=== PATIENT | male | born 1945 | race Caucasian/White ===

== ENCOUNTER → 2018-03-13 11:16 | Outpatient (CLI) | payer OTHER, SELFPAY ==
[2018-03-13 11:24] LABS: Bacteria Urine None Seen
[2018-03-13 12:10] LABS: Add Manual Diff / Slide Review NO; Basophils Percent Auto 0.4 % (0-2); Eosinophils Percent Auto 3.2 % (2-4); Hematocrit 55.2 % (41-53); Hemoglobin 18.6 g/dL (13.5-17.5); Lymphocytes Percent Auto 11.7 % (25-40); Mean Corpuscular HGB Conc 33.6 % (30-36); Mean Corpuscular Hemoglobin 31.1 PG (26-34); Mean Corpuscular Volume 92.5 fL (80-100); Neutrophils Absolute Auto 9600 /uL (3000-5900); Neutrophils Percent Auto 78.7 % (50-75); Platelet Count 156 X10^3/uL (150-400); Red Blood Cell Count 5.97 X10^6/uL (4.5-5.9); Red Cell Distribution Width 14.2 % (11.6-14.8); White Blood Cell Count 12.3 X10^3/uL (4.5-11.0)
[2018-03-13 12:33] LABS: Alanine Aminotransferase 45 IU/L (21-72); Albumin 4.5 g/dL (3.5-5.0); Albumin Globulin Ratio 1.6 (1.0-2.8); Alkaline Phosphatase 105 U/L (38-126); Aspartate Aminotransferase 35 IU/L (17-59); Bilirubin Total 0.5 mg/dL (0.2-1.3); Blood Urea Nitrogen 25 mg/dL (9-20); Calcium 9.6 mg/dL (8.4-10.2); Carbon Dioxide 26 mmol/L (22-32); Chloride 104 mmol/L (98-107); Cholesterol 140 mg/dL (140-199); Estimated Glomerular Filt Rate > 60.0 mL/min (>60); Globulin 2.8 g/dL (1.7-4.1); Glucose 115 mg/dL (80-110); HDL Cholesterol 51 mg/dL (40-60); HEMOLYSIS < 15 (0-50); LDL Cholesterol Calculated 65 mg/dL (<100); Potassium 4.9 mmol/L (3.4-5.1); Sodium 143 mmol/L (137-145); Total Protein 7.3 g/dL (6.3-8.2); Triglycerides 122 mg/dL (35-150)
[2018-03-13 12:37] LABS: Appearance Urine UA CLEAR; Bilirubin Urine UA NEGATIVE (NEGATIVE); Color Urine UA YELLOW; Glucose Urine UA NEGATIVE (Normal); Ketones Urine UA NEGATIVE (NEGATIVE); Leukocyte Esterase Urine UA NEGATIVE (NEGATIVE); Nitrite Urine UA NEGATIVE (Negative); Occult Blood Urine UA 1+ (Negative); Protein Urine UA 1+ (Negative); Urobilinogen Urine UA 0.2 E.U./dL (0.2)
[2018-03-13 12:49] LABS: Culture Indicated Urine Cult Not Indicated; RBC Urine 0-1/HPF (0-5/HPF); Squamous Epithelial Cell Urine 0-1 /HPF; WBC Urine 0-1/HPF (0-5/HPF)
[2018-03-13 13:01] LABS: Prostate Specific Antigen Scrn 3.79 ng/mL (0.1-4.0)
[2018-03-13 16:03] LABS: Hemoglobin A1C% w Est Avg Glu 6.2 % (4.0-6.0)
== END ==
PROVIDERS: PCP Family Medicine; Visit Provider Family Medicine
DX: I10 Essential (primary) hypertension (principal); R35.1 Nocturia; D75.1 Secondary polycythemia; E78.2 Mixed hyperlipidemia; R73.9 Hyperglycemia, unspecified; Z12.5 Encounter for screening for malignant neoplasm of prostate
CPT/HCPCS: 36415; 80053; 80061; 81001; 83036; 85025; G0103

== ENCOUNTER → 2018-08-19 11:39 | Outpatient (CLI) | payer OTHER, SELFPAY ==
[2018-08-19 12:23] LABS: Add Manual Diff / Slide Review NO; Basophils Absolute Auto 0 /uL (0-100); Basophils Percent Auto 0.3 % (0-2); Eosinophils Absolute Auto 200 /uL (0-450); Eosinophils Percent Auto 1.4 % (2-4); Hematocrit 54.7 % (41-53); Hemoglobin 18.5 g/dL (13.5-17.5); Hemoglobin A1C% w Est Avg Glu 6.3 % (4.0-6.0); Lymphocytes Absolute Auto 1400 /uL (1100-4500); Lymphocytes Percent Auto 11.1 % (25-40); Mean Corpuscular HGB Conc 33.8 % (30-36); Mean Corpuscular Hemoglobin 31.1 PG (26-34); Mean Corpuscular Volume 92.2 fL (80-100); Monocytes Absolute Auto 700 /uL (0-900); Monocytes Percent Auto 5.4 % (3-14); Neutrophils Absolute Auto 10400 /uL (1500-7000); Neutrophils Percent Auto 81.8 % (50-75); Platelet Count 133 X10^3/uL (150-400); Red Blood Cell Count 5.93 X10^6/uL (4.5-5.9); Red Cell Distribution Width 14.7 % (11.6-14.8); White Blood Cell Count 12.7 X10^3/uL (4.5-11.0)
[2018-08-19 12:24] LABS: BUN Creatinine Ratio 22.5 (6-22); Blood Urea Nitrogen 18 mg/dL (9-20); Calcium 9.4 mg/dL (8.4-10.2); Carbon Dioxide 27 mmol/L (22-32); Chloride 104 mmol/L (98-107); Estimated Glomerular Filt Rate > 60.0 mL/min (>60); Glucose 122 mg/dL (80-110); HEMOLYSIS 16 (0-50); Potassium 4.6 mmol/L (3.4-5.1); Sodium 138 mmol/L (137-145)
[2018-08-20 17:03] LABS: Hep C Virus Ab w/Reflex Quant NEGATIVE s/c (NEGATIVE)
== END ==
PROVIDERS: PCP Family Medicine; Visit Provider Family Medicine
DX: I10 Essential (primary) hypertension (principal); R73.03 Prediabetes; D75.1 Secondary polycythemia; Z11.59 Encounter for screening for other viral diseases
CPT/HCPCS: 36415; 80048; 83036; 85025; 86803

== ENCOUNTER → 2019-02-24 11:47 | Outpatient (CLI) | payer OTHER, SELFPAY ==
[2019-02-24 12:35] LABS: Add Manual Diff / Slide Review NO; Basophils Absolute Auto 100 /uL (0-100); Basophils Percent Auto 0.5 % (0-2); Eosinophils Absolute Auto 100 /uL (0-450); Eosinophils Percent Auto 0.9 % (2-4); Hematocrit 51.7 % (41-53); Hemoglobin 17.7 g/dL (13.5-17.5); Lymphocytes Absolute Auto 1600 /uL (1100-4500); Lymphocytes Percent Auto 11.8 % (25-40); Mean Corpuscular HGB Conc 34.3 % (30-36); Mean Corpuscular Hemoglobin 31.5 PG (26-34); Monocytes Absolute Auto 800 /uL (0-900); Monocytes Percent Auto 5.9 % (3-14); Neutrophils Absolute Auto 10800 /uL (1500-7000); Neutrophils Percent Auto 80.9 % (50-75); Platelet Count 149 X10^3/uL (150-400); Red Blood Cell Count 5.62 X10^6/uL (4.5-5.9); Red Cell Distribution Width 14.4 % (11.6-14.8); White Blood Cell Count 13.4 X10^3/uL (4.5-11.0)
[2019-02-24 14:08] LABS: Alanine Aminotransferase 37 IU/L (21-72); Albumin 4.5 g/dL (3.5-5.0); Albumin Globulin Ratio 1.5 (1.0-2.8); Alkaline Phosphatase 124 U/L (38-126); Aspartate Aminotransferase 29 IU/L (17-59); Bilirubin Total 0.5 mg/dL (0.2-1.3); Blood Urea Nitrogen 20 mg/dL (9-20); Calcium 9.8 mg/dL (8.4-10.2); Carbon Dioxide 24 mmol/L (22-32); Chloride 105 mmol/L (98-107); Estimated Glomerular Filt Rate > 60.0 mL/min (>60); Globulin 3.1 g/dL (1.7-4.1); Glucose 124 mg/dL (80-110); HEMOLYSIS 17 (0-50); Potassium 4.8 mmol/L (3.4-5.1); Sodium 138 mmol/L (137-145); Total Protein 7.6 g/dL (6.3-8.2)
[2019-02-24 14:15] LABS: Hemoglobin A1C% w Est Avg Glu 6.3 % (4.0-6.0)
== END ==
PROVIDERS: PCP Family Medicine; Visit Provider Family Medicine
DX: R73.03 Prediabetes (principal); D75.1 Secondary polycythemia
CPT/HCPCS: 36415; 80053; 83036; 85025

== ENCOUNTER → 2019-10-01 12:18 | Outpatient (CLI) | payer OTHER, SELFPAY ==
[2019-10-01 13:28] LABS: BUN Creatinine Ratio 18.6 (6-22); Blood Urea Nitrogen 16 mg/dL (9-20); Calcium 9.8 mg/dL (8.4-10.2); Carbon Dioxide 26 mmol/L (22-32); Chloride 102 mmol/L (98-107); Estimated Glomerular Filt Rate > 60.0 mL/min (>60); Glucose 136 mg/dL (80-110); HEMOLYSIS < 15 (0-50); Potassium 4.3 mmol/L (3.4-5.1); Sodium 137 mmol/L (137-145)
[2019-10-01 13:34] LABS: Hematocrit 55.8 % (41-53); Hemoglobin 19.2 g/dL (13.5-17.5); Mean Corpuscular HGB Conc 34.3 % (30-36); Mean Corpuscular Hemoglobin 31.4 PG (26-34); Mean Corpuscular Volume 91.5 fL (80-100); Platelet Count 131 X10^3/uL (150-400); Red Cell Distribution Width 14.3 % (11.6-14.8); White Blood Cell Count 11.4 X10^3/uL (4.5-11.0)
[2019-10-01 13:37] LABS: Hemoglobin A1C% w Est Avg Glu 7.1 % (4.0-6.0)
[2019-10-01 13:53] LABS: Neutrophils Absolute Manual 8778 /uL (3000-5900); Total Cells Counted 100
[2019-10-01 13:54] LABS: RBC Morphology Normal Morphology
== END ==
PROVIDERS: PCP Family Medicine; Referring Provider Family Medicine; Visit Provider Family Medicine
DX: I10 Essential (primary) hypertension (principal); R73.03 Prediabetes; D72.829 Elevated white blood cell count, unspecified
CPT/HCPCS: 36415; 80048; 83036; 85025

== ENCOUNTER → 2019-10-21 11:32 | Outpatient (CLI) | payer OTHER, SELFPAY ==
[2019-10-21 12:41] LABS: Hematocrit 53.5 % (41-53); Hemoglobin 18.4 g/dL (13.5-17.5); Mean Corpuscular HGB Conc 34.4 % (30-36); Mean Corpuscular Hemoglobin 31.6 PG (26-34); Mean Corpuscular Volume 91.9 fL (80-100); Platelet Count 127 X10^3/uL (150-400); Red Blood Cell Count 5.82 X10^6/uL (4.5-5.9); Red Cell Distribution Width 14.4 % (11.6-14.8); White Blood Cell Count 12.4 X10^3/uL (4.5-11.0)
[2019-10-21 12:58] LABS: Neutrophils Absolute Manual 10044 /uL (3000-5900); Total Cells Counted 100
[2019-10-21 13:00] LABS: RBC Morphology Normal Morphology
== END ==
PROVIDERS: PCP Family Medicine; Referring Provider Family Medicine; Visit Provider Family Medicine
DX: D75.1 Secondary polycythemia (principal)
CPT/HCPCS: 36415; 85025

== ENCOUNTER → 2019-11-20 13:16 | Outpatient (CLI) | payer OTHER, SELFPAY ==
[2019-11-20 15:58] LABS: Creatinine Urine Random 123.2 mg/dL
[2019-11-20 16:43] LABS: Microalbumi Creatinin Ratio Ur 542.2 ug/mg CR (<30); Microalbumin Urine Random 66.8 mg/dL (0-1.6)
--- NOTE | 2019-11-24 13:03 | ONC.MSW ---
Description: New Referral Navigation Referral Reason: Polycythemia Activity: Reviewed referral for acuity, medical status, and immediate needs. Forwarded to scheduling for next available initial consult time.
== END ==
PROVIDERS: PCP Family Medicine; Visit Provider Family Medicine
DX: E11.9 Type 2 diabetes mellitus without complications (principal)
CPT/HCPCS: 82043; 82570

== ENCOUNTER → 2019-12-25 11:17 | Outpatient (CLI) | payer OTHER, SELFPAY ==
--- NOTE | 2019-12-25 12:55 | DIET.PN ---
Diabetes Intake: Initial Assessment Assess: Mr. Sherman is a 74 YOM referred for type 2 diabetes. He is newly diagnosed, but does not believe this report is accurate. He states he does not eat sweets or pre-packaged foods. He does not drink alcohol or any sugar sweetened beverages aside from milk. Since diagnosis he has been working to lose weight by limiting intake to 1 meal per day. He is unable to exercise due to severe sciatic pain. He does not have a glucometer and is not interested in glucose monitoring. He does not endorse any side effects associated with diabetes. Labs: Per pt report: A1c: 7.1 Microalb/cr: 542.2 Meds: metformin 500mg qd Diet: per 24 hr recall: B: none L: sandwich D: fired chicken; pizza; spaghetti; pasta salad; veggies S: Nauruan muffin w/ pb and jam Wt: 231.5 lb Ht: 70 in BMI: 33.3 DX: Altered nutrition related laboratory values related to impaired glucose metabolism, lack of previous exposure to nutrition information as evidenced by pt report, diagnosis of diabetes, previous diet high in refined carbohydrates. Intervention: 1. Completed intake assessment. Discussed barriers to care. 2. Discussed pathophysiology of diabetes. Reviewed A1c and its correlation to blood glucose numbers. Discussed recommended BG ranges. 3. Discussed importance of self-monitoring, how often, and when to check. Provided demonstration on use of glucometer. 4. Reviewed hyper/hypoglycemia and treatment. 5. Reviewed safe disposal of equipment (strip/lancets/insulin needles). 6. Created SMART goals for pt self-care and success. 7. Discussed program curriculum outline and class needs based on individual goals. SMART Goals: 1. Pt would like to lose 50 lbs (goal weight 180) in the next year through better dietary habits and trying to exercise. Monitor/Evaluate: Patient has requested to postpone the start of the program until he meets with his provider to discuss new labs in
== END ==
PROVIDERS: PCP Family Medicine; Referring Provider Family Medicine; Visit Provider Family Medicine
DX: E11.9 Type 2 diabetes mellitus without complications (principal)
CPT/HCPCS: G0108

== ENCOUNTER → 2020-08-03 11:59 | Outpatient (CLI) | payer OTHER, SELFPAY ==
[2020-08-03 14:39] LABS: Alanine Aminotransferase 42 IU/L (<50); Albumin 4.3 g/dL (3.5-5.0); Albumin Globulin Ratio 1.3 (1.0-2.8); Alkaline Phosphatase 123 U/L (38-126); Aspartate Aminotransferase 36 IU/L (17-59); BUN Creatinine Ratio 22.9 (6-22); Bilirubin Total 0.4 mg/dL (0.2-1.3); Blood Urea Nitrogen 22 mg/dL (9-20); Calcium 9.9 mg/dL (8.4-10.2); Carbon Dioxide 22 mmol/L (22-32); Chloride 102 mmol/L (98-107); Estimated Glomerular Filt Rate > 60.0 mL/min (>60); Globulin 3.4 g/dL (1.7-4.1); Glucose 240 mg/dL (80-110); HEMOLYSIS 20 (0-50); Potassium 4.6 mmol/L (3.4-5.1); Sodium 135 mmol/L (137-145); Total Protein 7.7 g/dL (6.3-8.2); Uric Acid 6.1 mg/dL (3.5-8.5)
== END ==
PROVIDERS: PCP Family Medicine; Referring Provider Family Medicine; Visit Provider Family Medicine
DX: E11.9 Type 2 diabetes mellitus without complications (principal); M10.9 Gout, unspecified
CPT/HCPCS: 36415; 80053; 84550

== ENCOUNTER 2020-09-20 14:19 | Inpatient (IN) | payer OTHER, SELFPAY ==
[2020-09-20] VITALS (24 sets, daily range): BP systolic 102–157; BP diastolic 52–83; PULSE 71–103; RESP 12–33; TEMP 36.6–38.2; O2SAT 86–100; BMI 31.6
--- NOTE | 2020-09-20 14:49 | DI.RAD.S_ITS ---
PROCEDURE: XR ACUTE ABDOMEN SERIES INDICATIONS: distension TECHNIQUE: One view chest and two views of the abdomen were acquired. COMPARISON: [facility], CT, CT ABD RENAL PROTOCOL, 01/17/2017, 11:36. [facility], CR, CHEST 2 VIEW, 10/12/2016, 9:47. FINDINGS: Surgical changes and devices: None. Chest: No pleural effusion or pneumothorax. Patchy consolidation involving the right upper lobe. There is also left lower lobe and left mid lung patchy consolidative opacity as well as ground-glass opacities. Abdomen: No definite transition point is seen. There is mild stool. Scattered air-fluid levels are present. Rim calcified left renal cyst incidentally noted as seen on the comparison CT. Bones: No suspicious bony lesions. IMPRESSION: Scattered air-fluid levels. No specific evidence of bowel obstruction seen at this time although if the patient's symptoms do not improve, continued surveillance with abdominal series radiographs could be performed. Bilateral patchy consolidative and ground-glass opacities suggestive of multifocal pneumonia and/or aspiration. If there is persistent clinical diagnostic uncertainty, continued surveillance with short interval radiographic followup after treatment is recommended. Recommend follow-up to document resolution and exclude underlying pulmonary nodule. Dictated by: Ray Dodd M.D. on 09/20/2020 at 15:05 Approved by: Ray Dodd M.D. on 09/20/2020 at 15:10
--- NOTE | 2020-09-20 15:04 | ED_ITS ---
HPI - Abdominal Pain General Chief Complaint: Abdominal Pain Stated Complaint: Swollen Belly, SOB, Hard As A Basketball Time Seen by Provider: 09/20/20 14:35 Source: patient and family Mode of arrival: Wheelchair Limitations: no limitations History of Present Illness HPI narrative: 75-year-old male former smoker with history of polycythemia vera, type 2 diabetes, history of diverticulitis with perforation, hypertension, hyperlipidemia presents with his in the chief complaint of gradually worsening abdominal pain distension nausea and vomiting with decreased bowel movements over the past 5 days. He states the symptoms are starting to remind him of his prior perforation. He denies any chest pain but states he is developing increasing shortness of breath, presumably due to his swelling belly. He is still passing gas without trouble. His last solids were many days ago any had some clear liquids earlier this afternoon. He has had no fever or chills. He really does not complain of significant pain in his abdomen just pressure and fullness. He denies any liver history. He denies any obvious pro vocation, palliation or radiation of his symptoms MD complaint: abdominal pain Onset (ago): day(s) Pain Consistency: constant Location: diffuse Severity: mild Quality: cramping and aching Migration to: no migration Relieving factors: nothing Exacerbating factors: nothing Associated symptoms: nausea and vomiting Related Data Home Medications Medication Instructions Recorded Confirmed vitamin B complex [B 1 tab PO QDAY #0 12/12/16 09/20/20 Complex-Vitamin B12] multivitamin 1 tab PO DAILY 02/18/20 09/20/20 metformin 1,000 mg PO BID 09/20/20 09/20/20 Previous Rx's Medication Instructions Recorded atorvastatin 20 mg tablet 20 mg PO HS #90 tab 09/18/19 metoprolol succinate 25 mg 50 mg PO DAILY #180 tab 02/05/20 tablet,extended release 24 hr losartan 100 mg tablet 100 mg PO DAILY #90 tab 02/16/20 Allergies Allergy/AdvReac Type Severity Reaction Status Date / Time No Known Drug Allergies Allergy Verified 09/20/20 14:58 Review of Systems Constitutional Constitutional: Denies chills, Denies fatigue, Denies fever(s), Denies frequent falls, Denies lethargy and Denies weakness Eyes Eyes: Denies change in vision, Denies eye discharge, Denies irritation and Denies loss of vision ENT Ears, Nose, Mouth, and Throat: Denies change in voice, Denies dizziness, Denies neck pain, Denies sore throat and Denies throat swelling Cardiovascular Cardiovascular: Denies chest pain, Denies irregular heart rhythm, Denies lightheadedness, Denies palpitations, Denies dyspnea, Denies dyspnea on exertion and Denies orthopnea Respiratory Respiratory: Denies cough, Denies dyspnea, Denies dyspnea on exertion and Denies wheezing Gastrointestinal Gastrointestinal: Reports abdominal pain, Denies change in bowel habits, Denies diarrhea, Reports nausea and Reports vomiting Musculoskeletal Musculoskeletal: Denies neck pain and Denies numbness Integumentary/Breasts Skin/Breast: Denies pruritus, Denies erythema, Denies rash and Denies wounds Neurologic Neurologic: Denies behavioral changes, Denies confusion, Denies dizziness, Denies frequent falls, Denies loss of vision, Denies numbness and Denies weakness Psychiatric Psychiatric: Denies anxiety, Denies behavioral changes, Denies confusion, Denies depression, Denies homicidal ideation and Denies suicidal ideation Endocrine Endocrine: Denies fatigue, Denies flushing and Denies palpitations Hematologic/Lymphatic Hematologic/Lymphatic: Denies easy bruising Allergic/Immunologic Allergic/Immunologic: Denies urticaria, Denies throat swelling and Denies wheezing Patient History Medical History (Updated 09/20/20 @ 17:44 by Eduardo Mcguire DO) Back problem Chicken pox Chronic back pain Diverticular disease (~1996) Hearing deficit Measles Mumps Plantar warts Sciatic nerve pain Tinnitus Type 2 diabetes mellitus Vision disorder Surgical History Anesthesia Fractures (~08/1962) History of colon surgery (~03/1997) History of tonsillectomy (~1947) Status post hernia repair (~2002) Family History Brother Cancer Grandmother Heart disease Mother Stroke Loud snoring Hypertension Brother No problems noted. Son No problems noted. Grandfather Loud snoring Sister No problems noted. Father Loud snoring Family/Other Hypertension Heart disease Alcohol abuse Substance abuse Social History Smoking Status: Former smoker alcohol intake: current (Once every 6 months) substance use type: does not use eating out: 1-3 times/week Type(s) of exercise: none Smoking Status: Former smoker tobacco type: cigarettes Substance Use Type: does not use Exam Narrative Exam Narrative: GENERAL: [75] year old patient appears stated age. Well- nourished, well-developed patient, in obvious distress, ill-appearing. Initial pulse ox in the low 80s with rapid shallow breathing HEAD: Atraumatic. Normocephalic. EYES: Pupils equal round and reactive. Extraocular motions intact. No scleral icterus. No injection or drainage. ENT: Nose without bleeding, purulent drainage. Throat without erythema, tonsillar hypertrophy or exudate. Airway patent. NECK: Trachea midline. Non tender CARDIOVASCULAR: Tachycardic rhythm without murmurs, gallops, or rubs. RESPIRATORY: Rapid shallow breathing, faint crackles in bilateral bases, perhaps left greater than right. GASTROINTESTINAL: Firm distended, decreased bowel sounds throughout. EXTREMITIES: No edema or joint tenderness. BACK: Nontender without deformity or crepitance. No flank tenderness. NEURO: AOx3. SKIN: No rash or erythema of visible areas Initial Vital Signs Initial Vital Signs: Vital Signs Temperature 99.8 F H 09/20/20 14:24 Pulse Rate 103 H 09/20/20 14:24 Respiratory Rate 12 09/20/20 14:24 Blood Pressure 139/71 09/20/20 14:24 Pulse Oximetry 86 L 09/20/20 14:24 Course Orders Ordered: ED Orders 09/20/20 14:34 EKG-12 Lead Stat 09/20/20 14:49 XR acute abdomen series Stat 09/20/20 14:50 Complete Blood Count AUTO DIFF Stat Comprehensive Metabolic Panel Stat Lactate (Lactic Acid) Stat Lipase Stat NT-proBNP (BNP-Adult 18+) Stat Partial Thromboplastin Time Stat Prothrombin Time INR Stat Troponin & CK Cardiac Panel Stat 09/20/20 14:52 COVID19 -Nasal swab/Pre-Proc Stat 09/20/20 14:56 COVID19 - ADMIT ([employer] swab/PCR) Stat 09/20/20 14:58 ABG [Arterial Blood Gas] Stat 09/20/20 15:11 Arterial Blood Gas Routine 09/20/20 15:15 CT chest abd pel w con Stat Lactated Ringer's (Lactated Ringers) 2,259 mls @ 753 mls/hr 30 ml/kg infuse over 3 hr (2259 ml) IV NOW ONE Stop: 09/20/20 18:06 Last Admin: 09/20/20 15:25 Dose: 753 mls/hr Documented by: YOBANI Discontinued Medications Acetaminophen (Acetaminophen 325 Mg Tablet) 650 mg PO NOW ONE Stop: 09/20/20 16:47 Last Admin: 09/20/20 16:50 Dose: 650 mg Documented by: YOBANI Levofloxacin (Levaquin) 750 mg in 150 mls @ 100 mls/hr IV NOW ONE Stop: 09/20/20 16:36 Last Infusion: 09/20/20 17:12 Dose: 0 mls/hr Documented by: Admin: 09/20/20 15:24 Dose: 100 mls/hr Documented by: YOBANI Vital Signs Vital signs: Vital Signs - 8 hr 09/20/20 14:24 09/20/20 15:17 09/20/20 15:30 Temperature 99.8 F H Pulse Rate 103 H 98 H 94 H Respiratory Rate 12 21 29 H Blood Pressure 139/71 139/79 Pulse Oximetry 86 L 94 94 09/20/20 15:45 09/20/20 16:00 09/20/20 16:01 Temperature Pulse Rate 94 H 92 H 92 H Respiratory Rate 27 H 23 26 H Blood Pressure 157/68 H 138/63 Pulse Oximetry 91 93 93 09/20/20 16:15 09/20/20 16:30 09/20/20 16:44 Temperature 100.8 F H Pulse Rate 93 H 93 H Respiratory Rate 24 29 H Blood Pressure 128/55 L Pulse Oximetry 93 93 09/20/20 16:45 09/20/20 16:50 Temperature 100.8 F H Pulse Rate 97 H Respiratory Rate 29 H Blood Pressure Pulse Oximetry 94 MDM - Abdominal Pain Lab Data Result diagrams: 09/20/20 14:50 09/20/20 14:50 Labs: Lab Results 09/20/20 09/20/20 09/20/20 Range/Units 14:50 14:50 14:50 WBC 15.5 H (4.5-11.0) X10^3/uL RBC 5.47 (4.5-5.9) X10^6/uL Hgb 16.4 (13.5-17.5) g/dL Hct 48.1 (41-53) % MCV 88.0 (80-100) fL MCH 30.0 (26-34) PG MCHC 34.1 (30-36) % RDW 14.7 (11.6-14.8) % Plt Count 73 L (150-400) X10^3/uL Neut % (Auto) Not Reportable Lymph % (Auto) Not Reportable [place] % (Auto) Not Reportable Eos % (Auto) Not Reportable Baso % (Auto) Not Reportable Lymph # (Auto) Not Reportable [place] # (Auto) Not Reportable Baso # (Auto) Not Reportable Total Counted 100 Seg Neutrophils % 42.0 (38-70) % Band Neutrophils % 52.0 H (3-7) % Lymphocytes % (Manual) 3.0 L (25-45) % Monocytes % (Manual) 3.0 (2-11) % Eosinophils % (Manual) 0.0 L (2-4) % Basophils % (Manual) 0.0 (0-1) % Neutrophils # (Manual) 34960 H (0225-4922) /uL Toxic Vacuolation 2 RBC Morphology Not Reportable Anisocytosis 1+ H PT 13.5 H (10.1-12.7) SECONDS INR 1.2 (0.9-1.3) APTT 35 (26.4-36.2) SECONDS ABG pH (7.35-7.45) ABG pCO2 (35-45) mmHg ABG pO2 (80-100) mmHg ABG HCO3 (22-26) mmol/L ABG Total CO2 (21-31) mmol/L ABG O2 Saturation (95-100) % ABG Base Excess (-2-2) mmol/L FiO2 Sodium 128 L (137-145) mmol/L Potassium 4.1 (3.4-5.1) mmol/L Chloride 92 L (98-107) mmol/L Carbon Dioxide 24 (22-32) mmol/L BUN 30 H (9-20) mg/dL Creatinine 1.18 (0.66-1.25) mg/dL Estimated GFR > 60.0 (>60) mL/min BUN/Creatinine Ratio 25.4 H (6-22) Glucose 232 H (80-110) mg/dL Lactate (0.7-2.1) mmol/L Calcium 9.0 (8.4-10.2) mg/dL Total Bilirubin 1.0 (0.2-1.3) mg/dL AST 65 H (17-59) IU/L ALT 61 H (<50) IU/L Alkaline Phosphatase 128 H (38-126) U/L Total Creatine Kinase (55-170) U/L CK-MB (CK-2) (<2.37) ng/mL CK-MB (CK-2) Rel Index (1.5-5.0) % Troponin I (0.01-0.034) ng/mL NT-Pro-B Natriuret Pep (<450) pg/mL Total Protein 7.3 (6.3-8.2) g/dL Albumin 3.5 (3.5-5.0) g/dL Globulin 3.8 (1.7-4.1) g/dL Albumin/Globulin Ratio 0.9 L (1.0-2.8) Lipase 36 (23-300) U/L SARS-CoV-2 (PCR) (Negative) 09/20/20 09/20/20 09/20/20 Range/Units 14:50 14:50 14:52 WBC (4.5-11.0) X10^3/uL RBC (4.5-5.9) X10^6/uL Hgb (13.5-17.5) g/dL Hct (41-53) % MCV (80-100) fL MCH (26-34) PG MCHC (30-36) % RDW (11.6-14.8) % Plt Count (150-400) X10^3/uL Neut % (Auto) Lymph % (Auto) [place] % (Auto) Eos % (Auto) Baso % (Auto) Lymph # (Auto) [place] # (Auto) Baso # (Auto) Total Counted Seg Neutrophils % (38-70) % Band Neutrophils % (3-7) % Lymphocytes % (Manual) (25-45) % Monocytes % (Manual) (2-11) % Eosinophils % (Manual) (2-4) % Basophils % (Manual) (0-1) % Neutrophils # (Manual) (3489-3103) /uL Toxic Vacuolation RBC Morphology Anisocytosis PT (10.1-12.7) SECONDS INR (0.9-1.3) APTT (26.4-36.2) SECONDS ABG pH (7.35-7.45) ABG pCO2 (35-45) mmHg ABG pO2 (80-100) mmHg ABG HCO3 (22-26) mmol/L ABG Total CO2 (21-31) mmol/L ABG O2 Saturation (95-100) % ABG Base Excess (-2-2) mmol/L FiO2 Sodium (137-145) mmol/L Potassium (3.4-5.1) mmol/L Chloride (98-107) mmol/L Carbon Dioxide (22-32) mmol/L BUN (9-20) mg/dL Creatinine (0.66-1.25) mg/dL Estimated GFR (>60) mL/min BUN/Creatinine Ratio (6-22) Glucose (80-110) mg/dL Lactate 2.3 H (0.7-2.1) mmol/L Calcium (8.4-10.2) mg/dL Total Bilirubin (0.2-1.3) mg/dL AST (17-59) IU/L ALT (<50) IU/L Alkaline Phosphatase (38-126) U/L Total Creatine Kinase 101 (55-170) U/L CK-MB (CK-2) 2.97 H (<2.37) ng/mL CK-MB (CK-2) Rel Index 2.9 (1.5-5.0) % Troponin I 0.012 (0.01-0.034) ng/mL NT-Pro-B Natriuret Pep 427 (<450) pg/mL Total Protein (6.3-8.2) g/dL Albumin (3.5-5.0) g/dL Globulin (1.7-4.1) g/dL Albumin/Globulin Ratio (1.0-2.8) Lipase (23-300) U/L SARS-CoV-2 (PCR) Negative (Negative) 09/20/20 09/20/20 Range/Units 14:56 15:11 WBC (4.5-11.0) X10^3/uL RBC (4.5-5.9) X10^6/uL Hgb (13.5-17.5) g/dL Hct (41-53) % MCV (80-100) fL MCH (26-34) PG MCHC (30-36) % RDW (11.6-14.8) % Plt Count (150-400) X10^3/uL Neut % (Auto) Lymph % (Auto) [place] % (Auto) Eos % (Auto) Baso % (Auto) Lymph # (Auto) [place] # (Auto) Baso # (Auto) Total Counted Seg Neutrophils % (38-70) % Band Neutrophils % (3-7) % Lymphocytes % (Manual) (25-45) % Monocytes % (Manual) (2-11) % Eosinophils % (Manual) (2-4) % Basophils % (Manual) (0-1) % Neutrophils # (Manual) (6254-6555) /uL Toxic Vacuolation RBC Morphology Anisocytosis PT (10.1-12.7) SECONDS INR (0.9-1.3) APTT (26.4-36.2) SECONDS ABG pH 7.51 H (7.35-7.45) ABG pCO2 28.0 L (35-45) mmHg ABG pO2 66 L (80-100) mmHg ABG HCO3 22 (22-26) mmol/L ABG Total CO2 23 (21-31) mmol/L ABG O2 Saturation 95 (95-100) % ABG Base Excess -1.0 (-2-2) mmol/L FiO2 44 Sodium (137-145) mmol/L Potassium (3.4-5.1) mmol/L Chloride (98-107) mmol/L Carbon Dioxide (22-32) mmol/L BUN (9-20) mg/dL Creatinine (0.66-1.25) mg/dL Estimated GFR (>60) mL/min BUN/Creatinine Ratio (6-22) Glucose (80-110) mg/dL Lactate (0.7-2.1) mmol/L Calcium (8.4-10.2) mg/dL Total Bilirubin (0.2-1.3) mg/dL AST (17-59) IU/L ALT (<50) IU/L Alkaline Phosphatase (38-126) U/L Total Creatine Kinase (55-170) U/L CK-MB (CK-2) (<2.37) ng/mL CK-MB (CK-2) Rel Index (1.5-5.0) % Troponin I (0.01-0.034) ng/mL NT-Pro-B Natriuret Pep (<450) pg/mL Total Protein (6.3-8.2) g/dL Albumin (3.5-5.0) g/dL Globulin (1.7-4.1) g/dL Albumin/Globulin Ratio (1.0-2.8) Lipase (23-300) U/L SARS-CoV-2 (PCR) Negative (Negative) Imaging Data Chest x-ray: Radiologist's Impression: [address] [id number] ReportSigned Patient: Anjel Sherman JMR#: [id number]: 5Acct:[id number]/Sex: 75 / MDate of Service: 09/20/20Loc: EDAccession Number: [id number] Procedure: XR acute abdomen series Ordering Provider: Eduardo Mcguire D.O. PROCEDURE: XR ACUTE ABDOMEN SERIES INDICATIONS: distension TECHNIQUE: One view chest and two views of the abdomen were acquired. COMPARISON: [facility], CT, CT ABD RENAL PROTOCOL, 01/17/2017, 11:36. [facility], CR, CHEST 2 VIEW, 10/12/2016, 9:47. FINDINGS: Surgical changes and devices: None. Chest: No pleural effusion or pneumothorax. Patchy consolidation involving the right upper lobe. There is also left lower lobe and left mid lung patchy consolidative opacity as well as ground-glass opacities. Abdomen: No definite transition point is seen. There is mild stool. Scattered air-fluid levels are present. Rim calcified left renal cyst incidentally noted as seen on the comparison CT. Bones: No suspicious bony lesions. IMPRESSION: Scattered air-fluid levels. No specific evidence of bowel obstruction seen at this time although if the patient's symptoms do not improve, continued surveillance with abdominal series radiographs could be performed. Bilateral patchy consolidative and ground-glass opacities suggestive of multifocal pneumonia and/or aspiration. If there is persistent clinical diagnostic uncertainty, continued surveillance with short interval radiographic followup after treatment is recommended. Recommend follow-up to document resolution and exclude underlying pulmonary nodule. Dictated by: Ray Dodd M.D. on 09/20/2020 at 15:05 Approved by: Ray Dodd M.D. on 09/20/2020 at 15:10 CT scan - chest: Radiologist's Impression: [address] [id number] Scan ReportSigned Patient: Anjel Sherman JMR#: [id number]: 5Acct:[id number]/Sex: 75 / MDate of Service: 09/20/20Loc: EDAccession Number: [id number] Procedure: CT chest abd pel w con Ordering Provider: Eduardo Mcguire D.O. PROCEDURE: CT CHEST ABD PEL W CON INDICATIONS: severe hypoxemia, short of breath, severe abdominal pain TECHNIQUE: After the administration of intravenous contrast, 5 mm thick sections acquired from the lung apices to the symphysis. 5 mm coronal and sagittal reformats were performed, with additional 7 mm MIP reformats through the lungs. For radiation dose reduction, the following was used: automated exposure control, adjustment of mA and/or kV according to patient size. COMPARISON: None. FINDINGS: Image quality: Excellent. CHEST: Lungs and pleura: Multifocal pulmonary infiltrates noted throughout both lungs particularly in the right upper lobe, left lower lobe, and apical segment of the left upper lobe. There is underlying emphysematous changes noted both lungs particularly in the upper lungs. Small left pleural effusion noted. Mediastinum: Heart size is normal. There is dense coronary artery and aortic vascular calcification noted without aneurysm. Reactive appearing mediastinal lymph nodes measure up to 1 cm in short axis. Chest wall: No axillary or supraclavicular adenopathy by size criteria. Thy roid gland unremarkable . ABDOMEN: Solid organs: Liver is diffusely decreased in attenuation without focal mass lesion. Liver is also enlarged measuring 27 cm. There is a left renal cortical cyst measuring 2.6 cm shows mural calcification. No hydronephrosis. Small 2 mm right renal calculus present. 3.5 by 1.5 cm low-density left adrenal nodule incidentally noted. Right renal gland unremarkable. Gallbladder unremarkable . Biliary system is non dilated. Pancreas enhances normally. Spleen is normal in size and enhancement. Kidneys demonstrate normal size and enhancement, without hydronephrosis. Peritoneum and bowel: Bowel loops demonstrate normal wall thickness and calibe r. No free fluid or air. Nodes and vessels: No retroperitoneal or mesenteric adenopathy by size criteria. A dense calcified and non calcified aortic atherosclerotic plaque results in 50% stenosis in the distal aorta. No aneurysm or dissection present. Miscellaneous: No ventral hernias. PELVIS: Genitourinary: Bladder wall thickness is normal. Miscellaneous: No inguinal hernias or adenopathy. Bones: There are small hypoplastic T12 ribs and partial sacralization of the L5 vertebral body. 50% wedge-shaped compression fracture of L1 without retropulsed fracture fragment. A grade 2 anterior subluxation of L4 over L5 results from bilateral L4 pars defects. My bilateral inguinal hernias contain fat without bowel involvement. IMPRESSION: 1. Dense bilateral multifocal infiltrates consistent with pneumonia. Underlying pulmonary emphysematous changes noted. Small left pleural effusion and reactive appearing mediastinal adenopathy. 2. Hepatomegaly and hepatic fatty infiltration without focal mass lesion. 3. Incidental low-density homogeneous 3.5 cm left adrenal nodule . Consider nonemergent adrenal washout CT evaluation. 4. 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 Aortic atherosclerotic vascular calcification results in approximately 50% distal stenosis without aneurysm. Dictated by: Pio Martinez M.D. on 09/20/2020 at 16:02 Approved by: Pio Martinez M.D. on 09/20/2020 at 16:23 Discharge Plan Departure Patient Disposition: Admitted As Inpatient Clinical Impression: Sepsis, Bilateral pneumonia, Acute respiratory failure with hypoxemia Admit Date/Time: 09/20/20 17:37 Admit Provider: Kash Jason
[2020-09-20 15:12] LABS: Hematocrit 48.1 % (41-53); Hemoglobin 16.4 g/dL (13.5-17.5); Mean Corpuscular HGB Conc 34.1 % (30-36); Platelet Count 73 X10^3/uL (150-400); Red Blood Cell Count 5.47 X10^6/uL (4.5-5.9); Red Cell Distribution Width 14.7 % (11.6-14.8); White Blood Cell Count 15.5 X10^3/uL (4.5-11.0)
[2020-09-20 15:15] LABS: INR 1.2 (0.9-1.3); Prothrombin Time 13.5 SECONDS (10.1-12.7)
--- NOTE | 2020-09-20 15:15 | DI.CT.S_ITS ---
PROCEDURE: CT CHEST ABD PEL W CON INDICATIONS: severe hypoxemia, short of breath, severe abdominal pain TECHNIQUE: After the administration of intravenous contrast, 5 mm thick sections acquired from the lung apices to the symphysis. 5 mm coronal and sagittal reformats were performed, with additional 7 mm MIP reformats through the lungs. For radiation dose reduction, the following was used: automated exposure control, adjustment of mA and/or kV according to patient size. COMPARISON: None. FINDINGS: Image quality: Excellent. CHEST: Lungs and pleura: Multifocal pulmonary infiltrates noted throughout both lungs particularly in the right upper lobe, left lower lobe, and apical segment of the left upper lobe. There is underlying emphysematous changes noted both lungs particularly in the upper lungs. Small left pleural effusion noted. Mediastinum: Heart size is normal. There is dense coronary artery and aortic vascular calcification noted without aneurysm. Reactive appearing mediastinal lymph nodes measure up to 1 cm in short axis. Chest wall: No axillary or supraclavicular adenopathy by size criteria. Thyroid gland unremarkable . ABDOMEN: Solid organs: Liver is diffusely decreased in attenuation without focal mass lesion. Liver is also enlarged measuring 27 cm. There is a left renal cortical cyst measuring 2.6 cm shows mural calcification. No hydronephrosis. Small 2 mm right renal calculus present. 3.5 by 1.5 cm low-density left adrenal nodule incidentally noted. Right renal gland unremarkable. Gallbladder unremarkable . Biliary system is non dilated. Pancreas enhances normally. Spleen is normal in size and enhancement. Kidneys demonstrate normal size and enhancement, without hydronephrosis. Peritoneum and bowel: Bowel loops demonstrate normal wall thickness and caliber. No free fluid or air. Nodes and vessels: No retroperitoneal or mesenteric adenopathy by size criteria. A dense calcified and non calcified aortic atherosclerotic plaque results in 50% stenosis in the distal aorta. No aneurysm or dissection present. Miscellaneous: No ventral hernias. PELVIS: Genitourinary: Bladder wall thickness is normal. Miscellaneous: No inguinal hernias or adenopathy. Bones: There are small hypoplastic T12 ribs and partial sacralization of the L5 vertebral body. 50% wedge-shaped compression fracture of L1 without retropulsed fracture fragment. A grade 2 anterior subluxation of L4 over L5 results from bilateral L4 pars defects. My bilateral inguinal hernias contain fat without bowel involvement. IMPRESSION: 1. Dense bilateral multifocal infiltrates consistent with pneumonia. Underlying pulmonary emphysematous changes noted. Small left pleural effusion and reactive appearing mediastinal adenopathy. 2. Hepatomegaly and hepatic fatty infiltration without focal mass lesion. 3. Incidental low-density homogeneous 3.5 cm left adrenal nodule . Consider nonemergent adrenal washout CT evaluation. 4. 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 Aortic atherosclerotic vascular calcification results in approximately 50% distal stenosis without aneurysm. Dictated by: Pio Martinez M.D. on 09/20/2020 at 16:02 Approved by: Pio Martinez M.D. on 09/20/2020 at 16:23
[2020-09-20 15:18] LABS: PTT Partial Thromboplastin Tim 35 SECONDS (26.4-36.2)
[2020-09-20] MEDS: levoFLOXacin 750 MG/150 ML PIGGYBACK 100 MG IV (15:24)
[2020-09-20] MEDS: LACTATED RINGERS 2,259 ML 753 ML IV (15:25)
[2020-09-20 15:34] LABS: HCO3 ABG 22 mmol/L (22-26); Oxygen Saturation ABG 95 % (95-100); PO2 ABG 66 mmHg (80-100); TCO2 ABG 23 mmol/L (21-31); pH ABG 7.51 (7.35-7.45)
[2020-09-20 15:34] LABS: COVID19 -Nasal RAPID Negative (Negative)
[2020-09-20 15:49] LABS: Creatine Kinase 101 U/L (55-170); Lactate (Lactic Acid) 2.3 mmol/L (0.7-2.1)
[2020-09-20 15:54] LABS: Add Manual Diff / Slide Review YES; Total Cells Counted 100
[2020-09-20 15:55] LABS: Anisocytosis 1+; Neutrophils Absolute Manual 14570 /uL (3000-5900); Toxic Vacuolation 2
[2020-09-20 16:00] LABS: Fractionated Inspired Oxygen 44
[2020-09-20 16:02] LABS: NT-proBNP (BNP-Adult 18+) 427 pg/mL (<450); Troponin I 0.012 ng/mL (0.01-0.034)
[2020-09-20 16:04] LABS: CKMB % Relative Index 2.9 % (1.5-5.0); Creatine Kinase MB 2.97 ng/mL (<2.37)
[2020-09-20 16:26] LABS: Alanine Aminotransferase 61 IU/L (<50); Albumin 3.5 g/dL (3.5-5.0); Albumin Globulin Ratio 0.9 (1.0-2.8); Alkaline Phosphatase 128 U/L (38-126); Aspartate Aminotransferase 65 IU/L (17-59); BUN Creatinine Ratio 25.4 (6-22); Blood Urea Nitrogen 30 mg/dL (9-20); Carbon Dioxide 24 mmol/L (22-32); Chloride 92 mmol/L (98-107); Estimated Glomerular Filt Rate > 60.0 mL/min (>60); Globulin 3.8 g/dL (1.7-4.1); Glucose 232 mg/dL (80-110); HEMOLYSIS < 15 (0-50); Lipase 36 U/L (23-300); Potassium 4.1 mmol/L (3.4-5.1); Sodium 128 mmol/L (137-145); Total Protein 7.3 g/dL (6.3-8.2)
[2020-09-20] MEDS: ACETAMINOPHEN 325 MG TABLET 650 MG PO (16:50)
[2020-09-20 16:59] LABS: Reflexed Lactate in 2 Hours Y
[2020-09-20 17:00] LABS: COVID19 - ADMIT (NP swab/PCR) Negative (Negative)
[2020-09-20 17:47] LABS: Lactate 2HR (Lactic Acid Rflx) 1.6 mmol/L (0.7-2.1)
[2020-09-20] MEDS: AZITHROMYCIN 500 MG in DEXTROSE 5% IN WATER 250 ML IV (19:52)
[2020-09-20] MEDS: PIPERACILLIN-TAZO 4.5 GM/100 ML FROZ.PIGGY IV (19:54)
[2020-09-20] MEDS: methylPREDNISolone 125 MG/2 ML VIAL 60 MG IV (19:55)
--- NOTE | 2020-09-20 20:43 | PM.HP.1 ---
History of Present Illness History of Present Illness Date Patient Seen: 09/20/20 Time Patient Seen: 16:43 Chief complaint: Swollen Belly, SOB, Hard As A Basketball Narrative: Mr. Sherman is a 75M with PMH of diabetes, obesity, actively smoking, polycythemia vera thought secondary to possible DIVINA, previous diverticulitis with perforation, HTN, HL who comes in with 5 days of worsening shortness of breath, cough, fevers, and chills. He notes that he has also been unable to eat very well, he has a distended abdomen with nausea and vomiting. He has had a COVID vaccination. Because of the worsening shortness of breath he presented to the ER. In the ER he was noted to be febrile, tachycardic, tachypneic, and hypoxemic in the 80s on room air. Labs were notable for WBC of 15.5 with 52% bands, platelets of 73. ABD with pH of 7.51 with pco2 of 28. Sodium 128, BUN 30, creatinine 1.18. AST/ALT 65/61 with alk phos 128. Troponin negative. BNP 427. COVID negative. Chest xray showed bilateral patchy and ground glass opacities. CT showed multifocal pulmonary infiltrates. Emphysematous changes. Also noted hepatomegaly and hepatic infiltration. Incidental adrenal nodule noted. He was diagnosed with sepsis in the ER and started on IV antibiotics and IV fluids 30 cc/kg. He was admitted for further treatment. Patient History Medical History Back problem Chicken pox Chronic back pain Diverticular disease (~1996) Hearing deficit Measles Mumps Plantar warts Sciatic nerve pain Tinnitus Type 2 diabetes mellitus Vision disorder Surgical History Anesthesia Fractures (~08/1962) History of colon surgery (~03/1997) History of tonsillectomy (~1947) Status post hernia repair (~2002) Family & Social History Family History Brother Cancer Grandmother Heart disease Mother Stroke Loud snoring Hypertension Brother No problems noted. Son No problems noted. Grandfather Loud snoring Sister No problems noted. Father Loud snoring Family/Other Hypertension Heart disease Alcohol abuse Substance abuse Social History: household members spouse Prior Living Arrangements House Safety & Behavioral: Feels Safe in Current Yes Environment Been Physically Hurt or No Threatened By a Person Suicidal Ideation Description None Suicide Plan Description No Plan Tobacco & Substance use: Smoking Status Former smoker alcohol intake former Substance Use Type does not use Meds Home Medications and Allergies Home Medications Medication Instructions Recorded Confirmed Type vitamin B complex [B 1 tab PO QDAY #0 12/12/16 09/20/20 History Complex-Vitamin B12] atorvastatin 20 mg tablet 20 mg PO HS #90 tab 09/18/19 09/20/20 Rx metoprolol succinate 25 mg 50 mg PO DAILY #180 tab 02/05/20 09/20/20 Rx tablet,extended release 24 hr losartan 100 mg tablet 100 mg PO DAILY #90 tab 02/16/20 09/20/20 Rx multivitamin 1 tab PO DAILY 02/18/20 09/20/20 History metformin 1,000 mg PO BID 09/20/20 09/20/20 History Allergies Allergy/AdvReac Type Severity Reaction Status Date / Time No Known Drug Allergies Allergy Verified 09/20/20 14:58 Review of Systems Review of Systems Narrative: 14 systems reviewed and negative aside from HPI Exam Vital Signs (past 8 hours): - 09/20/20 14:24 09/20/20 15:17 09/20/20 15:30 Temperature 99.8 F H Pulse Rate 103 H 98 H 94 H Respiratory Rate 12 21 29 H Blood Pressure 139/71 139/79 Pulse Oximetry 86 L 94 94 09/20/20 15:45 09/20/20 16:00 09/20/20 16:01 Temperature Pulse Rate 94 H 92 H 92 H Respiratory Rate 27 H 23 26 H Blood Pressure 157/68 H 138/63 Pulse Oximetry 91 93 93 09/20/20 16:15 09/20/20 16:30 09/20/20 16:44 Temperature 100.8 F H Pulse Rate 93 H 93 H Respiratory Rate 24 29 H Blood Pressure 128/55 L Pulse Oximetry 93 93 09/20/20 16:45 09/20/20 16:50 09/20/20 17:00 Temperature 100.8 F H Pulse Rate 97 H 93 H Respiratory Rate 29 H 27 H Blood Pressure Pulse Oximetry 94 94 09/20/20 17:15 09/20/20 17:30 09/20/20 17:45 Temperature Pulse Rate 97 H 93 H 90 Respiratory Rate 29 H 33 H Blood Pressure 105/56 L Pulse Oximetry 92 93 94 09/20/20 17:56 09/20/20 18:00 09/20/20 18:15 Temperature Pulse Rate 90 86 81 Respiratory Rate 15 Blood Pressure 102/56 L 102/52 L Pulse Oximetry 97 98 98 09/20/20 18:16 09/20/20 18:30 09/20/20 18:45 Temperature Pulse Rate 81 76 75 Respiratory Rate 20 20 21 Blood Pressure 104/83 105/56 L Pulse Oximetry 99 99 100 09/20/20 18:47 09/20/20 19:20 Temperature 98 F Pulse Rate 74 80 Respiratory Rate 24 21 Blood Pressure 108/52 L 134/72 Pulse Oximetry 100 94 Oxygen Delivery Method Nasal Cannula Oxygen Flow Rate 6 Narrative Exam Narrative: GEN: obese man in moderate respiratory distress, diaphoretic HEENT: PERRL, dry mucous membranes NECK: trachea midline, no JVD CV: tachycardic, no murmurs PULM: wheezes and rhonchi bilaterally, decreased breath sounds at bases ABD: distended, +hepatomegaly, soft, nontender, normal bowel sounds EXT: warm and well perfused with no edema NEURO: AAOx3, moving all extremities SKIN: no rashes PSYCH: pleasant Objective Labs Result Diagrams: 09/20/20 14:50 09/20/20 14:50 Labs: Laboratory Results - last 24 hr 09/20/20 09/20/20 09/20/20 14:50 14:50 14:50 WBC 15.5 H RBC 5.47 Hgb 16.4 Hct 48.1 MCV 88.0 MCH 30.0 MCHC 34.1 RDW 14.7 Plt Count 73 L Neut % (Auto) Not Reportable Lymph % (Auto) Not Reportable Evangeline % (Auto) Not Reportable Eos % (Auto) Not Reportable Baso % (Auto) Not Reportable Lymph # (Auto) Not Reportable Evangeline # (Auto) Not Reportable Baso # (Auto) Not Reportable Total Counted 100 Seg Neutrophils % 42.0 Band Neutrophils % 52.0 H Lymphocytes % (Manual) 3.0 L Monocytes % (Manual) 3.0 Eosinophils % (Manual) 0.0 L Basophils % (Manual) 0.0 Neutrophils # (Manual) 26015 H Toxic Vacuolation 2 RBC Morphology Not Reportable Anisocytosis 1+ H PT 13.5 H INR 1.2 APTT 35 ABG pH ABG pCO2 ABG pO2 ABG HCO3 ABG Total CO2 ABG O2 Saturation ABG Base Excess FiO2 Sodium 128 L Potassium 4.1 Chloride 92 L Carbon Dioxide 24 BUN 30 H Creatinine 1.18 Estimated GFR > 60.0 BUN/Creatinine Ratio 25.4 H Glucose 232 H Lactate Calcium 9.0 Total Bilirubin 1.0 AST 65 H ALT 61 H Alkaline Phosphatase 128 H Total Creatine Kinase CK-MB (CK-2) CK-MB (CK-2) Rel Index Troponin I NT-Pro-B Natriuret Pep Total Protein 7.3 Albumin 3.5 Globulin 3.8 Albumin/Globulin Ratio 0.9 L Lipase 36 SARS-CoV-2 (PCR) 09/20/20 09/20/20 09/20/20 14:50 14:50 14:52 WBC RBC Hgb Hct MCV MCH MCHC RDW Plt Count Neut % (Auto) Lymph % (Auto) Evangeline % (Auto) Eos % (Auto) Baso % (Auto) Lymph # (Auto) Evangeline # (Auto) Baso # (Auto) Total Counted Seg Neutrophils % Band Neutrophils % Lymphocytes % (Manual) Monocytes % (Manual) Eosinophils % (Manual) Basophils % (Manual) Neutrophils # (Manual) Toxic Vacuolation RBC Morphology Anisocytosis PT INR APTT ABG pH ABG pCO2 ABG pO2 ABG HCO3 ABG Total CO2 ABG O2 Saturation ABG Base Excess FiO2 Sodium Potassium Chloride Carbon Dioxide BUN Creatinine Estimated GFR BUN/Creatinine Ratio Glucose Lactate 2.3 H Calcium Total Bilirubin AST ALT Alkaline Phosphatase Total Creatine Kinase 101 CK-MB (CK-2) 2.97 H CK-MB (CK-2) Rel Index 2.9 Troponin I 0.012 NT-Pro-B Natriuret Pep 427 Total Protein Albumin Globulin Albumin/Globulin Ratio Lipase SARS-CoV-2 (PCR) Negative 09/20/20 09/20/20 09/20/20 14:56 15:11 17:24 WBC RBC Hgb Hct MCV MCH MCHC RDW Plt Count Neut % (Auto) Lymph % (Auto) Evangeline % (Auto) Eos % (Auto) Baso % (Auto) Lymph # (Auto) Evangeline # (Auto) Baso # (Auto) Total Counted Seg Neutrophils % Band Neutrophils % Lymphocytes % (Manual) Monocytes % (Manual) Eosinophils % (Manual) Basophils % (Manual) Neutrophils # (Manual) Toxic Vacuolation RBC Morphology Anisocytosis PT INR APTT ABG pH 7.51 H ABG pCO2 28.0 L ABG pO2 66 L ABG HCO3 22 ABG Total CO2 23 ABG O2 Saturation 95 ABG Base Excess -1.0 FiO2 44 Sodium Potassium Chloride Carbon Dioxide BUN Creatinine Estimated GFR BUN/Creatinine Ratio Glucose Lactate 1.6 Calcium Total Bilirubin AST ALT Alkaline Phosphatase Total Creatine Kinase CK-MB (CK-2) CK-MB (CK-2) Rel Index Troponin I NT-Pro-B Natriuret Pep Total Protein Albumin Globulin Albumin/Globulin Ratio Lipase SARS-CoV-2 (PCR) Negative Assessment & Plan Assessment & Plan narrative: Mr. Sherman 75M PMH of active smoker, obesity, DM, probable DIVINA who comes in with cough, fevers, found to have pneumonia with acute respiratory failure and sepsis. 1. Acute bacterial pneumonia with sepsis and acute hypoxemic respiratory failure -has sepsis as evidenced by acute respiratory failure in setting with fever, tachycardia, elevated white count -sputum and blood cultures ordered -ordered for vancomycin, zosyn, azithro -ordered for 30cc/kg bolus of IVF in ED 2. Acute respiratory failure secondary to pneumonia and acute COPD exacerbation -patient has wheezing on exam and evidence on imaging of emphesematous changes -consistent with copd exacerbation -ordered for steroids, azithromycin, and duonebs -counselled to quit smoking as he is active smoker 3. Probable DIVINA -has been noted on previous outpatient notes -not using bipap -will order for overnight bipap 4. Acute thrombocytopenia -platelets of 72 -baseline unknown -possibly due to sepsis or liver disease -trend daily, no need for transfusion currently 5. Type 2 diabetes, with hyperglycemia -hold home dose of metformin -for now will be on sliding scale insulin -a1c 8.4 in may 6. HTN -hold anti-hypertensives given patient has sepsis 7. HL -hold statin with transaminitis 8. Transaminitis -mild with lfts in 60s -patient with significant hepatomegaly -hepatomegaly with hepatic fatty infiltration likely secondary to poorly controlled diabetes -trend lfts daily DIET: clears DVT ppx: lovenox sc IVF: none Code: full, proxy is paramjit Mccain MIPS - Admit I confirm the patient?s Advance Care Plan is present, Code status is documented, Surrogate decision maker is in patient?s record [If Yes, STOP here]: Yes
[2020-09-20] MEDS: ALBUTEROL/IPRATROPIUM 3 ML AMPUL INH (21:13)
[2020-09-20 21:35] LABS: Appearance Urine UA CLEAR; Bilirubin Urine UA NEGATIVE (NEGATIVE); Color Urine UA YELLOW; Glucose Urine UA TRACE g/dL (Negative); Ketones Urine UA NEGATIVE (NEGATIVE); Leukocyte Esterase Urine UA NEGATIVE (NEGATIVE); Nitrite Urine UA NEGATIVE (Negative); Occult Blood Urine UA 3+ (Negative); Protein Urine UA 2+ (Negative)
[2020-09-20] MEDS: INSULIN LISPRO 100 UNIT/ML 3ML VIAL SUBCUT (21:59)
[2020-09-20] MEDS: VANCOMYCIN 1,000 MG/200 ML PIGGYBACK 200 MG IV (22:00)
[2020-09-20 22:05] LABS: Bacteria Urine Occasional (0-1); Culture Indicated Urine Cult Not Indicated; Granular Casts Urine 1-5/LPF; Hyaline Casts Urine 1-5/LPF; RBC Urine 10-30/HPF (0-5/HPF); WBC Urine 1-5/HPF (0-5/HPF)
--- NOTE | 2020-09-20 22:38 | PC.ADMIT ---
[email or web address] Admission Note: The patient,Anjel Sherman,75 y/o, was given written information regarding hospital policies, unit procedures and contact persons. Patient's smoking status: Former smoker. Vital Signs - 8 hr 09/20/20 15:17 09/20/20 15:30 09/20/20 15:45 Temperature Pulse Rate 98 H 94 H 94 H Respiratory Rate 21 29 H 27 H Blood Pressure 139/79 157/68 H Pulse Oximetry 94 94 91 09/20/20 16:00 09/20/20 16:01 09/20/20 16:15 Temperature Pulse Rate 92 H 92 H 93 H Respiratory Rate 23 26 H 24 Blood Pressure 138/63 128/55 L Pulse Oximetry 93 93 93 09/20/20 16:30 09/20/20 16:44 09/20/20 16:45 Temperature 100.8 F H Pulse Rate 93 H 97 H Respiratory Rate 29 H 29 H Blood Pressure Pulse Oximetry 93 94 09/20/20 16:50 09/20/20 17:00 09/20/20 17:15 Temperature 100.8 F H Pulse Rate 93 H 97 H Respiratory Rate 27 H 29 H Blood Pressure Pulse Oximetry 94 92 09/20/20 17:30 09/20/20 17:45 09/20/20 17:56 Temperature Pulse Rate 93 H 90 90 Respiratory Rate 33 H Blood Pressure 105/56 L 102/56 L Pulse Oximetry 93 94 97 09/20/20 18:00 09/20/20 18:15 09/20/20 18:16 Temperature Pulse Rate 86 81 81 Respiratory Rate 15 20 Blood Pressure 102/52 L 104/83 Pulse Oximetry 98 98 99 09/20/20 18:30 09/20/20 18:45 09/20/20 18:47 Temperature Pulse Rate 76 75 74 Respiratory Rate 20 21 24 Blood Pressure 105/56 L 108/52 L Pulse Oximetry 99 100 100 09/20/20 19:20 09/20/20 21:13 Temperature 98 F Pulse Rate 80 82 Respiratory Rate 21 22 Blood Pressure 134/72 Pulse Oximetry 94 94 Patient admitted to ICU from ED at 1919 under care of hospitalists. Patient came to ER with complaints of SOB and bloating. Patient is on 6L O2 satting in the low 90s%. Vitals otherwise WNL. Two peripheral IVs, remainder of LR bolus from ED running. IV abx ordered. Patient's belongings at bedside, oriented to call light, able to make needs known.
[2020-09-21] VITALS (69 sets, daily range): BP systolic 83–171; BP diastolic 50–84; PULSE 58–98; RESP 8–35; TEMP 32–38.4; O2SAT 87–98
[2020-09-21] MEDS: ALBUTEROL/IPRATROPIUM 3 ML AMPUL INH ×6 (00:20→22:16)
[2020-09-21] MEDS: methylPREDNISolone 125 MG/2 ML VIAL 60 MG IV ×4 (01:00→20:18)
--- NOTE | 2020-09-21 04:11 | PC.NURSE ---
Addendum entered by Kristin Sotelo R.N. 09/21/20 07:20: Pt diaphoretic and bed bath given with fresh linens and gown. Fever subsided. Addendum entered by Kristin Sotelo R.N. 09/21/20 04:46: Elevated Temp, APAP given. C/o inability to sleep, likely r/t steroids, I am just wired reassured of side effect and will discuss options with provider for better sleep. Original Note: NOC shift Pt is A/o x4, cooperative. Currently 6L O2 via NC, discussion of CPAP use, Pt declines at present, not currently using at home, Although I should be, I know Reports ABD distention making deep breathing difficult, working on positioning to assist in better breathing, IS given by RT. IV HL, between ABX. Afebrile this shift, HR variable. ST 1st degree with activity. Denies pain. Lungs are coarse with exp exertional wheeze. Improved @ Duonebs. Rec. steroids IV. Tolerating ok, education provided about effects on CBG. Continue to hold home metformin and cover with SS.
[2020-09-21] MEDS: PIPERACILLIN-TAZO 4.5 GM/100 ML FROZ.PIGGY IV ×2 (04:23→11:57)
[2020-09-21] MEDS: ACETAMINOPHEN 325 MG TABLET 650 MG PO ×2 (04:36→16:19)
[2020-09-21 07:04] LABS: Add Manual Diff / Slide Review NO; Basophils Absolute Auto 0 /uL (0-100); Basophils Percent Auto 0.1 % (0-2); Eosinophils Absolute Auto 0 /uL (0-450); Hematocrit 42.2 % (41-53); Hemoglobin 14.1 g/dL (13.5-17.5); Lymphocytes Absolute Auto 100 /uL (1100-4500); Mean Corpuscular HGB Conc 33.4 % (30-36); Mean Corpuscular Hemoglobin 29.8 PG (26-34); Mean Corpuscular Volume 89.3 fL (80-100); Monocytes Absolute Auto 200 /uL (0-900); Monocytes Percent Auto 1.2 % (3-14); Neutrophils Absolute Auto 13700 /uL (1500-7000); Neutrophils Percent Auto 97.7 % (50-75); Platelet Count 66 X10^3/uL (150-400); Red Blood Cell Count 4.73 X10^6/uL (4.5-5.9); Red Cell Distribution Width 14.9 % (11.6-14.8)
[2020-09-21 07:20] LABS: Alanine Aminotransferase 49 IU/L (<50); Albumin 2.8 g/dL (3.5-5.0); Albumin Globulin Ratio 0.9 (1.0-2.8); Alkaline Phosphatase 98 U/L (38-126); Aspartate Aminotransferase 54 IU/L (17-59); Bilirubin Total 0.8 mg/dL (0.2-1.3); Bilirubin Unconjugated 0.3 mg/dL (0.0-1.1); HEMOLYSIS < 15 (0-50); Total Protein 5.8 g/dL (6.3-8.2)
[2020-09-21 07:22] LABS: BUN Creatinine Ratio 23.7 (6-22); Blood Urea Nitrogen 27 mg/dL (9-20); Calcium 7.9 mg/dL (8.4-10.2); Carbon Dioxide 25 mmol/L (22-32); Chloride 93 mmol/L (98-107); Estimated Glomerular Filt Rate > 60.0 mL/min (>60); Glucose 252 mg/dL (80-110); HEMOLYSIS < 15 (0-50); Potassium 3.5 mmol/L (3.4-5.1); Sodium 126 mmol/L (137-145)
[2020-09-21] MEDS: VANCOMYCIN 1,000 MG/200 ML PIGGYBACK 200 MG IV ×2 (09:20→23:51)
[2020-09-21] MEDS: INSULIN LISPRO 100 UNIT/ML 3ML VIAL SUBCUT ×4 (09:39→21:58)
--- NOTE | 2020-09-21 11:34 | DI.RAD.S_ITS ---
PROCEDURE: XR CHEST 1V INDICATIONS: SOB TECHNIQUE: One view of the chest was acquired. COMPARISON: [facility], , CHEST 2 VIEW, 10/12/2016, 9:47. FINDINGS: Surgical changes and devices: None. Lungs and pleura: Lungs are abnormal, with a bilateral pneumonia pattern that is greater on the left than the right and involves predominantly only the upper lobe on the right but within the upper, mid and lower thirds of the left lung.. No pleural effusions or pneumothorax. Mediastinum: Mediastinal contours appear normal. Heart size is normal. Bones and chest wall: No suspicious bony lesions. Overlying soft tissues appear unremarkable. IMPRESSION: Left greater than right dense pneumonia, no pleural effusion seen. Dictated by: Tolu Lei M.D. on 09/21/2020 at 11:51 Approved by: Tolu Lei M.D. on 09/21/2020 at 11:52
[2020-09-21 12:23] LABS: HCO3 ABG 23 mmol/L (22-26); Oxygen Saturation ABG 89 % (95-100); PCO2 ABG 31.1 mmHg (35-45); PO2 ABG 52 mmHg (80-100); TCO2 ABG 23 mmol/L (21-31); pH ABG 7.47 (7.35-7.45)
[2020-09-21 12:25] LABS: Fractionated Inspired Oxygen 90
[2020-09-21] MEDS: FUROSEMIDE 40 MG/4 ML VIAL IV (12:44)
[2020-09-21 14:13] LABS: Lactate (Lactic Acid) 2.7 mmol/L (0.7-2.1)
--- NOTE | 2020-09-21 14:22 | PC.NURSE ---
Pt has required increasing amounts of O2 over the course of the day. At start of shift, pt on 6L NC and was then transitioned to high flow nasal cannula up to 15L. Hospitalist and RT notified. Orders received for ABG and CXR. Based on results, orders received for IV lasix x1. Post lasix administration, pt voided 950 but sats remained low 85-88% on 15L NC. RR 20s-30s. RT notfied and Hospitalist notified. Reported pts I/O, O2 needs, CBGs, clarified diet order, clarified admission order, clarified if pt needs blood cx done, reported lactate result.
[2020-09-21 15:48] LABS: HCO3 ABG 25 mmol/L (22-26); PCO2 ABG 32.3 mmHg (35-45); PO2 ABG 72 mmHg (80-100)
[2020-09-21 15:49] LABS: Fractionated Inspired Oxygen 50; Oxygen Saturation ABG 96 % (95-100); TCO2 ABG 26 mmol/L (21-31)
[2020-09-21 16:03] LABS: Reflexed Lactate in 2 Hours Y
--- NOTE | 2020-09-21 16:42 | CM.DANOTE ---
Discharge Planning/Care Management DCP: assessment: case received, EMR reiviewed. Discussed in Team Rounds with Dr. Jason. Pt is expected to be here for several more days and the physician notes that he is quite ill. Payer: [place] [facility]. Pt lives with his in [place]. PCP: Himanshu Mckeon. DCP team will follow as POC unfolds to assist with d/c issues and options. CM Discharge Assessment Start: 09/21/20 16:41 Freq: Status: Active Protocol: Document 09/21/20 16:41 ITV (Rec: 09/21/20 16:42 ITV [id number]) Discharge Planning Assessment Advance Directives? No History Provided By Patient,Medical Record Prior Living Arrangements House Household Members spouse Document 09/21/20 16:42 ITV (Rec: 09/21/20 16:42 ITV [id number]) Discharge Planning Assessment Advance Directives? No History Provided By Patient,Medical Record Prior Living Arrangements House Household Members spouse
[2020-09-21 17:16] LABS: Lactate 2HR (Lactic Acid Rflx) 2.3 mmol/L (0.7-2.1)
[2020-09-21] MEDS: propofoL 1,000 MG/100 ML VIAL 3.09 MG IV (18:25)
--- NOTE | 2020-09-21 18:44 | RT ---
ASSISTED ANESTHESIOLOGIST WITH INUBATION BY PREPPING ETT AND VENT. PT SUCCESSFULLY INTUBATED W/ FIRST ATTEMPT. ETT PLACEMENT CONFIRMED VIA ETCO2 DETECTOR (POSITIVE COLOR CHANGE), AND AUSCULTATION. ANESTHESIOLOGIST AND DR. Wilson UPDATED W/ VENT SETTINGS. PT VENTED AT 6CC/KG, PT IS ON ARDS NET PROTOCOL. PLATEAU PRESSURES NOTED AT 18 CMH2O. RN ALSO UPDATED.
[2020-09-21 18:47] LABS: Appearance Urine UA CLEAR; Bilirubin Urine UA NEGATIVE (NEGATIVE); Color Urine UA YELLOW; Glucose Urine UA 1+ g/dL (Negative); Ketones Urine UA NEGATIVE (NEGATIVE); Leukocyte Esterase Urine UA NEGATIVE (NEGATIVE); Nitrite Urine UA NEGATIVE (Negative); Occult Blood Urine UA 3+ (Negative); Protein Urine UA 2+ (Negative); Urobilinogen Urine UA 0.2 E.U./dL (0.2); pH Urine UA 5.5 (4.5-8.0)
[2020-09-21 18:58] LABS: RBC Urine 5-10/HPF (0-5/HPF); Squamous Epithelial Cell Urine 0-1 /HPF (0-5/HPF); WBC Urine 1-5/HPF (0-5/HPF)
--- NOTE | 2020-09-21 18:58 | DI.RAD.S_ITS ---
PROCEDURE: XR CHEST 1V INDICATIONS: intubation, check tube and cvl placement TECHNIQUE: One view of the chest was acquired. COMPARISON: [facility], CT, CT CHEST ABD PEL W CON, 09/20/2020, 16:36. [facility], CR, XR CHEST 1V, 09/21/2020, 11:39. FINDINGS: Surgical changes and devices: There is an endotracheal tube with the tip approximately 7 cm from the real. A nasogastric tube is present extending into the stomach with the tip not included on the current study. A right internal jugular catheter is present with the tip projecting over the superior vena cava. Lungs and pleura: No definite pneumothorax. The right lateral costophrenic angle is not included on the current study. There is a probable small left pleural effusion. There are confluent airspace opacities throughout the left lung which appear increased from the prior study as well as persistent confluent passages in the right upper lung zone. Mediastinum: Mediastinal contours appear unchanged. Heart size is normal. Bones and chest wall: No suspicious bony lesions. Overlying soft tissues appear unremarkable. IMPRESSION: 1. No definite pneumothorax. 2. Endotracheal tube tip approximately 7 cm from the real. Consider further advancement by 2-3 cm. 3. Increased bilateral confluent airspace opacities consistent with consolidation as seen on the recent CT. 4. Small left pleural effusion. Dictated by: Jesus Lin M.D. on 09/21/2020 at 21:42 Approved by: Jesus Lin M.D. on 09/21/2020 at 21:45
[2020-09-21 18:59] LABS: Bacteria Urine Occasional (0-1); Culture Indicated Urine Cult Not Indicated; Other Crystals Urine 1+ Amorphous
[2020-09-21] MEDS: PIPERACILLIN-TAZO 3.375 GM/50 ML FROZ.PIGGY IV (19:05)
--- NOTE | 2020-09-21 19:35 | P.PCN_ITS ---
Procedures Date/Time Date of procedure: 09/21/20 Time of procedure: 18:25 Intubation Time out performed: Yes Sedative: other (propofol 120) Paralytic: succinylcholine Mg given: 80 Laryngoscope: other (optical stylet) ET tube size: 8 ET tube uncuffed: No Tube secured depth (cm): 24 Tube secured location: lips Tube placement confirmation: visualized tube passing through cords, equal breath sounds bilaterally, no breath sounds over epigastrium and confirmation by capnometry Patient tolerated procedure: well Intubation complications: none Additional comments: Procedural consent was obtained verbally due to urgency of situation and patient's respiratory distress status. After time out and pre- oxygenation, patient anesthesia was induced with rapid sequence propofol 120mg , 10mcg fentanyl and 80mg sux. 8.0 ETT was placed with optical stylet. tube secured by RT, 24cm at lips. Bilat. breathsounds, pos. capno, chest Xray ordered. Additional 50mg rocuronium bolus and propofol gtt started for sedation. Patient hemodynamics and oxygenation maintains at normal levels throughout procedure. NG tube was placed in left nare, confirmed with suction return of stomach contents and xray.
--- NOTE | 2020-09-21 19:42 | PM.PROC.1 ---
Procedures Date/Time Date of procedure: 09/21/20 Time of procedure: 18:45 Central Line Placement Time out performed: Yes Patient placed on monitor/pulse ox: Yes (patient was sedated and intubated) MD prep: mask, gown and gloves Central line prep: Chlorhexidine scrub and sterile drapes applied Ultrasound used for placement: Yes Central line lumen inserted: triple Post procedure: sutured in place, good blood return, all ports aspirated, flushed, capped and sterile dressing applied Post procedure x-ray: tip of catheter in good position and no pneumothorax seen Patient tolerated procedure: well Complications: none Additional comments: catheter 17cm at skin
[2020-09-21] MEDS: LORazepam 2 MG/ML INJ IV (19:51)
[2020-09-21] MEDS: fentaNYL 1,000 MCG in DEXTROSE 5% IN WATER 230 ML 25 ML IV (19:59)
[2020-09-21] MEDS: PANTOPRAZOLE 80 MG in SODIUM CHLORIDE 0.9% 100 ML 10 ML IV (20:08)
[2020-09-21 20:12] LABS: Add Manual Diff / Slide Review NO; Basophils Absolute Auto 0 /uL (0-100); Basophils Percent Auto 0.3 % (0-2); Eosinophils Absolute Auto 0 /uL (0-450); Lymphocytes Absolute Auto 100 /uL (1100-4500); Lymphocytes Percent Auto 0.8 % (25-40); Mean Corpuscular HGB Conc 34.2 % (30-36); Mean Corpuscular Hemoglobin 30.4 PG (26-34); Monocytes Absolute Auto 300 /uL (0-900); Monocytes Percent Auto 1.9 % (3-14); Neutrophils Absolute Auto 15600 /uL (1500-7000); Platelet Count 91 X10^3/uL (150-400); Red Blood Cell Count 4.61 X10^6/uL (4.5-5.9); Red Cell Distribution Width 14.8 % (11.6-14.8)
[2020-09-21 20:13] LABS: INR 1.3 (0.9-1.3); Prothrombin Time 14.7 SECONDS (10.1-12.7)
[2020-09-21 20:18] LABS: BUN Creatinine Ratio 25.2 (6-22); Blood Urea Nitrogen 31 mg/dL (9-20); Carbon Dioxide 27 mmol/L (22-32); Chloride 91 mmol/L (98-107); Estimated Glomerular Filt Rate 57.4 mL/min (>60); Glucose 330 mg/dL (80-110); HEMOLYSIS < 15 (0-50); Potassium 3.3 mmol/L (3.4-5.1); Sodium 126 mmol/L (137-145)
--- NOTE | 2020-09-21 20:39 | P.PN_ITS ---
Subjective Subjective Date Patient Seen: 09/21/20 Time Patient Seen: 08:39 Interval history: This morning patient had been stable on 6L of oxygen. He however began requiring higher oxygen requirements. He did get lasix to attempt to approve respiratory status. He continued to worsen and was placed on high flow oxygen, subsequently placed BIPAP. He was watched on bipap but did not improved in his symptoms. He was still tachypneic in the 30s, and he was breathing large tidal volumes. Because of this, discussion was had with patient and about recommendation for intubation as he was not improving on BIPAP. This was done by Dr. De La Torre, please see note for full details. After intubation he was placed on propofol and fentanyl for sedation. He was noted to have some dark coffee ground material suctioned from abdomen. Exam Vital Signs (past 8 hours): - 09/21/20 13:00 09/21/20 14:20 09/21/20 15:19 Temperature Pulse Rate Respiratory Rate Blood Pressure 161/71 H 161/71 H Pulse Oximetry 92 09/21/20 16:00 09/21/20 16:14 09/21/20 16:15 Temperature 101.2 F H Pulse Rate 96 H 97 H 96 H Respiratory Rate 33 H 31 H 25 H Blood Pressure 167/76 H 167/76 H Pulse Oximetry 93 92 92 09/21/20 16:30 09/21/20 16:45 09/21/20 17:00 Temperature Pulse Rate 97 H 97 H 93 H Respiratory Rate 28 H 34 H 27 H Blood Pressure Pulse Oximetry 93 87 L 98 09/21/20 17:15 09/21/20 17:30 09/21/20 17:45 Temperature Pulse Rate 92 H 86 84 Respiratory Rate 30 H 26 H 32 H Blood Pressure Pulse Oximetry 94 94 95 09/21/20 18:00 09/21/20 18:15 09/21/20 18:21 Temperature Pulse Rate 80 80 80 Respiratory Rate 33 H 35 H 34 H Blood Pressure 129/68 Pulse Oximetry 94 94 97 09/21/20 18:25 09/21/20 18:27 09/21/20 18:30 Temperature Pulse Rate 78 87 82 Respiratory Rate 17 19 22 Blood Pressure 124/59 L 119/57 L 93/55 L Pulse Oximetry 98 97 92 09/21/20 18:35 09/21/20 18:40 09/21/20 18:45 Temperature Pulse Rate 80 81 79 Respiratory Rate 22 21 22 Blood Pressure 92/55 L 92/53 L 96/53 L Pulse Oximetry 92 95 92 09/21/20 18:50 09/21/20 18:55 09/21/20 19:00 Temperature Pulse Rate 78 82 84 Respiratory Rate 22 22 22 Blood Pressure 102/54 L 117/57 L 138/65 Pulse Oximetry 93 94 93 09/21/20 19:05 09/21/20 19:10 09/21/20 19:15 Temperature Pulse Rate 82 84 83 Respiratory Rate 22 22 28 H Blood Pressure 144/67 H 170/79 H 157/74 H Pulse Oximetry 93 93 91 09/21/20 19:20 09/21/20 19:25 09/21/20 19:30 Temperature Pulse Rate 83 82 86 Respiratory Rate 28 H 29 H 26 H Blood Pressure 166/79 H 169/80 H 171/84 H Pulse Oximetry 91 91 92 09/21/20 19:45 09/21/20 20:00 09/21/20 20:01 Temperature Pulse Rate 79 77 81 Respiratory Rate 22 22 22 Blood Pressure 103/50 L Pulse Oximetry 89 L 89 L 89 L 09/21/20 20:15 09/21/20 20:30 Temperature Pulse Rate 77 73 Respiratory Rate 23 24 Blood Pressure 94/55 L Pulse Oximetry 91 89 L Fraction of Inspired Oxygen 50 Oxygen Delivery Method BiPAP Oxygen Flow Rate 15 Narrative Exam Narrative: GEN: obese ma, intubated, sedated HEENT: PERRL, wet mucous membranes NECK: trachea midline, no JVD, CVL in place clean dry and intact CV: tachycardic, no murmurs PULM: wheezes and rhonchi bilaterally, decreased breath sounds at bases ABD: distended, +hepatomegaly, soft, nontender, normal bowel sounds EXT: warm and well perfused with no edema NEURO: intubated and sedated SKIN: no rashes PSYCH: unable for now due to intubation Objective Labs Result Diagrams: 09/21/20 19:58 09/21/20 19:58 Labs: Laboratory Results - last 24 hr 09/20/20 09/21/20 09/21/20 21:00 06:51 06:51 WBC 14.0 H RBC 4.73 Hgb 14.1 Hct 42.2 MCV 89.3 MCH 29.8 MCHC 33.4 RDW 14.9 H Plt Count 66 L Neut % (Auto) 97.7 H Lymph % (Auto) 1.0 L [place] % (Auto) 1.2 L Eos % (Auto) 0.0 L Baso % (Auto) 0.1 Neut # (Auto) 02646 H Lymph # (Auto) 100 L [place] # (Auto) 200 Eos # (Auto) 0 Baso # (Auto) 0 PT INR ABG pH ABG pCO2 ABG pO2 ABG HCO3 ABG Total CO2 ABG O2 Saturation ABG Base Excess FiO2 Sodium Potassium Chloride Carbon Dioxide BUN Creatinine Estimated GFR BUN/Creatinine Ratio Glucose Lactate Calcium Magnesium Total Bilirubin 0.8 Conjugated Bilirubin 0.0 Unconjugated Bilirubin 0.3 AST 54 ALT 49 Alkaline Phosphatase 98 Total Protein 5.8 L Albumin 2.8 L Globulin 3.0 Albumin/Globulin Ratio 0.9 L Urine Color Yellow Urine Appearance Clear Urine pH 6.0 Ur Specific [place] 1.020 Urine Protein 2+ H Urine Glucose (UA) Trace H Urine Ketones Negative Urine Occult Blood 3+ H Urine Nitrate Negative Urine Bilirubin Negative Urine Urobilinogen 4.0 H Ur Leukocyte Esterase Negative Urine RBC 10-30/hpf H Urine WBC 1-5/hpf Ur Squamous Epith Cells Other Crystals Urine Bacteria Occasional (0-1) Hyaline Casts 1-5/lpf Granular Casts 1-5/lpf Ur Culture Indicated? Cult not indicated 09/21/20 09/21/20 09/21/20 06:51 11:53 12:15 WBC RBC Hgb Hct MCV MCH MCHC RDW Plt Count Neut % (Auto) Lymph % (Auto) [place] % (Auto) Eos % (Auto) Baso % (Auto) Neut # (Auto) Lymph # (Auto) [place] # (Auto) Eos # (Auto) Baso # (Auto) PT INR ABG pH 7.47 H ABG pCO2 31.1 L ABG pO2 52 L ABG HCO3 23 ABG Total CO2 23 ABG O2 Saturation 89 L ABG Base Excess -1.0 FiO2 90 Sodium 126 L Potassium 3.5 Chloride 93 L Carbon Dioxide 25 BUN 27 H Creatinine 1.14 Estimated GFR > 60.0 BUN/Creatinine Ratio 23.7 H Glucose 252 H Lactate 2.7 H Calcium 7.9 L Magnesium Total Bilirubin Conjugated Bilirubin Unconjugated Bilirubin AST ALT Alkaline Phosphatase Total Protein Albumin Globulin Albumin/Globulin Ratio Urine Color Urine Appearance Urine pH Ur Specific [place] Urine Protein Urine Glucose (UA) Urine Ketones Urine Occult Blood Urine Nitrate Urine Bilirubin Urine Urobilinogen Ur Leukocyte Esterase Urine RBC Urine WBC Ur Squamous Epith Cells Other Crystals Urine Bacteria Hyaline Casts Granular Casts Ur Culture Indicated? 09/21/20 09/21/20 09/21/20 15:27 16:30 18:13 WBC RBC Hgb Hct MCV MCH MCHC RDW Plt Count Neut % (Auto) Lymph % (Auto) [place] % (Auto) Eos % (Auto) Baso % (Auto) Neut # (Auto) Lymph # (Auto) [place] # (Auto) Eos # (Auto) Baso # (Auto) PT INR ABG pH 7.50 H ABG pCO2 32.3 L ABG pO2 72 L ABG HCO3 25 ABG Total CO2 26 ABG O2 Saturation 96 ABG Base Excess 2.0 FiO2 50 Sodium Potassium Chloride Carbon Dioxide BUN Creatinine Estimated GFR BUN/Creatinine Ratio Glucose Lactate 2.3 H Calcium Magnesium Total Bilirubin Conjugated Bilirubin Unconjugated Bilirubin AST ALT Alkaline Phosphatase Total Protein Albumin Globulin Albumin/Globulin Ratio Urine Color Yellow Urine Appearance Clear Urine pH 5.5 Ur Specific [place] 1.020 Urine Protein 2+ H Urine Glucose (UA) 1+ H Urine Ketones Negative Urine Occult Blood 3+ H Urine Nitrate Negative Urine Bilirubin Negative Urine Urobilinogen 0.2 Ur Leukocyte Esterase Negative Urine RBC 5-10/hpf H Urine WBC 1-5/hpf Ur Squamous Epith Cells 0-1 /hpf Other Crystals 1+ amorphous Urine Bacteria Occasional (0-1) Hyaline Casts Granular Casts Ur Culture Indicated? Cult not indicated 09/21/20 09/21/20 09/21/20 19:58 19:58 19:58 WBC 16.0 H RBC 4.61 Hgb 14.0 Hct 41.0 MCV 89.0 MCH 30.4 MCHC 34.2 RDW 14.8 Plt Count 91 L Neut % (Auto) 97.0 H Lymph % (Auto) 0.8 L [place] % (Auto) 1.9 L Eos % (Auto) 0.0 L Baso % (Auto) 0.3 Neut # (Auto) 65012 H Lymph # (Auto) 100 L [place] # (Auto) 300 Eos # (Auto) 0 Baso # (Auto) 0 PT 14.7 H INR 1.3 ABG pH ABG pCO2 ABG pO2 ABG HCO3 ABG Total CO2 ABG O2 Saturation ABG Base Excess FiO2 Sodium 126 L Potassium 3.3 L Chloride 91 L Carbon Dioxide 27 BUN 31 H Creatinine 1.23 Estimated GFR 57.4 L BUN/Creatinine Ratio 25.2 H Glucose 330 H Lactate Calcium 8.0 L Magnesium 2.0 Total Bilirubin Conjugated Bilirubin Unconjugated Bilirubin AST ALT Alkaline Phosphatase Total Protein Albumin Globulin Albumin/Globulin Ratio Urine Color Urine Appearance Urine pH Ur Specific [place] Urine Protein Urine Glucose (UA) Urine Ketones Urine Occult Blood Urine Nitrate Urine Bilirubin Urine Urobilinogen Ur Leukocyte Esterase Urine RBC Urine WBC Ur Squamous Epith Cells Other Crystals Urine Bacteria Hyaline Casts Granular Casts Ur Culture Indicated? [facility] Medical History Back problem Chicken pox Chronic back pain Diverticular disease (~1996) Hearing deficit Measles Mumps Plantar warts Sciatic nerve pain Tinnitus Type 2 diabetes mellitus Vision disorder Surgical History Anesthesia Fractures (~08/1962) History of colon surgery (~03/1997) History of tonsillectomy (~1947) Status post hernia repair (~2002) Family History Brother Cancer Grandmother Heart disease Mother Stroke Loud snoring Hypertension Brother No problems noted. Son No problems noted. Grandfather Loud snoring Sister No problems noted. Father Loud snoring Family/Other Hypertension Heart disease Alcohol abuse Substance abuse Social History household members: spouse Smoking Status: Former smoker alcohol intake: former substance use type: does not use eating out: 1-3 times/week Type(s) of exercise: none Assessment & Plan Assessment & Plan narrative: Mr. Sherman 75M PMH of active smoker, obesity, DM, probable DIVINA who comes in with cough, fevers, found to have pneumonia with acute respiratory failure and sepsis. 1. Acute bacterial pneumonia with sepsis and acute hypoxemic respiratory failure -blood cultures not ordered initially by ED, ordered on floor, follow up cultures -sputum culture ordered -has sepsis as evidenced by acute respiratory failure in setting with fever, tachycardia, elevated white count -ordered for vancomycin, zosyn, azithro for broad coverage and will continue for now -ordered for 30cc/kg bolus of IVF in ED -lactate rising today to 2.7, now improved to 2.3 and will continue to trend -pending stat labs may need additional IV fluids -blood pressure stable, no need for pressors currently 2. Acute respiratory failure secondary to pneumonia and acute COPD exacerbation, now intubated -patient has wheezing on exam and evidence on imaging of emphesematous changes -consistent with possible copd exacerbation -ordered for steroids, azithromycin, and duonebs -counselled to quit smoking as he is active smoker -p/f ratio initially 140, indicating moderate ards -ordered for low tidal volume -repeat am chest xray -plan for sedation holiday and AM -evaluate daily for ability to wean 3. GI bleeding -has noted small amount coffee ground emesis from NG tube -previously no bleeding, and hemoglobin had been 14 today -ordered for PPI drip -type and screen 4. Acute thrombocytopenia -platelets of 72 initially, dropped to 60s -baseline unknown -possibly due to sepsis or liver disease -trend daily -with bleeding concern for possible DIC -may need platelet transfusion, will order for transfusion if platelets less than 50 -with concern for possible DIC will order D-dimer, fibrinogen, pt/ptt/inr, and stat repeat platelets -depending on results may need cryoprecipitate or fibrinogen 5. Hyponatremia -in setting of sepsis -volume status difficult, but appears euvolemic -in setting of pneumonia, may have component of SIADH -however in setting of sepsis, will possibly need additonal IV fluids 6. Probable DIVINA -has been noted on previous outpatient notes -not using bipap -may need as outpatient 7. Type 2 diabetes, with hyperglycemia -hold home dose of metformin -for now will be on sliding scale insulin -a1c 8.4 in may -added lantus for continued elevated blood sugars 8. HTN -hold anti-hypertensives given patient has sepsis 9. HL -hold statin with transaminitis 10. Transaminitis -mild with lfts in 60s -patient with significant hepatomegaly -hepatomegaly with hepatic fatty infiltration likely secondary to poorly controlled diabetes -trend lfts daily 11. Abdominal distention -CT scan shows no acute process, does have hepatomegaly -patient abdomen variable in size throughout the day, believe has a component of swallowing air due to high oxygen levels -continue to monitor DIET: likely begin nutrition in AM with tube feeds GI ppx: PPI gtt as above DVT ppx: SCDs, due to bleed IVF: none Code: full, proxy is paramjit dunn
[2020-09-21 20:41] LABS: D Dimer 1045 ng/mL (<230)
[2020-09-21 20:52] LABS: Fibrinogen 703 mg/dL (211-428)
[2020-09-21 21:18] LABS: Fractionated Inspired Oxygen 70; HCO3 ABG 26 mmol/L (22-26); Oxygen Saturation ABG 92 % (95-100); PCO2 ABG 43.6 mmHg (35-45); PO2 ABG 66 mmHg (80-100); TCO2 ABG 27 mmol/L (21-31); pH ABG 7.38 (7.35-7.45)
[2020-09-21] MEDS: SODIUM CHLORIDE 0.9% 1,000 ML 1000 ML IV ×2 (21:48→23:53)
[2020-09-21] MEDS: POTASSIUM CHLORIDE 40 MEQ in SODIUM CHLORIDE 0.9% 500 ML 130 ML IV (21:57)
[2020-09-21] MEDS: INSULIN GLARGINE 100 UNIT/ML 3ML PEN 10 UNIT SUBCUT (22:05)
[2020-09-21 22:25] LABS: Lactate (Lactic Acid) 1.3 mmol/L (0.7-2.1)
[2020-09-21] MEDS: AZITHROMYCIN 500 MG in DEXTROSE 5% IN WATER 250 ML IV (22:48)
--- NOTE | 2020-09-21 23:25 | RT ---
Still pending vent order from . AIDEN mora.
--- NOTE | 2020-09-21 23:26 | PC.NURSE ---
Intubation note: 1819 Dr De La Torre, Dr. Jason, this nurse and RT Edwardo at bedside 1824 Intubation started, meds administered 10mg Fentynal, 140mg Propofal, 80mg Sux administered, intubation completed, pt tolerated well, 24@Lips 1830 NG tube placed, connected to LIS, coffee ground emesis in container, provider notified 1842 Dr De La Torre administered 50mg of Rocc prior to central line placement 1844 Dr De La Torre, assisted by this nurse placed central line, 17cm as noted by Dr De La Torre, stat CXR ordered to confirm placement of vent tube, NG and central line, Dr. Jason confirmed placements, central line ok'd for use. Vieyra catheter placed, wrist restraints placed, bed low and locked, will continue to assist in the monitoring of patient.
--- NOTE | 2020-09-21 23:40 | PC.NURSE ---
Addendum entered by Suzy Acuna R.N. 09/22/20 05:58: 0100 - After fluid bolus, BPs still low, hospitalist aware and ordered norepinephrine gtt. Attempted to reposition patient and patient began coughing and bulge was noted on abdomen, looked like a possible hernia, hospitalist also noted that patients abdomen was distended and ordered a CT angio abdomen, respiratory was notified as well as [facility] shift lead and patient was brought to CT. Original Note: 2330 - At start of shift patient intubated and sedated on propofol gtt and fentanyl gtt, patient has soft wrist restraints, removed and checked for circulation, patient has mendez in place draining staci urine, ET tube at 24 to the lip, NG tube to low intermittent suction draining thin blood tinged fluid, patients BP trending down, hospitalist made aware, new orders placed. Hospitalist also made aware of patients increased size of abdominal area.
[2020-09-22] VITALS (50 sets, daily range): BP systolic 82–191; BP diastolic 47–87; PULSE 54–94; RESP 10–28; TEMP 36.3–36.9; O2SAT 91–98
[2020-09-22] MEDS: methylPREDNISolone 125 MG/2 ML VIAL 60 MG IV ×3 (00:10→08:17)
[2020-09-22 00:36] LABS: Lactate (Lactic Acid) 1.5 mmol/L (0.7-2.1)
[2020-09-22 00:38] LABS: Alanine Aminotransferase 55 IU/L (<50); Albumin 2.5 g/dL (3.5-5.0); Albumin Globulin Ratio 0.9 (1.0-2.8); Alkaline Phosphatase 84 U/L (38-126); Aspartate Aminotransferase 68 IU/L (17-59); BUN Creatinine Ratio 22.2 (6-22); Bilirubin Total 0.6 mg/dL (0.2-1.3); Blood Urea Nitrogen 34 mg/dL (9-20); Calcium 7.2 mg/dL (8.4-10.2); Carbon Dioxide 25 mmol/L (22-32); Chloride 96 mmol/L (98-107); Estimated Glomerular Filt Rate 44.6 mL/min (>60); Globulin 2.8 g/dL (1.7-4.1); Glucose 314 mg/dL (80-110); HEMOLYSIS < 15 (0-50); Magnesium 2.2 mg/dL (1.6-2.3); Potassium 3.8 mmol/L (3.4-5.1); Sodium 127 mmol/L (137-145); Total Protein 5.3 g/dL (6.3-8.2)
[2020-09-22 00:43] LABS: Add Manual Diff / Slide Review NO; Basophils Absolute Auto 100 /uL (0-100); Basophils Percent Auto 0.4 % (0-2); Eosinophils Absolute Auto 0 /uL (0-450); Hematocrit 38.4 % (41-53); Hemoglobin 12.5 g/dL (13.5-17.5); Lymphocytes Absolute Auto 200 /uL (1100-4500); Lymphocytes Percent Auto 1.6 % (25-40); Mean Corpuscular HGB Conc 32.6 % (30-36); Mean Corpuscular Hemoglobin 29.4 PG (26-34); Mean Corpuscular Volume 90.3 fL (80-100); Monocytes Absolute Auto 300 /uL (0-900); Monocytes Percent Auto 2.3 % (3-14); Neutrophils Absolute Auto 13700 /uL (1500-7000); Neutrophils Percent Auto 95.7 % (50-75); Platelet Count 87 X10^3/uL (150-400); Red Blood Cell Count 4.25 X10^6/uL (4.5-5.9); Red Cell Distribution Width 15.2 % (11.6-14.8); White Blood Cell Count 14.3 X10^3/uL (4.5-11.0)
[2020-09-22] MEDS: NOREPINEPHRINE 4 MG in DEXTROSE 5% IN WATER 250 ML 30.48 ML IV (01:22)
--- NOTE | 2020-09-22 01:49 | DI.CT.S_ITS ---
PROCEDURE: CT ANGIO ABDOMEN PELVIS INDICATIONS: Worsening ARDS and abdominal distension TECHNIQUE: After the administration of intravenous contrast, 2.5 mm thick sections acquired from the diaphragm to the symphysis. 10 mm maximum-intensity projection (MIP) reformats were then acquired. For radiation dose reduction, the following was used: automated exposure control. COMPARISON: [facility], CT, CT ABD RENAL PROTOCOL, 01/17/2017, 11:36. FINDINGS: Image quality: Excellent. Note is made of asymmetric alveolar consolidation at the lung bases, minimal on the right but dense at the small portion of the left lung base included on this examination. Aorta: The descending thoracic aorta is only slightly included on the examination but is normal in caliber and free of dissection. More inferiorly the retrocrural aorta is normal in caliber. There is atherosclerotic irregularity by both calcific and soft plaque at the origin of each renal artery, and also at the origin of the celiac access and the superior mesenteric artery. Eccentric calcific and soft plaque is present within the upper and middle 3rd abdominal aorta but no aneurysm or dissection in this area is found. There is patency of the aorta to the aortic bifurcation. The inferior mesenteric artery also is patent. Mesenteric arteries: Celiac trunk, superior and inferior mesenteric arteries appear patent. 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 Reperfusion of flow into the distal aspect of the right external iliac artery can be seen on series 5, image 127. The external iliac artery then extends into the common femoral artery as a patent vessel, but slightly smaller in size than on the left. This vessel extends into the femoral bifurcation, with patent flow extending into the profundus femora cyst and proximal superficial femoral artery. Left pelvic arteries: The left common iliac arteries patent but demonstrates approximately 50% stenosis by atherosclerotic calcific plaquing and the vessel extends inferiorly with patent external and internal iliac artery flow. The external iliac artery on the left proceeds to the femoral bifurcation with patent flow into the profundus femoral and proximal superficial femoral artery. Extravascular soft tissues: Lung bases are clear. Heart size is normal. Liver is normal in size and enhancement. Gallbladder appears normal . Biliary system is non dilated. Pancreas enhances normally. Spleen is normal in size and enhancement. No adrenal nodules. Kidneys are normal in size and enhancement, without hydronephrosis. A chronic peripherally calcified cyst is seen again at the upper posterior left renal cortex. This was also well visualized in 2017. Non opacified bowel loops are normal in wall thickness and caliber. No free fluid or air. No retroperitoneal or mesenteric adenopathy. No ventral hernias. No suspicious bony lesions. No vertebral body compression fractures. IMPRESSION: No aortic aneurysm or dissection is found. As discussed above there is relatively prominent calcific and soft plaque at the origin of the aortic branches at the celiac artery, superior mesenteric artery, and the renal arteries. Patent flow through the inferior mesenteric arteries present. 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 There is patent flow through the left common iliac artery extending to the femoral bifurcation, but at least 50% stenosis is identified within the left common iliac artery and extending into the external iliac artery on the left. Note is made of asymmetric pneumonia with dense opacification involving much of the left lower lobe that was included in this study, and only a small portion of the right lower lobe. Bilateral pneumonia appears present. Dictated by: Tolu Lei M.D. on 09/22/2020 at 10:29 Approved by: Tolu Lei M.D. on 09/22/2020 at 10:56
[2020-09-22] MEDS: PIPERACILLIN-TAZO 3.375 GM/50 ML FROZ.PIGGY IV ×2 (04:04→11:02)
[2020-09-22 04:19] LABS: Add Manual Diff / Slide Review NO; Basophils Absolute Auto 0 /uL (0-100); Basophils Percent Auto 0.2 % (0-2); Eosinophils Absolute Auto 0 /uL (0-450); Hematocrit 40.9 % (41-53); Hemoglobin 13.5 g/dL (13.5-17.5); Lymphocytes Absolute Auto 200 /uL (1100-4500); Mean Corpuscular Hemoglobin 29.5 PG (26-34); Mean Corpuscular Volume 89.4 fL (80-100); Monocytes Absolute Auto 300 /uL (0-900); Monocytes Percent Auto 1.4 % (3-14); Neutrophils Absolute Auto 20200 /uL (1500-7000); Neutrophils Percent Auto 97.4 % (50-75); Platelet Count 115 X10^3/uL (150-400); Red Blood Cell Count 4.57 X10^6/uL (4.5-5.9); Red Cell Distribution Width 15.1 % (11.6-14.8); White Blood Cell Count 20.8 X10^3/uL (4.5-11.0)
[2020-09-22 04:22] LABS: Alanine Aminotransferase 64 IU/L (<50); Albumin 2.6 g/dL (3.5-5.0); Albumin Globulin Ratio 0.9 (1.0-2.8); Alkaline Phosphatase 95 U/L (38-126); Aspartate Aminotransferase 75 IU/L (17-59); BUN Creatinine Ratio 25.9 (6-22); Bilirubin Total 0.6 mg/dL (0.2-1.3); Blood Urea Nitrogen 35 mg/dL (9-20); Calcium 7.4 mg/dL (8.4-10.2); Carbon Dioxide 22 mmol/L (22-32); Chloride 98 mmol/L (98-107); Estimated Glomerular Filt Rate 51.5 mL/min (>60); Glucose 290 mg/dL (80-110); HEMOLYSIS 19 (0-50); Potassium 3.9 mmol/L (3.4-5.1); Sodium 127 mmol/L (137-145); Total Protein 5.6 g/dL (6.3-8.2)
[2020-09-22] MEDS: ALBUTEROL/IPRATROPIUM 3 ML AMPUL INH ×2 (05:48→10:49)
[2020-09-22 05:55] LABS: Hematocrit 41.7 % (41-53); Hemoglobin 13.7 g/dL (13.5-17.5); Mean Corpuscular HGB Conc 32.8 % (30-36); Mean Corpuscular Hemoglobin 29.4 PG (26-34); Mean Corpuscular Volume 89.7 fL (80-100); Platelet Count 121 X10^3/uL (150-400); Red Blood Cell Count 4.65 X10^6/uL (4.5-5.9); Red Cell Distribution Width 15.1 % (11.6-14.8); White Blood Cell Count 21.3 X10^3/uL (4.5-11.0)
[2020-09-22 06:00] LABS: BUN Creatinine Ratio 26.9 (6-22); Blood Urea Nitrogen 36 mg/dL (9-20); Calcium 7.6 mg/dL (8.4-10.2); Carbon Dioxide 22 mmol/L (22-32); Chloride 98 mmol/L (98-107); Glucose 294 mg/dL (80-110); HEMOLYSIS < 15 (0-50); Magnesium 2.3 mg/dL (1.6-2.3); Phosphorous 4.2 mg/dL (2.3-3.7); Potassium 3.9 mmol/L (3.4-5.1); Sodium 129 mmol/L (137-145)
[2020-09-22] MEDS: propofoL 1,000 MG/100 ML VIAL 4.326 MG IV (06:15)
[2020-09-22 06:55] LABS: INR 1.1 (0.9-1.3); Prothrombin Time 12.3 SECONDS (10.1-12.7)
[2020-09-22 06:57] LABS: Fibrinogen 674 mg/dL (211-428)
[2020-09-22 06:58] LABS: D Dimer 1029 ng/mL (<230); PTT Partial Thromboplastin Tim 29 SECONDS (26.4-36.2)
--- NOTE | 2020-09-22 07:14 | DI.ECHO.S_ITS ---
[place] [facility]---------[facility] +---------+ : : [address] : : : : [id number] : : : : Phone: [phone] Echocardiogram Report + + :Name: INÉS KEMP Study Date: 09/22/2020 Height: 71 in : :[facility] ReadingLocation: Weight: 227 lb : : Gender: Male BSA: 2.2 m2 : :: 1945 Age: 75 yrs BP: 109/57 mmHg: :Reason For Study: Congestive Heart Failure : :Ordering Physician: : :AMRIT GARCÍA Performed By: Beau Barrow : :Referring: AMRIT GARCÍA : + + Interpretation Summary This is a technically difficult study complicated by off-axis images. Definity echocontrast was used to enhance image quality. Normal sinus rhythm. Normal LV size and wall thickness. Low normal EF estimated at 50-55%. Mildly dilated RV with moderately reduced RV function. Mildly dilated RA. No significant valvular abnormalities. Estimated PA systolic pressure is 44 mm Hg assuming RA pressure of 15 mm Hg. Procedure: A two-dimensional transthoracic echocardiogram with color flow and Doppler was performed. The study quality was technically difficult. There is no prior echocardiogram noted for this patient. The patient was in sinus rhythm with heart rates between 57-63 bpm during the exam. Left Ventricle: The left ventricle is normal in size and wall thickness. Left ventricular systolic function is normal. The ejection fraction is estimated to be 55-60%. There are no obvious focal wall motion abnormalities noted but poor endocardial definition reduces the sensitivity for the detection of such. Diastolic function could not be accurately assessed due to unobtainable data. Right Ventricle: The right ventricle is dilated. Right ventricular systolic function is mildly reduced. Atria: The left atrium grossly appears normal in size. The right atrium is dilated. There is no Doppler evidence for an interatrial shunt. Mitral Valve: The mitral valve is normal in structure and function. There is no mitral regurgitation noted. Aortic Valve: The aortic valve is trileaflet. The aortic valve opens well. No aortic regurgitation is present. Tricuspid Valve: The tricuspid valve is normal in structure and function. There is a trace or physiologic amount of tricuspid regurgitation. Pulmonary artery pressures cannot be estimated because of the lack of a measurable TR jet velocity. Pulmonic Valve: The pulmonic valve is not well visualized. There is no pulmonic valvular regurgitation. Great Vessels: The aortic root is not well visualized. The ascending aorta could not be visualized. The IVC is dilated (diameter is greater than 2.1 cm) and it collapses less than 50% with a sniff. This suggests a high right atrial pressure of 15 mm Hg. Pericardium/ Pleura There is no pericardial effusion. There is no pleural effusion. MMode/2D Measurements & Calculations LVIDd: 4.9 cm LA A4 area: 15.1 cm2 LVIDs: 3.3 cm LA length (vol): 5.3 cm FS: 32.3 % IVSd: 0.92 cm LVPWd: 1.0 cm LV [place]. diameter/BSA (cm/m^2): 2.2 LV sys. diameter/BSA (cm/m^2): 1.5 RA long axis: 5.5 cm TAPSE: 1.5 cm RA area: 22.9 cm2 RA vol: 81.6 ml RA : 36.7 ml/m2 Doppler Measurements & Calculations Ao V2 max: 155.3 cm/sec LVOT Max Hari: 103.3 cm/sec Ao V2 mean: 108.8 cm/sec LV V1 max P.3 mmHg Ao max P.6 mmHg LV V1 VTI: 18.8 cm Ao mean P.2 mmHg sev ratio: 0.71 Ao V2 VTI: 26.3 cm MV E max hari: 56.5 cm/sec TR max hari: 263.2 cm/sec MV A max hari: 64.7 cm/sec TR max P.7 mmHg MV E/A: 0.87 PA pr(Accel): 45.6 mmHg Med Peak E' Hari: 7.3 cm/sec E/E' med: 7.8 Lat Peak E' Hari: 6.2 cm/sec E/E' lat: 9.1 E/e' average: 8.4 MV dec time: 0.27 sec Electronically signed by: Madeleine Bahena M.D. on Reading Physician:09/22/2020 04:59 PM
[2020-09-22] MEDS: fentaNYL 1,000 MCG in DEXTROSE 5% IN WATER 230 ML 25.75 ML IV (07:41)
[2020-09-22] MEDS: PANTOPRAZOLE 80 MG in SODIUM CHLORIDE 0.9% 100 ML 10 ML IV (07:41)
--- NOTE | 2020-09-22 07:46 | P.PN_ITS ---
Subjective Subjective Date Patient Seen: 09/22/20 Time Patient Seen: 07:29 Interval history: Overnight patient dropped his blood pressures with a MAP in high 50s to low 60s. He did received 2L IVF bolus. Still low MAP. He was then started at norepi gtt, this morning has been decreased down to 3u. MAP currently in the 70s. Additionally had episode of hypoxemia, his PEEP has been increased to 10, FiO2 of 80%, Sat 97% currently. He continued to have dark coffee ground appearing liquid from his NG tube, 25cc overnight, 200cc total since NG tube first placed. He is currently sedated on propofol and fentanyl, squeeze hand in response. 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 Exam Vital Signs (past 8 hours): - 09/22/20 00:00 09/22/20 00:15 09/22/20 00:30 Temperature Pulse Rate 60 58 L 57 L Respiratory Rate 22 22 22 Blood Pressure 82/51 L 84/52 L Pulse Oximetry 95 96 95 09/22/20 00:45 09/22/20 01:00 09/22/20 01:15 Temperature Pulse Rate 54 L 56 L 55 L Respiratory Rate 22 22 22 Blood Pressure 88/55 L 128/49 L Pulse Oximetry 97 95 94 09/22/20 01:30 09/22/20 01:36 09/22/20 01:45 Temperature Pulse Rate 57 L 61 75 Respiratory Rate 22 22 23 Blood Pressure 85/53 L 191/87 H Pulse Oximetry 94 98 96 09/22/20 01:50 09/22/20 01:58 09/22/20 02:00 Temperature 97.3 F L Pulse Rate 94 H 74 74 Respiratory Rate 25 H 28 H 25 H Blood Pressure 176/75 H 131/47 L 122/58 L Pulse Oximetry 92 91 91 09/22/20 02:10 09/22/20 02:15 09/22/20 03:15 Temperature Pulse Rate 68 66 69 Respiratory Rate 25 H 23 25 H Blood Pressure 121/56 L 140/64 Pulse Oximetry 91 92 94 09/22/20 03:52 09/22/20 04:00 09/22/20 04:15 Temperature Pulse Rate 64 61 61 Respiratory Rate 22 23 24 Blood Pressure 128/61 129/64 135/70 Pulse Oximetry 93 93 95 09/22/20 04:30 09/22/20 04:45 09/22/20 05:00 Temperature Pulse Rate 61 61 60 Respiratory Rate 22 22 22 Blood Pressure 134/71 134/72 137/69 Pulse Oximetry 93 93 94 09/22/20 05:15 09/22/20 05:30 09/22/20 05:45 Temperature Pulse Rate 59 L 60 58 L Respiratory Rate 22 22 22 Blood Pressure 138/72 136/70 114/57 L Pulse Oximetry 94 94 93 09/22/20 06:00 09/22/20 06:15 09/22/20 06:30 Temperature Pulse Rate 63 58 L 59 L Respiratory Rate 24 22 22 Blood Pressure 114/57 L 108/56 L 99/56 L Pulse Oximetry 92 93 93 09/22/20 06:45 09/22/20 06:55 09/22/20 07:00 Temperature Pulse Rate 56 L 56 L 55 L Respiratory Rate 22 22 22 Blood Pressure 127/60 124/59 L Pulse Oximetry 96 95 95 09/22/20 07:15 Temperature Pulse Rate 57 L Respiratory Rate 22 Blood Pressure 124/61 Pulse Oximetry 98 Fraction of Inspired Oxygen 80 Oxygen Delivery Method Mechanical Ventilation Oxygen Flow Rate 15 Narrative Exam Narrative: GEN: obese male, intubated, sedated, appears comfortable, squeeze hands on request HEENT: PERRL, wet mucous membranes NECK: trachea midline, no JVD, CVL in place clean dry and intact, CV: bradycardic, no murmurs PULM: wheezes and rhonchi bilaterally, decreased breath sounds at bases, tube at 24cm ABD: distended, +hepatomegaly, soft, nontender, normal bowel sounds EXT: warm and well perfused with no edema NEURO: intubated and sedated, squeezes hand in response SKIN: no rashes PSYCH: unable for now due to intubation Objective Labs Result Diagrams: 09/22/20 05:20 09/22/20 05:20 Labs: Laboratory Results - last 24 hr 09/21/20 09/21/20 09/21/20 11:53 12:15 15:27 WBC RBC Hgb Hct MCV MCH MCHC RDW Plt Count Neut % (Auto) Lymph % (Auto) Braxton % (Auto) Eos % (Auto) Baso % (Auto) Neut # (Auto) Lymph # (Auto) Braxton # (Auto) Eos # (Auto) Baso # (Auto) PT INR APTT Fibrinogen D-Dimer ABG pH 7.47 H 7.50 H ABG pCO2 31.1 L 32.3 L ABG pO2 52 L 72 L ABG HCO3 23 25 ABG Total CO2 23 26 ABG O2 Saturation 89 L 96 ABG Base Excess -1.0 2.0 FiO2 90 50 Sodium Potassium Chloride Carbon Dioxide BUN Creatinine Estimated GFR BUN/Creatinine Ratio Glucose Lactate 2.7 H Calcium Phosphorus Magnesium Total Bilirubin AST ALT Alkaline Phosphatase Total Protein Albumin Globulin Albumin/Globulin Ratio Urine Color Urine Appearance Urine pH Ur Specific [place] Urine Protein Urine Glucose (UA) Urine Ketones Urine Occult Blood Urine Nitrate Urine Bilirubin Urine Urobilinogen Ur Leukocyte Esterase Urine RBC Urine WBC Ur Squamous Epith Cells Other Crystals Urine Bacteria Ur Culture Indicated? Blood Type Antibody Screen 09/21/20 09/21/20 09/21/20 16:30 18:13 19:58 WBC 16.0 H RBC 4.61 Hgb 14.0 Hct 41.0 MCV 89.0 MCH 30.4 MCHC 34.2 RDW 14.8 Plt Count 91 L Neut % (Auto) 97.0 H Lymph % (Auto) 0.8 L Braxton % (Auto) 1.9 L Eos % (Auto) 0.0 L Baso % (Auto) 0.3 Neut # (Auto) 49046 H Lymph # (Auto) 100 L Braxton # (Auto) 300 Eos # (Auto) 0 Baso # (Auto) 0 PT INR APTT Fibrinogen D-Dimer ABG pH ABG pCO2 ABG pO2 ABG HCO3 ABG Total CO2 ABG O2 Saturation ABG Base Excess FiO2 Sodium Potassium Chloride Carbon Dioxide BUN Creatinine Estimated GFR BUN/Creatinine Ratio Glucose Lactate 2.3 H Calcium Phosphorus Magnesium Total Bilirubin AST ALT Alkaline Phosphatase Total Protein Albumin Globulin Albumin/Globulin Ratio Urine Color Yellow Urine Appearance Clear Urine pH 5.5 Ur Specific [place] 1.020 Urine Protein 2+ H Urine Glucose (UA) 1+ H Urine Ketones Negative Urine Occult Blood 3+ H Urine Nitrate Negative Urine Bilirubin Negative Urine Urobilinogen 0.2 Ur Leukocyte Esterase Negative Urine RBC 5-10/hpf H Urine WBC 1-5/hpf Ur Squamous Epith Cells 0-1 /hpf Other Crystals 1+ amorphous Urine Bacteria Occasional (0-1) Ur Culture Indicated? Cult not indicated Blood Type Antibody Screen 09/21/20 09/21/20 09/21/20 19:58 19:58 19:58 WBC RBC Hgb Hct MCV MCH MCHC RDW Plt Count Neut % (Auto) Lymph % (Auto) Braxton % (Auto) Eos % (Auto) Baso % (Auto) Neut # (Auto) Lymph # (Auto) Braxton # (Auto) Eos # (Auto) Baso # (Auto) PT 14.7 H INR 1.3 APTT Fibrinogen D-Dimer ABG pH ABG pCO2 ABG pO2 ABG HCO3 ABG Total CO2 ABG O2 Saturation ABG Base Excess FiO2 Sodium 126 L Potassium 3.3 L Chloride 91 L Carbon Dioxide 27 BUN 31 H Creatinine 1.23 Estimated GFR 57.4 L BUN/Creatinine Ratio 25.2 H Glucose 330 H Lactate Calcium 8.0 L Phosphorus Magnesium 2.0 Total Bilirubin AST ALT Alkaline Phosphatase Total Protein Albumin Globulin Albumin/Globulin Ratio Urine Color Urine Appearance Urine pH Ur Specific [place] Urine Protein Urine Glucose (UA) Urine Ketones Urine Occult Blood Urine Nitrate Urine Bilirubin Urine Urobilinogen Ur Leukocyte Esterase Urine RBC Urine WBC Ur Squamous Epith Cells Other Crystals Urine Bacteria Ur Culture Indicated? Blood Type O Positive Antibody Screen Negative 09/21/20 09/21/20 09/21/20 19:58 19:58 20:04 WBC RBC Hgb Hct MCV MCH MCHC RDW Plt Count Neut % (Auto) Lymph % (Auto) Braxton % (Auto) Eos % (Auto) Baso % (Auto) Neut # (Auto) Lymph # (Auto) Braxton # (Auto) Eos # (Auto) Baso # (Auto) PT INR APTT Fibrinogen 703 H D-Dimer 1045 H ABG pH ABG pCO2 ABG pO2 ABG HCO3 ABG Total CO2 ABG O2 Saturation ABG Base Excess FiO2 Sodium Potassium Chloride Carbon Dioxide BUN Creatinine Estimated GFR BUN/Creatinine Ratio Glucose Lactate 1.3 Calcium Phosphorus Magnesium Total Bilirubin AST ALT Alkaline Phosphatase Total Protein Albumin Globulin Albumin/Globulin Ratio Urine Color Urine Appearance Urine pH Ur Specific [place] Urine Protein Urine Glucose (UA) Urine Ketones Urine Occult Blood Urine Nitrate Urine Bilirubin Urine Urobilinogen Ur Leukocyte Esterase Urine RBC Urine WBC Ur Squamous Epith Cells Other Crystals Urine Bacteria Ur Culture Indicated? Blood Type Antibody Screen 09/21/20 09/22/20 09/22/20 21:09 00:15 00:15 WBC 14.3 H RBC 4.25 L Hgb 12.5 L Hct 38.4 L MCV 90.3 MCH 29.4 MCHC 32.6 RDW 15.2 H Plt Count 87 L Neut % (Auto) 95.7 H Lymph % (Auto) 1.6 L Braxton % (Auto) 2.3 L Eos % (Auto) 0.0 L Baso % (Auto) 0.4 Neut # (Auto) 55683 H Lymph # (Auto) 200 L Braxton # (Auto) 300 Eos # (Auto) 0 Baso # (Auto) 100 PT INR APTT Fibrinogen D-Dimer ABG pH 7.38 ABG pCO2 43.6 ABG pO2 66 L ABG HCO3 26 ABG Total CO2 27 ABG O2 Saturation 92 L ABG Base Excess 1.0 FiO2 70 Sodium 127 L Potassium 3.8 Chloride 96 L Carbon Dioxide 25 BUN 34 H Creatinine 1.53 H Estimated GFR 44.6 L BUN/Creatinine Ratio 22.2 H Glucose 314 H Lactate Calcium 7.2 L Phosphorus Magnesium 2.2 Total Bilirubin 0.6 AST 68 H ALT 55 H Alkaline Phosphatase 84 Total Protein 5.3 L Albumin 2.5 L Globulin 2.8 Albumin/Globulin Ratio 0.9 L Urine Color Urine Appearance Urine pH Ur Specific [place] Urine Protein Urine Glucose (UA) Urine Ketones Urine Occult Blood Urine Nitrate Urine Bilirubin Urine Urobilinogen Ur Leukocyte Esterase Urine RBC Urine WBC Ur Squamous Epith Cells Other Crystals Urine Bacteria Ur Culture Indicated? Blood Type Antibody Screen 09/22/20 09/22/20 09/22/20 00:15 03:58 03:58 WBC 20.8 H RBC 4.57 Hgb 13.5 Hct 40.9 L MCV 89.4 MCH 29.5 MCHC 33.0 RDW 15.1 H Plt Count 115 L Neut % (Auto) 97.4 H Lymph % (Auto) 1.0 L Braxton % (Auto) 1.4 L Eos % (Auto) 0.0 L Baso % (Auto) 0.2 Neut # (Auto) 78010 H Lymph # (Auto) 200 L [place] # (Auto) 300 Eos # (Auto) 0 Baso # (Auto) 0 PT INR APTT Fibrinogen D-Dimer ABG pH ABG pCO2 ABG pO2 ABG HCO3 ABG Total CO2 ABG O2 Saturation ABG Base Excess FiO2 Sodium 127 L Potassium 3.9 Chloride 98 Carbon Dioxide 22 BUN 35 H Creatinine 1.35 H Estimated GFR 51.5 L BUN/Creatinine Ratio 25.9 H Glucose 290 H Lactate 1.5 Calcium 7.4 L Phosphorus Magnesium Total Bilirubin 0.6 AST 75 H ALT 64 H Alkaline Phosphatase 95 Total Protein 5.6 L Albumin 2.6 L Globulin 3.0 Albumin/Globulin Ratio 0.9 L Urine Color Urine Appearance Urine pH Ur Specific [place] Urine Protein Urine Glucose (UA) Urine Ketones Urine Occult Blood Urine Nitrate Urine Bilirubin Urine Urobilinogen Ur Leukocyte Esterase Urine RBC Urine WBC Ur Squamous Epith Cells Other Crystals Urine Bacteria Ur Culture Indicated? Blood Type Antibody Screen 09/22/20 09/22/20 09/22/20 05:20 05:20 05:20 WBC 21.3 H RBC 4.65 Hgb 13.7 Hct 41.7 MCV 89.7 MCH 29.4 MCHC 32.8 RDW 15.1 H Plt Count 121 L Neut % (Auto) Lymph % (Auto) Braxton % (Auto) Eos % (Auto) Baso % (Auto) Neut # (Auto) Lymph # (Auto) [place] # (Auto) Eos # (Auto) Baso # (Auto) PT 12.3 INR 1.1 APTT 29 D Fibrinogen 674 H D-Dimer 1029 H ABG pH ABG pCO2 ABG pO2 ABG HCO3 ABG Total CO2 ABG O2 Saturation ABG Base Excess FiO2 Sodium 129 L Potassium 3.9 Chloride 98 Carbon Dioxide 22 BUN 36 H Creatinine 1.34 H Estimated GFR 52.0 L BUN/Creatinine Ratio 26.9 H Glucose 294 H Lactate Calcium 7.6 L Phosphorus 4.2 H Magnesium 2.3 Total Bilirubin AST ALT Alkaline Phosphatase Total Protein Albumin Globulin Albumin/Globulin Ratio Urine Color Urine Appearance Urine pH Ur Specific [place] Urine Protein Urine Glucose (UA) Urine Ketones Urine Occult Blood Urine Nitrate Urine Bilirubin Urine Urobilinogen Ur Leukocyte Esterase Urine RBC Urine WBC Ur Squamous Epith Cells Other Crystals Urine Bacteria Ur Culture Indicated? Blood Type Antibody Screen [facility] Medical History Back problem Chicken pox Chronic back pain Diverticular disease (~1996) Hearing deficit Measles Mumps Plantar warts Sciatic nerve pain Tinnitus Type 2 diabetes mellitus Vision disorder Surgical History Anesthesia Fractures (~08/1962) History of colon surgery (~03/1997) History of tonsillectomy (~1948) Status post hernia repair (~2002) Family History Brother Cancer Grandmother Heart disease Mother Stroke Loud snoring Hypertension Brother No problems noted. Son No problems noted. Grandfather Loud snoring Sister No problems noted. Father Loud snoring Family/Other Hypertension Heart disease Alcohol abuse Substance abuse Social History household members: spouse Smoking Status: Former smoker alcohol intake: former substance use type: does not use eating out: 1-3 times/week Type(s) of exercise: none Assessment & Plan Assessment & Plan narrative: Mr. Sherman 75M PMH of active smoker, obesity, DM, probable DIVINA who comes in with cough, fevers, found to have pneumonia with acute respiratory failure and sepsis. 1. Acute bacterial pneumonia with septic shock and acute hypoxemic respiratory failure -blood cultures not ordered initially by ED, ordered on floor, follow up cultures -sputum culture ordered, initial was poor sample, not much sputum production in ET, will send repeat -has sepsis as evidenced by acute respiratory failure in setting with fever, tachycardia, elevated white count -ordered for vancomycin, zosyn, azithro for broad coverage and will continue for now, MRSA swab ordered -ordered for 30cc/kg bolus of IVF in ED -lactate rising on 09/22 to 2.7, with fluids and norepi resolved to 1.5 -norepi currently at 3, with MAP in 70s, will attempt to wean down with MAP goal >65 -will monitor patient closely for signs of ischemia given CTA, and attempt to limit norepi as able 2. Acute respiratory failure secondary to pneumonia and probable acute COPD exacerbation, with moderate ARDS, now intubated -patient has wheezing on exam and evidence on imaging of chronic emphesematous changes -evidence on imaging shows dense bilateral consolidation consistent with pneumonia -ordered for steroids, azithromycin, and duonebs and broad antibiotics with vanco/zosyn as above -p/f ratio initially 140, indicating moderate ards -follow cultures as above -counselled to quit smoking as he is active smoker -ordered for low tidal volume, per ARDS protocol, TV 420, peep 10 today, Fio2 80% -sats AM of 09/22 of 97%, will attempt to titrate down fio2 target of 93% sat -repeat am chest xray -plan for sedation holiday this AM -evaluate daily for ability to wean and possibly extubate, today with significant ards and worsening oxygen requirement will need to remain intubated -ordered for ECHO to eval for possible cardiac dysfunction 3. GI bleeding -has noted coffee ground emesis from NG tube, total of approximately 200cc since placement on NG tube, but only 25cc overnight shift -CTA was done overnight that showed celiac and mesenteric stenosis, but no acute process or thrombus visible -physical exam shows soft, but distended belly, and lactate was normal so bleeding less likely to be from ischemia -patient not anticoagulation candidate now for GI bleed even if has mesenteric ischemia -previously no bleeding, and hemoglobin has been 14 on admission, down only slightly to 13.7 -ordered for PPI drip -type and screen 4. CAREN -baseline creatinine appears to be 0.8-0.9 -creatinine 09/22 up to 1.34, slightly improved from 1.53 -still having good urine output, ~600-700cc overnight -etiology is likely from severe sepsis and septic shock -improved slightly today after fluid bolus, and higher MAP once norepi started -attempt to keep euvolemic, patient developing mild pleural effusions after fluid resuscitation -will consider low dose lasix -check urine lytes, urinalysis shows small RBC and no casts, with 2+ protein 5. Acute thrombocytopenia -platelets of 72 initially, dropped to 60s on 09/21, but up now to platelets of 121 -baseline unknown -possibly due to sepsis or undiagnosed liver disease as has evidence of hepatomegaly on imaging -trend daily -with bleeding there was concern for possible DIC -INR 1.1, PT/PTT normal, fibrinogen 674, ddimer 1029 not consistent with DIC -may need platelet transfusion, will order for transfusion if platelets less than 50 6. Hyponatremia -in setting of sepsis -volume status difficult, but appears euvolemic -in setting of pneumonia, may have component of SIADH -however in setting of sepsis, has needed additional fluids and had improvement of sodium from 126 to 129 7. Probable DIVINA -has been noted on previous outpatient notes -not using bipap as patient -may need as outpatient 8. Type 2 diabetes, with hyperglycemia -hold home dose of metformin -for now will be on sliding scale insulin high dose, added 10U lantus -a1c 8.4 in may -on steroids for respiratory failure, possible COPD, which is causing elevated blood sugars 9. HTN -hold anti-hypertensives given patient has sepsis 10. HL -hold statin with transaminitis 11. Transaminitis -mild with lfts in 60s-70s, bili and alk phos ok -likely secondary to acute sepsis -patient with significant hepatomegaly -hepatomegaly with hepatic fatty infiltration likely secondary to poorly controlled diabetes -trend lfts daily 12. Abdominal distention -CT scan shows no acute process, does have hepatomegaly -patient abdomen variable in size throughout the day, believe has a component of swallowing air due to high oxygen levels -continue to monitor DIET: hold off nutrition for now given resolving bleed, and abdominal distention GI ppx: PPI gtt as above DVT ppx: SCDs, due to bleed IVF: none Code: full, proxy is spouse mona
[2020-09-22] MEDS: VANCOMYCIN TROUGH 1 REQUEST MISC (09:16)
[2020-09-22 09:22] LABS: HCO3 ABG 25 mmol/L (22-26); PCO2 ABG 47.3 mmHg (35-45); PO2 ABG 68 mmHg (80-100); TCO2 ABG 26 mmol/L (21-31); pH ABG 7.32 (7.35-7.45)
[2020-09-22 09:23] LABS: Fractionated Inspired Oxygen 60; Oxygen Saturation ABG 91 % (95-100)
[2020-09-22 09:52] LABS: Vancomycin Peak 11.7 ug/mL (20-40)
[2020-09-22 09:53] LABS: Creatinine Urine Random 97.8 mg/dL; Sodium Urine Random < 5 mmol/L (30-90)
[2020-09-22] MEDS: VANCOMYCIN 1,000 MG/200 ML PIGGYBACK 200 MG IV (10:11)
--- NOTE | 2020-09-22 10:20 | DI.RAD.S_ITS ---
PROCEDURE: XR CHEST 1V INDICATIONS: ET tube adjustment TECHNIQUE: One view of the chest was acquired. COMPARISON: [facility], CT, CT CHEST ABD PEL W CON, 09/20/2020, 16:36. [facility], CT, CT ANGIO ABDOMEN PELVIS, 09/22/2020, 2:06. [facility], CR, CHEST 2 VIEW, 10/12/2016, 9:47. [facility], CR, XR CHEST 1V, 09/21/2020, 11:39. [facility], CR, XR CHEST 1V, 09/21/2020, 19:02. FINDINGS: Surgical changes and devices: An endotracheal tube is seen, with the tip approximately 5 cm above the real. A gastric tube is seen, with the tip not visible, yet traversing below the level of the diaphragm. Lungs and pleura: Patchy bilateral infiltrates are seen, left worse than right.. There is a small left-sided pleural effusion. No large pneumothorax can be seen on this semiupright study. No pleural effusions or pneumothorax. Mediastinum: Mediastinal contours appear normal. Heart size is normal. Atherosclerotic calcification of the aortic arch is noted. Bones and chest wall: No suspicious bony lesions. Age-appropriate bony degenerative changes are seen. Overlying soft tissues appear unremarkable. IMPRESSION: The tip of the endotracheal tube is now seen approximately 5 cm above the real. Patchy bilateral infiltrates are seen, which are better demonstrated by CT. Dictated by: Lele Finch M.D. on 09/22/2020 at 9:41 Approved by: Lele Finch M.D. on 09/22/2020 at 9:43
[2020-09-22] MEDS: INSULIN LISPRO 100 UNIT/ML 3ML VIAL SUBCUT (11:18)
--- NOTE | 2020-09-22 11:51 | PM.DS.1 ---
History of Present Illness History of Present Illness Chief complaint: Swollen Belly, SOB, Hard As A Basketball Narrative: Mr. Sherman is a 75M with PMH of diabetes, obesity, actively smoking, polycythemia vera thought secondary to possible DIVINA, previous diverticulitis with perforation, HTN, HL who comes in with 5 days of worsening shortness of breath, cough, fevers, and chills. He notes that he has also been unable to eat very well, he has a distended abdomen with nausea and vomiting. He has had a COVID vaccination. Because of the worsening shortness of breath he presented to the ER. In the ER he was noted to be febrile, tachycardic, tachypneic, and hypoxemic in the 80s on room air. Labs were notable for WBC of 15.5 with 52% bands, platelets of 73. ABD with pH of 7.51 with pco2 of 28. Sodium 128, BUN 30, creatinine 1.18. AST/ALT 65/61 with alk phos 128. Troponin negative. BNP 427. COVID negative. Chest xray showed bilateral patchy and ground glass opacities. CT showed multifocal pulmonary infiltrates. Emphysematous changes. Also noted hepatomegaly and hepatic infiltration. Incidental adrenal nodule noted. He was diagnosed with sepsis in the ER and started on IV antibiotics with vancomycin, zosyn, azithromycin and IV fluids 30 cc/kg. He was admitted for further treatment. Discharge Providers Provider Date of admission: 09/20/20 17:37 Discharge Date: 09/22/20 Primary care physician: Ivon Mckeon DO Consults: 09/20/20 17:59 Consult to Respiratory Therapy Evaluate & Treat Comment: Physician Instructions: Evaluate and treat 09/21/20 14:33 Consult After Hours PICC Line RN Stat Comment: 09/22/20 04:38 Consult to General Surgery Urgent Comment: Consulting Provider: Araceli Drake Reason for consultation: Upper Gi Bleed Has provider been notified: No Discharge provider: Kash Jason MD Summary Hospital Course Discharge Diagnosis: 1. Acute bacterial pneumonia 2. Septic shock 3. Acute respiratory failure, intubated, secondary pneumonia/ARDS 4. Possible COPD exacerbation 5. GI bleeding, coffee ground emesis 6. CAREN 7. Thrombocytopenia 8. Abdominal distention 8. Hyponatremia 9. Transaminitis 9. Probable DIVINA 10. Polycythemia, thought secondary possibly to DIVINA 11. Type 2 Diabetes 12. Hypertension 13. Hyperlipidemia 14. Incidental adrenal nodule noted on CT 15. Active smoker Hospital Course: Mr. Sherman 75M PMH of active smoker, obesity, DM, probable DIVINA who comes in with cough, fevers, found to have pneumonia with acute respiratory failure and sepsis. He initially came in with fevers, cough, shortness of breath. he was satting in the 80s. Placed on 6L oxyen. He was started on vancomycin, and zosyn. In addition he had emphesematous lungs on imaging and was started on azithromycin, steroids, and nebulizers. He was complaining of abdominal distention and CT scan showed no acute process but did show hepatomegaly. Initially lactate was elevated in the 2s. For the first night his respiratory status was stable, but then had increasing O2 demand being placed on high flow oxygen, then bipap for 3 hours. He did not tolerate this well, unable to come off bipap, anxious, worsening abdominal distention. He also was taking in high tidal volumes on bipap near 1000. His imaging had shown significant pneumonia, and given unlikeliness of improving he was intubated. Triple lumen central line was place. He had 2 peripheral IVs. He has been kept sedated on propofol and fentanyl with RASS -1 to 0. After intubation his MAPs dropped to the high 50s, he was given 2L IV bolus with transient minimal improvement. He was started on norepinephrine with improvement of his MAPs to the 70s. For his respiratory failure he had been kept on tidal volume of 420, peep of 10, FiO2 60% targetting O2 sats approximately 93%. He did have after NG tube placed a total of ~200cc of coffee ground emesis, he was started on protonix drip. His hemoglobin on discharge was 13.7. And his coffee ground emesis had slowed consideraly to 20cc over the previous shift. In addition he initially came in with low platelets in the 70s, unknown basline. This dropped to the 60s, but on discharge was 120. Initially there was some concern for DIC however INR, PT, PTT were normal. Fibrinogen was >600, ddimer 1045. 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 CT did note occlusion of right common iliac artery with reperfusion distally. He also had CAREN with discharge creatinine of 1.6, urine output ~100cc/hr. His blood sugars were elevated in the 200s and he was started on lantus and sliding scale insulin. COVID was negative. Flu negative. Notable labs on DC, WBC of 21.3, plaeteles 135, creatinine of 1.6 from baseline of 0.8-0.9. Lactate 1.5. Sodium 129. MRSA swab negative. Pending on discharge: -final echo results -blood cultures no growth to date DIET: hold off nutrition for now given resolving bleed, and abdominal distention GI ppx: PPI gtt as above DVT ppx: SCDs, due to bleed IVF: none Code: full, proxy is spouse mona Status at Discharge Cognitive/behavioral status at discharge: confused Functional status at discharge: bed bound Overall status at discharge: patient is not back to baseline Exam Vital Signs (past 8 hours): - 09/22/20 03:52 09/22/20 04:00 09/22/20 04:15 Temperature Pulse Rate 64 61 61 Respiratory Rate 22 23 24 Blood Pressure 128/61 129/64 135/70 Pulse Oximetry 93 93 95 09/22/20 04:30 09/22/20 04:45 09/22/20 05:00 Temperature Pulse Rate 61 61 60 Respiratory Rate 22 22 22 Blood Pressure 134/71 134/72 137/69 Pulse Oximetry 93 93 94 09/22/20 05:15 09/22/20 05:30 09/22/20 05:45 Temperature Pulse Rate 59 L 60 58 L Respiratory Rate 22 22 22 Blood Pressure 138/72 136/70 114/57 L Pulse Oximetry 94 94 93 09/22/20 06:00 09/22/20 06:15 09/22/20 06:30 Temperature Pulse Rate 63 58 L 59 L Respiratory Rate 24 22 22 Blood Pressure 114/57 L 108/56 L 99/56 L Pulse Oximetry 92 93 93 09/22/20 06:45 09/22/20 06:55 09/22/20 07:00 Temperature Pulse Rate 56 L 56 L 55 L Respiratory Rate 22 22 22 Blood Pressure 127/60 124/59 L Pulse Oximetry 96 95 95 09/22/20 07:15 09/22/20 07:55 09/22/20 08:00 Temperature 97.9 F Pulse Rate 57 L 57 L 57 L Respiratory Rate 22 22 22 Blood Pressure 124/61 116/57 L Pulse Oximetry 98 97 97 09/22/20 08:15 09/22/20 08:55 09/22/20 09:00 Temperature 98.4 F Pulse Rate 60 60 Respiratory Rate 22 10 L 19 Blood Pressure 121/61 Pulse Oximetry 94 93 94 09/22/20 09:50 09/22/20 10:00 09/22/20 10:49 Temperature 97.8 F Pulse Rate 60 59 L Respiratory Rate 17 24 Blood Pressure 103/56 L Pulse Oximetry 94 94 96 09/22/20 11:13 Temperature 97.3 F L Pulse Rate 61 Respiratory Rate 22 Blood Pressure 98/56 L Pulse Oximetry 98 Fraction of Inspired Oxygen 60 Oxygen Delivery Method Mechanical Ventilation Oxygen Flow Rate 15 Narrative Exam Narrative: GEN: obese male, intubated, sedated, appears comfortable, squeeze hands on request HEENT: PERRL, wet mucous membranes NECK: trachea midline, no JVD, CVL in place clean dry and intact on right neck CV: bradycardic, no murmurs PULM: wheezes and rhonchi bilaterally, decreased breath sounds at bases, tube at 26cm ABD: distended, +hepatomegaly, soft, nontender, normal bowel sounds EXT: warm and well perfused with no edema : mendez in place NEURO: intubated and sedated, squeezes hand in response SKIN: no rashes PSYCH: unable for now due to intubation Objective Labs Result Diagrams: 09/22/20 13:00 09/22/20 13:00 Labs: Laboratory Results - last 24 hr 09/21/20 09/21/20 09/21/20 11:53 12:15 15:27 WBC RBC Hgb Hct MCV MCH MCHC RDW Plt Count Neut % (Auto) Lymph % (Auto) [place] % (Auto) Eos % (Auto) Baso % (Auto) Neut # (Auto) Lymph # (Auto) [place] # (Auto) Eos # (Auto) Baso # (Auto) PT INR APTT Fibrinogen D-Dimer ABG pH 7.47 H 7.50 H ABG pCO2 31.1 L 32.3 L ABG pO2 52 L 72 L ABG HCO3 23 25 ABG Total CO2 23 26 ABG O2 Saturation 89 L 96 ABG Base Excess -1.0 2.0 FiO2 90 50 Sodium Potassium Chloride Carbon Dioxide BUN Creatinine Estimated GFR BUN/Creatinine Ratio Glucose Lactate 2.7 H Calcium Phosphorus Magnesium Total Bilirubin AST ALT Alkaline Phosphatase Total Protein Albumin Globulin Albumin/Globulin Ratio Urine Color Urine Appearance Urine pH Ur Specific Hawkins Urine Protein Urine Glucose (UA) Urine Ketones Urine Occult Blood Urine Nitrate Urine Bilirubin Urine Urobilinogen Ur Leukocyte Esterase Urine RBC Urine WBC Ur Squamous Epith Cells Other Crystals Urine Bacteria Ur Culture Indicated? Ur Random Sodium Urine Creatinine Vancomycin Peak Blood Type Antibody Screen 09/21/20 09/21/20 09/21/20 16:30 18:13 19:58 WBC 16.0 H RBC 4.61 Hgb 14.0 Hct 41.0 MCV 89.0 MCH 30.4 MCHC 34.2 RDW 14.8 Plt Count 91 L Neut % (Auto) 97.0 H Lymph % (Auto) 0.8 L [place] % (Auto) 1.9 L Eos % (Auto) 0.0 L Baso % (Auto) 0.3 Neut # (Auto) 73373 H Lymph # (Auto) 100 L [place] # (Auto) 300 Eos # (Auto) 0 Baso # (Auto) 0 PT INR APTT Fibrinogen D-Dimer ABG pH ABG pCO2 ABG pO2 ABG HCO3 ABG Total CO2 ABG O2 Saturation ABG Base Excess FiO2 Sodium Potassium Chloride Carbon Dioxide BUN Creatinine Estimated GFR BUN/Creatinine Ratio Glucose Lactate 2.3 H Calcium Phosphorus Magnesium Total Bilirubin AST ALT Alkaline Phosphatase Total Protein Albumin Globulin Albumin/Globulin Ratio Urine Color Yellow Urine Appearance Clear Urine pH 5.5 Ur Specific [place] 1.020 Urine Protein 2+ H Urine Glucose (UA) 1+ H Urine Ketones Negative Urine Occult Blood 3+ H Urine Nitrate Negative Urine Bilirubin Negative Urine Urobilinogen 0.2 Ur Leukocyte Esterase Negative Urine RBC 5-10/hpf H Urine WBC 1-5/hpf Ur Squamous Epith Cells 0-1 /hpf Other Crystals 1+ amorphous Urine Bacteria Occasional (0-1) Ur Culture Indicated? Cult not indicated Ur Random Sodium Urine Creatinine Vancomycin Peak Blood Type Antibody Screen 09/21/20 09/21/20 09/21/20 19:58 19:58 19:58 WBC RBC Hgb Hct MCV MCH MCHC RDW Plt Count Neut % (Auto) Lymph % (Auto) [place] % (Auto) Eos % (Auto) Baso % (Auto) Neut # (Auto) Lymph # (Auto) [place] # (Auto) Eos # (Auto) Baso # (Auto) PT 14.7 H INR 1.3 APTT Fibrinogen D-Dimer ABG pH ABG pCO2 ABG pO2 ABG HCO3 ABG Total CO2 ABG O2 Saturation ABG Base Excess FiO2 Sodium 126 L Potassium 3.3 L Chloride 91 L Carbon Dioxide 27 BUN 31 H Creatinine 1.23 Estimated GFR 57.4 L BUN/Creatinine Ratio 25.2 H Glucose 330 H Lactate Calcium 8.0 L Phosphorus Magnesium 2.0 Total Bilirubin AST ALT Alkaline Phosphatase Total Protein Albumin Globulin Albumin/Globulin Ratio Urine Color Urine Appearance Urine pH Ur Specific [place] Urine Protein Urine Glucose (UA) Urine Ketones Urine Occult Blood Urine Nitrate Urine Bilirubin Urine Urobilinogen Ur Leukocyte Esterase Urine RBC Urine WBC Ur Squamous Epith Cells Other Crystals Urine Bacteria Ur Culture Indicated? Ur Random Sodium Urine Creatinine Vancomycin Peak Blood Type O Positive Antibody Screen Negative 09/21/20 09/21/20 09/21/20 19:58 19:58 20:04 WBC RBC Hgb Hct MCV MCH MCHC RDW Plt Count Neut % (Auto) Lymph % (Auto) [place] % (Auto) Eos % (Auto) Baso % (Auto) Neut # (Auto) Lymph # (Auto) [place] # (Auto) Eos # (Auto) Baso # (Auto) PT INR APTT Fibrinogen 703 H D-Dimer 1045 H ABG pH ABG pCO2 ABG pO2 ABG HCO3 ABG Total CO2 ABG O2 Saturation ABG Base Excess FiO2 Sodium Potassium Chloride Carbon Dioxide BUN Creatinine Estimated GFR BUN/Creatinine Ratio Glucose Lactate 1.3 Calcium Phosphorus Magnesium Total Bilirubin AST ALT Alkaline Phosphatase Total Protein Albumin Globulin Albumin/Globulin Ratio Urine Color Urine Appearance Urine pH Ur Specific [place] Urine Protein Urine Glucose (UA) Urine Ketones Urine Occult Blood Urine Nitrate Urine Bilirubin Urine Urobilinogen Ur Leukocyte Esterase Urine RBC Urine WBC Ur Squamous Epith Cells Other Crystals Urine Bacteria Ur Culture Indicated? Ur Random Sodium Urine Creatinine Vancomycin Peak Blood Type Antibody Screen 09/21/20 09/22/20 09/22/20 21:09 00:15 00:15 WBC 14.3 H RBC 4.25 L Hgb 12.5 L Hct 38.4 L MCV 90.3 MCH 29.4 MCHC 32.6 RDW 15.2 H Plt Count 87 L Neut % (Auto) 95.7 H Lymph % (Auto) 1.6 L [place] % (Auto) 2.3 L Eos % (Auto) 0.0 L Baso % (Auto) 0.4 Neut # (Auto) 07296 H Lymph # (Auto) 200 L [place] # (Auto) 300 Eos # (Auto) 0 Baso # (Auto) 100 PT INR APTT Fibrinogen D-Dimer ABG pH 7.38 ABG pCO2 43.6 ABG pO2 66 L ABG HCO3 26 ABG Total CO2 27 ABG O2 Saturation 92 L ABG Base Excess 1.0 FiO2 70 Sodium 127 L Potassium 3.8 Chloride 96 L Carbon Dioxide 25 BUN 34 H Creatinine 1.53 H Estimated GFR 44.6 L BUN/Creatinine Ratio 22.2 H Glucose 314 H Lactate Calcium 7.2 L Phosphorus Magnesium 2.2 Total Bilirubin 0.6 AST 68 H ALT 55 H Alkaline Phosphatase 84 Total Protein 5.3 L Albumin 2.5 L Globulin 2.8 Albumin/Globulin Ratio 0.9 L Urine Color Urine Appearance Urine pH Ur Specific [place] Urine Protein Urine Glucose (UA) Urine Ketones Urine Occult Blood Urine Nitrate Urine Bilirubin Urine Urobilinogen Ur Leukocyte Esterase Urine RBC Urine WBC Ur Squamous Epith Cells Other Crystals Urine Bacteria Ur Culture Indicated? Ur Random Sodium Urine Creatinine Vancomycin Peak Blood Type Antibody Screen 09/22/20 09/22/20 09/22/20 00:15 03:58 03:58 WBC 20.8 H RBC 4.57 Hgb 13.5 Hct 40.9 L MCV 89.4 MCH 29.5 MCHC 33.0 RDW 15.1 H Plt Count 115 L Neut % (Auto) 97.4 H Lymph % (Auto) 1.0 L [place] % (Auto) 1.4 L Eos % (Auto) 0.0 L Baso % (Auto) 0.2 Neut # (Auto) 79227 H Lymph # (Auto) 200 L [place] # (Auto) 300 Eos # (Auto) 0 Baso # (Auto) 0 PT INR APTT Fibrinogen D-Dimer ABG pH ABG pCO2 ABG pO2 ABG HCO3 ABG Total CO2 ABG O2 Saturation ABG Base Excess FiO2 Sodium 127 L Potassium 3.9 Chloride 98 Carbon Dioxide 22 BUN 35 H Creatinine 1.35 H Estimated GFR 51.5 L BUN/Creatinine Ratio 25.9 H Glucose 290 H Lactate 1.5 Calcium 7.4 L Phosphorus Magnesium Total Bilirubin 0.6 AST 75 H ALT 64 H Alkaline Phosphatase 95 Total Protein 5.6 L Albumin 2.6 L Globulin 3.0 Albumin/Globulin Ratio 0.9 L Urine Color Urine Appearance Urine pH Ur Specific [place] Urine Protein Urine Glucose (UA) Urine Ketones Urine Occult Blood Urine Nitrate Urine Bilirubin Urine Urobilinogen Ur Leukocyte Esterase Urine RBC Urine WBC Ur Squamous Epith Cells Other Crystals Urine Bacteria Ur Culture Indicated? Ur Random Sodium Urine Creatinine Vancomycin Peak Blood Type Antibody Screen 09/22/20 09/22/20 09/22/20 05:20 05:20 05:20 WBC 21.3 H RBC 4.65 Hgb 13.7 Hct 41.7 MCV 89.7 MCH 29.4 MCHC 32.8 RDW 15.1 H Plt Count 121 L Neut % (Auto) Lymph % (Auto) [place] % (Auto) Eos % (Auto) Baso % (Auto) Neut # (Auto) Lymph # (Auto) [place] # (Auto) Eos # (Auto) Baso # (Auto) PT 12.3 INR 1.1 APTT 29 D Fibrinogen 674 H D-Dimer 1029 H ABG pH ABG pCO2 ABG pO2 ABG HCO3 ABG Total CO2 ABG O2 Saturation ABG Base Excess FiO2 Sodium 129 L Potassium 3.9 Chloride 98 Carbon Dioxide 22 BUN 36 H Creatinine 1.34 H Estimated GFR 52.0 L BUN/Creatinine Ratio 26.9 H Glucose 294 H Lactate Calcium 7.6 L Phosphorus 4.2 H Magnesium 2.3 Total Bilirubin AST ALT Alkaline Phosphatase Total Protein Albumin Globulin Albumin/Globulin Ratio Urine Color Urine Appearance Urine pH Ur Specific [place] Urine Protein Urine Glucose (UA) Urine Ketones Urine Occult Blood Urine Nitrate Urine Bilirubin Urine Urobilinogen Ur Leukocyte Esterase Urine RBC Urine WBC Ur Squamous Epith Cells Other Crystals Urine Bacteria Ur Culture Indicated? Ur Random Sodium Urine Creatinine Vancomycin Peak Blood Type Antibody Screen 09/22/20 09/22/20 09/22/20 08:57 09:05 09:05 WBC RBC Hgb Hct MCV MCH MCHC RDW Plt Count Neut % (Auto) Lymph % (Auto) [place] % (Auto) Eos % (Auto) Baso % (Auto) Neut # (Auto) Lymph # (Auto) [place] # (Auto) Eos # (Auto) Baso # (Auto) PT INR APTT Fibrinogen D-Dimer ABG pH 7.32 L ABG pCO2 47.3 H ABG pO2 68 L ABG HCO3 25 ABG Total CO2 26 ABG O2 Saturation 91 L ABG Base Excess -1.0 FiO2 60 Sodium Potassium Chloride Carbon Dioxide BUN Creatinine Estimated GFR BUN/Creatinine Ratio Glucose Lactate Calcium Phosphorus Magnesium Total Bilirubin AST ALT Alkaline Phosphatase Total Protein Albumin Globulin Albumin/Globulin Ratio Urine Color Urine Appearance Urine pH Ur Specific [place] Urine Protein Urine Glucose (UA) Urine Ketones Urine Occult Blood Urine Nitrate Urine Bilirubin Urine Urobilinogen Ur Leukocyte Esterase Urine RBC Urine WBC Ur Squamous Epith Cells Other Crystals Urine Bacteria Ur Culture Indicated? Ur Random Sodium < 5 L Urine Creatinine 97.8 Vancomycin Peak 11.7 L Blood Type Antibody Screen [facility] Medical History Back problem Chicken pox Chronic back pain Diverticular disease (~1996) Hearing deficit Measles Mumps Plantar warts Sciatic nerve pain Tinnitus Type 2 diabetes mellitus Vision disorder Surgical History Anesthesia Fractures (~08/1962) History of colon surgery (~03/1997) History of tonsillectomy (~1947) Status post hernia repair (~2002) Family History Brother Cancer Grandmother Heart disease Mother Stroke Loud snoring Hypertension Brother No problems noted. Son No problems noted. Grandfather Loud snoring Sister No problems noted. Father Loud snoring Family/Other Hypertension Heart disease Alcohol abuse Substance abuse Social History household members: spouse Smoking Status: Former smoker alcohol intake: former substance use type: does not use eating out: 1-3 times/week Type(s) of exercise: none Discharge Plan Discharge Plan Patient Disposition: [facility] Under care of provider: Dr. Saucedo Provider Discharge Comment: Transfer for acute respiratory failure, ARDS, pneumonia, septic shock, GI bleed Discharge Data Primary Care Provider: Ivon Mckeon [facility] - [place] The patient has current or prior documentation of left ventricular ejection fraction (LVEF) less than 40%, or moderate or severely depressed left ventricular systolic function.: No
[2020-09-22] MEDS: VANCOMYCIN PEAK 1 REQUEST MISC (12:50)
[2020-09-22 13:23] LABS: Hematocrit 41.3 % (41-53); Mean Corpuscular HGB Conc 33.9 % (30-36); Mean Corpuscular Hemoglobin 30.6 PG (26-34); Mean Corpuscular Volume 90.4 fL (80-100); Platelet Count 135 X10^3/uL (150-400); Red Blood Cell Count 4.57 X10^6/uL (4.5-5.9); White Blood Cell Count 21.3 X10^3/uL (4.5-11.0)
[2020-09-22 13:27] LABS: BUN Creatinine Ratio 27.5 (6-22); Blood Urea Nitrogen 44 mg/dL (9-20); Calcium 7.9 mg/dL (8.4-10.2); Carbon Dioxide 24 mmol/L (22-32); Chloride 96 mmol/L (98-107); Estimated Glomerular Filt Rate 42.3 mL/min (>60); Glucose 304 mg/dL (80-110); HEMOLYSIS < 15 (0-50); Potassium 4.2 mmol/L (3.4-5.1); Sodium 129 mmol/L (137-145)
[2020-09-22 14:00] LABS: Influenza A - CEPHEID Flu A NEGATIVE (NEGATIVE); Influenza B - CEPHEID Flu B NEGATIVE (NEGATIVE)
--- NOTE | 2020-09-22 14:06 | CM.DPC ---
DCP Cont: Patient is currently intubated. Discussed patient during team rounds, and he is to be transferred over to [facility] ([facility] in [place] due to needs of higher level of care. Bed was found, according to charge nurse. ALS team is here to transfer patient. Nurse, Lluvia, stated that is updated. P: Patient is discharging to [facility] via ALS. Copy of IMM placed in patient's blue folder. Miri Sheridan RN/Insulator Apprentice
--- NOTE | 2020-09-22 14:33 | PC.NURSE ---
Shift Summary Received report from BIA [place]. Upon change of shift, pt appears comfortable and adequately sedated. Propofol at 7mcg/kg/min, levo at 3mcg/min, fentanyl at 1mcg/kg/hr, and protonix at 8mls/hr running through TL IJ. Line patent, blood return noted on all three lumens. Pt lung sounds clear but diminished throughout. Vent settings: ET 8, 24 at the lip, 80% FiO2, RR 22, Vt 420, PEEP 10 with o2 sats in the high 90s. Sinus aleida in the 50s, MAP in the 70-80s. Patient not opening eyes but able to squeeze hands on command. NGT to the left nare had put out around 25mls of brown output for brick chimney supervisor on low-intermittent suction. Bilateral lower extremity SCDs in place, indwelling mendez catheter draining clear yellow urine. Dr. Jason at bedside at 0730, decreased prednisone and increased sliding scale insulin to severe coverage. Discussed possible changes in ventilator settings and drip rates. Respiratory therapy at bedside at 0800, no changes. RT at bedside again at 0840, FiO2 lowered to 60% and pt o2 sats maintained in the low to mid 90s. Per CXR recommendations, ET tube advanced to 26 at the lip. Repeat CXR taken at 1025 for placement verification. Echo at bedside at 1030. The only change to drip rates made during this shift were titrations made to levophed as seen on eMAR infusion sheet. Pt MAP maintained well in the 70s on 2mcg, went back and forth between 1.5mcg and 1mcg. Pt remained adequately sedated with a RASS of -2 to -3, able to squeeze hand on command but did not open eyes. SaO2 held in the mid to high 90s on 60% FiO2. Pt called and updated around 1000 and notified of plans to transfer pt to [facility] in [place] for further specialist workup. notified again at 1300 of pt ETA to [place]. Report called to nurse Hendrickson at [facility] for room 442 at 1321. RN notified of 's name and cell phone number. I asked RN if she could give a call when the pt arrives and gets settled in. called at 1447 to check in on patient transfer status, notified that pt left at 1420 and is en route to [place]. Pt put out 250mls of urine and 25mls of NGT output during my shift. PT departed via [facility] at 1420.
== END 2020-09-22 14:20 | disposition short-term general hospital (02) | DRG 871 ==
LOC: ED 15:33 → AC 17:44 → ICU 09-21 08:19 → AC 09-21 10:38 → ICU 09-21 10:38
PROVIDERS: Nurse Practitioner Family; Admitting Provider Internal Medicine; Emergency Provider Emergency Medicine; PCP Family Medicine; Referring Provider Emergency Medicine; Visit Provider Internal Medicine
DX: A41.9 Sepsis, unspecified organism (principal); J15.9 Unspecified bacterial pneumonia; R65.21 Severe sepsis with septic shock; J80 Acute respiratory distress syndrome; J44.1 Chronic obstructive pulmonary disease with (acute) exacerbation; E87.1 Hypo-osmolality and hyponatremia; K92.0 Hematemesis; N17.9 Acute kidney failure, unspecified; J44.0 Chronic obstructive pulmonary disease with (acute) lower respiratory infection; R65.20 Severe sepsis without septic shock; D69.6 Thrombocytopenia, unspecified; R74.01 Elevation of levels of liver transaminase levels; E11.65 Type 2 diabetes mellitus with hyperglycemia; F17.210 Nicotine dependence, cigarettes, uncomplicated; I10 Essential (primary) hypertension; D75.1 Secondary polycythemia; E78.5 Hyperlipidemia, unspecified; Z20.822 Contact with and (suspected) exposure to COVID-19; Z79.84 Long term (current) use of oral hypoglycemic drugs
CPT/HCPCS: 36415; 36592; 36600; 71045; 71260; 74022; 74174; 74177; 80048; 80053; 80076; 80202; 81001; 82550; 82553; 82570; 82805; 82962; 83605; 83690; 83735; 83880; 84100; 84300; 84484; 85007; 85025; 85027; 85379; 85384; 85610; 85730; 86850; 86900; 86901; 87040; 87070; 87205; 87502; 87635; 87797; 93005; 93010; 94002; 94003; 94640; 94660; 94762; 94799; 96361; 96365; 96366; 99285; C9803; C8929; C9113; J0330; J1815; J1940; J1956; J2060; J2543; J2704; J2930; J3010; J3480; Q9957; Q9967

== ENCOUNTER 2020-10-09 11:27 | Inpatient (IN) | payer OTHER, SELFPAY ==
[2020-09-20 20:06] VITALS: BMI 31.6
[2020-09-22 13:40] VITALS: PULSE 64; RESP 24; O2SAT 97
[2020-10-09] VITALS (27 sets, daily range): BP systolic 100–124; BP diastolic 40–58; PULSE 66–82; RESP 12–22; TEMP 36.6–37.3; O2SAT 90–98; BMI 30.2
[2020-10-09 11:49] LABS: Basophils Absolute Auto 0 /uL (0-100); Basophils Percent Auto 0.4 % (0-2); Eosinophils Absolute Auto 100 /uL (0-450); Eosinophils Percent Auto 0.6 % (2-4); Lymphocytes Absolute Auto 1100 /uL (1100-4500); Lymphocytes Percent Auto 9.4 % (25-40); Mean Corpuscular HGB Conc 32.9 % (30-36); Monocytes Absolute Auto 500 /uL (0-900); Neutrophils Absolute Auto 10200 /uL (1500-7000); Neutrophils Percent Auto 85.6 % (50-75); Platelet Count 137 X10^3/uL (150-400); Red Blood Cell Count 1.76 X10^6/uL (4.5-5.9); Red Cell Distribution Width 15.5 % (11.6-14.8); White Blood Cell Count 11.9 X10^3/uL (4.5-11.0)
[2020-10-09 11:50] LABS: Add Manual Diff / Slide Review SLIDE REVIEW
[2020-10-09 11:51] LABS: Hemoglobin 5.3 g/dL (13.5-17.5)
[2020-10-09 11:56] LABS: INR 1.2 (0.9-1.3)
[2020-10-09 11:58] LABS: PTT Partial Thromboplastin Tim 26 SECONDS (26.4-36.2)
[2020-10-09 12:00] LABS: Alanine Aminotransferase 34 IU/L (<50); Albumin 2.4 g/dL (3.5-5.0); Albumin Globulin Ratio 0.9 (1.0-2.8); Alkaline Phosphatase 70 U/L (38-126); Aspartate Aminotransferase 23 IU/L (17-59); BUN Creatinine Ratio 62.6 (6-22); Bilirubin Total 0.1 mg/dL (0.2-1.3); Blood Urea Nitrogen 67 mg/dL (9-20); Carbon Dioxide 17 mmol/L (22-32); Chloride 109 mmol/L (98-107); Estimated Glomerular Filt Rate > 60.0 mL/min (>60); Globulin 2.6 g/dL (1.7-4.1); Glucose 178 mg/dL (80-110); HEMOLYSIS < 15 (0-50); Potassium 4.8 mmol/L (3.4-5.1); Sodium 133 mmol/L (137-145)
--- NOTE | 2020-10-09 12:12 | DI.CT.S_ITS ---
PROCEDURE: CT ABDOMEN PELVIS WO CON INDICATIONS: Abdominal pain TECHNIQUE: Noncontrast 5 mm thick sections acquired from the diaphragms to the symphysis. 5 mm coronal and sagittal reformats were then performed. For radiation dose reduction, the following was used: automated exposure control, adjustment of mA and/or kV according to patient size. COMPARISON: [facility], CT, CT ABD RENAL PROTOCOL, 01/17/2017, 11:36. [facility], CT, CT ANGIO ABDOMEN PELVIS, 09/22/2020, 2:06. [facility], CT, CT CHEST ABD PEL W CON, 09/20/2020, 16:36. FINDINGS: Image quality: Excellent. ABDOMEN: Lung bases: Left upper lobe and left lower lobe infiltrates are partially seen. The heart size is normal. A small hiatal hernia is incidentally noted. Solid organs: Liver is normal in size. Gallbladder wall is not thickened. Pancreas is normal in contours. Spleen is normal in size. Incidental note is made of an accessory splenule along the inferior aspect of the primary spleen. There is a left adrenal nodule seen that measures approximately 3 cm and 17 Hounsfield units. No right adrenal nodules. Kidneys are normal in size, without hydronephrosis. There is a 1-2 mm stone seen within the left renal pelvis, as on series 2, image 41. Along the posterior superior aspect of the left kidney, there is a water density cyst that demonstrates relatively prominent wall calcification that measures up to 2.5 cm. Peritoneum and bowel: Unenhanced bowel loops demonstrate normal wall thickness and caliber. No pneumatosis is seen in this patient with prominent atherosclerotic disease. No free fluid or air. Nodes and vessels: No retroperitoneal or mesenteric adenopathy by size criteria. Aorta and inferior vena cava are normal in caliber. Dense atherosclerotic calcification is noted. Miscellaneous: No ventral hernias. Postoperative change of the anterior abdominal wall can be seen. PELVIS: Genitourinary: Bladder wall thickness is normal. Miscellaneous: No inguinal adenopathy. Bilateral fat containing inguinal hernias are again seen. Bones: No suspicious bony lesions. There is a remote L1 anterior wedge deformity, which is similar to 2017. No acute vertebral body compression fractures. Mild dextroconvex scoliotic curvature is seen. Degenerative changes are seen throughout, which are worst at the L4-L5 level. At this level, there is grade 1/2 anterolisthesis, with associated pars defects. IMPRESSION: No dilated loops of bowel are seen. No pneumatosis is seen. Left lower lung infiltrates. Nonobstructing 1-2 mm stone seen within the left renal pelvis. Left adrenal nodule again seen. On this noncontrast study, this cannot be defined as a benign, lipid rich adrenal adenoma. Incidental note is made of: Small hiatal hernia Accessory splenule Dense atherosclerotic calcification Postoperative change of the anterior abdominal wall Rim calcified left renal cyst Remote L1 anterior wedge deformity Focal L4-L5 degenerative change, with bilateral defects and anterolisthesis Bilateral fat containing inguinal hernias Dictated by: Lele Finch M.D. on 10/09/2020 at 11:44 Approved by: Lele Finch M.D. on 10/09/2020 at 11:52
--- NOTE | 2020-10-09 12:15 | ED_ITS ---
HPI - GI Bleed General Chief complaint: GI Bleed Stated complaint: Fall Time Seen by Provider: 10/09/20 11:33 Source: patient Mode of arrival: EMS Limitations: no limitations History of Present Illness HPI Narrative: Patient brought in from home. Complains of weakness. Fell yesterday at home walking to the bathroom. Denies any injuries. No syncope. Does feel very weak. Had couple episodes of dark emesis. Also dark black stools. Patient is on aspirin. Is also recently discharged from [facility] for pneumonia. Has been under lot of stress. History of colon resection due to complicated diverticulitis. No recent surgery. Last surgery 1996. Last colonoscopy 6 years ago. Was supposed to have 1 last year. No chest pain back pain. No abdominal pain. MD complaint: coffee ground emesis and melena Related Data Home Medications Medication Instructions Recorded Confirmed vitamin B complex [B 1 tab PO QDAY #0 12/12/16 10/09/20 Complex-Vitamin B12] multivitamin 1 tab PO DAILY 02/18/20 10/09/20 metformin 1,000 mg PO BID 09/20/20 10/09/20 acetaminophen 650 mg PO Q6H PRN 10/09/20 10/09/20 albuterol sulfate 2 puff INHALATION Q4-6H PRN 10/09/20 10/09/20 aspirin 81 mg PO DAILY 10/09/20 10/09/20 fluticasone propion-salmeterol 1 inh INHALATION Q12H 10/09/20 10/09/20 [AirDuo Digihaler] losartan 50 mg PO BID 10/09/20 10/09/20 metoprolol succinate 25 mg PO BID 10/09/20 10/09/20 nystatin 5 ml PO QID 10/09/20 10/09/20 tiotropium bromide [Spiriva with 1 cap INHALATION DAILY 10/09/20 10/09/20 HandiHaler] Previous Rx's Medication Instructions Recorded atorvastatin 20 mg tablet 20 mg PO HS #90 tab 09/18/19 Allergies Allergy/AdvReac Type Severity Reaction Status Date / Time No Known Drug Allergies Allergy Verified 10/09/20 11:36 Review of Systems Review of Systems Narrative: GENERAL: Denies chills, fatigue, malaise, fever, sweats. HEENT: Denies sinus pain, ear pain, sore throat RESPIRATORY: Denies dyspnea, cough CARDIOVASCULAR: Denies chest pain, palpitations GASTROINTESTINAL: Complains of melena and hematemesis nausea, vomiting, denies abdominal pain : Denies dysuria, frequency, hematuria MUSCULOSKELETAL: denies muscle or bony pain SKIN: Denies rash, skin lesions NEUROLOGIC: Denies weakness, numbness ROS Unobtainable: All systems reviewed & are unremarkable except as noted in HPI and below Patient History Medical History Back problem Chicken pox Chronic back pain Diverticular disease (~1996) Hearing deficit Measles Mumps Plantar warts Sciatic nerve pain Tinnitus Type 2 diabetes mellitus Vision disorder Surgical History Anesthesia Fractures (~08/1962) History of colon surgery (~03/1997) History of tonsillectomy (~1947) Status post hernia repair (~2002) Family History Brother Cancer Grandmother Heart disease Mother Stroke Loud snoring Hypertension Brother No problems noted. Son No problems noted. Grandfather Loud snoring Sister No problems noted. Father Loud snoring Family/Other Hypertension Heart disease Alcohol abuse Substance abuse Social History household members: spouse Smoking Status: Former smoker alcohol intake: former substance use type: does not use eating out: 1-3 times/week Type(s) of exercise: none Smoking Status: Former smoker tobacco type: cigarettes alcohol intake frequency: holidays/special occasions only Substance Use Type: does not use Exam Narrative Exam Narrative: GENERAL: in no distress, not toxic not dyspneic HEAD: Normocephalic. EYES: Pupils equal round No scleral icterus. No injection no discharge, there is pale conjunctiva ENT: Mucous membranes moist. NECK: Trachea midline. CARDIOVASCULAR: Regular rate and rhythm without murmurs RESPIRATORY: Clear to auscultation. Breath sounds equal bilaterally. No wheezes, rales, or rhonchi. GASTROINTESTINAL: Abdomen soft, non-tender, no peritoneal signs, bowel sounds present EXTREMITIES: No gross deformities. NEURO: AOx4. SKIN: Warm and dry PSYCH: Not anxious, is cooperative Initial Vital Signs Initial Vital Signs: Vital Signs Temperature 98.2 F 10/09/20 11:30 Pulse Rate 80 10/09/20 11:30 Respiratory Rate 12 10/09/20 11:30 Blood Pressure 124/56 L 10/09/20 11:30 Course Course Course Narrative: No new issues during course of stay Decision to Admit Date: 10/09/20 Decision to Admit time: 12:17 Orders Ordered: Albuterol (Albuterol 2.5 Mg/3 Ml Neb (Adult)) 2.5 mg INH [id number] PRN PRN Reason: Shortness Of Breath Albuterol/Ipratropium (Albuterol/Ipratropium 3 Ml Ampul) 3 ml INH [id number] [facility] Last Admin: 10/10/20 07:37 Dose: 3 ml Documented by: Admin: 10/09/20 22:05 Dose: 3 ml Documented by: Admin: 10/09/20 19:24 Dose: 3 ml Documented by: MICHELLE Budesonide (Budesonide 0.5 Mg/2 Ml Neb) 0.5 mg INH RTBID [facility] Last Admin: 10/10/20 07:46 Dose: 0.5 mg Documented by: Admin: 10/09/20 19:24 Dose: 0.5 mg Documented by: MICHELLE Dextrose (Dextrose 50 % In Water 25 Gm/50 Ml Syringe) 25 gm IV PRN PRN PRN Reason: Hypoglycemia Sodium Chloride (Normal Saline 0.9%) 1,000 mls @ 100 mls/hr IV CONT [facility] Last Admin: 10/10/20 00:18 Dose: 100 mls/hr Documented by: ATIF Insulin Human Lispro (Insulin Lispro 100 Unit/Ml 3ml Vial) 0 unit SUBCUT Q6HR [facility]; Protocol Morphine Sulfate (Morphine 2 Mg/Ml Inj) 2 mg IV Q4HR PRN PRN Reason: Pain, Moderate (4-6) Ondansetron HCl (Ondansetron 4 Mg/2 Ml Inj) 4 mg IV Q8HR PRN PRN Reason: Nausea And Vomiting Pantoprazole Sodium (Pantoprazole 40 Mg Vial) 40 mg IV BID [facility] Last Admin: 10/09/20 22:00 Dose: 40 mg Documented by: HERBIE Discontinued Medications Insulin Human Lispro (Insulin Lispro 100 Unit/Ml 3ml Vial) 0 unit SUBCUT Q6H [facility]; Protocol Last Admin: 10/10/20 05:16 Dose: Not Given Documented by: Admin: 10/09/20 22:00 Dose: Not Given Documented by: HEBRIE Insulin Human Lispro (Insulin Lispro 100 Unit/Ml 3ml Vial) 0 unit SUBCUT Q6H RADHA; Protocol Last Admin: 10/10/20 05:00 Dose: Not Given Documented by: ATIF Pantoprazole Sodium (Pantoprazole 40 Mg Vial) 40 mg IV NOW ONE Stop: 10/09/20 12:20 Last Admin: 10/09/20 12:40 Dose: 40 mg Documented by: ELISSA Reevaluation(s) Reevaluation #1: No new issues during course of stay. Patient stands to be admitted here. Time: 15:06 Consultations Consultation #1: Spoke with general surgery, Dr. Hackett. He will follow up. No endoscopy today. Needs transfusion 1st. Admit to hospitalist Time: 12:18 Consultation #2: Spoke with Dr. Bundy, hospitalist, will admit Time: 15:07 Vital Signs Vital signs: Vital Signs - 8 hr 10/09/20 11:30 10/09/20 11:34 10/09/20 11:55 Temperature 98.2 F Pulse Rate 80 80 Respiratory Rate 12 Blood Pressure 124/56 L Pulse Oximetry 90 L 10/09/20 12:00 10/09/20 12:01 10/09/20 12:30 Temperature Pulse Rate 70 73 73 Respiratory Rate 16 16 21 Blood Pressure 108/55 L Pulse Oximetry 95 96 97 10/09/20 12:43 10/09/20 13:00 10/09/20 13:07 Temperature 98.2 F Pulse Rate 76 76 75 Respiratory Rate 20 20 15 Blood Pressure 102/54 L 108/53 L 108/53 L Pulse Oximetry 92 97 10/09/20 13:30 10/09/20 13:32 10/09/20 14:00 Temperature 98.2 F Pulse Rate 74 75 72 Respiratory Rate 21 21 22 Blood Pressure 115/58 L 108/54 L 110/53 L Pulse Oximetry 96 97 96 10/09/20 14:30 Temperature Pulse Rate 80 Respiratory Rate 19 Blood Pressure 105/51 L Pulse Oximetry 98 MDM - GI Bleed Differential Diagnosis Differential diagnosis: Likely gastritis, Upper gastrointestinal hemorrhage and melena Medical Records Attestation: I reviewed the patient's medical records. Lab Data Attestation: I reviewed the patient's lab results. Result diagrams: 10/10/20 05:08 10/10/20 05:08 Labs: Lab Results 10/09/20 10/09/20 10/09/20 Range/Units 11:34 11:34 11:34 WBC 11.9 H (4.5-11.0) X10^3/uL RBC 1.76 L (4.5-5.9) X10^6/uL Hgb 5.3 L* (13.5-17.5) g/dL Hct 16.0 L* (41-53) % MCV 91.0 (80-100) fL MCH 30.0 (26-34) PG MCHC 32.9 (30-36) % RDW 15.5 H (11.6-14.8) % Plt Count 137 L (150-400) X10^3/uL Neut % (Auto) 85.6 H (50-75) % Lymph % (Auto) 9.4 L (25-40) % [place] % (Auto) 4.0 (3-14) % Eos % (Auto) 0.6 L (2-4) % Baso % (Auto) 0.4 (0-2) % Neut # (Auto) 09001 H (1809-4524) /uL Lymph # (Auto) 1100 (4359-5978) /uL [place] # (Auto) 500 (0-900) /uL Eos # (Auto) 100 (0-450) /uL Baso # (Auto) 0 (0-100) /uL RBC Morphology Not Reportable Anisocytosis 1+ H PT 13.0 H (10.1-12.7) SECONDS INR 1.2 (0.9-1.3) APTT 26 L (26.4-36.2) SECONDS Sodium 133 L (137-145) mmol/L Potassium 4.8 (3.4-5.1) mmol/L Chloride 109 H (98-107) mmol/L Carbon Dioxide 17 L (22-32) mmol/L BUN 67 H (9-20) mg/dL Creatinine 1.07 (0.66-1.25) mg/dL Estimated GFR > 60.0 (>60) mL/min BUN/Creatinine Ratio 62.6 H (6-22) Glucose 178 H (80-110) mg/dL Calcium 9.0 (8.4-10.2) mg/dL Total Bilirubin 0.1 L (0.2-1.3) mg/dL AST 23 (17-59) IU/L ALT 34 (<50) IU/L Alkaline Phosphatase 70 (38-126) U/L Total Protein 5.0 L (6.3-8.2) g/dL Albumin 2.4 L (3.5-5.0) g/dL Globulin 2.6 (1.7-4.1) g/dL Albumin/Globulin Ratio 0.9 L (1.0-2.8) SARS-CoV-2 (PCR) (Negative) Blood Type Antibody Screen Crossmatch 10/09/20 10/09/20 Range/Units 11:34 11:37 WBC (4.5-11.0) X10^3/uL RBC (4.5-5.9) X10^6/uL Hgb (13.5-17.5) g/dL Hct (41-53) % MCV (80-100) fL MCH (26-34) PG MCHC (30-36) % RDW (11.6-14.8) % Plt Count (150-400) X10^3/uL Neut % (Auto) (50-75) % Lymph % (Auto) (25-40) % [place] % (Auto) (3-14) % Eos % (Auto) (2-4) % Baso % (Auto) (0-2) % Neut # (Auto) (0631-6279) /uL Lymph # (Auto) (5167-0148) /uL [place] # (Auto) (0-900) /uL Eos # (Auto) (0-450) /uL Baso # (Auto) (0-100) /uL RBC Morphology Anisocytosis PT (10.1-12.7) SECONDS INR (0.9-1.3) APTT (26.4-36.2) SECONDS Sodium (137-145) mmol/L Potassium (3.4-5.1) mmol/L Chloride (98-107) mmol/L Carbon Dioxide (22-32) mmol/L BUN (9-20) mg/dL Creatinine (0.66-1.25) mg/dL Estimated GFR (>60) mL/min BUN/Creatinine Ratio (6-22) Glucose (80-110) mg/dL Calcium (8.4-10.2) mg/dL Total Bilirubin (0.2-1.3) mg/dL AST (17-59) IU/L ALT (<50) IU/L Alkaline Phosphatase (38-126) U/L Total Protein (6.3-8.2) g/dL Albumin (3.5-5.0) g/dL Globulin (1.7-4.1) g/dL Albumin/Globulin Ratio (1.0-2.8) SARS-CoV-2 (PCR) Negative (Negative) Blood Type O Positive Antibody Screen Negative Crossmatch See Detail ECG Data Attestation: I personally reviewed and interpreted this ECG as follows: Interpretation: Normal sinus rhythm rate [address] elevation or depression. MDM Narrative Medical decision making narrative: Appropriate for admission. Reviewed with general surgeon and he will be able to fall long. Discharge Plan Departure Patient Disposition: Admitted As Inpatient Clinical Impression: Acute GI bleeding Admit Date/Time: 10/09/20 15:10 Admit Provider: Moy Bundy
[2020-10-09 12:26] LABS: Anisocytosis 1+
[2020-10-09] MEDS: PANTOPRAZOLE 40 MG VIAL IV ×2 (12:40→22:00)
[2020-10-09 12:58] LABS: COVID19 - ADMIT (NP swab/PCR) Negative (Negative)
--- NOTE | 2020-10-09 17:23 | PM.DS.1 ---
History of Present Illness History of Present Illness Date Patient Seen: 10/09/20 Time Patient Seen: 17:24 Chief complaint: Fall Narrative: This is a 75-year-old male with past medical history of type 2 diabetes, DIVINA, prior smoker quit 4 months ago, prior diverticulitis many years ago with perforation, hypertension, hyperlipidemia, COPD who was recently admitted September 20 and transferred on September 22 for pneumonia with septic shock and ARDS requiring intubation and transfer for higher level care. During that admission it was noted that the patient had 200 cc of coffee-ground emesis but this diminished over the course of his initial stay. There is no mention of GI bleeding in the discharge summary from [facility] the patient was not discharged on omeprazole. He feels since his admission that he has continued to decline complaining of continued shortness of breath and dyspnea on exertion, he gets short of breath when walking 25 ft to the bathroom. He has also been becoming weak and more pale but cannot point the exact time that this occurred. Two days ago he had a black stool, and yesterday he noticed coffee-ground emesis with continued dark stools. This morning he collapsed to the floor, but did not hit his head and did not pass out but decided to come to the emergency room for further evaluation because he was so weak. In the emergency room, his blood pressures were low normal but the remainder of his vital signs were unremarkable. Initial laboratory evaluation revealed a mild leukocytosis with WBC of 11.9, a hemoglobin of 5.3, with hematocrit of 16%. Platelet count was 137 which was similar to his last lab before he was transferred on September 22. Coagulation studies were unremarkable. Chemistries revealed a mild hyponatremia with a sodium of 133, CO2 was mildly low at 17 with no anion gap, BUN was elevated at 67, creatinine was 1.07 down from his discharge lab values on September 22. Glucose was 178. COVID-19 testing was negative. Patient was ordered for 4 units of blood. Discharge Providers Provider Date of admission: 10/09/20 15:10 Primary care physician: Ivon Mckeon DO Consults: 10/09/20 16:54 Consult to General Surgery Routine Comment: Consulting Provider: Scott Hackett Reason for consultation: GI Bleeding Discharge provider: Moy Bundy DO Exam Vital Signs (past 8 hours): - 10/09/20 11:30 10/09/20 11:34 10/09/20 11:55 Temperature 98.2 F Pulse Rate 80 80 Respiratory Rate 12 Blood Pressure 124/56 L Pulse Oximetry 90 L 10/09/20 12:00 10/09/20 12:01 10/09/20 12:30 Temperature Pulse Rate 70 73 73 Respiratory Rate 16 16 21 Blood Pressure 108/55 L Pulse Oximetry 95 96 97 10/09/20 12:43 10/09/20 13:00 10/09/20 13:07 Temperature 98.2 F Pulse Rate 76 76 75 Respiratory Rate 20 20 15 Blood Pressure 102/54 L 108/53 L 108/53 L Pulse Oximetry 92 97 10/09/20 13:30 10/09/20 13:32 10/09/20 14:00 Temperature 98.2 F Pulse Rate 74 75 72 Respiratory Rate 21 21 22 Blood Pressure 115/58 L 108/54 L 110/53 L Pulse Oximetry 96 97 96 10/09/20 14:30 10/09/20 15:00 10/09/20 15:30 Temperature Pulse Rate 80 82 75 Respiratory Rate 19 22 20 Blood Pressure 105/51 L 105/54 L 111/55 L Pulse Oximetry 98 96 94 10/09/20 15:50 10/09/20 16:00 10/09/20 16:21 Temperature 98.6 F 98.6 F 99.2 F Pulse Rate 71 69 68 Respiratory Rate 18 20 20 Blood Pressure 111/55 L 104/54 L 105/54 L Pulse Oximetry 91 10/09/20 16:22 Temperature Pulse Rate 68 Respiratory Rate 19 Blood Pressure 105/54 L Pulse Oximetry 93 Oxygen Delivery Method Room Air Objective Labs Result Diagrams: 10/09/20 11:34 10/09/20 11:34 Labs: Laboratory Results - last 24 hr 10/09/20 10/09/20 10/09/20 11:34 11:34 11:34 WBC 11.9 H RBC 1.76 L Hgb 5.3 L* Hct 16.0 L* MCV 91.0 MCH 30.0 MCHC 32.9 RDW 15.5 H Plt Count 137 L Neut % (Auto) 85.6 H Lymph % (Auto) 9.4 L [place] % (Auto) 4.0 Eos % (Auto) 0.6 L Baso % (Auto) 0.4 Neut # (Auto) 94482 H Lymph # (Auto) 1100 [place] # (Auto) 500 Eos # (Auto) 100 Baso # (Auto) 0 RBC Morphology Not Reportable Anisocytosis 1+ H PT 13.0 H INR 1.2 APTT 26 L Sodium 133 L Potassium 4.8 Chloride 109 H Carbon Dioxide 17 L BUN 67 H Creatinine 1.07 Estimated GFR > 60.0 BUN/Creatinine Ratio 62.6 H Glucose 178 H Calcium 9.0 Total Bilirubin 0.1 L AST 23 ALT 34 Alkaline Phosphatase 70 Total Protein 5.0 L Albumin 2.4 L Globulin 2.6 Albumin/Globulin Ratio 0.9 L SARS-CoV-2 (PCR) Blood Type Antibody Screen Crossmatch 10/09/20 10/09/20 11:34 11:37 WBC RBC Hgb Hct MCV MCH MCHC RDW Plt Count Neut % (Auto) Lymph % (Auto) [place] % (Auto) Eos % (Auto) Baso % (Auto) Neut # (Auto) Lymph # (Auto) [place] # (Auto) Eos # (Auto) Baso # (Auto) RBC Morphology Anisocytosis PT INR APTT Sodium Potassium Chloride Carbon Dioxide BUN Creatinine Estimated GFR BUN/Creatinine Ratio Glucose Calcium Total Bilirubin AST ALT Alkaline Phosphatase Total Protein Albumin Globulin Albumin/Globulin Ratio SARS-CoV-2 (PCR) Negative Blood Type O Positive Antibody Screen Negative Crossmatch See Detail [facility] Medical History (Updated 10/09/20 @ 12:19 by Luciano Michael MD) Back problem Chicken pox Chronic back pain Diverticular disease (~1996) Hearing deficit Measles Mumps Plantar warts Sciatic nerve pain Tinnitus Type 2 diabetes mellitus Vision disorder Surgical History Anesthesia Fractures (~08/1962) History of colon surgery (~03/1997) History of tonsillectomy (~1947) Status post hernia repair (~2002) Family History Brother Cancer Grandmother Heart disease Mother Stroke Loud snoring Hypertension Brother No problems noted. Son No problems noted. Grandfather Loud snoring Sister No problems noted. Father Loud snoring Family/Other Hypertension Heart disease Alcohol abuse Substance abuse Social History household members: spouse Smoking Status: Former smoker alcohol intake: former substance use type: does not use eating out: 1-3 times/week Type(s) of exercise: none Discharge Plan Discharge orders & Medications Prescriptions: No Action vitamin B complex [B Complex-Vitamin B12] 1 EACH tablet 1 tab PO QDAY Qty: 0 RF: 0 atorvastatin [Lipitor] 20 mg tablet 20 mg PO HS Qty: 90 RF: 3 metformin 500 mg tablet 1,000 mg PO BID RF: 0 multivitamin Tablet 1 tab PO DAILY RF: 0 nystatin 100,000 unit/mL Suspension 5 ml PO QID RF: 0 acetaminophen 325 mg Tablet 650 mg PO Q6H PRN (Reason: Pain (Scale Score 1-3)) RF: 0 aspirin 81 mg Tablet,Delayed Release (Dr/Ec) 81 mg PO DAILY RF: 0 Spiriva with HandiHaler 18 mcg Capsule, W/Inhalation Device 1 cap INHALATION DAILY RF: 0 AirDuo Digihaler 232-14 mcg/actuation Aero Powdr Breath Act W/Sensor 1 inh INHALATION Q12H RF: 0 metoprolol succinate 25 mg tablet extended release 24 hr 25 mg PO BID RF: 0 losartan 100 mg tablet 50 mg PO BID RF: 0 albuterol sulfate 90 mcg/actuation Hfa Aerosol Inhaler 2 puff INHALATION Q4-6H PRN (Reason: Shortness Of Breath) RF: 0 Follow up/Referrals: Ivon Mckeon DO [Primary Care Provider] - Discharge Data Primary Care Provider: Ivon Mckeon Quality VTE Deep Vein Thrombosis/Pulmonary Embolism Present on Admission: No
--- NOTE | 2020-10-09 17:31 | PM.HP.1 ---
History of Present Illness History of Present Illness Date Patient Seen: 10/09/20 Time Patient Seen: 17:32 Chief complaint: Fall Narrative: This is a 75-year-old male with past medical history of type 2 diabetes, DIVINA, prior smoker quit 4 months ago, prior diverticulitis many years ago with perforation, hypertension, hyperlipidemia, COPD who was recently admitted September 20 and transferred on September 22 for pneumonia with septic shock and ARDS requiring intubation and transfer for higher level care. During that admission it was noted that the patient had 200 cc of coffee-ground emesis but this diminished over the course of his initial stay. There is no mention of GI bleeding in the discharge summary from [facility] the patient was not discharged on omeprazole. He feels since his admission that he has continued to decline complaining of continued shortness of breath and dyspnea on exertion, he gets short of breath when walking 25 ft to the bathroom. He has also been becoming weak and more pale but cannot point the exact time that this occurred. Two days ago he had a black stool, and yesterday he noticed coffee-ground emesis with continued dark stools. This morning he collapsed to the floor, but did not hit his head and did not pass out but decided to come to the emergency room for further evaluation because he was so weak. In the emergency room, his blood pressures were low normal but the remainder of his vital signs were unremarkable. Initial laboratory evaluation revealed a mild leukocytosis with WBC of 11.9, a hemoglobin of 5.3, with hematocrit of 16%. Platelet count was 137 which was similar to his last lab before he was transferred on September 22. Coagulation studies were unremarkable. Chemistries revealed a mild hyponatremia with a sodium of 133, CO2 was mildly low at 17 with no anion gap, BUN was elevated at 67, creatinine was 1.07 down from his discharge lab values on September 22. Glucose was 178. COVID-19 testing was negative. Patient was ordered for 4 units of blood. General surgery was contacted in the emergency room and was agreeable for endoscopy when stable from GI bleeding. Patient was admitted to Medicine for further management of presumed upper GI bleed. He was started on IV Protonix. Patient History Medical History Back problem Chicken pox Chronic back pain Diverticular disease (~1996) Hearing deficit Measles Mumps Plantar warts Sciatic nerve pain Tinnitus Type 2 diabetes mellitus Vision disorder Surgical History Anesthesia Fractures (~08/1962) History of colon surgery (~03/1997) History of tonsillectomy (~1947) Status post hernia repair (~2002) Family & Social History Family History Brother Cancer Grandmother Heart disease Mother Stroke Loud snoring Hypertension Brother No problems noted. Son No problems noted. Grandfather Loud snoring Sister No problems noted. Father Loud snoring Family/Other Hypertension Heart disease Alcohol abuse Substance abuse Social History: household members spouse Safety & Behavioral: Feels Safe in Current Yes Environment Been Physically Hurt or No Threatened By a Person Suicidal Ideation Description None Suicide Plan Description No Plan Tobacco & Substance use: Smoking Status Former smoker alcohol intake former alcohol intake frequency 0-2 drinks per day Substance Use Type does not use Meds Home Medications and Allergies Home Medications Medication Instructions Recorded Confirmed Type vitamin B complex [B 1 tab PO QDAY #0 12/12/16 10/09/20 History Complex-Vitamin B12] atorvastatin 20 mg tablet 20 mg PO HS #90 tab 09/18/19 10/09/20 Rx multivitamin 1 tab PO DAILY 02/18/20 10/09/20 History metformin 1,000 mg PO BID 09/20/20 10/09/20 History acetaminophen 650 mg PO Q6H PRN 10/09/20 10/09/20 History albuterol sulfate 2 puff INHALATION Q4-6H PRN 10/09/20 10/09/20 History aspirin 81 mg PO DAILY 10/09/20 10/09/20 History fluticasone propion-salmeterol 1 inh INHALATION Q12H 10/09/20 10/09/20 History [AirDuo Digihaler] losartan 50 mg PO BID 10/09/20 10/09/20 History metoprolol succinate 25 mg PO BID 10/09/20 10/09/20 History nystatin 5 ml PO QID 10/09/20 10/09/20 History tiotropium bromide [Spiriva with 1 cap INHALATION DAILY 10/09/20 10/09/20 History HandiHaler] Allergies Allergy/AdvReac Type Severity Reaction Status Date / Time No Known Drug Allergies Allergy Verified 10/09/20 11:36 Review of Systems Review of Systems Narrative: All other systems reviewed with the patient and are negative unless otherwise stated. Exam Vital Signs (past 8 hours): - 10/09/20 11:30 10/09/20 11:34 10/09/20 11:55 Temperature 98.2 F Pulse Rate 80 80 Respiratory Rate 12 Blood Pressure 124/56 L Pulse Oximetry 90 L 10/09/20 12:00 10/09/20 12:01 10/09/20 12:30 Temperature Pulse Rate 70 73 73 Respiratory Rate 16 16 21 Blood Pressure 108/55 L Pulse Oximetry 95 96 97 10/09/20 12:43 10/09/20 13:00 10/09/20 13:07 Temperature 98.2 F Pulse Rate 76 76 75 Respiratory Rate 20 20 15 Blood Pressure 102/54 L 108/53 L 108/53 L Pulse Oximetry 92 97 10/09/20 13:30 10/09/20 13:32 10/09/20 14:00 Temperature 98.2 F Pulse Rate 74 75 72 Respiratory Rate 21 21 22 Blood Pressure 115/58 L 108/54 L 110/53 L Pulse Oximetry 96 97 96 10/09/20 14:30 10/09/20 15:00 10/09/20 15:30 Temperature Pulse Rate 80 82 75 Respiratory Rate 19 22 20 Blood Pressure 105/51 L 105/54 L 111/55 L Pulse Oximetry 98 96 94 10/09/20 15:50 10/09/20 16:00 10/09/20 16:21 Temperature 98.6 F 98.6 F 99.2 F Pulse Rate 71 69 68 Respiratory Rate 18 20 20 Blood Pressure 111/55 L 104/54 L 105/54 L Pulse Oximetry 91 10/09/20 16:22 Temperature Pulse Rate 68 Respiratory Rate 19 Blood Pressure 105/54 L Pulse Oximetry 93 Oxygen Delivery Method Room Air Narrative Exam Narrative: GENERAL APPEARANCE: Well developed, well nourished, in no acute distress. SKIN: Inspection of the skin reveals no rashes, ulcerations or petechiae. HEENT: Normocephalic atraumatic, extraocular muscles are intact, oropharynx is clear and mucous membranes are moist, neck is supple without adenopathy NECK: Supple and symmetric. There was no thyroid enlargement, and no tenderness, or masses were felt. CHEST: Normal AP diameter and normal contour without any kyphoscoliosis. LUNGS: Auscultation of the lungs revealed no wheezes, rhonchi, or rales. CARDIOVASCULAR: There was a regular rate and rhythm without any murmurs, gallops, rubs. Peripheral pulses were 2+ and symmetric. ABDOMEN: Soft and nontender with normal bowel sounds. No ascites was noted. MUSCULOSKELETAL: There was no tenderness or effusions noted. Muscle strength and tone were normal. EXTREMITIES: No cyanosis, clubbing or edema. NEUROLOGIC: Alert and oriented x 3. Normal affect. Gait was normal. Strength is +5/5 in the Upper Extremities and Lower Extremities Bilaterally. Sensation to touch was normal. Objective Labs Result Diagrams: 10/09/20 11:34 10/09/20 11:34 Labs: Laboratory Results - last 24 hr 10/09/20 10/09/20 10/09/20 11:34 11:34 11:34 WBC 11.9 H RBC 1.76 L Hgb 5.3 L* Hct 16.0 L* MCV 91.0 MCH 30.0 MCHC 32.9 RDW 15.5 H Plt Count 137 L Neut % (Auto) 85.6 H Lymph % (Auto) 9.4 L [place] % (Auto) 4.0 Eos % (Auto) 0.6 L Baso % (Auto) 0.4 Neut # (Auto) 63146 H Lymph # (Auto) 1100 [place] # (Auto) 500 Eos # (Auto) 100 Baso # (Auto) 0 RBC Morphology Not Reportable Anisocytosis 1+ H PT 13.0 H INR 1.2 APTT 26 L Sodium 133 L Potassium 4.8 Chloride 109 H Carbon Dioxide 17 L BUN 67 H Creatinine 1.07 Estimated GFR > 60.0 BUN/Creatinine Ratio 62.6 H Glucose 178 H Calcium 9.0 Total Bilirubin 0.1 L AST 23 ALT 34 Alkaline Phosphatase 70 Total Protein 5.0 L Albumin 2.4 L Globulin 2.6 Albumin/Globulin Ratio 0.9 L SARS-CoV-2 (PCR) Blood Type Antibody Screen Crossmatch 10/09/20 10/09/20 11:34 11:37 WBC RBC Hgb Hct MCV MCH MCHC RDW Plt Count Neut % (Auto) Lymph % (Auto) [place] % (Auto) Eos % (Auto) Baso % (Auto) Neut # (Auto) Lymph # (Auto) [place] # (Auto) Eos # (Auto) Baso # (Auto) RBC Morphology Anisocytosis PT INR APTT Sodium Potassium Chloride Carbon Dioxide BUN Creatinine Estimated GFR BUN/Creatinine Ratio Glucose Calcium Total Bilirubin AST ALT Alkaline Phosphatase Total Protein Albumin Globulin Albumin/Globulin Ratio SARS-CoV-2 (PCR) Negative Blood Type O Positive Antibody Screen Negative Crossmatch See Detail Assessment & Plan Assessment & Plan narrative: This is a 75-year-old male with past medical history of type 2 diabetes, DIVINA, prior smoker quit 4 months ago, prior diverticulitis many years ago with perforation, hypertension, hyperlipidemia, COPD admitted for an upper GI bleed with acute blood loss anemia. 1. Acute blood loss anemia secondary to presumed upper GI bleeding, present on admission -patient presents with 2 days of melanotic stools and 1 episode of coffee-ground emesis. Discharge hemoglobin on 09/22 was 14, unknown course at [facility] with regards to GI bleeding but was noted on discharge summary here. Presume h/h was stable during that time. -continue IV Protonix twice daily -will transfuse with 3 units PRBC, then recheck, can give the 4th unit if his hemoglobin is still less than 8, however if he responds appropriately 3 unit should suffice. -NPO, IVF -will discuss with General surgery. 2. Type 2 diabetes, with hyperglycemia -hold home dose of metformin -for now will be on sliding scale insulin -a1c 8.4 in may/2019. 3. HTN -hold anti-hypertensives as patient is low-normal BP currently with active bleeding. 4. HLD - can continue home statin when able to start PO 5. thrombocytopenia, unknown chronicity - improved since last admission, likely low from previous sepsis and now probable acute bleeding. - will continue to follow. Plt 137 on admission. Was as low as 73 on 09/20/20 during sepsis. 6. COPD without acute exacerbation - replace home medications with duonebs + pulmicort. prn albuterol - RT evaluation and treatment. Code: Full, surrogate decision maker is patient's Dispo: admitted as inpatient status as his stay is expected to exceed two midnights. DVT: SCD given bleeding. Quality VTE Deep Vein Thrombosis/Pulmonary Embolism Present on Admission: No MIPS - Admit I confirm the patient?s Advance Care Plan is present, Code status is documented, Surrogate decision maker is in patient?s record [If Yes, STOP here]: Yes
[2020-10-09] MEDS: ALBUTEROL/IPRATROPIUM 3 ML AMPUL INH ×2 (19:24→22:05)
[2020-10-09] MEDS: BUDESONIDE 0.5 MG/2 ML NEB INH (19:24)
--- NOTE | 2020-10-09 19:45 | RT ---
At 1944, pllaced pt on RA, SpO2 maintaining at 96%. No respiratory distress. RN aware.
[2020-10-10] VITALS (22 sets, daily range): BP systolic 103–132; BP diastolic 42–110; PULSE 65–89; RESP 16–23; TEMP 36–37.1; O2SAT 91–97
--- NOTE | 2020-10-10 | PATH_ITS ---
[facility] Accession Number: [id number] . 01 Material submitted: . duodenum - DUODENUM . 02 Diagnosis: Duodenum, Biopsy: Duodenal mucosa with no diagnostic abnormality. Negative for active inflammation, features of sprue, dysplasia, or malignancy. . MRV 10/14/2020 1051 Local . 02 Electronically signed: . Ju Cervantes MD, Pathologist NPI- [id number] . 01 Gross description: . DUODENUM: Received in formalin is 1 fragment(s) of banks, soft tissue measuring 0.3 x 0.2 x 0.2 cm submitted entirely in 1 cassette(s) /DANII 10/13/2020 0016 Local . 02 Pathologist provided ICD-10: R10.9 . 02 CPT . 832724 Performed at: 01 [facility] [address] [id number] MD Jesus Nina MD Phone: [phone] Performed at: 02 [facility] [id number] [place] [id number] MD Ju Cervantes MD Phone: [phone]
[2020-10-10 00:02] LABS: Hemoglobin 8.2 g/dL (13.5-17.5)
[2020-10-10 00:03] LABS: Hematocrit 24.2 % (41-53)
[2020-10-10] MEDS: SODIUM CHLORIDE 0.9% 1,000 ML 100 ML IV (00:18)
[2020-10-10 05:49] LABS: Add Manual Diff / Slide Review NO; Basophils Absolute Auto 0 /uL (0-100); Basophils Percent Auto 0.4 % (0-2); Eosinophils Absolute Auto 200 /uL (0-450); Eosinophils Percent Auto 1.7 % (2-4); Lymphocytes Absolute Auto 1500 /uL (1100-4500); Lymphocytes Percent Auto 15.6 % (25-40); Mean Corpuscular Hemoglobin 30.9 PG (26-34); Mean Corpuscular Volume 90.7 fL (80-100); Monocytes Absolute Auto 500 /uL (0-900); Monocytes Percent Auto 5.2 % (3-14); Neutrophils Absolute Auto 7300 /uL (1500-7000); Neutrophils Percent Auto 77.1 % (50-75); Platelet Count 122 X10^3/uL (150-400); Red Blood Cell Count 2.59 X10^6/uL (4.5-5.9); Red Cell Distribution Width 15.6 % (11.6-14.8); White Blood Cell Count 9.5 X10^3/uL (4.5-11.0)
[2020-10-10 05:50] LABS: Hematocrit 23.4 % (41-53)
[2020-10-10 05:52] LABS: Alanine Aminotransferase 36 IU/L (<50); Albumin 2.4 g/dL (3.5-5.0); Albumin Globulin Ratio 0.9 (1.0-2.8); Alkaline Phosphatase 65 U/L (38-126); Aspartate Aminotransferase 25 IU/L (17-59); Bilirubin Total 0.5 mg/dL (0.2-1.3); Bilirubin Unconjugated 0.6 mg/dL (0.0-1.1); Blood Urea Nitrogen 53 mg/dL (9-20); Calcium 8.5 mg/dL (8.4-10.2); Carbon Dioxide 20 mmol/L (22-32); Chloride 113 mmol/L (98-107); Estimated Glomerular Filt Rate > 60.0 mL/min (>60); Globulin 2.6 g/dL (1.7-4.1); Glucose 116 mg/dL (80-110); HEMOLYSIS < 15 (0-50); Magnesium 1.8 mg/dL (1.6-2.3); Potassium 3.9 mmol/L (3.4-5.1); Sodium 138 mmol/L (137-145)
[2020-10-10] MEDS: ALBUTEROL/IPRATROPIUM 3 ML AMPUL INH ×4 (07:37→19:50)
[2020-10-10] MEDS: BUDESONIDE 0.5 MG/2 ML NEB INH ×2 (07:46→19:50)
[2020-10-10] MEDS: INSULIN LISPRO 100 UNIT/ML 3ML VIAL SUBCUT ×3 (08:33→17:34)
[2020-10-10] MEDS: PANTOPRAZOLE 40 MG VIAL IV ×2 (08:34→20:36)
--- NOTE | 2020-10-10 09:57 | PM.CN ---
History of Present Illness Consult details Date Patient Seen: 10/10/20 Time Patient Seen: 09:57 Chief complaint: Fall Narrative: 75-year-old man on aspirin presented with a GI bleed. He had melanotic stool and episodes of emesis possible hematemesis. At admission hematocrit 16 after 3 units 23 this morning. No prior history of peptic ulcer disease. No history of liver disease or esophageal varices. History of sigmoidectomy for diverticular disease. Last colonoscopy 5 yrs ago and normal. Meds Home Medications and Allergies Home Medications Medication Instructions Recorded Confirmed Type vitamin B complex [B 1 tab PO QDAY #0 12/12/16 10/09/20 History Complex-Vitamin B12] atorvastatin 20 mg tablet 20 mg PO HS #90 tab 09/18/19 10/09/20 Rx multivitamin 1 tab PO DAILY 02/18/20 10/09/20 History metformin 1,000 mg PO BID 09/20/20 10/09/20 History acetaminophen 650 mg PO Q6H PRN 10/09/20 10/09/20 History albuterol sulfate 2 puff INHALATION Q4-6H PRN 10/09/20 10/09/20 History aspirin 81 mg PO DAILY 10/09/20 10/09/20 History fluticasone propion-salmeterol 1 inh INHALATION Q12H 10/09/20 10/09/20 History [AirDuo Digihaler] losartan 50 mg PO BID 10/09/20 10/09/20 History metoprolol succinate 25 mg PO BID 10/09/20 10/09/20 History nystatin 5 ml PO QID 10/09/20 10/09/20 History tiotropium bromide [Spiriva with 1 cap INHALATION DAILY 10/09/20 10/09/20 History HandiHaler] Allergies Allergy/AdvReac Type Severity Reaction Status Date / Time No Known Drug Allergies Allergy Verified 10/09/20 11:36 Review of Systems Review of Systems ROS: Yes All systems reviewed with the patient and are negative except as otherwise documented Exam Vital Signs (past 8 hours): - 10/10/20 04:00 10/10/20 05:00 10/10/20 07:38 Temperature 98.8 F Pulse Rate 75 66 Respiratory Rate 16 18 Blood Pressure 103/50 L Pulse Oximetry 92 93 95 10/10/20 07:46 10/10/20 08:00 Temperature 98.1 F Pulse Rate 65 67 Respiratory Rate 20 16 Blood Pressure 120/52 L Pulse Oximetry 95 95 Oxygen Delivery Method Room Air Oxygen Flow Rate 0 Narrative Exam Narrative: GENERAL-well developed elderly male, no acute distress HEENT-no scleral icterus, hearing intact NECK-no JVD, trachea midline CVS- regular rate, no peripheral edema RESP-unlabored respiratory effort, no audible wheezing GI-soft, nontender nondistended MSK-no cyanosis or clubbing, extremities without deformity SKIN-warm, dry NEURO-alert and oriented, no focal deficits PYSCH-Appropriate mood and affect Objective Labs Result Diagrams: 10/10/20 05:08 10/10/20 05:08 Labs: Laboratory Results - last 24 hr 10/09/20 10/09/20 10/09/20 11:34 11:34 11:34 WBC 11.9 H RBC 1.76 L Hgb 5.3 L* Hct 16.0 L* MCV 91.0 MCH 30.0 MCHC 32.9 RDW 15.5 H Plt Count 137 L Neut % (Auto) 85.6 H Lymph % (Auto) 9.4 L [place] % (Auto) 4.0 Eos % (Auto) 0.6 L Baso % (Auto) 0.4 Neut # (Auto) 23592 H Lymph # (Auto) 1100 [place] # (Auto) 500 Eos # (Auto) 100 Baso # (Auto) 0 RBC Morphology Not Reportable Anisocytosis 1+ H PT 13.0 H INR 1.2 APTT 26 L Sodium 133 L Potassium 4.8 Chloride 109 H Carbon Dioxide 17 L BUN 67 H Creatinine 1.07 Estimated GFR > 60.0 BUN/Creatinine Ratio 62.6 H Glucose 178 H Calcium 9.0 Magnesium Total Bilirubin 0.1 L Conjugated Bilirubin Unconjugated Bilirubin AST 23 ALT 34 Alkaline Phosphatase 70 Total Protein 5.0 L Albumin 2.4 L Globulin 2.6 Albumin/Globulin Ratio 0.9 L SARS-CoV-2 (PCR) Blood Type Antibody Screen Crossmatch 10/09/20 10/09/20 10/09/20 11:34 11:37 23:45 WBC RBC Hgb 8.2 L Hct 24.2 L MCV MCH MCHC RDW Plt Count Neut % (Auto) Lymph % (Auto) [place] % (Auto) Eos % (Auto) Baso % (Auto) Neut # (Auto) Lymph # (Auto) [place] # (Auto) Eos # (Auto) Baso # (Auto) RBC Morphology Anisocytosis PT INR APTT Sodium Potassium Chloride Carbon Dioxide BUN Creatinine Estimated GFR BUN/Creatinine Ratio Glucose Calcium Magnesium Total Bilirubin Conjugated Bilirubin Unconjugated Bilirubin AST ALT Alkaline Phosphatase Total Protein Albumin Globulin Albumin/Globulin Ratio SARS-CoV-2 (PCR) Negative Blood Type O Positive Antibody Screen Negative Crossmatch See Detail 10/10/20 10/10/20 05:08 05:08 WBC 9.5 RBC 2.59 L Hgb 8.0 L Hct 23.4 L MCV 90.7 MCH 30.9 MCHC 34.0 RDW 15.6 H Plt Count 122 L Neut % (Auto) 77.1 H Lymph % (Auto) 15.6 L [place] % (Auto) 5.2 Eos % (Auto) 1.7 L Baso % (Auto) 0.4 Neut # (Auto) 7300 H Lymph # (Auto) 1500 [place] # (Auto) 500 Eos # (Auto) 200 Baso # (Auto) 0 RBC Morphology Anisocytosis PT INR APTT Sodium 138 Potassium 3.9 Chloride 113 H Carbon Dioxide 20 L BUN 53 H Creatinine 1.02 Estimated GFR > 60.0 BUN/Creatinine Ratio 52.0 H Glucose 116 H Calcium 8.5 Magnesium 1.8 Total Bilirubin 0.5 Conjugated Bilirubin 0.0 Unconjugated Bilirubin 0.6 AST 25 ALT 36 Alkaline Phosphatase 65 Total Protein 5.0 L Albumin 2.4 L Globulin 2.6 Albumin/Globulin Ratio 0.9 L SARS-CoV-2 (PCR) Blood Type Antibody Screen Crossmatch Assessment & Plan Assessment and plan (1) Acute GI bleeding: Status: Acute Assessment & Plan narrative: 75-year-old man with an acute GI bleed likely upper, hemodynamically stable. Recommended we proceed to the operating room for esophagoduodenoscopy under general anesthesia given the risk for aspiration. Technical details of the procedure were discussed with the patient. Operative risks including bleeding, infection, missed diagnosis, recurrent bleeding, intestinal perforation were discussed. His questions have been answered he is in agreement with this plan.
[2020-10-10] MEDS: LACTATED RINGERS 1,000 ML 42 ML IV (10:06)
--- NOTE | 2020-10-10 10:30 | PM.OP.ENDO ---
Operative Date/Time/Diagnoses Date of procedure: 10/10/20 Time of procedure: 10:30 Pre-op diagnosis: GI bleed Post-op diagnosis: other (Duodenitis) Procedure & Clinicians Study performed: Esophagoduodenoscopy with biopsy Same procedure as scheduled: Yes Indications: Emesis and melanotic stool Surgeon: Scott Hackett Procedure Notes Procedure in detail: Patient placed supine in the bed. General anesthesia was administered and he was intubated with an endotracheal tube. Time-out was performed. The scope was inserted into the mouth and advanced through the esophagus and into the stomach. The pylorus was intubated. The duodenum was notable mucosal erosions and inflammation consistent with duodenitis. No actively bleeding duodenal ulcers. Biopsy of the duodenal mucosa was performed with forceps. The scope was retroflexed within the stomach and there was a small hiatal hernia. No gastric ulcers. The scope was withdrawn into the esophagus the Z line was seen at 40 cm from the incisions. There was no Lerma's esophagitis or masses or strictures. Stomach was desufflated and scope removed. Patient tolerated procedure well. Specimen(s): other (Duodenum biopsies) Impression: Duodenitis Post-procedure Plan for aftercare: Return to [facility]. Okay for diet as tolerated. PPI and H pylori treatment Disposition: Acute Care
--- NOTE | 2020-10-10 10:56 | SUR.PHASEI ---
Patient arrived to pacu with Anesthesiologist Dr. Quinteros. Dr. Quinteros noted that telemetry appeared different in pacu than in procedure. 91% on room air and patient states his breathing is labored. Dr. Quinteros ordered EKG and notified Dr. Bundy. Placed on 6L via simple mask and troponin drawn. Nebulizer given per Dr. Quinteros. Dr. Bundy came to bedside to assess and looked at patient's EKG. Dr. Bundy stated there was nothing of note on EKG and that patient may return to Acute care. Placed on 2L NC after nebulizer completed and is now 94%. Patient more talkative and breathing no longer labored.
[2020-10-10 11:21] LABS: Troponin I 0.014 ng/mL (0.01-0.034)
--- NOTE | 2020-10-10 14:33 | PC.NURSE ---
BP High due to movement of arm at time of checking, nursing notified. Other times of checking are patient's normal range.
--- NOTE | 2020-10-10 16:29 | CM.DANOTE ---
Discharge Planning/Care Management DCP: assessment: Case received, EMR reviewed and went to room during Team Bedside Rounds to meet with pt. He was off the acute care floor at that time preparing for a procedure with Dr. Hackett. Pt is a 75 year old male who was recently here and urgently transferred to higher level of care. (see template below for specifics.) Admitted yesterday late afternoon to care of hospitalit team. PCP: Himanshu De La Cruz Consulting: [facility]: Dr. Hackett Payer: [employer] [facility] and [employer]. Admission status: INPT: confirmed by UR BIA [facility] Full dx and POC are in process. Dr. Bundy stated pt was likely to be here for a few days and that he expected PT/OT involvement when pt was medically stable for this. P: DCP team will be following as POC unfolds to assist with d/c issues and options. Pt is likely very weakened by all of this: he is well poised with his insurances for several d/c disp options. CM Discharge Assessment Start: 10/10/20 16:26 Freq: Status: Active Protocol: Document 10/10/20 16:26 ITV (Rec: 10/10/20 16:29 ITV [id number]) Discharge Planning Assessment Advance Directives? No History Provided By Medical Record Has Patient been admitted in last 30 Yes days? Comment Pt was here 09/21 -09/22 with a transfer at that time to [facility] in [place]: pneumonia with ARDS and septic shock. Household Members spouse
--- NOTE | 2020-10-10 16:51 | P.PN_ITS ---
Subjective Subjective Date Patient Seen: 10/10/20 Time Patient Seen: 16:52 Interval history: This is a 75-year-old male with past medical history of type 2 diabetes, DIVINA, prior smoker quit 4 months ago, prior diverticulitis many years ago with perforation, hypertension, hyperlipidemia, COPD admitted for an upper GI bleed with acute blood loss anemia. He responded appropriately to 3 units of packed red blood cells with improvement in hemoglobin to 8.2 which was stable at 8.[address] Hackett performed EGD that showed no active bleeding, only duodenal inflammation. He recommended PPI an H pylori therapy. While in the PACU the patient complained some chest tightness, EKG showed no acute changes and troponin was negative. He has had no recurrent symptoms. He currently feels well moved after DuoNeb therapy. Exam Vital Signs (past 8 hours): - 10/10/20 10:32 10/10/20 10:37 10/10/20 10:42 Temperature 97.4 F L 96.8 F L 97 F L Pulse Rate 88 89 79 Respiratory Rate 23 17 20 Blood Pressure 119/54 L 111/57 L 125/59 L Pulse Oximetry 91 95 96 10/10/20 10:46 10/10/20 11:01 10/10/20 11:18 Temperature 97 F L 96.8 F L 97.6 F Pulse Rate 87 82 82 Respiratory Rate 18 20 16 Blood Pressure 132/57 L 121/53 L 116/63 Pulse Oximetry 95 92 93 10/10/20 11:48 10/10/20 12:18 10/10/20 12:51 Temperature 97.5 F L Pulse Rate 82 80 Respiratory Rate 16 16 Blood Pressure 131/110 H 115/47 L Pulse Oximetry 93 95 93 10/10/20 13:18 10/10/20 14:18 10/10/20 15:25 Temperature 98.1 F 97.6 F Pulse Rate 72 69 66 Respiratory Rate 16 16 18 Blood Pressure 110/50 L 111/54 L Pulse Oximetry 96 91 97 Oxygen Delivery Method Nasal Cannula Oxygen Flow Rate 1 Narrative Exam Narrative: GENERAL APPEARANCE: Well developed, well nourished, in no acute distress. SKIN: Inspection of the skin reveals no rashes, ulcerations or petechiae. HEENT: Normocephalic atraumatic, extraocular muscles are intact, oropharynx is clear and mucous membranes are moist, neck is supple without adenopathy NECK: Supple and symmetric. There was no thyroid enlargement, and no tenderness, or masses were felt. CHEST: Normal AP diameter and normal contour without any kyphoscoliosis. LUNGS: Auscultation of the lungs revealed mild inspiratory wheezing in PACU, improved after duoneb treatments. CARDIOVASCULAR: There was a regular rate and rhythm without any murmurs, gallops, rubs. Peripheral pulses were 2+ and symmetric. ABDOMEN: Soft and nontender with normal bowel sounds. No ascites was noted. MUSCULOSKELETAL: There was no tenderness or effusions noted. Muscle strength and tone were normal. EXTREMITIES: No cyanosis, clubbing or edema. NEUROLOGIC: Alert and oriented x 3. Normal affect. Gait was normal. Strength is +5/5 in the Upper Extremities and Lower Extremities Bilaterally. Sensation to touch was normal. Objective Labs Result Diagrams: 10/10/20 05:08 10/10/20 05:08 Labs: Laboratory Results - last 24 hr 10/09/20 10/09/20 10/10/20 11:34 23:45 05:08 WBC 9.5 RBC 2.59 L Hgb 8.2 L 8.0 L Hct 24.2 L 23.4 L MCV 90.7 MCH 30.9 MCHC 34.0 RDW 15.6 H Plt Count 122 L Neut % (Auto) 77.1 H Lymph % (Auto) 15.6 L [place] % (Auto) 5.2 Eos % (Auto) 1.7 L Baso % (Auto) 0.4 Neut # (Auto) 7300 H Lymph # (Auto) 1500 [place] # (Auto) 500 Eos # (Auto) 200 Baso # (Auto) 0 Sodium Potassium Chloride Carbon Dioxide BUN Creatinine Estimated GFR BUN/Creatinine Ratio Glucose Calcium Magnesium Total Bilirubin Conjugated Bilirubin Unconjugated Bilirubin AST ALT Alkaline Phosphatase Troponin I Total Protein Albumin Globulin Albumin/Globulin Ratio Blood Type O Positive Antibody Screen Negative Crossmatch See Detail 10/10/20 10/10/20 05:08 10:45 WBC RBC Hgb Hct MCV MCH MCHC RDW Plt Count Neut % (Auto) Lymph % (Auto) [place] % (Auto) Eos % (Auto) Baso % (Auto) Neut # (Auto) Lymph # (Auto) [place] # (Auto) Eos # (Auto) Baso # (Auto) Sodium 138 Potassium 3.9 Chloride 113 H Carbon Dioxide 20 L BUN 53 H Creatinine 1.02 Estimated GFR > 60.0 BUN/Creatinine Ratio 52.0 H Glucose 116 H Calcium 8.5 Magnesium 1.8 Total Bilirubin 0.5 Conjugated Bilirubin 0.0 Unconjugated Bilirubin 0.6 AST 25 ALT 36 Alkaline Phosphatase 65 Troponin I 0.014 Total Protein 5.0 L Albumin 2.4 L Globulin 2.6 Albumin/Globulin Ratio 0.9 L Blood Type Antibody Screen Crossmatch [facility] Medical History Back problem Chicken pox Chronic back pain Diverticular disease (~1996) Hearing deficit Measles Mumps Plantar warts Sciatic nerve pain Tinnitus Type 2 diabetes mellitus Vision disorder Surgical History Anesthesia Fractures (~08/1962) History of colon surgery (~03/1997) History of tonsillectomy (~1947) Status post hernia repair (~2002) Family History Brother Cancer Grandmother Heart disease Mother Stroke Loud snoring Hypertension Brother No problems noted. Son No problems noted. Grandfather Loud snoring Sister No problems noted. Father Loud snoring Family/Other Hypertension Heart disease Alcohol abuse Substance abuse Social History household members: spouse Smoking Status: Former smoker alcohol intake: former substance use type: does not use eating out: 1-3 times/week Type(s) of exercise: none Assessment & Plan Assessment & Plan narrative: This is a 75-year-old male with past medical history of type 2 diabetes, DIVINA, prior smoker quit 4 months ago, prior diverticulitis many years ago with perforation, hypertension, hyperlipidemia, COPD admitted for an upper GI bleed with acute blood loss anemia. 1. Acute blood loss anemia secondary to presumed upper GI bleeding, present on a dmission -patient presented with 2 days of melanotic stools and 1 episode of coffee- ground emesis. Discharge hemoglobin on 09/22 was 14, unknown course at [place] with regards to GI bleeding but was noted on discharge summary here. Presume h/h was stable during that time. -continue IV Protonix twice daily, empiric h pylori therapy. Amoxicillin 1 g b.i.d., clarithromycin 500 mg b.i.d. for 14 days. -s/p 3 units PRBC. Hg now 8.0. -okay for CLD -appreciate consultation from Dr. Hackett whom perfored and EGD which showed mild duodenal inflammation but no active bleeding. 2. Type 2 diabetes, with hyperglycemia -hold home dose of metformin -for now will be on sliding scale insulin -a1c 8.4 in may/2019. 3. HTN -hold anti-hypertensives as patient is low-normal BP currently with active bl eeding. 4. HLD - can continue home statin when able to start PO 5. thrombocytopenia, unknown chronicity - improved since last admission, likely low from previous sepsis and now probable acute bleeding. - will continue to follow. Plt 137 on admission. Was as low as 73 on 09/20/20 during sepsis. 6. COPD without acute exacerbation - replace home medications with duonebs + pulmicort. prn albuterol - RT evaluation and treatment. - chest pain in PACU after EGD likely due to mild COPD symptoms as rapid improvement with duonebs. EKG unremarkable and troponin within normal limits. Code: Full, surrogate decision maker is patient's Dispo: admitted as inpatient status. Possible discharge home as soon as tomorrow if stable. DVT: SCD given bleeding. Quality VTE Deep Vein Thrombosis/Pulmonary Embolism Present on Admission: No
[2020-10-10 17:20] LABS: Hematocrit 23.2 % (41-53); Hemoglobin 7.9 g/dL (13.5-17.5)
[2020-10-10] MEDS: CLARITHROMYCIN 500 MG TABLET PO (20:36)
[2020-10-10] MEDS: AMOXICILLIN 250 MG CAPSULE 1000 MG PO (20:36)
[2020-10-11] VITALS (18 sets, daily range): BP systolic 109–126; BP diastolic 51–58; PULSE 67–76; RESP 16–22; TEMP 36.1–37.1; O2SAT 89–97
[2020-10-11 05:38] LABS: Add Manual Diff / Slide Review NO; Basophils Absolute Auto 100 /uL (0-100); Basophils Percent Auto 0.5 % (0-2); Eosinophils Absolute Auto 100 /uL (0-450); Eosinophils Percent Auto 1.5 % (2-4); Hematocrit 22.6 % (41-53); Hemoglobin 7.8 g/dL (13.5-17.5); Lymphocytes Absolute Auto 1000 /uL (1100-4500); Lymphocytes Percent Auto 9.6 % (25-40); Mean Corpuscular HGB Conc 34.5 % (30-36); Mean Corpuscular Hemoglobin 31.6 PG (26-34); Mean Corpuscular Volume 91.6 fL (80-100); Monocytes Absolute Auto 500 /uL (0-900); Monocytes Percent Auto 5.4 % (3-14); Neutrophils Absolute Auto 8400 /uL (1500-7000); Platelet Count 123 X10^3/uL (150-400); Red Blood Cell Count 2.47 X10^6/uL (4.5-5.9); White Blood Cell Count 10.1 X10^3/uL (4.5-11.0)
[2020-10-11 05:43] LABS: Alanine Aminotransferase 45 IU/L (<50); Albumin 2.6 g/dL (3.5-5.0); Albumin Globulin Ratio 0.9 (1.0-2.8); Alkaline Phosphatase 78 U/L (38-126); Aspartate Aminotransferase 32 IU/L (17-59); Bilirubin Total 0.5 mg/dL (0.2-1.3); Bilirubin Unconjugated 0.5 mg/dL (0.0-1.1); Blood Urea Nitrogen 25 mg/dL (9-20); Calcium 8.4 mg/dL (8.4-10.2); Carbon Dioxide 22 mmol/L (22-32); Chloride 111 mmol/L (98-107); Estimated Glomerular Filt Rate > 60.0 mL/min (>60); Globulin 2.8 g/dL (1.7-4.1); Glucose 139 mg/dL (80-110); HEMOLYSIS < 15 (0-50); Magnesium 1.7 mg/dL (1.6-2.3); Potassium 4.1 mmol/L (3.4-5.1); Sodium 137 mmol/L (137-145); Total Protein 5.4 g/dL (6.3-8.2)
[2020-10-11] MEDS: BUDESONIDE 0.5 MG/2 ML NEB INH ×2 (06:58→19:46)
[2020-10-11] MEDS: ALBUTEROL/IPRATROPIUM 3 ML AMPUL INH ×4 (06:58→19:46)
[2020-10-11] MEDS: AMOXICILLIN 250 MG CAPSULE 1000 MG PO ×2 (08:58→20:14)
[2020-10-11] MEDS: CLARITHROMYCIN 500 MG TABLET PO ×2 (08:58→20:14)
[2020-10-11] MEDS: PANTOPRAZOLE 40 MG VIAL IV ×2 (08:58→20:14)
--- NOTE | 2020-10-11 10:21 | CM.DPC ---
DCP Cont: Checked in with patient during team rounds. He was sitting up in his chair, alert and oriented. He resides in [place] with his spouse, Randal. Patient has been independently ambulating in his room. His diabetic medication is getting adjusted. P: DCP to continue to follow. Plan is for home, possibly today or tomorrow with no needs. Miri Sheridan RN/Day Guard
[2020-10-11 13:49] LABS: Hematocrit 23.9 % (41-53)
--- NOTE | 2020-10-11 14:25 | P.PN_ITS ---
Subjective Subjective Date Patient Seen: 10/11/20 Time Patient Seen: 14:26 Interval history: This is a 75-year-old male with past medical history of type 2 diabetes, DIVINA, prior smoker quit 4 months ago, prior diverticulitis many years ago with perforation, hypertension, hyperlipidemia, COPD admitted for an upper GI bleed with acute blood loss anemia. He responded appropriately to 3 units of packed red blood cells with improvement in hemoglobin to 8.2 which has been stable. He has had another black stool today, repeat h/h at 8.0 up slightly from 7.8. Given continued black stools will continue to monitor h/h here. He is tolerating a diet well thus far. Exam Vital Signs (past 8 hours): - 10/11/20 07:02 10/11/20 08:00 10/11/20 09:15 Temperature 98.2 F Pulse Rate 70 70 Respiratory Rate 22 18 Blood Pressure 116/53 L Pulse Oximetry 95 96 95 10/11/20 10:56 10/11/20 12:00 10/11/20 13:01 Temperature 97.0 F L Pulse Rate 72 76 Respiratory Rate 20 16 Blood Pressure 123/55 L Pulse Oximetry 96 96 96 Oxygen Delivery Method Room Air Oxygen Flow Rate 0 Narrative Exam Narrative: GENERAL APPEARANCE: Well developed, well nourished, in no acute distress. SKIN: Inspection of the skin reveals no rashes, ulcerations or petechiae. HEENT: Normocephalic atraumatic, extraocular muscles are intact, oropharynx is clear and mucous membranes are moist, neck is supple without adenopathy NECK: Supple and symmetric. There was no thyroid enlargement, and no tenderness, or masses were felt. CHEST: Normal AP diameter and normal contour without any kyphoscoliosis. LUNGS: Auscultation of the lungs revealed mild inspiratory wheezing in PACU, improved after duoneb treatments. CARDIOVASCULAR: There was a regular rate and rhythm without any murmurs, gallop s, rubs. Peripheral pulses were 2+ and symmetric. ABDOMEN: Soft and nontender with normal bowel sounds. No ascites was noted. MUSCULOSKELETAL: There was no tenderness or effusions noted. Muscle strength and tone were normal. EXTREMITIES: No cyanosis, clubbing or edema. NEUROLOGIC: Alert and oriented x 3. Normal affect. Gait was normal. Strength is +5/5 in the Upper Extremities and Lower Extremities Bilaterally. Sensation to touch was normal. Objective Labs Result Diagrams: 10/11/20 13:40 10/11/20 05:15 Labs: Laboratory Results - last 24 hr 10/10/20 10/11/20 10/11/20 17:00 05:15 05:15 WBC 10.1 RBC 2.47 L Hgb 7.9 L 7.8 L Hct 23.2 L 22.6 L MCV 91.6 MCH 31.6 MCHC 34.5 RDW 16.0 H Plt Count 123 L Neut % (Auto) 83.0 H Lymph % (Auto) 9.6 L [place] % (Auto) 5.4 Eos % (Auto) 1.5 L Baso % (Auto) 0.5 Neut # (Auto) 8400 H Lymph # (Auto) 1000 L [place] # (Auto) 500 Eos # (Auto) 100 Baso # (Auto) 100 Sodium 137 Potassium 4.1 Chloride 111 H Carbon Dioxide 22 BUN 25 H Creatinine 0.96 Estimated GFR > 60.0 BUN/Creatinine Ratio 26.0 H Glucose 139 H Calcium 8.4 Magnesium 1.7 Total Bilirubin 0.5 Conjugated Bilirubin 0.0 Unconjugated Bilirubin 0.5 AST 32 ALT 45 Alkaline Phosphatase 78 Total Protein 5.4 L Albumin 2.6 L Globulin 2.8 Albumin/Globulin Ratio 0.9 L 10/11/20 13:40 WBC RBC Hgb 8.0 L Hct 23.9 L MCV MCH MCHC RDW Plt Count Neut % (Auto) Lymph % (Auto) [place] % (Auto) Eos % (Auto) Baso % (Auto) Neut # (Auto) Lymph # (Auto) [place] # (Auto) Eos # (Auto) Baso # (Auto) Sodium Potassium Chloride Carbon Dioxide BUN Creatinine Estimated GFR BUN/Creatinine Ratio Glucose Calcium Magnesium Total Bilirubin Conjugated Bilirubin Unconjugated Bilirubin AST ALT Alkaline Phosphatase Total Protein Albumin Globulin Albumin/Globulin Ratio [facility] Medical History Back problem Chicken pox Chronic back pain Diverticular disease (~1996) Hearing deficit Measles Mumps Plantar warts Sciatic nerve pain Tinnitus Type 2 diabetes mellitus Vision disorder Surgical History Anesthesia Fractures (~08/1962) History of colon surgery (~03/1997) History of tonsillectomy (~1948) Status post hernia repair (~2002) Family History Brother Cancer Grandmother Heart disease Mother Stroke Loud snoring Hypertension Brother No problems noted. Son No problems noted. Grandfather Loud snoring Sister No problems noted. Father Loud snoring Family/Other Hypertension Heart disease Alcohol abuse Substance abuse Social History household members: spouse Smoking Status: Former smoker alcohol intake: former substance use type: does not use eating out: 1-3 times/week Type(s) of exercise: none Assessment & Plan Assessment & Plan narrative: This is a 75-year-old male with past medical history of type 2 diabetes, DIVINA, prior smoker quit 4 months ago, prior diverticulitis many years ago with perforation, hypertension, hyperlipidemia, COPD admitted for an upper GI bleed with acute blood loss anemia. 1. Acute blood loss anemia secondary to presumed upper GI bleeding, present on admission -patient presented with 2 days of melanotic stools and 1 episode of coffee- ground emesis. Discharge hemoglobin on 09/22 was 14, unknown course at [place] with regards to GI bleeding but was noted on discharge summary here to have coffee ground emesis. Presume h/h was stable at [facility]. -continue IV Protonix twice daily, empiric h pylori therapy. Amoxicillin 1 g b.i.d., clarithromycin 500 mg b.i.d. for 14 days. -s/p 3 units PRBC for hg 5.3. Hg now 8.0. -advance diet as tolerated. -appreciate consultation from Dr. Hackett whom perfored and EGD which showed mild duodenal inflammation but no active bleeding. -still with continued black stools, which is likely due to his prior bleeding. However unclear if active bleeding is truly from duodenitis or elsewhere. Consider tagged RBC scan if h/h falls. -BUN markedly elevated consistent with upper source, now downtrending. 2. Type 2 diabetes, with hyperglycemia -hold home dose of metformin -for now will be on sliding scale insulin -a1c 8.4 in may/2019. 3. HTN -hold anti-hypertensives as patient is low-normal BP currently with ? active bleeding. 4. HLD - can continue home statin when able to start PO 5. thrombocytopenia, unknown chronicity - improved since last admission, likely low from previous sepsis and now probable acute bleeding. - will continue to follow. Plt 137 on admission, fairly stable thus far. Was as low as 73 on 09/20/20 during sepsis. 6. COPD without acute exacerbation - replace home medications with duonebs + pulmicort. prn albuterol - RT evaluation and treatment. - chest pain in PACU after EGD likely due to mild COPD symptoms as rapid improvement with duonebs. EKG unremarkable and troponin within normal limits. Code: Full, surrogate decision maker is patient's Dispo: admitted as inpatient status. Possible discharge home as soon as tomorrow if stable. DVT: SCD given bleeding. Quality VTE Deep Vein Thrombosis/Pulmonary Embolism Present on Admission: No
[2020-10-12] VITALS (7 sets, daily range): BP systolic 116–135; BP diastolic 64–71; PULSE 61–78; RESP 16–18; TEMP 36.8–37.1; O2SAT 92–96
[2020-10-12 05:56] LABS: Add Manual Diff / Slide Review NO; Basophils Absolute Auto 0 /uL (0-100); Basophils Percent Auto 0.4 % (0-2); Eosinophils Absolute Auto 300 /uL (0-450); Eosinophils Percent Auto 3.6 % (2-4); Hematocrit 25.5 % (41-53); Hemoglobin 8.6 g/dL (13.5-17.5); Lymphocytes Absolute Auto 1100 /uL (1100-4500); Lymphocytes Percent Auto 13.1 % (25-40); Mean Corpuscular HGB Conc 33.8 % (30-36); Mean Corpuscular Hemoglobin 31.6 PG (26-34); Mean Corpuscular Volume 93.3 fL (80-100); Monocytes Absolute Auto 500 /uL (0-900); Monocytes Percent Auto 5.8 % (3-14); Neutrophils Absolute Auto 6200 /uL (1500-7000); Neutrophils Percent Auto 77.1 % (50-75); Platelet Count 143 X10^3/uL (150-400); Red Blood Cell Count 2.73 X10^6/uL (4.5-5.9); Red Cell Distribution Width 16.3 % (11.6-14.8); White Blood Cell Count 8.1 X10^3/uL (4.5-11.0)
[2020-10-12 06:04] LABS: Alanine Aminotransferase 56 IU/L (<50); Alkaline Phosphatase 96 U/L (38-126); Aspartate Aminotransferase 39 IU/L (17-59); BUN Creatinine Ratio 11.8 (6-22); Bilirubin Total 0.5 mg/dL (0.2-1.3); Bilirubin Unconjugated 0.4 mg/dL (0.0-1.1); Blood Urea Nitrogen 11 mg/dL (9-20); Calcium 8.6 mg/dL (8.4-10.2); Carbon Dioxide 22 mmol/L (22-32); Chloride 108 mmol/L (98-107); Estimated Glomerular Filt Rate > 60.0 mL/min (>60); Globulin 3.1 g/dL (1.7-4.1); Glucose 137 mg/dL (80-110); HEMOLYSIS < 15 (0-50); Magnesium 1.7 mg/dL (1.6-2.3); Potassium 3.8 mmol/L (3.4-5.1); Sodium 136 mmol/L (137-145); Total Protein 6.1 g/dL (6.3-8.2)
[2020-10-12] MEDS: ALBUTEROL/IPRATROPIUM 3 ML AMPUL INH ×2 (08:45→11:08)
[2020-10-12] MEDS: BUDESONIDE 0.5 MG/2 ML NEB INH (08:45)
[2020-10-12] MEDS: PANTOPRAZOLE 40 MG VIAL IV (09:26)
[2020-10-12] MEDS: CLARITHROMYCIN 500 MG TABLET PO (09:26)
[2020-10-12] MEDS: AMOXICILLIN 250 MG CAPSULE 1000 MG PO (09:26)
[2020-10-12] MEDS: INSULIN LISPRO 100 UNIT/ML 3ML VIAL SUBCUT (09:30)
--- NOTE | 2020-10-12 12:56 | PC.NURSE ---
Patient educated about ss/ of stroke, falls, new medications, H.Pylori infection, GI bleed and medications not to take, holding BP medications and monitoring BP daily per Dr. Brito, and when to follow up with primary care doctor. Patient and acknowledged understanding of discharge teaching. Patient and left facility with all belongings via wheelchair to private vehicle. Medications were electronically sent to pharmacy.
--- NOTE | 2020-10-12 14:22 | PC.NURSE ---
Pt demonstrates knowledge deficit regarding disease process, medications, and plan of care; this RN actively listened to patient's anxieties, questions, and concerns; pt shed some tears about frustration and worries regarding hospitalization; LS clear; BTs active; d/c instructions provided by BIA Hollins
--- NOTE | 2020-10-12 18:17 | PM.DS.1 ---
History of Present Illness History of Present Illness Chief complaint: Fall Narrative: This is a 75-year-old male with past medical history of type 2 diabetes, DIVINA, prior smoker quit 4 months ago, prior diverticulitis many years ago with perforation, hypertension, hyperlipidemia, COPD who was recently admitted September 20 and transferred on September 22 for pneumonia with septic shock and ARDS requiring intubation and transfer for higher level care. During that admission it was noted that the patient had 200 cc of coffee-ground emesis but this diminished over the course of his initial stay. There is no mention of GI bleeding in the discharge summary from [facility] the patient was not discharged on omeprazole. He feels since his admission that he has continued to decline complaining of continued shortness of breath and dyspnea on exertion, he gets short of breath when walking 25 ft to the bathroom. He has also been becoming weak and more pale but cannot point the exact time that this occurred. Two days ago he had a black stool, and yesterday he noticed coffee-ground emesis with continued dark stools. This morning he collapsed to the floor, but did not hit his head and did not pass out but decided to come to the emergency room for further evaluation because he was so weak. In the emergency room, his blood pressures were low normal but the remainder of his vital signs were unremarkable. Initial laboratory evaluation revealed a mild leukocytosis with WBC of 11.9, a hemoglobin of 5.3, with hematocrit of 16%. Platelet count was 137 which was similar to his last lab before he was transferred on September 22. Coagulation studies were unremarkable. Chemistries revealed a mild hyponatremia with a sodium of 133, CO2 was mildly low at 17 with no anion gap, BUN was elevated at 67, creatinine was 1.07 down from his discharge lab values on September 22. Glucose was 178. COVID-19 testing was negative. Patient was ordered for 4 units of blood. General surgery was contacted in the emergency room and was agreeable for endoscopy when stable from GI bleeding. Patient was admitted to Medicine for further management of presumed upper GI bleed. He was started on IV Protonix. Discharge Providers Provider Date of admission: 10/09/20 15:10 Discharge Date: 10/12/20 Primary care physician: Ivon Mckeon DO Consults: 10/09/20 16:54 Consult to General Surgery Routine Comment: Consulting Provider: Roxann,Csott Reason for consultation: GI Bleeding 10/09/20 18:40 Consult to Respiratory Therapy Evaluate & Treat Comment: Physician Instructions: Evaluate and treat Discharge provider: Michael Brito MD Summary Hospital Course Discharge Diagnosis: 1. Acute blood loss anemia 2. Acute duodenitis without peptic ulcer 3. Type 2 diabetes 4. Chronic thrombocytopenia 5. COPD without acute exacerbation Patient presented with 2 days of melena stools and 1 episode of coffee-ground emesis. He was severely anemic on admission with hemoglobin 5.3. And transfused 3 units PRBC with improvement and stabilization of hemoglobin to 8.6. EGD performed which showed duodenal inflammation but no ulcers and no active bleeding. Patient was started on 2 week therapy with antibiotics and PPI therapy for possible H pylori. He is instructed to thereafter continue on daily PPI for 2 months. Blood pressures in hospital have been well in the normal range with holding his BP medications. He will hold his outpatient antihypertensives and monitor blood pressures. He was taken off low-dose aspirin which he was taking for primary prevention. Status at Discharge Cognitive/behavioral status at discharge: oriented Functional status at discharge: independent ambulation Overall status at discharge: patient is progressing back to baseline Time Spent with Patient Time spent: Greater than 30 minutes Exam Vital Signs (past 8 hours): - 10/12/20 11:23 Pulse Rate 78 Respiratory Rate 16 Pulse Oximetry 96 Oxygen Delivery Method Room Air Oxygen Flow Rate 0 Objective Labs Result Diagrams: 10/12/20 05:17 10/12/20 05:17 Labs: Laboratory Results - last 24 hr 10/12/20 10/12/20 05:17 05:17 WBC 8.1 RBC 2.73 L Hgb 8.6 L Hct 25.5 L MCV 93.3 MCH 31.6 MCHC 33.8 RDW 16.3 H Plt Count 143 L Neut % (Auto) 77.1 H Lymph % (Auto) 13.1 L Brown % (Auto) 5.8 Eos % (Auto) 3.6 Baso % (Auto) 0.4 Neut # (Auto) 6200 Lymph # (Auto) 1100 Brown # (Auto) 500 Eos # (Auto) 300 Baso # (Auto) 0 Sodium 136 L Potassium 3.8 Chloride 108 H Carbon Dioxide 22 BUN 11 Creatinine 0.93 Estimated GFR > 60.0 BUN/Creatinine Ratio 11.8 Glucose 137 H Calcium 8.6 Magnesium 1.7 Total Bilirubin 0.5 Conjugated Bilirubin 0.0 Unconjugated Bilirubin 0.4 AST 39 ALT 56 H Alkaline Phosphatase 96 Total Protein 6.1 L Albumin 3.0 L Globulin 3.1 Albumin/Globulin Ratio 1.0 PFSH Medical History Back problem Chicken pox Chronic back pain Diverticular disease (~1996) Hearing deficit Measles Mumps Plantar warts Sciatic nerve pain Tinnitus Type 2 diabetes mellitus Vision disorder Surgical History Anesthesia Fractures (~08/1962) History of colon surgery (~03/1997) History of tonsillectomy (~1947) Status post hernia repair (~2002) Family History Brother Cancer Grandmother Heart disease Mother Stroke Loud snoring Hypertension Brother No problems noted. Son No problems noted. Grandfather Loud snoring Sister No problems noted. Father Loud snoring Family/Other Hypertension Heart disease Alcohol abuse Substance abuse Social History household members: spouse Smoking Status: Former smoker alcohol intake: former substance use type: does not use eating out: 1-3 times/week Type(s) of exercise: none Discharge Plan Discharge Plan Patient Disposition: Home Discharge orders & Medications Prescriptions: New amoxicillin 500 mg capsule 1,000 mg PO Q12H 12 Days Qty: 48 RF: 0 clarithromycin 500 mg tablet 500 mg PO Q12H 12 Days Qty: 24 RF: 0 pantoprazole [Protonix] 40 mg tablet,delayed release (DR/EC) 40 mg PO BID 12 Days Qty: 24 RF: 0 pantoprazole [Protonix] 40 mg tablet,delayed release (DR/EC) 40 mg PO DAILY 30 Days Qty: 30 RF: 1 Continued vitamin B complex [B Complex-Vitamin B12] 1 EACH tablet 1 tab PO QDAY Qty: 0 RF: 0 atorvastatin [Lipitor] 20 mg tablet 20 mg PO HS Qty: 90 RF: 3 metformin 500 mg tablet 1,000 mg PO BID RF: 0 multivitamin Tablet 1 tab PO DAILY RF: 0 nystatin 100,000 unit/mL Suspension 5 ml PO QID RF: 0 acetaminophen 325 mg Tablet 650 mg PO Q6H PRN (Reason: Pain (Scale Score 1-3)) RF: 0 Spiriva with HandiHaler 18 mcg Capsule, W/Inhalation Device 1 cap INHALATION DAILY RF: 0 AirDuo Digihaler 232-14 mcg/actuation Aero Powdr Breath Act W/Sensor 1 inh INHALATION Q12H RF: 0 metoprolol succinate 25 mg tablet extended release 24 hr 25 mg PO BID RF: 0 losartan 100 mg tablet 50 mg PO BID RF: 0 albuterol sulfate 90 mcg/actuation Hfa Aerosol Inhaler 2 puff INHALATION Q4-6H PRN (Reason: Shortness Of Breath) RF: 0 Discontinued aspirin 81 mg Tablet,Delayed Release (Dr/Ec) 81 mg PO DAILY RF: 0 Follow up/Referrals: Ivon Mckeon DO [Primary Care Provider] - Discharge Health Status Multidrug resistant organism: No MDRO Diet/Activity/Treatments Diet: Diet as Tolerated Visit Report/Discharge Packet Instructions: Pneumonia-Adult, Sepsis, DI for Gastritis, DI for Gastric Ulcer, Helicobacter Pylori Infection, Gastrointestinal Bleeding, Pantoprazole, Amoxicillin, Clarithromycin, DI for Stomach Polyps Discharge Data Primary Care Provider: Ivon Mckeon Quality VTE Deep Vein Thrombosis/Pulmonary Embolism Present on Admission: No
== END 2020-10-12 13:00 | disposition home or self-care (01) | DRG 378 ==
LOC: ED 15:07 → AC 15:10
PROVIDERS: Anesthesiology; Surgery; Admitting Provider Internal Medicine; Emergency Provider Emergency Medicine; PCP Family Medicine; Referring Provider Emergency Medicine; Visit Provider Internal Medicine
PROC: 0DJ08ZZ Inspection of Upper Intestinal Tract, Via Natural or Artificial Opening Endoscopic (ICD-10-PCS; CPT 43235; principal; 2020-10-10 10:00)
DX: K29.81 Duodenitis with bleeding (principal); D62 Acute posthemorrhagic anemia; E11.65 Type 2 diabetes mellitus with hyperglycemia; D69.59 Other secondary thrombocytopenia; G47.33 Obstructive sleep apnea (adult) (pediatric); I10 Essential (primary) hypertension; E78.5 Hyperlipidemia, unspecified; J44.9 Chronic obstructive pulmonary disease, unspecified; Z87.891 Personal history of nicotine dependence; Z79.84 Long term (current) use of oral hypoglycemic drugs; Z20.822 Contact with and (suspected) exposure to COVID-19
CPT/HCPCS: 36415; 36430; 43239; 74176; 80048; 80053; 80076; 82962; 83735; 84484; 85014; 85018; 85025; 85610; 85730; 86850; 86900; 86901; 87635; 93005; 94640; 94760; 96374; 99232; 99285; C9803; P9016; C9113; J0330; J1815; J2704; J3010

== ENCOUNTER → 2020-11-26 10:52 | Outpatient (CLI) | payer OTHER, SELFPAY ==
[2020-09-22 13:40] VITALS: PULSE 64; RESP 24; O2SAT 97
[2020-10-09 16:52] VITALS: BMI 30.2
[2020-11-26 12:13] LABS: Add Manual Diff / Slide Review NO; Basophils Absolute Auto 0 /uL (0-100); Basophils Percent Auto 0.3 % (0-2); Eosinophils Absolute Auto 200 /uL (0-450); Eosinophils Percent Auto 1.5 % (2-4); Hematocrit 42.9 % (41-53); Hemoglobin 13.8 g/dL (13.5-17.5); Lymphocytes Absolute Auto 1100 /uL (1100-4500); Lymphocytes Percent Auto 8.6 % (25-40); Mean Corpuscular HGB Conc 32.1 % (30-36); Mean Corpuscular Hemoglobin 29.2 PG (26-34); Monocytes Absolute Auto 700 /uL (0-900); Monocytes Percent Auto 5.7 % (3-14); Neutrophils Absolute Auto 11000 /uL (1500-7000); Neutrophils Percent Auto 83.9 % (50-75); Platelet Count 189 X10^3/uL (150-400); Red Blood Cell Count 4.71 X10^6/uL (4.5-5.9); Red Cell Distribution Width 16.8 % (11.6-14.8); White Blood Cell Count 13.1 X10^3/uL (4.5-11.0)
[2020-11-26 12:30] LABS: Hemoglobin A1C% w Est Avg Glu 5.6 % (4.0-6.0)
[2020-11-26 12:48] LABS: Alanine Aminotransferase 21 IU/L (<50); Albumin 3.9 g/dL (3.5-5.0); Albumin Globulin Ratio 1.1 (1.0-2.8); Alkaline Phosphatase 118 U/L (38-126); Aspartate Aminotransferase 23 IU/L (17-59); BUN Creatinine Ratio 20.7 (6-22); Bilirubin Total 0.3 mg/dL (0.2-1.3); Blood Urea Nitrogen 18 mg/dL (9-20); Calcium 9.5 mg/dL (8.4-10.2); Carbon Dioxide 23 mmol/L (22-32); Chloride 106 mmol/L (98-107); Estimated Glomerular Filt Rate > 60.0 mL/min (>60); Globulin 3.4 g/dL (1.7-4.1); Glucose 134 mg/dL (80-110); HEMOLYSIS < 15 (0-50); Potassium 4.8 mmol/L (3.4-5.1); Sodium 136 mmol/L (137-145); Total Protein 7.3 g/dL (6.3-8.2)
== END ==
PROVIDERS: PCP Family Medicine; Referring Provider Family Medicine; Visit Provider Family Medicine
DX: E11.9 Type 2 diabetes mellitus without complications (principal); K92.2 Gastrointestinal hemorrhage, unspecified
CPT/HCPCS: 36415; 80053; 83036; 85025

== ENCOUNTER → 2021-02-11 14:07 | Outpatient (CLI) | payer OTHER, SELFPAY ==
[2020-09-22 13:40] VITALS: PULSE 64; RESP 24; O2SAT 97
[2020-10-09 16:52] VITALS: BMI 30.2
[2021-02-11 15:14] LABS: Hemoglobin A1C% w Est Avg Glu 7.5 % (4.0-6.0)
[2021-02-11 15:21] LABS: Add Manual Diff / Slide Review NO; Basophils Absolute Auto 0 /uL (0-100); Basophils Percent Auto 0.2 % (0-2); Eosinophils Absolute Auto 200 /uL (0-450); Eosinophils Percent Auto 1.3 % (2-4); Hematocrit 49.2 % (41-53); Hemoglobin 16.4 g/dL (13.5-17.5); Lymphocytes Absolute Auto 1600 /uL (1100-4500); Lymphocytes Percent Auto 11.6 % (25-40); Mean Corpuscular HGB Conc 33.3 % (30-36); Mean Corpuscular Hemoglobin 28.7 PG (26-34); Mean Corpuscular Volume 86.3 fL (80-100); Monocytes Absolute Auto 600 /uL (0-900); Monocytes Percent Auto 4.3 % (3-14); Neutrophils Absolute Auto 11500 /uL (1500-7000); Neutrophils Percent Auto 82.6 % (50-75); Platelet Count 189 X10^3/uL (150-400); Red Blood Cell Count 5.71 X10^6/uL (4.5-5.9); Red Cell Distribution Width 15.7 % (11.6-14.8); White Blood Cell Count 13.9 X10^3/uL (4.5-11.0)
[2021-02-11 15:22] LABS: Alanine Aminotransferase 27 IU/L (<50); Albumin 4.1 g/dL (3.5-5.0); Albumin Globulin Ratio 1.3 (1.0-2.8); Alkaline Phosphatase 131 U/L (38-126); Aspartate Aminotransferase 24 IU/L (17-59); BUN Creatinine Ratio 32.6 (6-22); Bilirubin Total 0.3 mg/dL (0.2-1.3); Blood Urea Nitrogen 30 mg/dL (9-20); Carbon Dioxide 29 mmol/L (22-32); Chloride 99 mmol/L (98-107); Estimated Glomerular Filt Rate > 60.0 mL/min (>60); Globulin 3.1 g/dL (1.7-4.1); Glucose 149 mg/dL (80-110); HEMOLYSIS 15 (0-50); Potassium 4.3 mmol/L (3.4-5.1); Sodium 137 mmol/L (137-145); Total Protein 7.2 g/dL (6.3-8.2)
== END ==
PROVIDERS: PCP Family Medicine; Referring Provider Family Medicine; Visit Provider Internal Medicine
DX: D75.1 Secondary polycythemia (principal); E11.9 Type 2 diabetes mellitus without complications
CPT/HCPCS: 36415; 80053; 83036; 85025

== ENCOUNTER → 2021-06-02 11:01 | Outpatient (CLI) | payer OTHER, SELFPAY ==
[2020-09-22 13:40] VITALS: PULSE 64; RESP 24; O2SAT 97
[2020-10-09 16:52] VITALS: BMI 30.2
[2021-06-02 13:15] LABS: Hemoglobin A1C% w Est Avg Glu 7.5 % (4.0-6.0)
== END ==
PROVIDERS: PCP Family Medicine; Referring Provider Family Medicine; Visit Provider Family Medicine
DX: E11.9 Type 2 diabetes mellitus without complications (principal)
CPT/HCPCS: 36415; 83036

== ENCOUNTER 2021-10-19 10:06 | Emergency (ER) | payer OTHER, SELFPAY ==
[2020-09-22 13:40] VITALS: PULSE 64; RESP 24; O2SAT 97
[2020-10-09 16:52] VITALS: BMI 30.2
[2021-10-19] VITALS (41 sets, daily range): BP systolic 130–186; BP diastolic 61–117; PULSE 69–106; RESP 12–36; TEMP 36.6; O2SAT 81–99; BMI 24.2
--- NOTE | 2021-10-19 10:19 | ED.SOB ---
HPI - SOB/Dyspnea <Pari Sprague, DO - Last Filed: 10/21/21 15:07> General Chief Complaint: Shortness of Breath/Dyspnea Stated Complaint: Chest congestion Time Seen by Provider: 10/19/21 10:17 Source: patient Mode of arrival: Ambulatory Limitations: no limitations History of Present Illness HPI Narrative: This is a 76-year-old male who presents with proggressive dyspnea, cough and occasional hemoptysis for the past 3 months. Patient states that he has orthopnea, he cannot lay flat he feels like he is ?drowning?. Patient denies any fevers or chills. He states he will have occasional productive sputum most days that is discolored. He denies chest pain or pressure. He has daily audible wheezing which he describes in his throat and that he feels tightness in his very upper chest at the sort of clavicular region and throat. Patient denies any nausea or vomiting. He denies any swelling in his extremities. No acute issues with bowel movements or urination. Today he had presented for scheduled blood draw had thought he would go to the walk-in clinic to see if it would help with his wheezing and was directed here. Patient was admitted and transferred to [facility] for bilateral pneumonia and hypoxic respiratory failure and sepsis a year ago in September of 2020 and then shortly thereafter had a GI bleed. He is on medication for hypertension, dyslipidemia, polycythemia diabetes type 2, he denies cardiac history, he has had prior diverticulitis with perforation He states he uses albuterol daily but is not using any kind of steroid inhaler he is actively using tobacco still. He denies any allergies to drugs. Rare alcohol, no illicit. Related Data Home Medications Medication Instructions Recorded Confirmed vitamin B complex (B 1 tab PO QDAY ##0 12/12/16 10/19/21 Complex-Vitamin B12) multivitamin 1 tab PO DAILY 02/18/20 10/19/21 fluticasone 232mcg-salmeterol 1 inh inhalation PRN PRN Shortness 10/09/20 10/19/21 14mcg/actuation breath act,powder Of Breath sensor (AirDuo Digihaler) Previous Rx's Medication Instructions Recorded atorvastatin 20 mg tablet (Lipitor) 20 mg PO HS #90 tabs 10/27/20 losartan 100 mg tablet 100 mg PO DAILY #90 tabs 12/02/20 metformin 1,000 mg tablet 1,000 mg PO BID #180 tabs 02/28/21 chlorthalidone 25 mg tablet 25 mg PO DAILY #30 tabs 08/12/21 metoprolol tartrate 25 mg tablet 50 mg PO BID #120 tabs 08/25/21 albuterol sulfate 90 mcg/actuation 2 puff inhalation Q4-6H PRN 09/29/21 aerosol inhaler Shortness Of Breath #8.5 grams albuterol sulfate 90 mcg/actuation 2 puff inhalation Q4-6H PRN 10/19/21 aerosol inhaler shortness of breath or wheezing #8.5 grams Allergies Allergy/AdvReac Type Severity Reaction Status Date / Time No Known Drug Allergies Allergy Verified 10/19/21 09:46 Review of Systems <Pari Sprague DO - Last Filed: 10/21/21 15:07> Review of Systems ROS Unobtainable: All systems reviewed & are unremarkable except as noted in HPI and below Patient History <Pari Sprague DO - Last Filed: 10/21/21 15:07> Medical History Back problem Chicken pox Chronic back pain Diverticular disease (~1996) Duodenitis Hearing deficit Measles Mumps Plantar warts Pneumonia Sciatic nerve pain Tinnitus Type 2 diabetes mellitus Vision disorder Surgical History Anesthesia Fractures (~08/1962) History of colon surgery (~03/1997) History of tonsillectomy (~1947) Status post hernia repair (~2002) Family History Brother Cancer Grandmother Heart disease Mother Stroke Loud snoring Hypertension Brother No problems noted. Son No problems noted. Grandfather Loud snoring Sister No problems noted. Father Loud snoring Family/Other Hypertension Heart disease Alcohol abuse Substance abuse Social History household members: spouse Smoking Status: Current some day smoker alcohol intake: former substance use type: does not use eating out: 1-3 times/week Type(s) of exercise: none Smoking Status: Current every day smoker (pipe twice per day) tobacco type: cigarettes alcohol intake frequency: 0-2 drinks per day Substance Use Type: does not use Exam <DO Maite Hernandez Last Filed: 10/21/21 15:07> Narrative Exam Narrative: GEN: Elderly male, alert and oriented x 3, patient appears to be in mild distress. HEENT: Atraumatic, pupils are equal round reactive to light, extraocular movements are intact, nares are clear, Throat is clear without any exudates, erythema, tonsillar enlargement or uvular deviation HEART: Regular rate and rhythm without murmur, clicks, rubs. Pulses are equal in upper and lower extremities, no edema bilateral lower extremities. LUNGS:Lungs are slightly coarse at the bases but patient has audible wheeze in his upper respiratory upper chest as well as audibly with in elevation and exhalation, patient does have some rhonchi bilaterally, chest moves symmetrically, no tachypnea or accessory muscle use. Patient does have a wet cough on exam. Nonproductive in the room. ABD:bowel sounds normal, soft, non-tender, no guarding, rebound, rigidity, no masses noted, no hepatosplenomegaly :No CVA tenderness MSCL: Non-tender, full range of motion, normal gait NEURO:CN 2-12 intact, sensation normal SKIN: No rash, erythema or other skin changes noted. Initial Vital Signs Initial Vital Signs: Vital Signs Pulse Rate 78 10/19/21 10:25 Respiratory Rate 22 10/19/21 10:25 Pulse Oximetry 92 10/19/21 10:25 Oxygen Delivery Method 10/19/21 10:25 <Eduardo Mcguire DO - Last Filed: 10/19/21 22:12> Initial Vital Signs Initial Vital Signs: Vital Signs Pulse Rate 78 10/19/21 10:25 Respiratory Rate 22 10/19/21 10:25 Pulse Oximetry 92 10/19/21 10:25 Oxygen Delivery Method 10/19/21 10:25 Course <DO Maite Hernandez Last Filed: 10/21/21 15:07> Orders Ordered: Discontinued Medications Albuterol (Albuterol 2.5 Mg/3 Ml Neb (Adult)) 2.5 mg INH NOW ONE Stop: 10/19/21 20:41 Last Admin: 10/19/21 20:42 Dose: 2.5 mg Documented By: IRAIDA Albuterol (Albuterol 2.5 Mg/3 Ml Neb (Adult)) 2.5 mg INH NOW ONE Stop: 10/19/21 22:16 Last Admin: 10/19/21 22:20 Dose: 2.5 mg Documented By: AMBER Albuterol/Ipratropium (Albuterol/Ipratropium 3 Ml Ampul) 9 ml INH NOW ONE Stop: 10/19/21 10:19 Last Admin: 10/19/21 10:24 Dose: 9 ml Documented By: BALJINDER Albuterol/Ipratropium (Albuterol/Ipratropium 3 Ml Ampul) 3 ml INH NOW ONE Stop: 10/19/21 18:58 Last Admin: 10/19/21 19:04 Dose: 3 ml Documented By: BALJINDER Sodium Chloride (Normal Saline 0.9%) 1,000 mls @ 150 mls/hr IV CONT RADHA Last Infusion: 10/19/21 18:41 Dose: 0 mls/hr Documented By: Admin: 10/19/21 10:47 Dose: 150 mls/hr Documented By: MAEGAN Methylprednisolone (Methylprednisolone 125 Mg/2 Ml Vial) 125 mg IV NOW ONE Stop: 10/19/21 10:31 Last Admin: 10/19/21 10:47 Dose: 125 mg Documented By: MAEGAN Tranexamic Acid (Tranexamic Acid 1,000 Mg Vial) 1,000 mg INH NOW ONE Stop: 10/19/21 15:12 Last Admin: 10/19/21 15:16 Dose: 1,000 mg Documented By: AMBER Reevaluation(s) Reevaluation #1: Patient updated on current findings again. Recommendations from oncology and goal for transfer for biopsy, tissue sample to initiate treatment. Patient is primary caregiver to his and does not wish to stay. After Time: 15:22 Consultations Consultation #1: Dr. Multani, oncology. Patients own oncology whom he sees for polycythemia vera. Recommends talking to Dr. Barriga who might be able to get bronchial biopsy to initiate treatment. They will need a sample of tissue before they can initiate. Would probably recommend if they are not able to admit him over there transfer elsewhere to get biopsy and treatment. Time: 12:17 Consultation #2: Dr. Meng, thoracic surgery at [facility]. He is happy to see the patient at [facility] if there are beds available, if not and patient elects to leave and not stay for transfer he would see the patient this Sunday in the office and number is included below and patient's paperwork. Consultation #3: Dr. Dunbar, [facility] thoracic fellow will review images and call back to see if they can take the patient. Time: 19:54 Additional Consultation(s): 2024: Dr. Chandler (thoracic attending)accepts at [facility] for transfer. Will likely not be tonight but will work on transfer. He is on 2Ln/c at this time. Vital Signs Vital signs: Vital Signs - 8 hr 10/19/21 14:30 10/19/21 15:00 10/19/21 15:01 Pulse Rate 74 79 95 H Respiratory Rate 12 36 H 34 H Blood Pressure 158/66 H 147/70 H Pulse Oximetry 94 81 L 92 10/19/21 15:15 10/19/21 15:30 10/19/21 15:32 Pulse Rate 106 H 102 H Respiratory Rate 30 H 25 H 21 Blood Pressure 149/117 H Pulse Oximetry 96 95 96 10/19/21 16:00 10/19/21 16:30 10/19/21 16:31 Pulse Rate 97 H 98 H 97 H Respiratory Rate 24 25 H 20 Blood Pressure 155/110 H 142/73 H Pulse Oximetry 95 93 93 10/19/21 17:00 10/19/21 17:02 10/19/21 17:30 Pulse Rate 104 H 105 H 96 H Respiratory Rate 36 H 27 H 17 Blood Pressure 169/105 H 144/82 H Pulse Oximetry 96 98 95 10/19/21 18:00 10/19/21 18:33 10/19/21 18:37 Pulse Rate 96 H 104 H 98 H Respiratory Rate 24 27 H Blood Pressure 159/77 H 142/73 H Pulse Oximetry 98 92 10/19/21 19:00 10/19/21 19:05 10/19/21 19:30 Pulse Rate 94 H 96 H Respiratory Rate 23 28 H Blood Pressure 142/82 H Pulse Oximetry 97 96 97 10/19/21 19:31 10/19/21 20:00 10/19/21 20:30 Pulse Rate 94 H 92 H 94 H Respiratory Rate 27 H 22 35 H Blood Pressure 145/74 H 141/75 H Pulse Oximetry 97 97 94 10/19/21 20:31 10/19/21 21:00 10/19/21 21:30 Pulse Rate 96 H 100 H 96 H Respiratory Rate 30 H 19 20 Blood Pressure 130/102 H 147/70 H Pulse Oximetry 91 96 96 10/19/21 21:31 Pulse Rate 96 H Respiratory Rate 23 Blood Pressure 134/68 Pulse Oximetry 95 <Eduardo Mcguire DO - Last Filed: 10/19/21 22:12> Orders Ordered: Discontinued Medications Albuterol (Albuterol 2.5 Mg/3 Ml Neb (Adult)) 2.5 mg INH NOW ONE Stop: 10/19/21 20:41 Last Admin: 10/19/21 20:42 Dose: 2.5 mg Documented By: IRAIDA Albuterol (Albuterol 2.5 Mg/3 Ml Neb (Adult)) 2.5 mg INH NOW ONE Stop: 10/19/21 22:16 Last Admin: 10/19/21 22:20 Dose: 2.5 mg Documented By: AMBER Albuterol/Ipratropium (Albuterol/Ipratropium 3 Ml Ampul) 9 ml INH NOW ONE Stop: 10/19/21 10:19 Last Admin: 10/19/21 10:24 Dose: 9 ml Documented By: BALJINDER Albuterol/Ipratropium (Albuterol/Ipratropium 3 Ml Ampul) 3 ml INH NOW ONE Stop: 10/19/21 18:58 Last Admin: 10/19/21 19:04 Dose: 3 ml Documented By: BALJINDER Sodium Chloride (Normal Saline 0.9%) 1,000 mls @ 150 mls/hr IV CONT RADHA Last Infusion: 10/19/21 18:41 Dose: 0 mls/hr Documented By: Admin: 10/19/21 10:47 Dose: 150 mls/hr Documented By: MAEGAN Methylprednisolone (Methylprednisolone 125 Mg/2 Ml Vial) 125 mg IV NOW ONE Stop: 10/19/21 10:31 Last Admin: 10/19/21 10:47 Dose: 125 mg Documented By: MAEGAN Tranexamic Acid (Tranexamic Acid 1,000 Mg Vial) 1,000 mg INH NOW ONE Stop: 10/19/21 15:12 Last Admin: 10/19/21 15:16 Dose: 1,000 mg Documented By: AMBER Vital Signs Vital signs: Vital Signs - 8 hr 10/19/21 14:30 10/19/21 15:00 10/19/21 15:01 Pulse Rate 74 79 95 H Respiratory Rate 12 36 H 34 H Blood Pressure 158/66 H 147/70 H Pulse Oximetry 94 81 L 92 10/19/21 15:15 10/19/21 15:30 10/19/21 15:32 Pulse Rate 106 H 102 H Respiratory Rate 30 H 25 H 21 Blood Pressure 149/117 H Pulse Oximetry 96 95 96 10/19/21 16:00 10/19/21 16:30 10/19/21 16:31 Pulse Rate 97 H 98 H 97 H Respiratory Rate 24 25 H 20 Blood Pressure 155/110 H 142/73 H Pulse Oximetry 95 93 93 10/19/21 17:00 10/19/21 17:02 10/19/21 17:30 Pulse Rate 104 H 105 H 96 H Respiratory Rate 36 H 27 H 17 Blood Pressure 169/105 H 144/82 H Pulse Oximetry 96 98 95 10/19/21 18:00 10/19/21 18:33 10/19/21 18:37 Pulse Rate 96 H 104 H 98 H Respiratory Rate 24 27 H Blood Pressure 159/77 H 142/73 H Pulse Oximetry 98 92 10/19/21 19:00 10/19/21 19:05 10/19/21 19:30 Pulse Rate 94 H 96 H Respiratory Rate 23 28 H Blood Pressure 142/82 H Pulse Oximetry 97 96 97 10/19/21 19:31 10/19/21 20:00 10/19/21 20:30 Pulse Rate 94 H 92 H 94 H Respiratory Rate 27 H 22 35 H Blood Pressure 145/74 H 141/75 H Pulse Oximetry 97 97 94 10/19/21 20:31 10/19/21 21:00 10/19/21 21:30 Pulse Rate 96 H 100 H 96 H Respiratory Rate 30 H 19 20 Blood Pressure 130/102 H 147/70 H Pulse Oximetry 91 96 96 10/19/21 21:31 Pulse Rate 96 H Respiratory Rate 23 Blood Pressure 134/68 Pulse Oximetry 95 MDM - SOB/Dyspnea <Pari Sprague DO - Last Filed: 10/21/21 15:07> Lab Data Result diagrams: 10/19/21 09:33 10/19/21 09:33 Labs: Lab Results 10/19/21 10/19/21 10/19/21 Range/Units 09:33 09:33 10:14 WBC (4.5-11.0) X10^3/uL RBC TNP Hgb TNP Hct TNP MCV TNP MCH TNP MCHC TNP RDW TNP Plt Count TNP Neut % (Auto) Not Reportable Lymph % (Auto) Not Reportable [place] % (Auto) Not Reportable Eos % (Auto) Not Reportable Baso % (Auto) Not Reportable Neut # (Auto) TNP Lymph # (Auto) Not Reportable [place] # (Auto) Not Reportable Baso # (Auto) Not Reportable Total Counted Not Reportable RBC Morphology Not Reportable PT (10.1-12.7) SECONDS INR (0.9-1.3) APTT (26.4-36.2) SECONDS D-Dimer (<230) ng/mL Sodium 124 L (137-145) mmol/L Potassium 5.1 (3.4-5.1) mmol/L Chloride 84 L (98-107) mmol/L Carbon Dioxide 30 (22-32) mmol/L BUN 13 (9-20) mg/dL Creatinine 0.76 (0.66-1.25) mg/dL Estimated GFR > 60 (>60) mL/min BUN/Creatinine Ratio 17.1 (6-22) Glucose 164 H (80-110) mg/dL Lactate (0.7-2.1) mmol/L Calcium 9.2 (8.4-10.2) mg/dL Total Bilirubin 0.7 (0.2-1.3) mg/dL AST 26 (17-59) IU/L ALT 35 (<50) IU/L Alkaline Phosphatase 137 H (38-126) U/L Total Creatine Kinase 41 L (55-170) U/L CK-MB (CK-2) TNP CK-MB (CK-2) Rel Index TNP Troponin I < 0.012 (0.01-0.034) ng/mL NT-Pro-B Natriuret Pep 475 H (<450) pg/mL Total Protein 7.4 (6.3-8.2) g/dL Albumin 3.8 (3.5-5.0) g/dL Globulin 3.6 (1.7-4.1) g/dL Albumin/Globulin Ratio 1.1 (1.0-2.8) Lipase 33 (23-300) U/L Procalcitonin 0.16 (<0.5) ng/mL SARS-CoV-2 (PCR) Negative (Negative) 10/19/21 10/19/21 Range/Units 10:27 10:27 WBC (4.5-11.0) X10^3/uL RBC Hgb Hct MCV MCH MCHC RDW Plt Count Neut % (Auto) Lymph % (Auto) [place] % (Auto) Eos % (Auto) Baso % (Auto) Neut # (Auto) Lymph # (Auto) [place] # (Auto) Baso # (Auto) Total Counted RBC Morphology PT 12.9 H (10.1-12.7) SECONDS INR 1.2 (0.9-1.3) APTT 35 D (26.4-36.2) SECONDS D-Dimer 387 H (<230) ng/mL Sodium (137-145) mmol/L Potassium (3.4-5.1) mmol/L Chloride (98-107) mmol/L Carbon Dioxide (22-32) mmol/L BUN (9-20) mg/dL Creatinine (0.66-1.25) mg/dL Estimated GFR (>60) mL/min BUN/Creatinine Ratio (6-22) Glucose (80-110) mg/dL Lactate 1.3 (0.7-2.1) mmol/L Calcium (8.4-10.2) mg/dL Total Bilirubin (0.2-1.3) mg/dL AST (17-59) IU/L ALT (<50) IU/L Alkaline Phosphatase (38-126) U/L Total Creatine Kinase (55-170) U/L CK-MB (CK-2) CK-MB (CK-2) Rel Index Troponin I (0.01-0.034) ng/mL NT-Pro-B Natriuret Pep (<450) pg/mL Total Protein (6.3-8.2) g/dL Albumin (3.5-5.0) g/dL Globulin (1.7-4.1) g/dL Albumin/Globulin Ratio (1.0-2.8) Lipase (23-300) U/L Procalcitonin (<0.5) ng/mL SARS-CoV-2 (PCR) (Negative) Imaging Data Chest x-ray: Radiologist's Impression: Launch?[address] [address] XRay Report Signed Patient: Anjel Sherman MR#: [id number] : 1945 Acct:[id number] Age/Sex: 76 / M Date of Service: 10/19/21 Loc: ED Accession Number: [id number] ?? Procedure: XR chest 1V Ordering Provider: Pari Sprague D.O. PROCEDURE:? XR CHEST 1V ? INDICATIONS:? 3 month sob, cough, occasional hemoptysis, +tob use ? TECHNIQUE:? One view of the chest was acquired.? ? COMPARISON:? [facility], CT, CT CHEST ABD PEL W CON, 09/20/2020, 16:36.? [facility], CR, XR CHEST 1V, 09/22/2020, 10:25. ? FINDINGS:? ? Surgical changes and devices:? None.? ? Lungs and pleura:? Airspace opacity at the right upper lobe seen on the 2020 exam is no longer present.? No pleural effusions or pneumothorax.? ? Mediastinum:? New density in the upper mediastinum.? Heart size is within normal limits.? ? ? Bones and chest wall:? No suspicious bony lesions.? Overlying soft tissues appear unremarkable.? ? IMPRESSION:? New density projecting at the upper mediastinum.? This could represent aortic aneurysm or mass or adenopathy. ? Recommend further evaluation with CT chest with IV contrast. ? ? Dictated by: Jarocho Clay M.D. on 10/19/2021 at 11:01 ? ? Approved by: Jarocho Clay M.D. on 10/19/2021 at 11:04?? CT scan - chest: Radiologist's Impression: Launch?[address] [address] [address] Scan Report Signed Patient: Anjel Sherman MR#: [id number] : 1945 Acct:[id number] Age/Sex: 76 / M Date of Service: 10/19/21 Loc: ED Accession Number: [id number] ?? Procedure: CT chest w con Ordering Provider: Pari Sprague D.O. PROCEDURE:? CT CHEST W CON ? INDICATIONS:? progressive sob, hemoptysis, audible wheeze, ca? ? TECHNIQUE:? After the administration of intravenous contrast, 5 mm thick sections acquired from the pulmonary apices to the posterior costophrenic angles.? 1 mm axial lung, 5 mm thick coronal and sagittal reformats and 7 mm axial MIP were acquired.? For radiation dose reduction, the following was used:? automated exposure control, adjustment of mA and/or kV according to patient size.? ? COMPARISON:? [facility], CT, CT CHEST ABD PEL W CON, 09/20/2020, 16:36. ? FINDINGS:? Image quality:? Excellent.? ? Lungs and pleura:? Post obstructive phenomenon within the left upper lobe medially.? Moderate apically predominant emphysema.? Spiculated nodule within the right upper lobe medially measuring roughly 9 mm.? Spiculated density within the right upper lobe centrally measuring 24 mm.? Subpleural nodule within the right upper lobe laterally measuring 6 mm.? No pleural effusions or pneumothorax.? Central and peripheral airways are patent and normal in caliber.? ? Mediastinum:? Heart size is normal.? No pericardial effusion.? There is a large left hilar and AP window mass which demonstrates heterogeneous enhancement, measuring roughly 60 mm anteroposterior by 105 mm transverse by 83 mm craniocaudal which demonstrates rightward deviation of the lower thoracic trachea.? This mass partially encases the left mainstem bronchus, and occludes the left upper lobe bronchus.? The mass partially encases the thoracic aorta and left main pulmonary artery as well as the pulmonary bifurcation.? Right hilar adenopathy is present measuring 15 mm short axis.? There is encasement and compression of the midthoracic esophagus.? Thoracic aorta and central pulmonary arteries are normal in size.? Esophagus is normal in caliber.? No hiatal hernia.? ? Bones and chest wall:? No suspicious bony lesions.? No vertebral body compression fractures.? No axillary or supraclavicular adenopathy by size criteria.? Thyroid gland is within normal limits .? ? Abdomen:? Visualized portions of the upper abdomen demonstrate an incompletely visualized peripherally calcified cyst of the superior pole left kidney.? Incompletely visualized left adrenal thickening is present, as before. ? IMPRESSION:? 1. 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 Differential considerations include primary versus metastatic malignancy. 2. Right lung nodules as described above. 3. Post obstructive phenomenon within the left upper lobe. 4. No change in incompletely visualized left adrenal thickening. 5. Coronary artery disease. ? ? ? Dictated by: Ruben Puente M.D. on 10/19/2021 at 11:27 ? ? Approved by: Ruben Puente M.D. on 10/19/2021 at 11:33?? ECG Data Attestation: I personally reviewed and interpreted this ECG as follows: Interpretation: Like bed sinus rhythm with motion artifact rate of 66 QRS is 74 and QTC of 408. Disagree with noted AFib is patient has P waves with QRS. MDM Narrative Medical decision making narrative: This is a 76-year-old male with progressive dyspnea, productive cough on occasion hemoptysis he was actively using tobacco on exam has wheezing that is more upper airway than lower. He does have some improvement with a breathing treatment and has a history of polycythemia. Patient's white count was 30 on the which is increased from 19 in August, hemoglobin was 13 with normal platelets. Patient does have some hyponatremia, chloride low with elevated CO2, normal renal function, troponin and BNP show no major changes. BNP only mildly elevated. Patient is covid negative. He has large possible masslike structure on chest x-ray consistent with his exam causing possible airway obstruction, CT angio was obtained and patient has a large hilar mass encasing and obstructing on the trachea, left bronchus and causing collapse of the left upper bronchus, patient also has the mass wrapping around his pulmonary artery and left pulmonary artery as well as pulmonary bifurcation with multiple spiculated nodules on the right and right hilar adenopathy. Initially patient wished to return home as he is main caregiver for family although we discussed I would like to was transfer him for potential biopsy initiation of treatment, this was also the recommendation of his oncologist. Patient case was discussed with local thoracic surgeon Kathy who is happy to see the patient in the hospital or as an outpatient. Patient had episode of hemoptysis with pretty significant respiratory distress, dropping his O2 sat becoming significantly tachycardic. Father had about 10-20 mL of hemoptysis, patient responded well to an albuterol as well is nebulized TXA. Patient was then more agreeable to transfer. I spoke with him and his both on the phone. Patient is a full code, we did discuss that there is potential for the vessels to erode through have massive hemoptysis which we would not be able to control but in the meantime plan for transfer. We called all facilities available in the region, [facility] thoracic, solid tumor and hospital service defers transfer at this time secondary to capacity. Spoke with thoracic surgery at [facility] and waiting to hear back regarding possible acceptance. Patient is signed out to Dr. Mcguire while awaiting transfer. <Eduardo Mcguire, DO - Last Filed: 10/19/21 22:12> Lab Data Labs: Lab Results 10/19/21 10/19/21 10/19/21 Range/Units 09:33 09:33 10:14 WBC (4.5-11.0) X10^3/uL RBC TNP Hgb TNP Hct TNP MCV TNP MCH TNP MCHC TNP RDW TNP Plt Count TNP Neut % (Auto) Not Reportable Lymph % (Auto) Not Reportable [place] % (Auto) Not Reportable Eos % (Auto) Not Reportable Baso % (Auto) Not Reportable Neut # (Auto) TNP Lymph # (Auto) Not Reportable [place] # (Auto) Not Reportable Baso # (Auto) Not Reportable Total Counted Not Reportable RBC Morphology Not Reportable PT (10.1-12.7) SECONDS INR (0.9-1.3) APTT (26.4-36.2) SECONDS D-Dimer (<230) ng/mL Sodium 124 L (137-145) mmol/L Potassium 5.1 (3.4-5.1) mmol/L Chloride 84 L (98-107) mmol/L Carbon Dioxide 30 (22-32) mmol/L BUN 13 (9-20) mg/dL Creatinine 0.76 (0.66-1.25) mg/dL Estimated GFR > 60 (>60) mL/min BUN/Creatinine Ratio 17.1 (6-22) Glucose 164 H (80-110) mg/dL Lactate (0.7-2.1) mmol/L Calcium 9.2 (8.4-10.2) mg/dL Total Bilirubin 0.7 (0.2-1.3) mg/dL AST 26 (17-59) IU/L ALT 35 (<50) IU/L Alkaline Phosphatase 137 H (38-126) U/L Total Creatine Kinase 41 L (55-170) U/L CK-MB (CK-2) TNP CK-MB (CK-2) Rel Index TNP Troponin I < 0.012 (0.01-0.034) ng/mL NT-Pro-B Natriuret Pep 475 H (<450) pg/mL Total Protein 7.4 (6.3-8.2) g/dL Albumin 3.8 (3.5-5.0) g/dL Globulin 3.6 (1.7-4.1) g/dL Albumin/Globulin Ratio 1.1 (1.0-2.8) Lipase 33 (23-300) U/L Procalcitonin 0.16 (<0.5) ng/mL SARS-CoV-2 (PCR) Negative (Negative) 10/19/21 10/19/21 Range/Units 10:27 10:27 WBC (4.5-11.0) X10^3/uL RBC Hgb Hct MCV MCH MCHC RDW Plt Count Neut % (Auto) Lymph % (Auto) [place] % (Auto) Eos % (Auto) Baso % (Auto) Neut # (Auto) Lymph # (Auto) [place] # (Auto) Baso # (Auto) Total Counted RBC Morphology PT 12.9 H (10.1-12.7) SECONDS INR 1.2 (0.9-1.3) APTT 35 D (26.4-36.2) SECONDS D-Dimer 387 H (<230) ng/mL Sodium (137-145) mmol/L Potassium (3.4-5.1) mmol/L Chloride (98-107) mmol/L Carbon Dioxide (22-32) mmol/L BUN (9-20) mg/dL Creatinine (0.66-1.25) mg/dL Estimated GFR (>60) mL/min BUN/Creatinine Ratio (6-22) Glucose (80-110) mg/dL Lactate 1.3 (0.7-2.1) mmol/L Calcium (8.4-10.2) mg/dL Total Bilirubin (0.2-1.3) mg/dL AST (17-59) IU/L ALT (<50) IU/L Alkaline Phosphatase (38-126) U/L Total Creatine Kinase (55-170) U/L CK-MB (CK-2) CK-MB (CK-2) Rel Index Troponin I (0.01-0.034) ng/mL NT-Pro-B Natriuret Pep (<450) pg/mL Total Protein (6.3-8.2) g/dL Albumin (3.5-5.0) g/dL Globulin (1.7-4.1) g/dL Albumin/Globulin Ratio (1.0-2.8) Lipase (23-300) U/L Procalcitonin (<0.5) ng/mL SARS-CoV-2 (PCR) (Negative) MDM Narrative Medical decision making narrative: This is a 76-year-old male with progressive dyspnea, productive cough on occasion hemoptysis he was actively using tobacco on exam has wheezing that is more upper airway than lower. He does have some improvement with a breathing treatment and has a history of polycythemia. Patient's white count was 30 on the which is increased from 19 in August, hemoglobin was 13 with normal platelets. Patient does have some hyponatremia, chloride low with elevated CO2, normal renal function, troponin and BNP show no major changes. BNP only mildly elevated. Patient is covid negative. He has large possible masslike structure on chest x-ray consistent with his exam causing possible airway obstruction, CT angio was obtained and patient has a large hilar mass encasing and obstructing on the trachea, left bronchus and causing collapse of the left upper bronchus, patient also has the mass wrapping around his pulmonary artery and left pulmonary artery as well as pulmonary bifurcation with multiple spiculated nodules on the right and right hilar adenopathy. Initially patient wished to return home as he is main caregiver for family although we discussed I would like to was transfer him for potential biopsy initiation of treatment, this was also the recommendation of his oncologist. Patient case was discussed with local thoracic surgeon Kathy who is happy to see the patient in the hospital or as an outpatient. Patient had episode of hemoptysis with pretty significant respiratory distress, dropping his O2 sat becoming significantly tachycardic. Father had about 10-20 mL of hemoptysis, patient responded well to an albuterol as well is nebulized TXA. Patient was then more agreeable to transfer. I spoke with him and his both on the phone. Patient is a full code, we did discuss that there is potential for the vessels to erode through have massive hemoptysis which we would not be able to control but in the meantime plan for transfer. We called all facilities available in the region, you tub thoracic, solid tumor and hospital service defers transfer at this time secondary to capacity. Spoke with thoracic surgery at [facility] and waiting to hear back regarding possible acceptance. Patient is signed out to Dr. Mcguire while awaiting transfer. 1999 (Maynor) Patient received in sign out from [Darcie]. I have reviewed the clinical course and performed an independent history and physical exam. [id number] - [facility] calls with bed. [facility] contacted for transport Critical Care Time <Pari Sprague, DO - Last Filed: 10/21/21 15:07> Critical Care Time Critical Care Time: Yes Attestation: The high probability of a clinically significant, sudden or life threatening deterioration of the [pulmonary, vascular, cardiac] system(s) required my full and direct attention, intervention and personal management. The aggregate critical care time was [] minutes. This time is in addition to time spent performing reported procedures but includes the following: [x] Data Review and interpretation [x] Patient assessment and monitoring of vital signs [x] Documentation [x] Medication orders and management <Eduardo Mcguire, DO - Last Filed: 10/19/21 22:12> Critical Care Time Total Critical Care Time: 35 Discharge Plan Departure Patient Disposition: [facility] Clinical Impression: Mass of thoracic structure, Multiple lung nodules, Hemoptysis Activity Restrictions/Additional Instructions: Follow up with Dr. Multani with oncololgy. He is aware of your findings today. You have several nodules and a large mass in your chest wrapping around her airway and the blood vessels attached your heart that is causing the wheezing and difficulty with breathing. Also follow up with Dr. Meng, he is a thoracic surgeon at [facility] and can see you Sunday in his office. Call 360 set up follow-up appointment and let the front end architect know he would like to see you on Sunday to set up biopsy of the mass in your chest. If you have problems setting Prescription sent to [facility] pharmacy for albuterol. Please return for worsening difficulty breathing, swelling in your extremities, face or neck, persistent or increasing coughing up blood, new chest pain or pressure, or other new or concerning symptoms. Prescriptions: New albuterol sulfate 90 mcg/actuation HFA aerosol inhaler 2 puff inhalation Q4-6H PRN (Reason: shortness of breath or wheezing) Qty: 8.5 0RF No Action losartan 100 mg tablet 100 mg PO DAILY Qty: 90 3RF Rx Instructions: Hold for systolic BP <120 metformin 1,000 mg tablet 1,000 mg PO BID Qty: 180 3RF vitamin B complex [B Complex-Vitamin B12] 1 EACH tablet 1 tab PO QDAY Qty: 0 atorvastatin [Lipitor] 20 mg tablet 20 mg PO HS Qty: 90 3RF chlorthalidone 25 mg tablet 25 mg PO DAILY Qty: 30 2RF metoprolol tartrate 25 mg tablet 50 mg PO BID Qty: 120 2RF albuterol sulfate 90 mcg/actuation HFA aerosol inhaler 2 puff INHALATION Q4-6H PRN (Reason: Shortness Of Breath) Qty: 8.5 11RF multivitamin Tablet 1 tab PO DAILY AirDuo Digihaler 232-14 mcg/actuation Aero Powdr Breath Act W/Sensor 1 inh INHALATION PRN PRN (Reason: Shortness Of Breath) Referrals: Moy Meng MD [Non-Staff] - Dameon Multani MD [Physician] - Ivon Mckeon DO [Primary Care Provider] -
[2021-10-19] MEDS: ALBUTEROL/IPRATROPIUM 3 ML AMPUL 9 ML INH (10:24)
--- NOTE | 2021-10-19 10:29 | DI.RAD.S_ITS ---
PROCEDURE: XR CHEST 1V INDICATIONS: 3 month sob, cough, occasional hemoptysis, +tob use TECHNIQUE: One view of the chest was acquired. COMPARISON: [facility], CT, CT CHEST ABD PEL W CON, 09/20/2020, 16:36. [facility], CR, XR CHEST 1V, 09/22/2020, 10:25. FINDINGS: Surgical changes and devices: None. Lungs and pleura: Airspace opacity at the right upper lobe seen on the 2020 exam is no longer present. No pleural effusions or pneumothorax. Mediastinum: New density in the upper mediastinum. Heart size is within normal limits. Bones and chest wall: No suspicious bony lesions. Overlying soft tissues appear unremarkable. IMPRESSION: New density projecting at the upper mediastinum. This could represent aortic aneurysm or mass or adenopathy. Recommend further evaluation with CT chest with IV contrast. Dictated by: Jarocho Clay M.D. on 10/19/2021 at 11:01 Approved by: Jarocho Clay M.D. on 10/19/2021 at 11:04
[2021-10-19 10:30] LABS: Add Manual Diff / Slide Review YES
[2021-10-19] MEDS: SODIUM CHLORIDE 0.9% 1,000 ML 150 ML IV (10:47)
[2021-10-19] MEDS: methylPREDNISolone 125 MG/2 ML VIAL IV (10:47)
[2021-10-19 10:49] LABS: Creatine Kinase 41 U/L (55-170); HEMOLYSIS < 15 (0-50); Lipase 33 U/L (23-300)
--- NOTE | 2021-10-19 10:57 | DI.CT.S_ITS ---
PROCEDURE: CT CHEST W CON INDICATIONS: progressive sob, hemoptysis, audible wheeze, ca? TECHNIQUE: After the administration of intravenous contrast, 5 mm thick sections acquired from the pulmonary apices to the posterior costophrenic angles. 1 mm axial lung, 5 mm thick coronal and sagittal reformats and 7 mm axial MIP were acquired. For radiation dose reduction, the following was used: automated exposure control, adjustment of mA and/or kV according to patient size. COMPARISON: [facility], CT, CT CHEST ABD PEL W CON, 09/20/2020, 16:36. FINDINGS: Image quality: Excellent. Lungs and pleura: Post obstructive phenomenon within the left upper lobe medially. Moderate apically predominant emphysema. Spiculated nodule within the right upper lobe medially measuring roughly 9 mm. Spiculated density within the right upper lobe centrally measuring 24 mm. Subpleural nodule within the right upper lobe laterally measuring 6 mm. No pleural effusions or pneumothorax. Central and peripheral airways are patent and normal in caliber. Mediastinum: Heart size is normal. No pericardial effusion. There is a large left hilar and AP window mass which demonstrates heterogeneous enhancement, measuring roughly 60 mm anteroposterior by 105 mm transverse by 83 mm craniocaudal which demonstrates rightward deviation of the lower thoracic trachea. This mass partially encases the left mainstem bronchus, and occludes the left upper lobe bronchus. The mass partially encases the thoracic aorta and left main pulmonary artery as well as the pulmonary bifurcation. Right hilar adenopathy is present measuring 15 mm short axis. There is encasement and compression of the midthoracic esophagus. Thoracic aorta and central pulmonary arteries are normal in size. Esophagus is normal in caliber. No hiatal hernia. Bones and chest wall: No suspicious bony lesions. No vertebral body compression fractures. No axillary or supraclavicular adenopathy by size criteria. Thyroid gland is within normal limits . Abdomen: Visualized portions of the upper abdomen demonstrate an incompletely visualized peripherally calcified cyst of the superior pole left kidney. Incompletely visualized left adrenal thickening is present, as before. IMPRESSION: 1. Malignant mediastinal and left hilar mass associated with encasement and compression of several mediastinal structures as described above. Differential considerations include primary versus metastatic malignancy. 2. Right lung nodules as described above. 3. Post obstructive phenomenon within the left upper lobe. 4. No change in incompletely visualized left adrenal thickening. 5. Coronary artery disease. Dictated by: Ruben Puente M.D. on 10/19/2021 at 11:27 Approved by: Ruben Puente M.D. on 10/19/2021 at 11:33
[2021-10-19 11:01] LABS: NT-proBNP (BNP-Adult 18+) 475 pg/mL (<450); Troponin I < 0.012 ng/mL (0.01-0.034)
[2021-10-19 11:04] LABS: INR 1.2 (0.9-1.3); Prothrombin Time 12.9 SECONDS (10.1-12.7)
[2021-10-19 11:04] LABS: COVID19 -Nasal RAPID Negative (Negative)
[2021-10-19 11:06] LABS: Procalcitonin 0.16 ng/mL (<0.5)
[2021-10-19 11:06] LABS: PTT Partial Thromboplastin Tim 35 SECONDS (26.4-36.2)
[2021-10-19 11:07] LABS: D Dimer 387 ng/mL (<230)
[2021-10-19 11:09] LABS: Blood Urea Nitrogen 13 mg/dL (9-20); Carbon Dioxide 30 mmol/L (22-32); Chloride 84 mmol/L (98-107); Potassium 5.1 mmol/L (3.4-5.1); Sodium 124 mmol/L (137-145)
[2021-10-19 11:10] LABS: Alanine Aminotransferase 35 IU/L (<50); Alkaline Phosphatase 137 U/L (38-126); Aspartate Aminotransferase 26 IU/L (17-59); Bilirubin Total 0.7 mg/dL (0.2-1.3); Calcium 9.2 mg/dL (8.4-10.2); Estimated Glomerular Filt Rate > 60 mL/min (>60); Total Protein 7.4 g/dL (6.3-8.2)
[2021-10-19 11:10] LABS: Lactate (Lactic Acid) 1.3 mmol/L (0.7-2.1)
[2021-10-19 11:11] LABS: Albumin 3.8 g/dL (3.5-5.0); Albumin Globulin Ratio 1.1 (1.0-2.8); Globulin 3.6 g/dL (1.7-4.1); Glucose 164 mg/dL (80-110)
[2021-10-19 11:12] LABS: BUN Creatinine Ratio 17.1 (6-22)
--- NOTE | 2021-10-19 12:25 | PC.NURSE ---
sats 88 percent with sleeping. woke up and deep breath . Sats increased to 92 percent.
[2021-10-19] MEDS: ALBUTEROL 2.5 MG/3 ML NEB (ADULT) INH ×3 (15:13→22:20)
[2021-10-19] MEDS: TRANEXAMIC ACID 1,000 MG VIAL 1000 MG INH (15:16)
--- NOTE | 2021-10-19 15:35 | PC.NURSE ---
Spoke to [facility] regarding transfer of pt to higher level of care. Reported pt with increasing respiratory difficulty and hemoptysis.
--- NOTE | 2021-10-19 16:12 | PC.NURSE ---
Addendum entered by Xiomara Chiu R.N. 10/19/21 19:21: update with [facility]--unable to obtain transfer for the pt gutsavo. Advised to try back in the AM. Addendum entered by Xiomara Chiu R.N. 10/19/21 17:29: Call placed to [facility] for transfer. Awaiting call back from Graduating Machine Operator. Call placed to [facility] and awaiting call back from submarine worker Original Note: Call placed to [facility] Auth for transfer EPRO line at 1320. Follow up call around [address] Noemi Uriostegui for authorization to transfer. 1600: [facility] : on list [facility]: on list [facility]: on list and face sheet faxed [facility]ju Cordero: at capacity and refused : face sheet and images pushed per request at 1630. Dr Sprague gave report to transfer center.
--- NOTE | 2021-10-19 17:04 | PC.NURSE ---
At 1500 Patient was being prepped for DC and requested a cup of coffee. I left to go get ti for him when 1 minute later I heard him gasping for breath saying I can't breathe. Patient appeared blue about the lips and nose , with coarse upper airway rasping. Was gasping and sitting up in tripod position. Had blood on his chest and in an emesis bag that he had coughed up, about 40-50ml. O2 Saturation reading at low 80's%. I immediately placed him on 6L NC O2 and called for Dr. Sprague as well as RT. He was started on an albuterol nebulizer with the O2. Patient determined he would like to be a full code and reported he was amenable to Admission/transfer and was no longer requesting to go home. After about 15 minutes his color started improving, work of breathing started decreasing and O2 saturation fran to 96%. He was also given TXA in nebulizer to reduce bleeding in airway per Dr. Sprague. After nebulizer completed he remained on 4L O2 NC. At 1530 Dr. Sprague was able to get a hold of the patient's and speak with her in the patient's room to inform her of the new diagnosis. During this event, patient also had a run of VTach that last a few seconds. Code cart placed outside door.
--- NOTE | 2021-10-19 18:45 | PC.NURSE ---
No acceptance at confirmed. Call placed to [facility] for assistance with transfer.
[2021-10-19] MEDS: ALBUTEROL/IPRATROPIUM 3 ML AMPUL INH (19:04)
== END 2021-10-19 22:22 | disposition short-term general hospital (02) ==
PROVIDERS: Emergency Medicine; Emergency Provider Emergency Medicine; PCP Family Medicine
DX: R91.8 Other nonspecific abnormal finding of lung field (principal); R04.2 Hemoptysis; R00.0 Tachycardia, unspecified; R07.9 Chest pain, unspecified; Z20.822 Contact with and (suspected) exposure to COVID-19; D75.1 Secondary polycythemia
CPT/HCPCS: 36415; 71045; 71260; 80053; 82550; 83605; 83690; 83880; 84145; 84484; 85007; 85025; 85379; 85610; 85730; 87635; 93005; 93010; 94640; 96361; 96374; 99285; C9803; J2930; J7613; Q9967

== ENCOUNTER → 2021-11-25 14:27 | Outpatient (CLI) | payer OTHER, SELFPAY ==
[2020-09-22 13:40] VITALS: PULSE 64; RESP 24; O2SAT 97
[2020-10-09 16:52] VITALS: BMI 30.2
== END ==
PROVIDERS: PCP Family Medicine; Referring Provider Family Medicine; Visit Provider Family Medicine
DX: D75.1 Secondary polycythemia (principal)
CPT/HCPCS: 36415; 80053; 85007; 85025

== ENCOUNTER → 2021-12-19 10:52 | Outpatient (CLI) | payer OTHER, SELFPAY ==
[2020-09-22 13:40] VITALS: PULSE 64; RESP 24; O2SAT 97
[2020-10-09 16:52] VITALS: BMI 30.2
[2021-12-19 13:20] LABS: COVID19 -Nasal RAPID Negative (Negative)
== END ==
PROVIDERS: PCP Family Medicine; Visit Provider Surgery
DX: Z20.822 Contact with and (suspected) exposure to COVID-19 (principal); Z01.812 Encounter for preprocedural laboratory examination
CPT/HCPCS: 87635; C9803

== ENCOUNTER 2021-12-20 12:38 | Day surgery (SDC) | payer OTHER, SELFPAY ==
[2020-09-22 13:40] VITALS: PULSE 64; RESP 24; O2SAT 97
[2020-10-09 16:52] VITALS: BMI 30.2
[2021-12-19 12:08] VITALS: BMI 24.2
[2021-12-20] VITALS (14 sets, daily range): BP systolic 88–137; BP diastolic 44–70; PULSE 72–116; RESP 15–30; TEMP 36.6–37.6; O2SAT 85–94; BMI 24.2
--- NOTE | 2021-12-20 | DI.RAD.S_ITS ---
PROCEDURE: XR CHEST 1V INDICATIONS: hypoxia TECHNIQUE: One view of the chest was acquired. COMPARISON: [facility], CR, XR CHEST 1V, 12/20/2021, 16:15. [facility], CR, XR CHEST 1V, 10/19/2021, 10:48. FINDINGS: Surgical changes and devices: Right port catheter terminates in the mid SVC. Lungs and pleura: Senescent lung markings without new consolidation. No pleural effusions. Left hilar mass again seen. Mediastinum: Mediastinal contours appear normal. Heart size is normal. Aortic calcifications. Bones and chest wall: No suspicious bony lesions. Overlying soft tissues appear unremarkable. IMPRESSION: No new consolidations. Senescent lung markings are similar to prior. Left hilar mass again seen. No pleural effusions. Dictated by: Phong Kelly M.D. on 12/20/2021 at 18:40 Approved by: Phong Kelly M.D. on 12/20/2021 at 18:42
[2021-12-20] MEDS: LACTATED RINGERS 1,000 ML 42 ML IV (13:30)
[2021-12-20 13:49] LABS: Add Manual Diff / Slide Review NO; Basophils Absolute Auto 0 /uL (0-100); Basophils Percent Auto 0.3 % (0-2); Eosinophils Absolute Auto 100 /uL (0-450); Eosinophils Percent Auto 1.7 % (2-4); Hematocrit 35.8 % (41-53); Lymphocytes Absolute Auto 600 /uL (1100-4500); Lymphocytes Percent Auto 7.9 % (25-40); Mean Corpuscular HGB Conc 33.6 % (30-36); Mean Corpuscular Hemoglobin 27.8 PG (26-34); Mean Corpuscular Volume 82.7 fL (80-100); Monocytes Absolute Auto 0 /uL (0-900); Monocytes Percent Auto 0.5 % (3-14); Neutrophils Absolute Auto 7100 /uL (1500-7000); Neutrophils Percent Auto 89.6 % (50-75); Platelet Count 91 X10^3/uL (150-400); Red Blood Cell Count 4.33 X10^6/uL (4.5-5.9); Red Cell Distribution Width 17.3 % (11.6-14.8); White Blood Cell Count 7.9 X10^3/uL (4.5-11.0)
[2021-12-20 14:02] LABS: Hemoglobin A1C% w Est Avg Glu 7.7 % (4.0-6.0)
--- NOTE | 2021-12-20 14:08 | SUR.PREOP ---
Patient in [facility] for outpatient surgery. Plan for patient to return home post-procedure. See Skin Assessment done by Noemi AMEZQUITA
[2021-12-20 14:09] LABS: Alanine Aminotransferase 38 IU/L (<50); Alkaline Phosphatase 106 U/L (38-126); Aspartate Aminotransferase 30 IU/L (17-59); BUN Creatinine Ratio 44.3 (6-22); Bilirubin Total 0.8 mg/dL (0.2-1.3); Blood Urea Nitrogen 35 mg/dL (9-20); Carbon Dioxide 24 mmol/L (22-32); Chloride 94 mmol/L (98-107); Estimated Glomerular Filt Rate > 60 mL/min (>60); Globulin 3.1 g/dL (1.7-4.1); Glucose 148 mg/dL (80-110); Potassium 4.6 mmol/L (3.4-5.1); Sodium 124 mmol/L (137-145); Total Protein 6.1 g/dL (6.3-8.2)
[2021-12-20 14:11] LABS: HEMOLYSIS 55 (0-50)
--- NOTE | 2021-12-20 14:46 | PM.HP.1 ---
History of Present Illness History of Present Illness Date Patient Seen: 12/20/21 Time Patient Seen: 14:46 Chief complaint: PORT-A-CATH PLACEMENT Narrative: Anjel Sherman is a 76-year-old man with a recent diagnosis of a mediastinal non-small cell adenocarcinoma. The port has been requested. He has never had neck surgery and has never broken a clavicle she Patient History Medical History Back problem Chicken pox Chronic back pain Diverticular disease (~1996) Duodenitis Hearing deficit Measles Mumps Plantar warts Pneumonia Sciatic nerve pain Tinnitus Type 2 diabetes mellitus Vision disorder Surgical History Anesthesia Fractures (~08/1962) History of colon surgery (~03/1997) History of tonsillectomy (~1947) Status post hernia repair (~2002) Family & Social History Family History Brother Cancer Grandmother Heart disease Mother Stroke Loud snoring Hypertension Brother No problems noted. Son No problems noted. Grandfather Loud snoring Sister No problems noted. Father Loud snoring Family/Other Hypertension Heart disease Alcohol abuse Substance abuse Social History: household members spouse Tobacco & Substance use: Smoking Status Current some day smoker alcohol intake current alcohol intake frequency other Substance Use Type does not use Meds Home Medications and Allergies Home Medications Medication Instructions Recorded Confirmed Type vitamin B complex (B 1 tab PO QDAY ##0 12/12/16 12/20/21 History Complex-Vitamin B12 tablet) multivitamin 1 tab PO DAILY 02/18/20 12/20/21 History fluticasone 232mcg-salmeterol 1 inh inhalation PRN PRN Shortness 10/09/20 12/19/21 History 14mcg/actuation breath act,powder Of Breath sensor (AirDuo Digihaler) metformin 1,000 mg tablet 1,000 mg PO BID #180 tabs 02/28/21 12/20/21 Rx albuterol sulfate 90 mcg/actuation 2 puff inhalation Q4-6H PRN 10/19/21 12/20/21 Rx aerosol inhaler shortness of breath or wheezing #8.5 grams atorvastatin 20 mg tablet See Rx Instructions .Route 11/07/21 12/20/21 Rx .COMPLEX #90 tabs amlodipine 5 mg tablet 5 mg PO DAILY #90 tabs 11/24/21 12/20/21 Rx guaifenesin 600 mg tablet, 600 mg PO BID 11/29/21 12/20/21 History extended release 12 hr (Mucinex) metoprolol tartrate 50 mg tablet See Rx Instructions .Route 12/02/21 12/20/21 Rx .COMPLEX #60 tabs dexamethasone 4 mg tablet 4 mg PO BID #30 tabs 12/07/21 12/19/21 Rx (Decadron) folic acid 1 mg tablet 1 mg PO DAILY #30 tabs 12/07/21 12/20/21 Rx ondansetron 8 mg disintegrating 8 mg PO Q6HR PRN Nausea And 12/14/21 12/19/21 Rx tablet Vomiting #30 tabs promethazine 25 mg tablet 25 mg PO Q6H PRN Nausea And 12/14/21 12/19/21 Rx Vomiting #30 tabs Allergies Allergy/AdvReac Type Severity Reaction Status Date / Time No Known Drug Allergies Allergy Verified 12/20/21 13:19 Review of Systems Review of Systems ROS: Yes All systems reviewed with the patient and are negative except as otherwise documented Exam Vital Signs (past 8 hours): - 12/20/21 13:24 Temperature 98.6 F Pulse Rate 116 H Respiratory Rate 18 Blood Pressure 137/69 Pulse Oximetry 94 Oxygen Delivery Method Room Air Oxygen Delivery Method Room Air Const General: No acute distress Chest Other: Normal neck and chest Objective Labs Result Diagrams: 12/20/21 13:30 12/20/21 13:30 Labs: Laboratory Results - last 24 hr 12/20/21 12/20/21 12/20/21 13:30 13:30 13:30 WBC 7.9 RBC 4.33 L Hgb 12.0 L Hct 35.8 L MCV 82.7 MCH 27.8 MCHC 33.6 RDW 17.3 H Plt Count 91 L Neut % (Auto) 89.6 H Lymph % (Auto) 7.9 L [place] % (Auto) 0.5 L Eos % (Auto) 1.7 L Baso % (Auto) 0.3 Neut # (Auto) 7100 H Lymph # (Auto) 600 L [place] # (Auto) 0 Eos # (Auto) 100 Baso # (Auto) 0 Sodium 124 L Potassium 4.6 Chloride 94 L Carbon Dioxide 24 BUN 35 H Creatinine 0.79 Estimated GFR > 60 BUN/Creatinine Ratio 44.3 H Glucose 148 H Hemoglobin A1c 7.7 H Calcium 8.0 L Total Bilirubin 0.8 AST 30 ALT 38 Alkaline Phosphatase 106 D Total Protein 6.1 L Albumin 3.0 L Globulin 3.1 Albumin/Globulin Ratio 1.0 Assessment & Plan Assessment and plan (1) Non-small cell cancer of right lung: Problem details: 76-year-old man with a newly diagnosed 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. Discussed the risks and benefits of Port-A-Cath placement and he would like to proceed. Status: Acute Time Spent With Patient Critical Care time: I spent a total of [] minutes of critical care time on this patient's care today; this time is exclusive of procedural time.
--- NOTE | 2021-12-20 15:14 | SUR.PREOP ---
12/20/[id number]-aivu drawn preop for scheduled labs this week per med. office. results shown to ce Naranjo on chem/cbc. no new orders from .
--- NOTE | 2021-12-20 15:23 | SUR.PREOP ---
Late note: Admitting notified [facility] of witnessing pt falling. Security showed this RN the film of pt tripping, pt did not hit head, fell on knees and then hands. Dr. Manjarrez made aware. Pt brought back to [facility], L knee abrasion cleansed and Allevyn dressing applied. Pt able to move all extremities w/o pain.
[2021-12-20] MEDS: NACL 0.9% IV (15:29)
[2021-12-20] MEDS: CEFAZOLIN IV (15:29)
[2021-12-20] MEDS: LIDOCAINE 1% W/EPI 20 ML INJ (15:30)
--- NOTE | 2021-12-20 15:33 | SUR.OPER ---
Supine on padded OR bed, head on pillow, arms padded and tucked at sides, legs uncrossed, gel pad under bilateral heels, safety belt at thigh, tape over blanket over lower legs .
--- NOTE | 2021-12-20 15:58 | DI.RAD.S_ITS ---
PROCEDURE: XR CHEST 1V INDICATIONS: POST PORT A CATH TECHNIQUE: One view of the chest was acquired. COMPARISON: [facility], CR, XR CHEST 1V, 09/22/2020, 10:25. [facility], CT, CT CHEST W CON, 10/19/2021, 11:14. [facility], CR, XR CHEST 1V, 10/19/2021, 10:48. FINDINGS: Surgical changes and devices: Right IJ chest port is been placed with the tube tip projected over the mid to lower SVC. Lungs and pleura: No pneumothorax. Left hilar mass again seen. Interstitium is prominent. Mediastinum: Mediastinal contours are unchanged Heart size is normal. Bones and chest wall: No suspicious bony lesions. Overlying soft tissues appear unremarkable. IMPRESSION: 1. Interval placement of right IJ chest port and no pneumothorax is seen. Dictated by: Edwardo Vu RRA Interpreted: Phong Kelly MD on 12/20/2021 at 16:56 Transcribed by: CELE on 12/20/2021 at 16:58 Approved by: Phong Kelly M.D. on 12/22/2021 at 7:24
--- NOTE | 2021-12-20 16:13 | PM.OP.1 ---
Operative Date/Time/Diagnoses Date of procedure: 12/20/21 Time of procedure: 16:13 Pre-op diagnosis: Non-small cell adenocarcinoma Post-op diagnosis: same Procedure & Clinicians Procedure: Port-A-Cath Same procedure as scheduled: Yes Surgeon: Mitchell Manjarrez Anesthesia Type: General Operative Notes Procedure in detail: The patient was brought to the operating room, placed on the table in the supine position with the arms tucked. Ancef was administered. Anesthesia was induced via LMA. A time-out was performed. The right chest and neck were prepped and draped in the usual fashion. An ultrasound was used to identify the right internal jugular vein. The vein was noted to be patent. An image was saved and printed and placed in the chart. The right internal jugular vein was accessed via the Seldinger technique under ultrasound guidance. The guidewire was inserted into the superior vena cava. C-arm was used to confirm proper position of the guidewire in the superior vena cava and no ectopy was noted. The needle was removed and the wire was clamped to the drape. Next, a port pocket was created just inferior to the medial clavicle using a 15 blade scalpel. Dissection was carried down to the pectoral fascia. A subcutaneous pocket was created using a combination of cautery and blunt dissection. Next, the port which was primed with injectable saline, was secured to the fascia with 3-0 PDS sutures left untied and clamped. The neck incision was extended with an 11 blade scalpel to approximately 5 mm. The dilator and peel-away sheath were inserted over the wire without resistance. The catheter was passed from the neck incision to the chest incision in the subcutaneous tissue using the tunnelling device. The wire and dilator were then removed and the catheter inserted through the peel-away sheath to deliver it into the superior vena cava. The depth of the device was checked using the C-arm and the tip of the device was noted to be in the distal superior vena cava. The exterior portion of the catheter was then trimmed and attached to the port using the strain relief collar. A final image showed good position of the catheter with no kinks. The port was then tucked into the subcutaneous pocket and the sutures were tied to secure the device. The port was then accessed using the Padilla needle and it was noted that the device davon and flushed easily without resistance. Approximately 4 mL of heparinized saline were injected into the device. The skin incisions were closed with 3-0 Vicryl and 4-0 Monocryl. Steri-Strips were applied patient was awakened and brought to recovery room EBL: 5 mL Ultrasound: The right internal jugular vein was patent. The right carotid artery was visualized adjacent to the vein. Venipuncture was visualized in real-time using the ultrasound. Fluoroscopy: The device was positioned appropriately with the distal end of the catheter near the atriocaval junction. There were no kinks in the catheter. Post-operative Condition: stable Disposition: PACU
[2021-12-20] MEDS: ALBUTEROL 2.5 MG/3 ML NEB (ADULT) INH (16:35)
--- NOTE | 2021-12-20 17:55 | SUR.PHASEI ---
Addendum entered by Zina Leigh R.N. 12/20/21 19:26: Long discussion with spouse and patient, both state they understand the dangers of discharging against medical advice, follow-up chest xray has not been read and patient has signed the paperwork to leave against medical advice. Verbal and written post-operative instructions given to patient and reviewed with spouse. This RN transported pt via w/c to ER entrance where spouse and son were waiting to transport patient home. Pt loaded into truck independently, was a&Ox4, denied any distress, dressing c/d/i and just wants to go home. Addendum entered by Zina Leigh R.N. 12/20/21 18:51: 1820: Pt unable to maintain O2 SATS >88% on RA. Notified Anesthesia and Dr. Manjarrez. Pt refusing to be admitted at this time. Requesting patient to stay in PACU for extended recovery. Pt frustrated but agreeable to repeat xray to r/o pneumothorax. 1845: x ray complete. Pt maintain 90% on RA for 15 minutes during xray. While discussing AMA paperwork, pt became very upset as his son took the day off to drive pt here and his does not drive. This RN suggested we may find alternatives. Pt agreeable to stay for an extended recovery at this time. Pt now stating I'm a smoker, I'm always low, however earlier in recovery pt stated I'm always between 95-98%. 1900: Allowed pt to rest on RA, SATs 85-87%, woke pt to replace O2 at 2L as too low to continue RA. Pt agreed. Have been updating spouse q 15-30 min and is understanding of plan at this point. Addendum entered by Zina Leigh R.N. 12/20/21 18:06: 1750: Returned from break pt dressed and sitting on bedside. Report from [facility] [place] that pt had been maintaining O2 at 90% on RA. Pt now 87-89%. Deep breathing, coughing encouraged, started IS use. 1806: Replaced O2 at 2L 91% Updated spouse on pt condition. Original Note: LATE NOTE: 1734 - Handoff to [facility] [place] for rest break.
== END 2021-12-20 19:15 | disposition home or self-care (01) ==
PROVIDERS: Internal Medicine Medical Oncology; PCP Family Medicine; Referring Provider Surgery; Visit Provider Surgery
PROC: (CPT 36561; principal; 2021-12-20 15:15)
DX: C34.90 Malignant neoplasm of unspecified part of unspecified bronchus or lung (principal); I10 Essential (primary) hypertension; E11.9 Type 2 diabetes mellitus without complications; J44.9 Chronic obstructive pulmonary disease, unspecified; Z79.84 Long term (current) use of oral hypoglycemic drugs
CPT/HCPCS: 36561; 71045; 76000; 80053; 83036; 85025; 93005; C1788; J0690; J1644; J2405; J2704; J3010; J7613

== ENCOUNTER → 2021-12-22 12:37 | Outpatient (CLI) | payer OTHER, SELFPAY ==
[2020-09-22 13:40] VITALS: PULSE 64; RESP 24; O2SAT 97
[2020-10-09 16:52] VITALS: BMI 30.2
[2021-12-22 13:10] LABS: NT-proBNP (BNP-Adult 18+) 2020 pg/mL (<450)
[2021-12-22 14:33] LABS: TSH w/ Reflex to FT4 1.46 uIU/mL (0.47-4.68)
== END ==
PROVIDERS: PCP Family Medicine; Visit Provider Family Medicine
DX: I48.91 Unspecified atrial fibrillation (principal)
CPT/HCPCS: 83880; 84443

== ENCOUNTER 2022-01-19 22:59 | Inpatient (IN) | payer OTHER, SELFPAY ==
[2020-09-22 13:40] VITALS: PULSE 64; RESP 24; O2SAT 97
[2020-10-09 16:52] VITALS: BMI 30.2
[2022-01-19 23:00] VITALS: BP 135/69; PULSE 85; RESP 26; TEMP 37; O2SAT 94; BMI 23.8
--- NOTE | 2022-01-19 23:00 | DI.RAD.S_ITS ---
PROCEDURE: XR CHEST 1V INDICATIONS: SOB TECHNIQUE: One view of the chest was acquired. COMPARISON: [facility], CT, CT CHEST W CON, 10/19/2021, 11:14. [facility], CR, XR CHEST 1V, 12/20/2021, 18:26. FINDINGS: Surgical changes and devices: Right internal jugular Port-A-Cath appears stable in position. Lungs and pleura: There are new confluent airspace opacities within the left lung base consistent with consolidation. A small left pleural effusion is present. A few indistinct nodular opacities in the right upper lung zone are redemonstrated. No pneumothorax. Mediastinum: Mediastinal contours appear unchanged. Heart size is normal. Bones and chest wall: No suspicious bony lesions. Overlying soft tissues appear unremarkable. IMPRESSION: 1. New confluent left basilar opacities consistent with consolidation and likely representing pneumonia. 2. Small indistinct nodules redemonstrated within the right mid lung corresponding to pulmonary nodule seen on prior chest CT. 3. Small left pleural effusion. Dictated by: Jesus Lin M.D. on 01/20/2022 at 0:46 Approved by: Jesus Lin M.D. on 01/20/2022 at 0:48
[2022-01-19 23:17] LABS: Add Manual Diff / Slide Review NO; Basophils Absolute Auto 0 /uL (0-100); Basophils Percent Auto 0.4 % (0-2); Eosinophils Absolute Auto 0 /uL (0-450); Hemoglobin 9.8 g/dL (13.5-17.5); Lymphocytes Absolute Auto 500 /uL (1100-4500); Lymphocytes Percent Auto 8.3 % (25-40); Mean Corpuscular HGB Conc 33.8 % (30-36); Mean Corpuscular Hemoglobin 27.9 PG (26-34); Mean Corpuscular Volume 82.7 fL (80-100); Monocytes Absolute Auto 400 /uL (0-900); Monocytes Percent Auto 6.5 % (3-14); Neutrophils Absolute Auto 5500 /uL (1500-7000); Neutrophils Percent Auto 84.8 % (50-75); Platelet Count 147 X10^3/uL (150-400); Red Blood Cell Count 3.51 X10^6/uL (4.5-5.9); Red Cell Distribution Width 19.6 % (11.6-14.8); White Blood Cell Count 6.5 X10^3/uL (4.5-11.0)
[2022-01-19 23:20] LABS: INR 1.3 (0.9-1.3); Prothrombin Time 15.3 SECONDS (10.1-12.7)
[2022-01-19 23:21] LABS: D Dimer 801 ng/ml (<500)
[2022-01-19 23:24] VITALS: PULSE 90; RESP 23; O2SAT 98
[2022-01-19 23:25] LABS: Alanine Aminotransferase 39 IU/L (<50); Albumin 2.9 g/dL (3.5-5.0); Albumin Globulin Ratio 0.8 (1.0-2.8); Alkaline Phosphatase 130 U/L (38-126); Aspartate Aminotransferase 26 IU/L (17-59); BUN Creatinine Ratio 19.7 (6-22); Bilirubin Total 0.3 mg/dL (0.2-1.3); Blood Urea Nitrogen 15 mg/dL (9-20); Calcium 8.2 mg/dL (8.4-10.2); Carbon Dioxide 26 mmol/L (22-32); Chloride 97 mmol/L (98-107); Creatine Kinase 29 U/L (55-170); Estimated Glomerular Filt Rate > 60 mL/min (>60); Globulin 3.5 g/dL (1.7-4.1); Glucose 207 mg/dL (80-110); HEMOLYSIS < 15 (0-50); Lipase 41 U/L (23-300); Potassium 4.2 mmol/L (3.4-5.1); Sodium 131 mmol/L (137-145); Total Protein 6.4 g/dL (6.3-8.2)
[2022-01-19 23:30] VITALS: BP 127/56; PULSE 90; RESP 30; O2SAT 93
[2022-01-19 23:36] LABS: NT-proBNP (BNP-Adult 18+) 2340 pg/mL (<450); Troponin I < 0.012 ng/mL (0.01-0.034)
--- NOTE | 2022-01-19 23:40 | ED_ITS ---
HPI - SOB/Dyspnea General Chief Complaint: Shortness of Breath/Dyspnea Stated Complaint: SOB Time Seen by Provider: 01/19/22 22:59 Source: patient and EMS Mode of arrival: EMS Limitations: no limitations History of Present Illness HPI Narrative: 76M smoker with history of HTN, lung cancer with recent chemo (managed locally at [facility]) presents with a chief complaint of increasing shortness of breath and fatigue over the course of day. He is had increasing cough productive of yellowish sputum. He is not been hypoxemic at home but EMS found him to be in the 80s and put him on 2-4 L and on his arrival he was satting in the low 90s. He denies any chest pain, fever or chills but complains of profound generalized weakness. He has had swelling in his bilateral lower extremities and is in fact scheduled to have an appointment with his primary care provider later today for evaluation of the possible diagnosis of CHF. He does have a history of atrial fibrillation and is anticoagulated on Eliquis. He is full code Related Data Home Medications Medication Instructions Recorded Confirmed vitamin B complex (B 1 tab PO QDAY ##0 12/12/16 01/04/22 Complex-Vitamin B12 tablet) multivitamin 1 tab PO DAILY 02/18/20 01/04/22 fluticasone 232mcg-salmeterol 1 inh inhalation PRN PRN Shortness 10/09/20 01/04/22 14mcg/actuation breath act,powder Of Breath sensor (AirDuo Digihaler) guaifenesin 600 mg tablet, 600 mg PO BID 11/29/21 01/04/22 extended release 12 hr (Mucinex) Previous Rx's Medication Instructions Recorded metformin 1,000 mg tablet 1,000 mg PO BID #180 tabs 02/28/21 albuterol sulfate 90 mcg/actuation 2 puff inhalation Q4-6H PRN 10/19/21 aerosol inhaler shortness of breath or wheezing #8.5 grams atorvastatin 20 mg tablet See Rx Instructions .Route 11/07/21 .COMPLEX #90 tabs amlodipine 5 mg tablet 5 mg PO DAILY #90 tabs 11/24/21 metoprolol tartrate 50 mg tablet See Rx Instructions .Route 12/02/21 .COMPLEX #60 tabs folic acid 1 mg tablet 1 mg PO DAILY #30 tabs 12/07/21 ondansetron 8 mg disintegrating 8 mg PO Q6HR PRN Nausea And 12/14/21 tablet Vomiting #30 tabs promethazine 25 mg tablet 25 mg PO Q6H PRN Nausea And 12/14/21 Vomiting #30 tabs hydrocodone 5 mg-acetaminophen 325 1 tab PO Q8H PRN pain #10 tabs 12/20/21 mg tablet apixaban 2.5 mg tablet (Eliquis) 2.5 mg PO BID #60 tabs 12/22/21 dexamethasone 4 mg tablet 4 mg PO BID #30 tabs 01/02/22 (Decadron) Allergies Allergy/AdvReac Type Severity Reaction Status Date / Time No Known Drug Allergies Allergy Verified 12/20/21 13:19 Review of Systems Review of Systems Narrative: GENERAL: See HPI HEENT: Denies sinus pain, ear pain, sore throat, difficulty swallowing, dizziness. RESPIRATORY: See HPI CARDIOVASCULAR: See HPI GASTROINTESTINAL: Denies nausea, vomiting, abdominal pain, diarrhea, constipation, melena. : Denies dysuria, frequency, incontinence, hematuria, urinary retention. MUSCULOSKELETAL: denies weakness, joint pain, or bony pain SKIN: Denies rash, skin lesions, or other NEUROLOGIC: Denies weakness, headache, numbness, change in speech, confusion, seizures, incoordination. PSYCHIATRIC: No concerning psychosocial issues. 12 point review of systems is negative except for those stated above Patient History Medical History Atrial fibrillation Back problem Chicken pox Chronic back pain Diverticular disease (~1996) Duodenitis Hearing deficit Measles Mumps Plantar warts Pneumonia Sciatic nerve pain Tinnitus Type 2 diabetes mellitus Vision disorder Surgical History Anesthesia Fractures (~08/1962) History of colon surgery (~03/1997) History of tonsillectomy (~1947) Status post hernia repair (~2002) Family History Brother Cancer Grandmother Heart disease Mother Stroke Loud snoring Hypertension Brother No problems noted. Son No problems noted. Grandfather Loud snoring Sister No problems noted. Father Loud snoring Family/Other Hypertension Heart disease Alcohol abuse Substance abuse Social History household members: spouse Smoking Status: Current some day smoker alcohol intake: current substance use type: does not use eating out: 1-3 times/week Type(s) of exercise: none Smoking Status: Current some day smoker tobacco type: cigarettes and pipe alcohol intake frequency: other Substance Use Type: does not use Exam Narrative Exam Narrative: GENERAL: [76] year old patient appears stated age. Well-developed patient, in mild distress. HEAD: Atraumatic. Normocephalic. EYES: Pupils equal round and reactive. Extraocular motions intact. No scleral icterus. No injection or drainage. ENT: Nose without bleeding, purulent drainage. Throat without erythema, tonsillar hypertrophy or exudate. Airway patent. NECK: Trachea midline. Non tender CARDIOVASCULAR: Regular rate and rhythm without murmurs, gallops, or rubs. RESPIRATORY: Increased work of breathing with decreased breath sounds throughout with wet sounding cough from the door. Rhonchi noted in left base GASTROINTESTINAL: Abdomen soft, non-tender, nondistended. EXTREMITIES: 2+ pitting edema bilateral lower extremities BACK: Nontender without deformity or crepitance. No flank tenderness. NEURO: AOx3. SKIN: No rash or erythema of visible areas Initial Vital Signs Initial Vital Signs: Vital Signs Temperature 98.6 F 01/19/22 23:00 Pulse Rate 85 01/19/22 23:00 Respiratory Rate 26 H 01/19/22 23:00 Blood Pressure 135/69 01/19/22 23:00 Pulse Oximetry 94 01/19/22 23:00 Oxygen Delivery Method 01/19/22 23:00 Course Orders Ordered: ED Orders 01/19/22 23:00 XR chest 1V Stat 01/19/22 23:04 Complete Blood Count AUTO DIFF Stat Comprehensive Metabolic Panel Stat D Dimer Stat Lipase Stat NT-proBNP (BNP-Adult 18+) Stat Procalcitonin Stat Prothrombin Time INR Stat Troponin & CK Cardiac Panel Stat 01/19/22 23:21 EKG-12 Lead Stat 01/19/22 23:40 COVID19 -Nasal RAPID/Pre-Proc Stat 01/19/22 23:51 ABG [Arterial Blood Gas] Stat 01/19/22 23:55 Blood Culture Stat 01/20/22 00:34 CT angio chest PE protocol Stat Al Hydrox/Mg Hydrox/Simethicone (Mag Hydrox/Alum/Simeth 30 Ml Udc) 30 ml PO Q6HR PRN PRN Reason: Dyspepsia Albuterol/Ipratropium (Albuterol/Ipratropium 3 Ml Ampul) 3 ml INH RTQ4HR PRN PRN Reason: Shortness Of Breath Apixaban (Apixaban 5 Mg Tablet) 2.5 mg PO BID RADHA Atorvastatin Calcium (Atorvastatin 20 Mg Tablet) 0 mg PO .COMPLEX RADHA Furosemide (Furosemide 40 Mg/4 Ml Vial) 40 mg IV Q8H RADHA Guaifenesin (Guaifenesin Er 600 Mg Tab) 600 mg PO BID RADHA Piperacillin Sod/Tazobactam (Sod 3.375 gm/ Sodium Chloride) 100 mls @ 25 mls/hr IV Q8H RADHA Metoprolol Tartrate (Metoprolol Ir 50 Mg Tablet) 0 mg PO .COMPLEX RADHA Morphine Sulfate (Morphine 2 Mg/Ml Inj) 2 mg IV Q4H PRN PRN Reason: Breakthrough pain only (8-10) Non-Formulary Medication (Fluticasone Propion-Salmeterol [Airduo Digihaler]) 1 inhalation INHALATION PRN PRN PRN Reason: Shortness Of Breath Ondansetron HCl (Ondansetron 4 Mg/2 Ml Inj) 4 mg IV Q8HR PRN PRN Reason: Nausea And Vomiting Ondansetron HCl (Ondansetron 4 Mg Odt) 8 mg PO Q6HR PRN PRN Reason: Nausea And Vomiting Oxycodone HCl (Oxycodone Ir 5 Mg Tablet) 5 mg PO Q4HR PRN PRN Reason: Pain, Moderate (4-6) Promethazine HCl (Promethazine 25 Mg Tablet) 25 mg PO Q6H PRN PRN Reason: Nausea And Vomiting Vancomycin HCl (Vancomycin Per Pharmacy) 1 request MISC NOW ONE Stop: 01/20/22 03:42 Discontinued Medications Furosemide (Furosemide 40 Mg/4 Ml Vial) 40 mg IV NOW ONE Stop: 01/19/22 23:33 Last Admin: 01/20/22 00:04 Dose: 40 mg Documented By: APRIL Sodium Chloride (Normal Saline 0.9%) 1,000 mls @ 1,000 mls/hr IV BOLUS ONE Stop: 01/19/22 23:58 Last Admin: 01/19/22 23:24 Dose: Not Given Documented By: AT Piperacillin Sod/Tazobactam (Sod 4.5 gm/ Sodium Chloride) 100 mls @ 200 mls/hr IV NOW ONE Stop: 01/19/22 23:23 Last Infusion: 01/20/22 00:58 Dose: 0 mls/hr Documented By: Admin: 01/20/22 00:04 Dose: 200 mls/hr Documented By: APRIL Vancomycin HCl/Dextrose (Vancomycin) 1,500 mg in 300 mls @ 200 mls/hr IV NOW ONE Stop: 01/20/22 00:51 Last Infusion: 01/20/22 02:07 Dose: 0 mls/hr Documented By: Admin: 01/20/22 00:58 Dose: 200 mls/hr Documented By: APRIL Levofloxacin (Levaquin) 750 mg in 150 mls @ 100 mls/hr IV NOW ONE Stop: 01/20/22 00:51 Last Infusion: 01/20/22 00:55 Dose: 0 mls/hr Documented By: Admin: 01/20/22 00:15 Dose: 100 mls/hr Documented By: APRIL Vital Signs Vital signs: Vital Signs - 8 hr 01/19/22 23:00 01/20/22 01:53 01/19/22 23:24 Temperature 98.6 F Pulse Rate 85 90 Respiratory Rate 26 H 23 Blood Pressure 135/69 Pulse Oximetry 94 96 98 Oxygen Delivery Method Room Air Nasal Cannula Oxygen Flow Rate 2 01/19/22 23:30 01/19/22 23:30 01/20/22 00:00 Temperature Pulse Rate 90 Respiratory Rate 30 H Blood Pressure 127/56 L 136/66 Pulse Oximetry 93 Oxygen Delivery Method Oxygen Flow Rate 01/20/22 00:00 01/20/22 00:30 01/20/22 00:30 Temperature Pulse Rate 90 97 H Respiratory Rate 16 27 H Blood Pressure 129/70 Pulse Oximetry 94 91 Oxygen Delivery Method Oxygen Flow Rate 01/20/22 01:00 01/20/22 01:30 01/20/22 01:42 Temperature Pulse Rate 90 95 H 94 H Respiratory Rate 25 H 24 24 Blood Pressure Pulse Oximetry 94 89 L Oxygen Delivery Method Room Air Oxygen Flow Rate 01/20/22 01:42 01/20/22 02:00 01/20/22 02:30 Temperature Pulse Rate 92 H 90 Respiratory Rate 32 H 24 Blood Pressure 128/71 Pulse Oximetry 77 L 93 Oxygen Delivery Method Oxygen Flow Rate MDM - SOB/Dyspnea Lab Data Result diagrams: 01/19/22 23:04 01/19/22 23:04 Labs: Lab Results 01/19/22 01/19/22 01/19/22 Range/Units 23:04 23:04 23:04 WBC 6.5 (4.5-11.0) X10^3/uL RBC 3.51 L (4.5-5.9) X10^6/uL Hgb 9.8 L (13.5-17.5) g/dL Hct 29.0 L (41-53) % MCV 82.7 (80-100) fL MCH 27.9 (26-34) PG MCHC 33.8 (30-36) % RDW 19.6 H (11.6-14.8) % Plt Count 147 L (150-400) X10^3/uL Neut % (Auto) 84.8 H (50-75) % Lymph % (Auto) 8.3 L (25-40) % [place] % (Auto) 6.5 (3-14) % Eos % (Auto) 0.0 L (2-4) % Baso % (Auto) 0.4 (0-2) % Neut # (Auto) 5500 (6410-7285) /uL Lymph # (Auto) 500 L (8487-3115) /uL [place] # (Auto) 400 (0-900) /uL Eos # (Auto) 0 (0-450) /uL Baso # (Auto) 0 (0-100) /uL PT 15.3 H (10.1-12.7) SECONDS INR 1.3 (0.9-1.3) D-Dimer 801 H (<500) ng/ml ABG pH (7.35-7.45) ABG pCO2 (35-45) mmHg ABG pO2 (80-100) mmHg ABG HCO3 (22-26) mmol/L ABG Total CO2 (21-31) mmol/L ABG O2 Saturation (95-100) % ABG Base Excess (-2-2) mmol/L FiO2 Sodium (137-145) mmol/L Potassium (3.4-5.1) mmol/L Chloride (98-107) mmol/L Carbon Dioxide (22-32) mmol/L BUN (9-20) mg/dL Creatinine (0.66-1.25) mg/dL Estimated GFR (>60) mL/min BUN/Creatinine Ratio (6-22) Glucose (80-110) mg/dL Calcium (8.4-10.2) mg/dL Total Bilirubin (0.2-1.3) mg/dL AST (17-59) IU/L ALT (<50) IU/L Alkaline Phosphatase (38-126) U/L Total Creatine Kinase (55-170) U/L CK-MB (CK-2) CK-MB (CK-2) Rel Index Troponin I (0.01-0.034) ng/mL NT-Pro-B Natriuret Pep (<450) pg/mL Total Protein (6.3-8.2) g/dL Albumin (3.5-5.0) g/dL Globulin (1.7-4.1) g/dL Albumin/Globulin Ratio (1.0-2.8) Lipase (23-300) U/L Procalcitonin 0.17 (<0.5) ng/mL SARS-CoV-2 (PCR) (Negative) 01/19/22 01/19/22 01/19/22 Range/Units 23:04 23:40 23:51 WBC (4.5-11.0) X10^3/uL RBC (4.5-5.9) X10^6/uL Hgb (13.5-17.5) g/dL Hct (41-53) % MCV (80-100) fL MCH (26-34) PG MCHC (30-36) % RDW (11.6-14.8) % Plt Count (150-400) X10^3/uL Neut % (Auto) (50-75) % Lymph % (Auto) (25-40) % [place] % (Auto) (3-14) % Eos % (Auto) (2-4) % Baso % (Auto) (0-2) % Neut # (Auto) (1184-5244) /uL Lymph # (Auto) (3504-6575) /uL [place] # (Auto) (0-900) /uL Eos # (Auto) (0-450) /uL Baso # (Auto) (0-100) /uL PT (10.1-12.7) SECONDS INR (0.9-1.3) D-Dimer (<500) ng/ml ABG pH 7.49 H (7.35-7.45) ABG pCO2 32.8 L (35-45) mmHg ABG pO2 58 L (80-100) mmHg ABG HCO3 25 (22-26) mmol/L ABG Total CO2 26 (21-31) mmol/L ABG O2 Saturation 92 L (95-100) % ABG Base Excess 2.0 (-2-2) mmol/L FiO2 21 Sodium 131 L (137-145) mmol/L Potassium 4.2 (3.4-5.1) mmol/L Chloride 97 L (98-107) mmol/L Carbon Dioxide 26 (22-32) mmol/L BUN 15 (9-20) mg/dL Creatinine 0.76 (0.66-1.25) mg/dL Estimated GFR > 60 (>60) mL/min BUN/Creatinine Ratio 19.7 (6-22) Glucose 207 H (80-110) mg/dL Calcium 8.2 L (8.4-10.2) mg/dL Total Bilirubin 0.3 (0.2-1.3) mg/dL AST 26 (17-59) IU/L ALT 39 (<50) IU/L Alkaline Phosphatase 130 H (38-126) U/L Total Creatine Kinase 29 L (55-170) U/L CK-MB (CK-2) TNP CK-MB (CK-2) Rel Index TNP Troponin I < 0.012 (0.01-0.034) ng/mL NT-Pro-B Natriuret Pep 2340 H (<450) pg/mL Total Protein 6.4 (6.3-8.2) g/dL Albumin 2.9 L (3.5-5.0) g/dL Globulin 3.5 (1.7-4.1) g/dL Albumin/Globulin Ratio 0.8 L (1.0-2.8) Lipase 41 (23-300) U/L Procalcitonin (<0.5) ng/mL SARS-CoV-2 (PCR) Negative (Negative) MDM Narrative Medical decision making narrative: Patient with history of AFib, lung cancer and COPD presents with increasing shortness of breath and a harsh sounding cough. Imaging would suggest pneumonia, he is treated for nosocomial infection given hospitalization a few months ago at an outside facility. He was initially found to have pulse ox in the mid to upper 80s by EMS and for the 1st part of his visit in the emergency department was able to be off oxygen while at rest but minimal exertion, even attempting to urinate would cause him increased work of breathing, shortness of breath and oxygen saturations dropping into the 80s. Though he is anticoagulated on Eliquis, his low dosing at 2.5 mg b.i.d. prompted us to perform a CTA to rule out the potential of breakthrough pulmonary embolism. Discharge Plan Departure Patient Disposition: Admitted As Inpatient Clinical Impression: Left lower lobe pneumonia, Acute exacerbation of CHF (congestive heart failure), Acute hypoxemic respiratory failure Admit Date/Time: 01/20/22 02:49 Admit Provider: Tim Dick
[2022-01-19 23:51] LABS: Procalcitonin 0.17 ng/mL (<0.5)
[2022-01-20] VITALS (18 sets, daily range): BP systolic 98–136; BP diastolic 59–72; PULSE 65–97; RESP 16–32; TEMP 35.9–36.3; O2SAT 77–96; BMI 23.8
[2022-01-20] MEDS: PIPERACILLIN/TAZO 4.5 GM in SODIUM CHLORIDE 0.9% 100 ML IV (00:04)
[2022-01-20] MEDS: FUROSEMIDE 40 MG/4 ML VIAL IV ×4 (00:04→20:14)
[2022-01-20 00:14] LABS: Fractionated Inspired Oxygen 21; HCO3 ABG 25 mmol/L (22-26); Oxygen Saturation ABG 92 % (95-100); PCO2 ABG 32.8 mmHg (35-45); PO2 ABG 58 mmHg (80-100); TCO2 ABG 26 mmol/L (21-31); pH ABG 7.49 (7.35-7.45)
[2022-01-20] MEDS: levoFLOXacin 750 MG/150 ML PIGGYBACK 100 MG IV (00:15)
[2022-01-20 00:31] LABS: COVID19 -Nasal RAPID Negative (Negative)
--- NOTE | 2022-01-20 00:34 | DI.CT.S_ITS ---
PROCEDURE: CT ANGIO CHEST PE PROTOCOL INDICATIONS: hypoxemia, cough, SOB. History of non-small cell left lung cancer. TECHNIQUE: After the administration of intravenous contrast, 2 mm thick sections acquired from the pulmonary apices to the posterior costophrenic angles. 3-dimensional maximum intensity projection (MIP) coronal and sagittal reformats were then acquired through the thorax. For radiation dose reduction, the following was used: automated exposure control, adjustment of mA and/or kV according to patient size. COMPARISON: [facility], CT, CT CHEST W CON, 10/19/2021, 11:14. Outside Film, NM, PET NECK TO MID THIGH, 11/22/2021, 15:15. FINDINGS: Image quality: Excellent. Pulmonary arteries: Pulmonary arteries demonstrate no intraluminal filling defects to suggest central pulmonary embolism. There is mild enlargement of the pulmonary arteries, with the main pulmonary artery measuring up to 3.1 cm suggestive of pulmonary arterial hypertension. Lower Neck: No lymphadenopathy by size criteria. Thyroid: Visualized thyroid demonstrates no discrete nodules. Axillae: No lymphadenopathy by size criteria. Chest Wall: Unremarkable. Bones: A moderate superior endplate compression deformity of the L1 vertebral body appears similar to the prior studies. Visualized osseous structures demonstrate no suspicious lesions. Lungs and Airways: There is a bronchial stent within the distal trachea extending into the proximal mainstem bronchi. In the right upper lobe, a spiculated ill-defined nodule measuring up to approximately 2.7 cm on series 5, image 117 appears slightly decreased in size compared to the prior studies. An adjacent right upper lobe peripheral spiculated nodule on series 5, image 97 measures up to 0.9 cm, similar in size compared to the prior studies. A medial right upper lobe spiculated nodule on series 5, image 78 measures up to 0.8 cm, similar to slightly decreased in size compared to the prior studies on which it measured up to 1.1 cm. There are new patchy areas of consolidation with areas of confluence in the left lingula and left lower lobe. There is also involvement medially in the right lung most prominent within the right upper lobe anteriorly. There are associated indistinct ground-glass opacities and mild septal thickening. The findings likely represent pneumonia. Pleura: No pneumothorax or pleural effusions. Heart: Heart size is normal. No pericardial effusion. Thoracic Vessels: The thoracic aorta is normal in size. Mediastinum and Natalia: There is confluent mediastinal and bilateral hilar lymphadenopathy with bronchovascular encasement redemonstrated. There is decrease in size of a large mediastinal franci mass seen on the prior studies with new internal gas. 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 Esophagus: No wall thickening. No hiatal hernia. Abdomen: Visualized upper abdomen demonstrates nodular thickening of the adrenal glands bilaterally with indeterminate attenuation values. The findings are similar to the prior studies. A peripherally calcified cyst is redemonstrated within the left kidney. There is nonspecific perinephric stranding bilaterally. IMPRESSION: 1. No evidence of pulmonary embolism. 2. New bilateral patchy areas of consolidation with confluence in the left lung as described. Associated indistinct ground-glass opacities are also demonstrated. The findings are consistent with pneumonia. 3. Spiculated right upper lobe nodules consistent with history of lung cancer redemonstrated with slight interval decrease in size of a few nodules as described consistent with partial response to therapy. 4. Bronchial stent demonstrated within the trachea extending into the mainstem bronchi. 5. Decreased in size of confluent mediastinal and hilar lymphadenopathy including a mediastinal mass which now demonstrates internal cavitation. This appears to communicate with the left mainstem bronchus likely representing fistulization. 6. Nodular thickening of the adrenal glands bilaterally appears similar to the prior studies but are indeterminate. Dictated by: Jesus Lin M.D. on 01/20/2022 at 2:23 Approved by: Jesus Lin M.D. on 01/20/2022 at 2:38
[2022-01-20] MEDS: VANCOMYCIN 1,500 MG/300 ML PIGGYBACK 200 MG IV (00:58)
--- NOTE | 2022-01-20 03:40 | DI.ECHO.S_ITS ---
[place] [facility]---------[facility] +---------+ : : [address] : [address] : : : : [phone] : : : : Phone: [phone] Echocardiogram Report + + :Name: INÉS KEMP Study Date: 01/20/2022 Height: 70 in : :[facility] ReadingLocation: Weight: 166 lb : : Gender: Male BSA: 1.9 m2 : :: 1945 Age: 76 yrs BP: 128/71 mmHg: :Reason For Study: HF EXACERBATION : :Ordering Physician: OSCAR, : :MEGAN Performed By: Selena Saenz : :Referring: MEGAN MOORE : + + Interpretation Summary The patient was in atrial fibrillation with heart rates between 79-104 bpm during the exam. The left ventricle is normal in size and wall thickness. The ejection fraction is estimated to be 60-65%. Diastolic function could not be accurately assessed due to atrial fibrillation. The right ventricle is mildly dilated. There is mild mitral regurgitation. There is mild tricuspid regurgitation. The right ventricular systolic pressure is estimated to be at least 39 mmHg based on an estimated right atrial pressure of 8 mm Hg. compared to 09/22/2020, LV systolic function changes with normalization with improvement in RV systolic pressures. Mild valvular disease persists. Procedure: A two-dimensional transthoracic echocardiogram with color flow and Doppler was performed. The study quality was technically adequate. Comparison is made with the echocardiogram of 09/22/2020. The patient was in atrial fibrillation with heart rates between 79-104 bpm during the exam. Left Ventricle: The left ventricle is normal in size and wall thickness. The ejection fraction is estimated to be 60-65%. Diastolic function could not be accurately assessed due to atrial fibrillation. Right Ventricle: The right ventricle is mildly dilated. The right ventricular systolic function is normal. Atria: The left atrium is mildly dilated. Right atrial size is normal. There is no Doppler evidence for an interatrial shunt. Mitral Valve: The mitral valve leaflets are slightly calcified. There is mild mitral regurgitation. Aortic Valve: The aortic valve is trileaflet. The aortic valve is mildly calcified. There is no aortic valve stenosis. No aortic regurgitation is present. Tricuspid Valve: The tricuspid valve is not well visualized, but is grossly normal. There is mild tricuspid regurgitation. The right ventricular systolic pressure is estimated to be at least 39 mmHg based on an estimated right atrial pressure of 8 mm Hg. Pulmonic Valve: The pulmonic valve is not well visualized. There is no pulmonic valvular regurgitation. Great Vessels: The aortic root is normal size. The ascending aorta could not be visualized. The IVC is dilated (diameter is greater than 2.1 cm) yet it collapses greater than 50% with a sniff. This suggests a right atrial pressure of 8 mm Hg. Pericardium/ Pleura There is no pericardial effusion. There is no pleural effusion. MMode/2D Measurements & Calculations LVIDd: 4.7 cm LVOT diam: 2.0 cm LVIDs: 3.0 cm Ao root diam: 3.4 cm FS: 35.7 % EPSS: 0.37 cm IVSd: 0.60 cm LVPWd: 1.0 cm LV canchola. diameter/BSA (cm/m^2): 2.5 LV sys. diameter/BSA (cm/m^2): 1.6 LA A2 area: 23.1 cm2 RA long axis: 5.4 cm LA A4 area: 20.8 cm2 RA area: 20.1 cm2 LA length (vol): 5.4 cm RA vol: 63.2 ml LA vol: 75.5 ml RA : 32.8 ml/m2 LA vol index: 39.1 ml/m2 IVC diam: 2.7 cm RVD1 (basal): 4.6 cm TAPSE: 1.7 cm Doppler Measurements & Calculations Ao V2 max: 175.6 cm/sec LVOT Max Hari: 101.7 cm/sec Ao V2 mean: 105.8 cm/sec LV V1 max P.1 mmHg Ao max P.3 mmHg LV V1 VTI: 17.4 cm Ao mean P.2 mmHg CLAUDE(I,D): 1.6 cm2 Ao V2 VTI: 31.8 cm CLAUDE(V,D): 1.7 cm2 sev ratio: 0.55 CLAUDE indexed to BSA (cm^2/m^2): 0.85 MV E max hari: 92.5 cm/sec TR max hari: 279.2 cm/sec MV A max hari: 1.8 cm/sec TR max P.2 mmHg MV E/A: 50.8 PA V2 max: 104.7 cm/sec Med Peak E' Hari: 11.8 cm/sec PA V2 mean: 70.3 cm/sec E/E' med: 7.9 PA mean P.3 mmHg Lat Peak E' Hari: 13.0 cm/sec E/E' lat: 7.1 E/e' average: 7.5 MV dec time: 0.19 sec SV(LVOT): 52.3 ml Reading Physician:ANSON
--- NOTE | 2022-01-20 03:43 | PM.HP.1 ---
History of Present Illness History of Present Illness Date Patient Seen: 01/20/22 Chief complaint: SOB Narrative: 76M smoker with history of HTN, lung cancer with recent chemo (managed locally at [facility]) presents with a chief complaint of increasing shortness of breath and fatigue over the course of day.? He is had increasing cough productive of yellowish sputum from past 2-3 days.? He is not been hypoxemic at home but EMS found him to be in the 80s and put him on 2-4 L and on his arrival he was satting in the low 90s.? He denies any chest pain, fever or chills but complains of profound generalized weakness.? He has had swelling in his bilateral lower extremities and is in fact scheduled to have an appointment with his primary care provider later today for evaluation of the possible diagnosis of CHF.? Were now starting to him in the ER patient got short of breath and with minimal ambulation he seems to be in significant distress. Patient denies any sick contacts. Patient History Medical History Atrial fibrillation Back problem Chicken pox Chronic back pain Diverticular disease (~1996) Duodenitis Hearing deficit Measles Mumps Plantar warts Pneumonia Sciatic nerve pain Tinnitus Type 2 diabetes mellitus Vision disorder Surgical History Anesthesia Fractures (~08/1962) History of colon surgery (~03/1997) History of tonsillectomy (~1947) Status post hernia repair (~2002) Family & Social History Family History Brother Cancer Grandmother Heart disease Mother Stroke Loud snoring Hypertension Brother No problems noted. Son No problems noted. Grandfather Loud snoring Sister No problems noted. Father Loud snoring Family/Other Hypertension Heart disease Alcohol abuse Substance abuse Social History: household members spouse Safety & Behavioral: Feels Safe in Current Yes Environment Tobacco & Substance use: Smoking Status Current some day smoker alcohol intake current alcohol intake frequency other Substance Use Type does not use Meds Home Medications and Allergies Home Medications Medication Instructions Recorded Confirmed Type vitamin B complex (B 1 tab PO QDAY ##0 12/12/16 01/20/22 History Complex-Vitamin B12 tablet) multivitamin 1 tab PO DAILY 02/18/20 01/20/22 History metformin 1,000 mg tablet 1,000 mg PO BID #180 tabs 02/28/21 01/20/22 Rx albuterol sulfate 90 mcg/actuation 2 puff inhalation Q4-6H PRN 10/19/21 01/20/22 Rx aerosol inhaler shortness of breath or wheezing #8.5 grams atorvastatin 20 mg tablet See Rx Instructions .Route 11/07/21 01/20/22 Rx .COMPLEX #90 tabs amlodipine 5 mg tablet 5 mg PO DAILY #90 tabs 11/24/21 01/20/22 Rx metoprolol tartrate 50 mg tablet See Rx Instructions .Route 12/02/21 01/20/22 Rx .COMPLEX #60 tabs folic acid 1 mg tablet 1 mg PO DAILY #30 tabs 12/07/21 01/20/22 Rx ondansetron 8 mg disintegrating 8 mg PO Q6HR PRN Nausea And 12/14/21 01/20/22 Rx tablet Vomiting #30 tabs promethazine 25 mg tablet 25 mg PO Q6H PRN Nausea And 12/14/21 01/20/22 Rx Vomiting #30 tabs apixaban 2.5 mg tablet (Eliquis) 2.5 mg PO BID #60 tabs 12/22/21 01/20/22 Rx dexamethasone 4 mg tablet 4 mg PO BID #30 tabs 01/02/22 01/20/22 Rx (Decadron) Allergies Allergy/AdvReac Type Severity Reaction Status Date / Time No Known Drug Allergies Allergy Verified 12/20/21 13:19 Review of Systems Review of Systems Narrative: Positive for shortness of breath, productive cough, dyspnea on exertion, some orthopnea, pedal edema, PND, generalized weakness, decreased ambulation. All other systems have been reviewed, negative. Exam Vital Signs (past 8 hours): - 01/19/22 23:00 01/20/22 01:53 01/19/22 23:24 Temperature 98.6 F Pulse Rate 85 90 Respiratory Rate 26 H 23 Blood Pressure 135/69 Pulse Oximetry 94 96 98 Oxygen Delivery Method Room Air Nasal Cannula Oxygen Flow Rate 2 01/19/22 23:30 01/19/22 23:30 01/20/22 00:00 Temperature Pulse Rate 90 Respiratory Rate 30 H Blood Pressure 127/56 L 136/66 Pulse Oximetry 93 Oxygen Delivery Method Oxygen Flow Rate 01/20/22 00:00 01/20/22 00:30 01/20/22 00:30 Temperature Pulse Rate 90 97 H Respiratory Rate 16 27 H Blood Pressure 129/70 Pulse Oximetry 94 91 Oxygen Delivery Method Oxygen Flow Rate 01/20/22 01:00 01/20/22 01:30 01/20/22 01:42 Temperature Pulse Rate 90 95 H 94 H Respiratory Rate 25 H 24 24 Blood Pressure Pulse Oximetry 94 89 L Oxygen Delivery Method Room Air Oxygen Flow Rate 01/20/22 01:42 01/20/22 02:00 01/20/22 02:30 Temperature Pulse Rate 92 H 90 Respiratory Rate 32 H 24 Blood Pressure 128/71 Pulse Oximetry 77 L 93 Oxygen Delivery Method Oxygen Flow Rate Oxygen Delivery Method Nasal Cannula Oxygen Flow Rate 2 Narrative Exam Narrative: Patient looks ill, distress, short of breath with minimal ambulation, requiring significant help spur minimal tasks. Oriented, able to have a reasonable conversation. Bilateral air entry is poor, diffuse crackles at the bases noted, and some rhonchi in upper lung pimentel, tachypnea. Significant pitting pedal edema extending to the thighs 3+. Generalized weakness. Skin lesion in the back. No focal deficits. Constitutional, cardiovascular, respiratory, GI, psych, neuro, skin examination done negative other than as mentioned above. Objective Labs Result Diagrams: 01/19/22 23:04 01/19/22 23:04 Labs: Laboratory Results - last 24 hr 01/19/22 01/19/22 01/19/22 23:04 23:04 23:04 WBC 6.5 RBC 3.51 L Hgb 9.8 L Hct 29.0 L MCV 82.7 MCH 27.9 MCHC 33.8 RDW 19.6 H Plt Count 147 L Neut % (Auto) 84.8 H Lymph % (Auto) 8.3 L Faulkner % (Auto) 6.5 Eos % (Auto) 0.0 L Baso % (Auto) 0.4 Neut # (Auto) 5500 Lymph # (Auto) 500 L Faulkner # (Auto) 400 Eos # (Auto) 0 Baso # (Auto) 0 PT 15.3 H INR 1.3 D-Dimer 801 H ABG pH ABG pCO2 ABG pO2 ABG HCO3 ABG Total CO2 ABG O2 Saturation ABG Base Excess FiO2 Sodium Potassium Chloride Carbon Dioxide BUN Creatinine Estimated GFR BUN/Creatinine Ratio Glucose Calcium Total Bilirubin AST ALT Alkaline Phosphatase Total Creatine Kinase CK-MB (CK-2) CK-MB (CK-2) Rel Index Troponin I NT-Pro-B Natriuret Pep Total Protein Albumin Globulin Albumin/Globulin Ratio Lipase Procalcitonin 0.17 SARS-CoV-2 (PCR) 01/19/22 01/19/22 01/19/22 23:04 23:40 23:51 WBC RBC Hgb Hct MCV MCH MCHC RDW Plt Count Neut % (Auto) Lymph % (Auto) Faulkner % (Auto) Eos % (Auto) Baso % (Auto) Neut # (Auto) Lymph # (Auto) Faulkner # (Auto) Eos # (Auto) Baso # (Auto) PT INR D-Dimer ABG pH 7.49 H ABG pCO2 32.8 L ABG pO2 58 L ABG HCO3 25 ABG Total CO2 26 ABG O2 Saturation 92 L ABG Base Excess 2.0 FiO2 21 Sodium 131 L Potassium 4.2 Chloride 97 L Carbon Dioxide 26 BUN 15 Creatinine 0.76 Estimated GFR > 60 BUN/Creatinine Ratio 19.7 Glucose 207 H Calcium 8.2 L Total Bilirubin 0.3 AST 26 ALT 39 Alkaline Phosphatase 130 H Total Creatine Kinase 29 L CK-MB (CK-2) TNP CK-MB (CK-2) Rel Index TNP Troponin I < 0.012 NT-Pro-B Natriuret Pep 2340 H Total Protein 6.4 Albumin 2.9 L Globulin 3.5 Albumin/Globulin Ratio 0.8 L Lipase 41 Procalcitonin SARS-CoV-2 (PCR) Negative Assessment & Plan Assessment and plan (1) Sepsis: Status: Acute Plan: Sepsis secondary to bilateral pneumonia mostly bacterial, IV antibiotics given, caution with IV fluids given significant edema and fluid overload status. Blood pressures have maintained okay at this time. Consider IV hydration if any tachycardia or hypotension episodes Repeat lactate in the morning, blood cultures pending, sputum cultures are pending Broad-spectrum antibiotics including MRSA and pseudomonal coverage. Continue IV vancomycin and Zosyn and Levaquin (2) Pneumonia: Status: Acute Plan: High-risk and recent hospitalization healthcare exposure, high-risk for MRSA and Pseudomonas Continue broad-spectrum antibiotics (3) Acute respiratory failure with hypoxia: Status: Acute Plan: Breathing status seems to be improving, continue IV diuresis, Follow up on echocardiogram for further evaluation of heart failure Consider high-flow nasal cannula with the patient breathing status seems to be deteriorating (4) Hyponatremia: Status: Acute Plan: Most likely related to hypovolemia, repeat BMP in the morning, fluid restriction as needed (5) Non-small cell cancer of right lung: Problem details: 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 Status: Acute Plan: Follow-up with the primary oncologist after the hospitalization, patient due for chemotherapy next week Overall prognosis seems to be poor, patient is full code (6) Type 2 diabetes mellitus: Qualifiers: Diabetes mellitus complication status: without complication Diabetes mellitus long-term insulin use: without termite treater helper use Qualified Code(s): E11.9 - Type 2 diabetes mellitus without complications Status: Acute Plan: Diabetic diet, sliding scale insulin (7) Non-small cell carcinoma of lung, stage 4: Qualifiers: Laterality: left Qualified Code(s): C34.92 - Malignant neoplasm of unspecified part of left bronchus or lung Status: Acute (8) Sacral decubitus ulcer: Status: Acute Plan: Present at the time of admission Wound care for further assessment, recommendations Continue skin care Assessment & Plan narrative: Goals of care extensively discussed, overall poor prognosis explained and son are at bedside, primary contact persons, understood care process, answered all questions Overall prognosis is poor, continue close monitoring Inpatient status, expected length of stay 3 days Follow-up on echocardiogram, labs, cultures, further recommendations to follow by the day team Time Spent With Patient Critical Care time: I spent a total of [] minutes of critical care time on this patient's care today; this time is exclusive of procedural time.
--- NOTE | 2022-01-20 04:44 | PC.NURSE ---
Addendum entered by Reza Mchugh CNA 01/20/22 04:52: RN has ordered wound care consult Original Note:
--- NOTE | 2022-01-20 04:53 | PC.NURSE ---
Pt. admitted from ER. Very SOB with little exertion, weak & fatigue. Coughing up thick light yellow sputum. Denies any chest pain, headache & other discomfort. Reported no fall at home for the past 3 months. Oriented to his room & showed how use his call light, TV & bed controls. Will Cont. POc & monitor.
[2022-01-20] MEDS: PIPERACILLIN/TAZO 3.375 GM in SODIUM CHLORIDE 0.9% 100 ML IV ×3 (05:37→20:25)
[2022-01-20] MEDS: SODIUM CHLORIDE 0.9% 250 ML 21 ML IV (05:38)
[2022-01-20] MEDS: SODIUM CHLORIDE 0.9% FLUSH 10 ML IV ×2 (05:38→20:14)
[2022-01-20 07:24] LABS: Add Manual Diff / Slide Review NO; Basophils Absolute Auto 0 /uL (0-100); Basophils Percent Auto 0.1 % (0-2); Eosinophils Absolute Auto 0 /uL (0-450); Eosinophils Percent Auto 0.2 % (2-4); Hemoglobin 9.5 g/dL (13.5-17.5); Lymphocytes Absolute Auto 500 /uL (1100-4500); Lymphocytes Percent Auto 7.5 % (25-40); Mean Corpuscular HGB Conc 33.9 % (30-36); Mean Corpuscular Hemoglobin 27.8 PG (26-34); Mean Corpuscular Volume 81.9 fL (80-100); Monocytes Absolute Auto 400 /uL (0-900); Monocytes Percent Auto 6.2 % (3-14); Neutrophils Absolute Auto 5500 /uL (1500-7000); Platelet Count 152 X10^3/uL (150-400); Red Blood Cell Count 3.42 X10^6/uL (4.5-5.9); Red Cell Distribution Width 19.8 % (11.6-14.8); White Blood Cell Count 6.3 X10^3/uL (4.5-11.0)
[2022-01-20 07:34] LABS: Lactate (Lactic Acid) 1.9 mmol/L (0.7-2.1)
[2022-01-20 07:39] LABS: Alanine Aminotransferase 38 IU/L (<50); Albumin 2.7 g/dL (3.5-5.0); Albumin Globulin Ratio 0.8 (1.0-2.8); Alkaline Phosphatase 124 U/L (38-126); Aspartate Aminotransferase 22 IU/L (17-59); Bilirubin Total 0.3 mg/dL (0.2-1.3); Blood Urea Nitrogen 12 mg/dL (9-20); Calcium 8.1 mg/dL (8.4-10.2); Carbon Dioxide 28 mmol/L (22-32); Chloride 96 mmol/L (98-107); Estimated Glomerular Filt Rate > 60 mL/min (>60); Globulin 3.5 g/dL (1.7-4.1); Glucose 162 mg/dL (80-110); HEMOLYSIS < 15 (0-50); Potassium 3.3 mmol/L (3.4-5.1); Sodium 133 mmol/L (137-145); Total Protein 6.2 g/dL (6.3-8.2)
[2022-01-20 08:15] LABS: Magnesium 1.5 mg/dL (1.6-2.3)
[2022-01-20 08:25] LABS: Hemoglobin A1C% w Est Avg Glu 9.7 % (4.0-6.0)
[2022-01-20] MEDS: INSULIN LISPRO 100 UNIT/ML 3ML VIAL SUBCUT ×3 (09:46→20:34)
[2022-01-20] MEDS: ALBUTEROL 2.5 MG/3 ML NEB (ADULT) INH ×3 (09:47→19:35)
[2022-01-20] MEDS: APIXABAN 5 MG TABLET 2.5 MG PO ×2 (09:52→20:12)
[2022-01-20] MEDS: LIDOCAINE PATCH 1 EACH ADH..PATCH TOP (09:52)
[2022-01-20] MEDS: guaiFENesin ER 600 MG TAB PO ×2 (09:53→20:11)
[2022-01-20] MEDS: METOPROLOL IR 50 MG TABLET PO ×2 (09:53→20:12)
[2022-01-20] MEDS: POTASSIUM CHLORIDE 20 MEQ TAB 40 MEQ PO ×2 (11:44→17:26)
[2022-01-20] MEDS: MAGNESIUM CHLORIDE 64 MG TABLET 128 MG PO (12:10)
--- NOTE | 2022-01-20 12:59 | PC.NURSE ---
Day shift: Pt on unit from ED at approx 1245. He is A&Ox4. VS ok with temp 99.3. Reports pain 4/10. Per ED RN report Pt to have I&D today. Rt knee is red and tender. Small abrasions around that knee area from fluid/culture removal in ED. Oriented to room and call light. Agrees to not get OOB w/o help from staff. Denies any nausea.
--- NOTE | 2022-01-20 13:35 | OT.IP.EVAL ---
Current Diagnoses Sepsis, unspecified organism (01/20/22) Malignant neoplasm of unspecified part of right bronchus or lung (01/20/22) Malignant neoplasm of unspecified part of left bronchus or lung (01/20/22) Type 2 diabetes mellitus without complications (01/20/22) Hypo-osmolality and hyponatremia (01/20/22) Pneumonia, unspecified organism (01/20/22) Acute respiratory failure with hypoxia (01/20/22) Pressure ulcer of sacral region, unspecified stage (01/20/22) Past Medical History (Last Reviewed 01/20/22 @ 03:44 by Tim Dick MD) Atrial fibrillation Back problem Chicken pox Chronic back pain Diverticular disease (~1996) Duodenitis Hearing deficit Measles Mumps Plantar warts Pneumonia Sciatic nerve pain Tinnitus Type 2 diabetes mellitus Vision disorder Surgical History (Last Reviewed 01/20/22 @ 03:44 by Tim Dick MD) Anesthesia Fractures (~08/1962) History of colon surgery (~03/1997) History of tonsillectomy (~1947) Status post hernia repair (~2002) Occupational Therapy Inpatient Evaluation/Re-Eval M1 PT/OT-IP Prior Functional Status Start: 01/20/22 13:39 Freq: NEEDED Status: Active Protocol: Document 01/20/22 13:35 [facility] (Rec: 01/20/22 14:07 [facility] [id number]) Medical Review Prior Functional Status Communication independent Mobility and Gait Pt states does not use a device to walk with and use of surfaces at home to hold onto if needed and grocery cart while shopping. Activities of Daily Living and IADL's Pt states was completely independent with ADl and IADL needs and his son able to do yard work now. Prior Functional Level (Other details) Pt states sleeps in a recliner due to his chronic coughing and having to use the toilet every 90-100minutes per pt's report. Social History Household Members spouse,children Living Arrangements House Number of Stairs To Enter/Railing? Pt lives with his and son . Pt's son works during the day, but home at night to assist if needed. Home Environment Standard Height Toilet,Walk in Shower,Tub/Shower M2 OT-IP Current Condition Start: 01/20/22 13:39 Freq: Status: Active Protocol: Document 01/20/22 13:35 [facility] (Rec: 01/20/22 14:07 [facility] [id number]) Occupational Therapy Current Condition Current Condition Evaluation Date 01/20/22 Treatment Diagnosis Sepsis due to PNA, acute exacerbation of CHF Diagnosis Onset Date 01/20/22 M3 OT- IP Subjective and Pain Start: 01/20/22 13:39 Freq: Status: Active Protocol: Document 01/20/22 13:35 [facility] (Rec: 01/20/22 14:07 [facility] [id number]) OT- Subjective Occupational Therapy Visit Type Type Initial Evaluation Visit Start Time 12:55 Visit Stop Time 13:35 Total Visit Minutes 40 Occupational Therapy Visit Comments Patient Comments Pt agreed to get up as having to use the bathroom. Patient/Caregiver Goals To go home. OT Pain Assessment Pain When Pain Assessed At Rest Pain Present Pain Present Denied Pain M4 OT- IP ADL's Start: 01/20/22 13:39 Freq: Status: Active Protocol: Document 01/20/22 13:35 [facility] (Rec: 01/20/22 14:07 [facility] [id number]) OT [id number] Comments OT Self-Feeding Comments not at meal time OT ADL-Grooming General Evaluation Grooming Ability Independent OT ADL-Oral Care Comments Oral Care Comments not performed OT ADL-Dressing General Eval Lower Body Dressing Ability Moderate Assistance Areas Needing Assistance Underpants/Brief Comments OT Dressing Comments JAYNE to help get the brief over his feet and up over his hips. OT ADL-Toileting General Evaluation Toileting Ability Moderate Assistance Areas Needing Assistance Manage Clothing,Perform Perineal Hygiene Comments OT Toileting Comments Assist to get his brief up over his hips and assist for completeness to wipe. OT ADL-Bathing Comments OT Bathing Comments NOt at this time. Pt would benefit from a shower chair at home to use. M5 OT- IP IADL's Start: 01/20/22 13:39 Freq: Status: Active Protocol: Document 01/20/22 13:35 [facility] (Rec: 01/20/22 14:07 [facility] [id number]) OT-Instrumental Activities of Daily Living Deficits IADL Deficits Identified No Deficits Home Safety Awareness Awareness of Need for Assistance at Home Good Awareness Ability to Problem Solve Emergency Able to Problem Solve Situations Medication Management Medication Management Comments Pt states does on his own. Money Management Money Management Comments Pt states does on his own. Meal Preparation Meal Preparation Caregiver Provides Assist Mascara Molder Mascara Molder Caregiver Provides Assist M6 OT- IP Functional Cognition Start: 01/20/22 13:39 Freq: Status: Active Protocol: Document 01/20/22 13:35 [facility] (Rec: 01/20/22 14:07 [facility] [id number]) Cognitive Factors Limiting Selfcare Function Cognitive Ability Level of Alertness Alert Patient Orientation Name,Age,Birthday,Month,Date, Year,Day of Week,Place, Situation Attention Span Ability Capable of Focused Attention, Capable of Sustained Attention Ability to Follow Commands Able to Follow One Step Commands Safety Awareness No Deficits Noted Problem Solving Ability No deficits Noted Cognitive Comments Cognitive Assessment Comments Pt appears at baseline for cognitive needs and no issues noted on OT eval. Pt would benefit from a shower chair and FWW but insistent on not getting items he does not need . OT- Vision and Hearing OT- Hearing Assessment OT- Hearing Assessment WFL OT- Vision Assessment Visual Acuity Glasses All The Time M7 OT- IP Mobility and Balance Start: 01/20/22 13:39 Freq: Status: Active Protocol: Document 01/20/22 13:35 [facility] (Rec: 01/20/22 14:07 [facility] [id number]) OT- Bed Mobility Assessment Supine to Sit Supine to Sit Assist Standby Assistance,Bedrails Sit to Supine Sit to Supine Assist Minimal Assistance OT-Transfer Assessment Sit to and From Stand Sit to and from Stand Standby Assistance Transfers Transfer Ability Standby Assistance,Contact Guard Assistance Technique Transfer Destination Bed,Toilet Transfer Technique Stand Step Pivot Devices Transfer Assistive Devices None,Gait Belt,Front Wheeled Walker Comments Mobility Comments SBA with FWW and assist to manage all tubing and cords. Pt CGA to take a few steps without the FWW. OT- Balance Assessment Sitting Balance and Reactions Static Sitting Balance Ability Normal Dynamic Sitting Balance Ability Good Standing Balance and Reactions Static Standing Balance Ability Good Dynamic Standing Balance Ability Fair M8 OT- IP Objective Assessments Start: 01/20/22 13:39 Freq: Status: Active Protocol: Document 01/20/22 13:35 [facility] (Rec: 01/20/22 14:07 [facility] [id number]) OT-Muscle Tone Assessment Muscle Tone WNL Yes M9 OT- IP Assessment and Plan Start: 01/20/22 13:39 Freq: Status: Active Protocol: Document 01/20/22 13:35 [facility] (Rec: 01/20/22 14:07 [facility] [id number]) OT Summary Assessment and Plan Potential Rehabilitation Potential Good Analytic Complexity at Evaluation Moderate Summary OT Impairments Balance,Functional Mobility, Dressing,Toileting,Bathing, Toilet Transfers,Shower Transfers,Activity Tolerance Progress Towards Goals Progressing Toward Goals Assessment Summary Pt MOD complexity and main barriers are decreased dynamic balance and activity tolerance and will benefit form assist at home. Pt states has a supportive family and that someone is always home to assist if needed. Pt to go home when medically stable. Goals Grooming Goal Independent Dressing Goal Independent Toileting Goal Independent Bathing Goal Independent Toilet Transfer Goal Independent Shower Transfer Goal Independent Days to Meet Goals 7 Frequency of Treatment Frequency Of Treatment Once a Day Treatment Plan OT Treatment Plan ADL Training,Functional Mobility,Patient/Family Education,Discharge Planning Other Treatment Recommendations and Next shower Treatment Focus Discharge Recommendations OT Discharge Recommendations Home with Assistance Home Equipment Needs shower chair,fww Transportation Needs at Discharge Private Vehicle
--- NOTE | 2022-01-20 13:41 | CM.DANOTE ---
DCP Assessment: Payor: Mica[employer] for life PCP: Ivon Mckeon MD Pt is a 76 y.o. M with a history of lung cancer and HTN, who presented to the ER with increasing SOB and fatigue. Pt is receiving treatment @ [facility]. Pt admitted for pneumonia and CHF. DCP attempted to meet with pt three times today. Pt was sleeping both times and the third time pt was working with OT. I spoke with pt and discussed that I could come back tomorrow to do further assessment and he verbalized, that would be good. Pt appeared fatigued and drowsy. DCP knows that he lives with his spouse in [place] in a house. Pt is due for chemo next week. DCP will attempt to meet with pt tomorrow in the AM. Cassie Calvin RN/REYNALDO Discharge Planning/Care Management Advanced directive, confirm from FAMILY Start: 01/20/22 04:10 Freq: Q24H Status: Active Protocol: Document 01/20/22 04:10 MP (Rec: 01/20/22 04:52 MP [id number]) Advance Directive, confirm on record Time 04:10 Person contacted pt. Copy received No CM Discharge Assessment Start: 01/20/22 13:19 Freq: Status: Active Protocol: Document 01/20/22 13:40 AJ (Rec: 01/20/22 13:41 AJ [id number]) Discharge Planning Assessment Assigned Home Service Technician Cassie Calvin RN/REYNALDO Advance Directives? Yes Advance Directives on File No History Provided By Medical Record Prior Living Arrangements House Household Members spouse Independent with ADL's Yes Discharge Plan Home Transportation Arrangement Spouse POV Referrals Initiated None needed Additional Comment At this time Whiteboard Updated in Patient Room with Yes name and ext. # of Home Service Technician Comment Instructed to call Review Status In Process Please Provide Date Initial DC 01/19/22 Assessment Was Performed Next Review Type Continued Stay Review
--- NOTE | 2022-01-20 17:00 | PT-IP ANOTE ---
Attempted Evaluation. Pt not available. He is busy with nursing due to urine retention. Will follow up for evaluation tomorrow.
--- NOTE | 2022-01-20 17:11 | DIET.CONS ---
Dietary Consultation Note Admission Date: 01/20/2022 02:49 Assessment: 76y M admitted for SOB with 3+ pitting edema to [facility] with current stage 3b lung cancer referred to nutrition for skin integrity issues and reported weight loss of 40#. RD met c pt at bedside, pt was watching news so visit was brief. Pt states he drinks ONS Boost or Ensure at home, however states they are very expensive. Visual nutrition focused physical exam shows severely reduced muscle and fat mass globally from waist up. Pt with protruding zygomatic arch and rib cage, hollow orbitals. Though BMI is 23.8, pt appears cachectic. Pt on metformin 1,000mg bid, however A1c 9.7 indicating suboptimal control. Ht: 177.8 cm Wt: 75.296 kg BMI: 23.8 UBW: 95kg Last BM: 01/20/22 (01/20/22 16:00) MNA: 13 Marvin Score: 18 Diet: 01/20/22 Breakfast Carbohydrate Consistent Diet Diet Modifications: Carbohydrate level: Medium (3 CHO) Bedtime snack: Yes Nutrition Percent Meal Consumed 100% 01/20/22 09:17 Labs: RBC 3.42 X10^6/uL (4.5-5.9) L 01/20/22 06:25 Hgb 9.5 g/dL (13.5-17.5) L 01/20/22 06:25 Hct 28.0 % (41-53) L 01/20/22 06:25 Creatinine 0.75 mg/dL (0.66-1.25) 01/20/22 06:25 Hemoglobin A1c 9.7 % (4.0-6.0) H 01/20/22 06:25 Lactate 1.9 mmol/L (0.7-2.1) 01/20/22 07:16 NT-Pro-B Natriuret Pep 2340 pg/mL (<450) H 01/19/22 23:04 Nutrition Diagnosis: Severe Chronic Malnutrition r/t cancer catabolism aeb 21% unintentional weight loss in 1y (severe), NFPE showing severe muscle and fat wasting system wide with 3+ pitting edema to BLEs, pt with stage 3b lung cancer. Interventions: 1. To support nutrition status, recc ONS Ensure Enlive tid as snacks in addition to meal trays. 2. Will provide ONS coupons to pt at d/c in red folder. EER: 2,600kcals (35kcal/kg per PCM), 97-105g PRO (1.3-1.5g/kg per PCM) Monitoring/Evaluations: ONS tolerance Electronically Signed by: April Lopez 01/20/22 17:11 Clinical Dietitian [address] [address]
[2022-01-20] MEDS: ATORVASTATIN 20 MG TABLET PO (20:14)
[2022-01-21] VITALS (9 sets, daily range): BP systolic 106–147; BP diastolic 42–69; PULSE 54–75; RESP 16–27; TEMP 35.6–36.3; O2SAT 91–98
[2022-01-21] MEDS: OXYCODONE IR 5 MG TABLET PO (01:51)
[2022-01-21] MEDS: PIPERACILLIN/TAZO 3.375 GM in SODIUM CHLORIDE 0.9% 100 ML IV ×3 (04:53→21:28)
[2022-01-21] MEDS: SODIUM CHLORIDE 0.9% 250 ML 21 ML IV (04:53)
[2022-01-21] MEDS: SODIUM CHLORIDE 0.9% FLUSH 10 ML IV ×3 (04:54→21:27)
--- NOTE | 2022-01-21 07:41 | PM.PN.1 ---
Subjective Subjective Date Patient Seen: 01/21/22 Time Patient Seen: 08:30 Interval history: Patient states he is feeling much better. Oxygen now down to 1L. Exam Vital Signs (past 8 hours): - 01/21/22 04:03 Temperature 96.9 F L Pulse Rate 63 Respiratory Rate 18 Blood Pressure 122/59 L Pulse Oximetry 95 Oxygen Delivery Method Nasal Cannula Oxygen Flow Rate 1 Narrative Exam Narrative: GEN: no acute distress, frail appearing gentleman who is AOx3 HEENT: moist mucous membranes, PERRL NECK: trachea midline, no JVD CV: regular rate and rhythm, no murmurs PULM: coarse breath sound bilaterally ABD: soft, nontender, nondistended, no organomegaly EXT: warm and well perfused, 2+ edema to thighs NEURO: awake, alert, oriented, no focal deficits Objective Labs Result Diagrams: 01/21/22 08:13 01/21/22 08:13 Labs: Laboratory Results - last 24 hr 01/20/22 01/20/22 01/20/22 06:25 06:25 06:25 Sodium 133 L Potassium 3.3 L Chloride 96 L Carbon Dioxide 28 BUN 12 Creatinine 0.75 Estimated GFR > 60 BUN/Creatinine Ratio 16.0 Glucose 162 H Hemoglobin A1c 9.7 H Calcium 8.1 L Magnesium 1.5 L Total Bilirubin 0.3 AST 22 ALT 38 Alkaline Phosphatase 124 Total Protein 6.2 L Albumin 2.7 L Globulin 3.5 Albumin/Globulin Ratio 0.8 L Nasal Screen MRSA (PCR) 01/20/22 08:00 Sodium Potassium Chloride Carbon Dioxide BUN Creatinine Estimated GFR BUN/Creatinine Ratio Glucose Hemoglobin A1c Calcium Magnesium Total Bilirubin AST ALT Alkaline Phosphatase Total Protein Albumin Globulin Albumin/Globulin Ratio Nasal Screen MRSA (PCR) Negative for mrsa [facility] Medical History Atrial fibrillation Back problem Chicken pox Chronic back pain Diverticular disease (~1996) Duodenitis Hearing deficit Measles Mumps Plantar warts Pneumonia Sciatic nerve pain Tinnitus Type 2 diabetes mellitus Vision disorder Surgical History Anesthesia Fractures (~08/1962) History of colon surgery (~03/1997) History of tonsillectomy (~1947) Status post hernia repair (~2002) Family History Brother Cancer Grandmother Heart disease Mother Stroke Loud snoring Hypertension Brother No problems noted. Son No problems noted. Grandfather Loud snoring Sister No problems noted. Father Loud snoring Family/Other Hypertension Heart disease Alcohol abuse Substance abuse Social History household members: spouse Smoking Status: Current some day smoker alcohol intake: current substance use type: does not use eating out: 1-3 times/week Type(s) of exercise: none Assessment & Plan Assessment & Plan narrative: # bilateral pneumonia mostly bacterial vs pulmonary pneumonitis with sepsis component resolved Blood pressures have maintained okay at this time.? Consider IV? hydration if any tachycardia or hypotension episodes Blood cultures pending, sputum cultures are pending Broad-spectrum antibiotics including MRSA and pseudomonal coverage.? 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 Multani primary oncologist after the hospitalization, patient due for chemotherapy wed next week Overall prognosis seems to be poor, patient is full code however # DM2 A1c 9.7% on 01/20 Diabetic diet, sliding scale insulin # sacral pressure ulcer, present on admission Wound care for further assessment, recommendations Continue skin care and son are at bedside, primary contact persons, understood care process, answered all questions Dispo: Likely dc on 01/22 with HH. Time Spent With Patient Critical Care time: I spent a total of [] minutes of critical care time on this patient's care today; this time is exclusive of procedural time.
[2022-01-21] MEDS: ALBUTEROL 2.5 MG/3 ML NEB (ADULT) INH ×3 (07:59→19:30)
[2022-01-21] MEDS: guaiFENesin ER 600 MG TAB PO ×2 (08:37→21:27)
[2022-01-21] MEDS: APIXABAN 5 MG TABLET 2.5 MG PO ×2 (08:37→21:27)
[2022-01-21] MEDS: METOPROLOL IR 50 MG TABLET PO ×2 (08:37→21:27)
[2022-01-21] MEDS: FUROSEMIDE 40 MG/4 ML VIAL IV ×2 (08:38→21:29)
[2022-01-21] MEDS: LIDOCAINE PATCH 1 EACH ADH..PATCH TOP (08:38)
[2022-01-21 08:54] LABS: Add Manual Diff / Slide Review NO; Basophils Absolute Auto 0 /uL (0-100); Basophils Percent Auto 0.3 % (0-2); Eosinophils Absolute Auto 0 /uL (0-450); Eosinophils Percent Auto 0.2 % (2-4); Hematocrit 28.7 % (41-53); Hemoglobin 9.5 g/dL (13.5-17.5); Lymphocytes Absolute Auto 700 /uL (1100-4500); Lymphocytes Percent Auto 11.9 % (25-40); Mean Corpuscular Hemoglobin 27.6 PG (26-34); Mean Corpuscular Volume 83.6 fL (80-100); Monocytes Absolute Auto 500 /uL (0-900); Neutrophils Absolute Auto 4800 /uL (1500-7000); Neutrophils Percent Auto 78.6 % (50-75); Platelet Count 217 X10^3/uL (150-400); Red Blood Cell Count 3.43 X10^6/uL (4.5-5.9); Red Cell Distribution Width 19.2 % (11.6-14.8); White Blood Cell Count 6.1 X10^3/uL (4.5-11.0)
[2022-01-21 09:06] LABS: BUN Creatinine Ratio 16.9 (6-22); Blood Urea Nitrogen 14 mg/dL (9-20); Calcium 7.7 mg/dL (8.4-10.2); Carbon Dioxide 29 mmol/L (22-32); Chloride 94 mmol/L (98-107); Estimated Glomerular Filt Rate > 60 mL/min (>60); Glucose 126 mg/dL (80-110); HEMOLYSIS < 15 (0-50); Sodium 132 mmol/L (137-145)
[2022-01-21] MEDS: predniSONE 20 MG TABLET 40 MG PO (09:10)
--- NOTE | 2022-01-21 09:29 | CM.DANOTE ---
DCP Assessment: Payor: Dipak Grossman for [facility], Medicare PCP: MD Linda Pt is a 76 y.o. M who presented to the ER for SOB and fatigue. Pt has a history of HTN and lunch cancer and is being treated at the [facility]. Pt also on eliquis for his a fib. Was found to have LLL pneumonia. Pt admitted to the floor for further management of symptoms and diagnosis. DCP met with the pt this morning to discuss discharge needs. Pt sitting up in bed. Pt having difficulty speaking as he was needing to cough and spit up sputum during conversation. Pt does live in a house in [place] with his spouse, Beverly. Pt does not use any DME's and still drives POV. Pt states that he has an appointment on Sunday with his oncologist and an appointment on @ [facility] for radiation planning. Pt declines HH is needed at this time. Pt does have supportive team @ Cancer center if needs to arise. DCP to continue to follow case and assist where needed. White board was updated from yesterday as DCP attempted multiple times to do assessment. Pt thankful for discussion. P: Once pt is medically clear for discharge, pt to discharge home via son, Mitchell, POV. Cassie Calvin RN/REYNALDO Discharge Planning/Care Management Advanced directive, confirm from FAMILY Start: 01/20/22 04:10 Freq: Q24H Status: Active Protocol: Document 01/20/22 04:10 MP (Rec: 01/20/22 04:52 MP [id number]) Advance Directive, confirm on record Time 04:10 Person contacted pt. Copy received No Document 01/21/22 04:10 MP (Rec: 01/21/22 05:12 MP [id number]) Advance Directive, confirm on record Time 04:10 Person contacted pt. Copy received No CM Discharge Assessment Start: 01/20/22 13:19 Freq: Status: Active Protocol: Document 01/20/22 13:40 AJ (Rec: 01/20/22 13:41 AJ [id number]) Discharge Planning Assessment Assigned Sales Mgr Cassie Calvin RN/REYNALDO Advance Directives? Yes Advance Directives on File No History Provided By Medical Record Prior Living Arrangements House Household Members spouse Independent with ADL's Yes Discharge Plan Home Transportation Arrangement Spouse POV Referrals Initiated None needed Additional Comment At this time Whiteboard Updated in Patient Room with Yes name and ext. # of Sales Mgr Comment Instructed to call Review Status In Process Please Provide Date Initial DC 01/19/22 Assessment Was Performed Next Review Type Continued Stay Review
--- NOTE | 2022-01-21 11:05 | PT.IIE ---
Current Diagnoses Sepsis, unspecified organism (01/20/22) Malignant neoplasm of unspecified part of right bronchus or lung (01/20/22) Malignant neoplasm of unspecified part of left bronchus or lung (01/20/22) Type 2 diabetes mellitus without complications (01/20/22) Hypo-osmolality and hyponatremia (01/20/22) Pneumonia, unspecified organism (01/20/22) Acute respiratory failure with hypoxia (01/20/22) Pressure ulcer of sacral region, unspecified stage (01/20/22) Surgical History (Last Reviewed 01/20/22 @ 03:44 by Tim Dick MD) Anesthesia Fractures (~08/1962) History of colon surgery (~03/1997) History of tonsillectomy (~1947) Status post hernia repair (~2002) Medical History (Last Reviewed 01/20/22 @ 03:44 by Tim Dick MD) Atrial fibrillation Back problem Chicken pox Chronic back pain Diverticular disease (~1996) Duodenitis Hearing deficit Measles Mumps Plantar warts Pneumonia Sciatic nerve pain Tinnitus Type 2 diabetes mellitus Vision disorder Physical Therapy Inpatient Evaluation/Re-Eval M1 PT/OT-IP Prior Functional Status Start: 01/20/22 13:39 Freq: NEEDED Status: Active Protocol: Document 01/21/22 10:48 LUCIA (Rec: 01/21/22 11:01 [facility] [id number]) Medical Review Prior Functional Status Medical History Reviewed Yes Communication independent Mobility and Gait Pt states does not use a device to walk with and use of surfaces at home to hold onto if needed and grocery cart while shopping. Activities of Daily Living and IADL's Pt states was completely independent with ADl and IADL need and his son able to do yard work. Prior Functional Level (Other details) Pt states sleeps in a recliner due to his chronic coughing. Social History Household Members spouse Living Arrangements House Number of Stairs To Enter/Railing? 2, no railing Additional Social History Comment patient sleeps in recliner at 30 degrees M1 PT/OT-IP Prior Functional Status Start: 01/21/22 09:14 Freq: NEEDED Status: Active Protocol: Document 01/21/22 10:48 LUCIA (Rec: 01/21/22 11:01 [facility] [id number]) Medical Review Prior Functional Status Medical History Reviewed Yes Communication independent Mobility and Gait Pt states does not use a device to walk with and use of surfaces at home to hold onto if needed and grocery cart while shopping. Activities of Daily Living and IADL's Pt states was completely independent with ADl and IADL need and his son able to do yard work. Prior Functional Level (Other details) Pt states sleeps in a recliner due to his chronic coughing. Social History Household Members spouse Living Arrangements House Number of Stairs To Enter/Railing? 2, no railing Additional Social History Comment patient sleeps in recliner at 30 degrees M2 PT-IP Current Condition Start: 01/21/22 09:14 Freq: NEEDED Status: Active Protocol: Document 01/21/22 10:48 LUCIA (Rec: 01/21/22 11:01 [facility] [id number]) Physical Therapy Current Condition Current Condition Evaluation Date 01/21/22 Treatment Diagnosis weakness due to pneumonia Onset Date 01/20/22 M3 PT-IP Subjective Start: 01/21/22 09:14 Freq: NEEDED Status: Active Protocol: Document 01/21/22 10:48 LUCIA (Rec: 01/21/22 11:01 [facility] [id number]) Subjective Physical Therapy Visit Type Type Initial Evaluation Visit Start Time 09:20 Visit Stop Time 09:54 Total Visit Minutes 34 Number of SECURITY ASSURANCE ANALYST Visits 0 Physical Therapy Visit Comments Patient Comments Wants to go home, has with visual limitations, son works Patient Goals be discharged home M4 PT-IP Mobility and Gait Start: 01/21/22 09:14 Freq: NEEDED Status: Active Protocol: Document 01/21/22 10:48 LUCIA (Rec: 01/21/22 11:01 [facility] [id number]) PT-Bed Mobility Assessment Supine to Sit Supine to Sit Standby Assistance,Head of Bed Elevated PT-Transfer Assessment Sit to and From Stand Sit to and from Stand Contact Guard Assistance Equipment Transfer Assistive Device Gait Belt,Front Wheeled Walker Orthotic/Prosthetic Devices or Brace: No Transfer Ability Level of Assist Contact Guard Assistance Gait Assessment Gait Gait Assistance Required: Contact Guard Assist Distance (Feet) 20 Assistive Devices Assistive Device Front Wheeled Walker Orthotic/Prosthetic Devices or Brace: No Gait Deviations General Gait Pattern Flexed Trunk Comments Gait Comments Patient ambulated within his room with CGA, FWW, and assistance of CONSERVATION BIOLOGY PROFESSOR for O2 tubing and IV PT-Balance Assessment Sitting Balance and Reactions Static Sitting Balance Ability Good Dynamic Sitting Balance Ability Good Standing Balance and Reactions Static Standing Balance Ability Fair Dynamic Standing Balance Ability Fair M5 PT-IP Objective Assessments Start: 01/21/22 09:14 Freq: NEEDED Status: Active Protocol: Document 01/21/22 10:48 [facility] (Rec: 01/21/22 11:01 [facility] [id number]) Orientation Orientation/Cognition Level of Alertness Alert Orientation Name,Place,Situation Language Function Ability No Deficits Noted Safety Awareness Understands Safety Issues Gross Range of Motion Upper Extremity ROM Assessment Within Functional Limits Lower Extremity ROM Assessment Within Functional Limits Strength Upper Extremity Strength Assessment Within Functional Limits Lower Extremity Strength Assessment Within Functional Limits Coordination Assessment Gross Coordination Gross Coordination WNL Sensation Assessment Sensation Gross Sensation WNL M7 PT-IP Assessment and Plan Start: 01/21/22 09:14 Freq: NEEDED Status: Active Protocol: Document 01/21/22 10:48 [facility] (Rec: 01/21/22 11:01 [facility] [id number]) PT Summary Assessment and Plan Potential Rehabilitation Potential Good Status of Condition at Evaluation Evolving Summary Impairments Activity Tolerance Assessment Summary Patient seen for PT evaluation due to weakness and decreased mobility resulting from pneumonia. Patient lives with his in [place], 2 stairs to enter. Previously did not use any assistive device, requested use of walker this am due to not being out of bed much past couple days. Patient usually sleeps with HOB elevated 30 deg per his report. He was able to ambulate in his room with CGA, FWW, and assist of CONSERVATION BIOLOGY PROFESSOR to manage IV and O2 lines for safety. No LOB, denied SOB. O2 sats at rest initially 88%, improved to 96% , then dropped to 87% after gait. He was instructed in breathing exercises with emphasis on full exhale, slowed pace, breath into ribcage and abdomen. He is highly motivated to be discharged home due to needs of his . Anticipate he will be able to be discharged home, possibly with home health. Goals Bed Mobility Goal Independent Transfer Goal Independent Gait Goal Independent Days to Meet Goals 3 Frequency of Treatment Frequency Of Treatment Once a Day Treatment Plan Physical Therapy Treatment Plan Bed Mobility Training,Transfer Training,Gait Training, Therapeutic Exercise Other Recommendations and Next Treatment consider trial cane for gait. Focus Discharge Recommendations PT Discharge Recommendations Home,Home Health Equipment Needed for Home Before possible assistive device. Discharge Transportation Needs at Discharge Private Vehicle
--- NOTE | 2022-01-21 11:34 | OT.IP.TRT ---
Current Diagnoses Sepsis, unspecified organism (01/20/22) Malignant neoplasm of unspecified part of right bronchus or lung (01/20/22) Malignant neoplasm of unspecified part of left bronchus or lung (01/20/22) Type 2 diabetes mellitus without complications (01/20/22) Hypo-osmolality and hyponatremia (01/20/22) Pneumonia, unspecified organism (01/20/22) Acute respiratory failure with hypoxia (01/20/22) Pressure ulcer of sacral region, unspecified stage (01/20/22) Occupational Therapy Treatment Note M2 OT-IP Current Condition Start: 01/20/22 13:39 Freq: Status: Active Protocol: Document 01/20/22 13:35 [facility] (Rec: 01/20/22 14:07 [facility] [id number]) Occupational Therapy Current Condition Current Condition Evaluation Date 01/20/22 Treatment Diagnosis Sepsis due to PNA, acute exacerbation of CHF Diagnosis Onset Date 01/20/22 M3 OT- IP Subjective and Pain Start: 01/20/22 13:39 Freq: Status: Active Protocol: Document 01/21/22 11:36 [facility] (Rec: 01/21/22 11:43 [facility] [id number]) OT- Subjective Occupational Therapy Visit Type Type Treatment Note Visit Start Time 11:25 Visit Stop Time 11:34 Total Visit Minutes 9 Occupational Therapy Visit Comments Patient Comments Pt states already showered earlier and just wanting to go home. Patient/Caregiver Goals TO go home. OT Pain Assessment Pain When Pain Assessed At Rest Pain Present Pain Present Pain Reported Location Sacrum Pain Behaviors Facial Grimacing,Moaning Management Techniques Re-positioning M4 OT- IP ADL's Start: 01/20/22 13:39 Freq: Status: Active Protocol: Document 01/20/22 13:35 [facility] (Rec: 01/20/22 14:07 [facility] [id number]) OT [id number] Comments OT Self-Feeding Comments not at meal time OT ADL-Grooming General Evaluation Grooming Ability Independent OT ADL-Oral Care Comments Oral Care Comments not performed OT ADL-Dressing General Eval Lower Body Dressing Ability Moderate Assistance Areas Needing Assistance Underpants/Brief Comments OT Dressing Comments JAYNE to help get the brief over his feet and up over his hips. OT ADL-Toileting General Evaluation Toileting Ability Moderate Assistance Areas Needing Assistance Manage Clothing,Perform Perineal Hygiene Comments OT Toileting Comments Assist to get his brief up over his hips and assist for completeness to wipe. OT ADL-Bathing Comments OT Bathing Comments NOt at this time. Pt would benefit from a shower chair at home to use. M5 OT- IP IADL's Start: 01/20/22 13:39 Freq: Status: Active Protocol: Document 01/20/22 13:35 [facility] (Rec: 01/20/22 14:07 [facility] [id number]) OT-Instrumental Activities of Daily Living Deficits IADL Deficits Identified No Deficits Home Safety Awareness Awareness of Need for Assistance at Home Good Awareness Ability to Problem Solve Emergency Able to Problem Solve Situations Medication Management Medication Management Comments Pt states does on his own. Money Management Money Management Comments Pt states does on his own. Meal Preparation Meal Preparation Caregiver Provides Assist Teleprinter Installer Teleprinter Installer Caregiver Provides Assist M6 OT- IP Functional Cognition Start: 01/20/22 13:39 Freq: Status: Active Protocol: Document 01/20/22 13:35 [facility] (Rec: 01/20/22 14:07 [facility] [id number]) Cognitive Factors Limiting Selfcare Function Cognitive Ability Level of Alertness Alert Patient Orientation Name,Age,Birthday,Month,Date, Year,Day of Week,Place, Situation Attention Span Ability Capable of Focused Attention, Capable of Sustained Attention Ability to Follow Commands Able to Follow One Step Commands Safety Awareness No Deficits Noted Problem Solving Ability No deficits Noted Cognitive Comments Cognitive Assessment Comments Pt appears at baseline for cognitive needs and no issues noted on OT eval. Pt would benefit from a shower chair and FWW but insistent on not getting items he does not need . OT- Vision and Hearing OT- Hearing Assessment OT- Hearing Assessment WFL OT- Vision Assessment Visual Acuity Glasses All The Time M7 OT- IP Mobility and Balance Start: 01/20/22 13:39 Freq: Status: Active Protocol: Document 01/21/22 11:36 [facility] (Rec: 01/21/22 11:43 [facility] [id number]) OT-Transfer Assessment Sit to and From Stand Sit to and from Stand Standby Assistance Comments Mobility Comments Pt trial on RA and at 99% and after two sit to stands drops to 88% and O2 replaced back on the pt. M8 OT- IP Objective Assessments Start: 01/20/22 13:39 Freq: Status: Active Protocol: Document 01/20/22 13:35 [facility] (Rec: 01/20/22 14:07 [facility] [id number]) OT-Muscle Tone Assessment Muscle Tone WNL Yes M9 OT- IP Assessment and Plan Start: 01/20/22 13:39 Freq: Status: Active Protocol: Document 01/21/22 11:36 [facility] (Rec: 01/21/22 11:43 [facility] [id number]) OT Summary Assessment and Plan Potential Rehabilitation Potential Good Analytic Complexity at Evaluation Moderate Summary OT Impairments Balance,Functional Mobility, Dressing,Toileting,Bathing, Toilet Transfers,Shower Transfers,Activity Tolerance Progress Towards Goals Progressing Toward Goals Assessment Summary Pt main barriers is O2 decreased with exertion. Pt states was able to shower but needing assist from nursing staff to complete. Suggested pt get a shower chair for home to use and FWW/4ww and equipment list given to pt , but pt insistent that he will not need anything when he gets home and just focused on going home. Pt to go home with assist when medically stable. Pt would benefit from home health. Goals Grooming Goal Independent Dressing Goal Independent Toileting Goal Independent Bathing Goal Independent Toilet Transfer Goal Independent Shower Transfer Goal Independent Days to Meet Goals 6 Frequency of Treatment Frequency Of Treatment Once a Day Treatment Plan OT Treatment Plan ADL Training,Functional Mobility,Patient/Family Education,Discharge Planning Discharge Recommendations OT Discharge Recommendations Home with Assistance, home health Home Equipment Needs shower chair,fww Transportation Needs at Discharge Private Vehicle
[2022-01-21] MEDS: INSULIN LISPRO 100 UNIT/ML 3ML VIAL SUBCUT ×3 (12:05→21:30)
[2022-01-21] MEDS: LINEZOLID 600 MG TABLET PO ×2 (15:58→21:27)
--- NOTE | 2022-01-21 16:22 | PC.NURSE ---
Pt is AxOx4, needs 1 person assistance and cooperative; VSS, pt denies pain; lungs diminished in all area and pt cough frequently. Phlegms is very thick and tenacious so pt has difficulty clear his secretions. Pt is on IV and PO ABX. Pt is on 1L O2 with NC and sats mid 90s. Dressing on his coccyx intact. BG-127/173. Vieyra is draining well. Pt refused PT today. No other change. Continue monitor.
[2022-01-21] MEDS: ATORVASTATIN 20 MG TABLET PO (21:27)
[2022-01-22 04:00] VITALS: BP 125/68; PULSE 60; RESP 18; TEMP 36.4; O2SAT 92
[2022-01-22] MEDS: PIPERACILLIN/TAZO 3.375 GM in SODIUM CHLORIDE 0.9% 100 ML IV ×2 (04:56→12:25)
[2022-01-22 07:06] LABS: Add Manual Diff / Slide Review YES; Hematocrit 27.1 % (41-53); Mean Corpuscular HGB Conc 33.2 % (30-36); Mean Corpuscular Hemoglobin 27.6 PG (26-34); Platelet Count 253 X10^3/uL (150-400); Red Blood Cell Count 3.26 X10^6/uL (4.5-5.9); Red Cell Distribution Width 19.7 % (11.6-14.8)
[2022-01-22 07:12] LABS: BUN Creatinine Ratio 24.7 (6-22); Blood Urea Nitrogen 18 mg/dL (9-20); Calcium 7.6 mg/dL (8.4-10.2); Carbon Dioxide 35 mmol/L (22-32); Chloride 93 mmol/L (98-107); Estimated Glomerular Filt Rate > 60 mL/min (>60); Glucose 149 mg/dL (80-110); HEMOLYSIS < 15 (0-50); Magnesium 1.6 mg/dL (1.6-2.3); Potassium 4.1 mmol/L (3.4-5.1); Sodium 132 mmol/L (137-145)
[2022-01-22 07:33] LABS: Anisocytosis 1+; Neutrophils Absolute Manual 4260 /uL (3000-5900); Nucleated Red Blood Cells 1 #/Diff; Schistocytes 1+; Total Cells Counted 100
[2022-01-22 07:57] VITALS: BP 150/65; PULSE 51; RESP 16; TEMP 35.8; O2SAT 91
[2022-01-22 08:37] VITALS: PULSE 48; RESP 18; O2SAT 92
[2022-01-22] MEDS: ALBUTEROL 2.5 MG/3 ML NEB (ADULT) INH ×2 (08:37→12:40)
[2022-01-22] MEDS: predniSONE 20 MG TABLET 40 MG PO (08:40)
[2022-01-22] MEDS: INSULIN LISPRO 100 UNIT/ML 3ML VIAL SUBCUT ×2 (08:40→12:00)
[2022-01-22] MEDS: FUROSEMIDE 40 MG/4 ML VIAL IV (08:40)
[2022-01-22] MEDS: LINEZOLID 600 MG TABLET PO (08:40)
[2022-01-22] MEDS: APIXABAN 5 MG TABLET 2.5 MG PO (08:40)
[2022-01-22] MEDS: METOPROLOL IR 50 MG TABLET PO (08:40)
[2022-01-22] MEDS: guaiFENesin ER 600 MG TAB PO (08:41)
[2022-01-22] MEDS: SODIUM CHLORIDE 0.9% FLUSH 10 ML IV (08:41)
[2022-01-22] MEDS: MAGNESIUM CHLORIDE 64 MG TABLET 128 MG PO (11:44)
[2022-01-22 11:55] VITALS: BP 111/51; PULSE 73; RESP 18; TEMP 35.8; O2SAT 94
[2022-01-22 12:40] VITALS: PULSE 63; RESP 18; O2SAT 94
--- NOTE | 2022-01-22 12:47 | CM.DPC ---
DCP Cont: Patient has discharge orders for today. Patient is to be going home on home oxygen. Respiratory Therapy is working with patient and he is currently having his nebs. Brought in his IMM form, and asked him again if he was interested in home health, nodded, declined. He did give thumbs up for care here in the hospital. P: Patient is to be discharging home today with home oxygen. RT is working on form to get this set up. No home health has been ordered, patient has declined. Miri Sheridan RN/Development Spec
--- NOTE | 2022-01-22 12:48 | P.DS_ITS ---
History of Present Illness History of Present Illness Date Patient Seen: 01/22/22 Time Patient Seen: 12:49 Chief complaint: SOB Narrative: 76M smoker with history of HTN, lung cancer with recent chemo (managed locally at [facility]) presents with a chief complaint of increasing shortness of breath and fatigue over the course of day.? He is had increasing cough productive of yellowish sputum from past 2-3 days.? He is not been hypoxemic at home but EMS found him to be in the 80s and put him on 2-4 L and on his arrival he was satting in the low 90s.? He denies any chest pain, fever or chills but complains of profound generalized weakness.? He has had swelling in his bilateral lower extremities and is in fact scheduled to have an appointment with his primary care provider later today for evaluation of the possible diagnosis of CHF.? Were now starting to him in the ER patient got short of breath and with minimal ambulation he seems to be in significant distress.? Patient denies any sick contacts.? Discharge Providers Provider Date of admission: 01/20/22 02:49 Discharge Date: 01/22/22 Primary care physician: Ivon Mckeon DO Consults: 01/20/22 04:28 Consult to Inpatient Wound Care Nurse Routine Comment: Reason for consultation: Pressure injury to coccyx & healing sores to elbows & UE's. Has provider been notified: No 01/20/22 06:31 Consult to Dietitian, Adult Urgent Comment: Reason For Exam: Skin assessment and recommendations Consult to Inpatient Wound Care Nurse Routine Comment: Reason for consultation: Sacral skin changes, further recommendations. Has provider been notified: No Consult to Wound Care Routine Comment: Consulting Provider: [facility] 01/20/22 11:01 Consult to Occupational Therapy Evaluate & Treat Comment: Physician Instructions: Evaluate and treat Consult to Physical Therapy Evaluate & Treat Comment: Physician Instructions: Evaluate and Treat Discharge provider: Ravi Jules DO Summary Hospital Course Discharge Diagnosis: # bilateral pneumonia mostly bacterial vs pulmonary pneumonitis with sepsis component resolved -Blood pressures have maintained okay at this time.? Consider IV? hydration if any tachycardia or hypotension episodes -Broad-spectrum antibiotics including MRSA and pseudomonal coverage.? Continue Zosyn, dc Vanco due to negative MRSA swab -Start po prednisone daily as patient on pembrolizumab which can cause pulmonary pneumonitis and treat for 7 days -sputum culture with MSSA and klebsiella, both sensitive to levaquin so will discharged on 1 additional week of po abx -blood cultures NGTD # history of COPD -chronic heavy smoker -requiring 2-3L NC at rest -sending home with O2 # Acute hypoxic respiratory failure 2/2 HFpEF exacerbation, COPD and PNA, improving -Breathing status seems to be improving, continue IV diuresis -echo on 01/20 with EF 60-65%, peripheral edema present -now on 2-3L O2 # Acute on chronic hyponatremia -SIADH vs hypervolemia -monitor # 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 Multani primary oncologist after the hospitalization, patient due for chemotherapy wed next week -Overall prognosis seems to be poor, patient is full code however # DM2 -A1c 9.7% on 01/20 -Diabetic diet, sliding scale insulin # sacral pressure ulcer, present on admission -Wound care for further assessment, recommendations -Continue skin care Hospital Course: Admitted for worsening dyspnea and productive cough. Received IV vanc and zosyn then changed to linezolid and zosyn. Sputum grew MSSA and klebsiella oxytoca both sensitive to levaquin. He was discharged on 1 additional week of levaquin to complete 10 days of abx. Prednisone started due to possible overlying pneumonitis from his chemo. He will receive 5 more days of this. His O2 was unab le to be weaned and he required 2-3L at rest so was sent home on oxygen. This is likely due to his underlying COPD, PNA and lung cancer. Time Spent with Patient Time spent: Greater than 30 minutes Exam Vital Signs (past 8 hours): - 01/22/22 07:57 01/22/22 08:37 01/22/22 07:00 Temperature 96.5 F L Pulse Rate 51 L 48 L Respiratory Rate 16 18 Blood Pressure 150/65 H Pulse Oximetry 91 92 Oxygen Delivery Method Nasal Cannula Nasal Cannula Oxygen Flow Rate 1.5 01/22/22 11:55 Temperature 96.4 F L Pulse Rate 73 Respiratory Rate 18 Blood Pressure 111/51 L Pulse Oximetry 94 Oxygen Delivery Method Oxygen Flow Rate 2 Fraction of Inspired Oxygen 24 SaO2/FiO2 Ratio 387 Oxygen Delivery Method Nasal Cannula Oxygen Flow Rate 2 Narrative Exam Narrative: GEN: no acute distress, frail appearing gentleman who is AOx3 HEENT: moist mucous membranes, PERRL NECK: trachea midline, no JVD CV: regular rate and rhythm, no murmurs PULM: coarse breath sound bilaterally ABD: soft, nontender, nondistended, no organomegaly EXT: warm and well perfused, 2+ edema to thighs NEURO: awake, alert, oriented, no focal deficits Objective Labs Result Diagrams: 01/22/22 06:48 01/22/22 06:48 Labs: Laboratory Results - last 24 hr 01/22/22 01/22/22 01/22/22 06:48 06:48 06:48 WBC 6.0 RBC 3.26 L Hgb 9.0 L Hct 27.1 L MCV 83.0 MCH 27.6 MCHC 33.2 RDW 19.7 H Plt Count 253 Neut % (Auto) Not Reportable Lymph % (Auto) Not Reportable [place] % (Auto) Not Reportable Eos % (Auto) Not Reportable Baso % (Auto) Not Reportable Lymph # (Auto) Not Reportable [place] # (Auto) Not Reportable Baso # (Auto) Not Reportable Total Counted 100 Seg Neutrophils % 69.0 Band Neutrophils % 2.0 L Lymphocytes % (Manual) 14.0 L Monocytes % (Manual) 8.0 Metamyelocytes % 1.0 H Myelocytes % 6.0 H Neutrophils # (Manual) 4260 Nucleated RBCs 1 H RBC Morphology See below Anisocytosis 1+ H Schistocytes 1+ H Sodium 132 L Potassium 4.1 Chloride 93 L Carbon Dioxide 35 H BUN 18 Creatinine 0.73 Estimated GFR > 60 BUN/Creatinine Ratio 24.7 H Glucose 149 H Calcium 7.6 L Magnesium 1.6 1.6 [facility] Medical History Atrial fibrillation Back problem Chicken pox Chronic back pain Diverticular disease (~1996) Duodenitis Hearing deficit Measles Mumps Plantar warts Pneumonia Sciatic nerve pain Tinnitus Type 2 diabetes mellitus Vision disorder Surgical History Anesthesia Fractures (~08/1962) History of colon surgery (~03/1997) History of tonsillectomy (~1947) Status post hernia repair (~2002) Family History Brother Cancer Grandmother Heart disease Mother Stroke Loud snoring Hypertension Brother No problems noted. Son No problems noted. Grandfather Loud snoring Sister No problems noted. Father Loud snoring Family/Other Hypertension Heart disease Alcohol abuse Substance abuse Social History household members: spouse Smoking Status: Current some day smoker alcohol intake: current substance use type: does not use eating out: 1-3 times/week Type(s) of exercise: none Discharge Plan Discharge Plan Patient Disposition: Home Provider Discharge Comment: We treated you for a pneumonia and you improved but will need to finish 1 more week of antibiotics. I've also given you a steroid to take called prednisone for the next 5 days. You can take this instead of your dexamethasone as they are similar which you take 3 days before your chemo. Discharge orders & Medications Prescriptions: New prednisone 20 mg Tablet 40 mg PO DAILY 5 Days Qty: 10 0RF levofloxacin 750 mg tablet 750 mg PO DAILY 7 Days Qty: 7 0RF Continued Eliquis 2.5 mg tablet 2.5 mg PO BID Qty: 60 1RF metformin 1,000 mg tablet 1,000 mg PO BID Qty: 180 3RF vitamin B complex [B Complex-Vitamin B12] 1 EACH tablet 1 tab PO QDAY Qty: 0 atorvastatin 20 mg tablet See Rx Instructions .ROUTE .COMPLEX Qty: 90 1RF Dose Instruction: TAKE ONE TABLET BY MOUTH ONCE DAILY AT BEDTIME Rx Instructions: TAKE ONE TABLET BY MOUTH ONCE DAILY AT BEDTIME amlodipine 5 mg tablet 5 mg PO DAILY Qty: 90 3RF metoprolol tartrate 50 mg tablet See Rx Instructions .ROUTE .COMPLEX Qty: 60 5RF Dose Instruction: TAKE ONE TABLET BY MOUTH TWO TIMES DAILY Rx Instructions: TAKE ONE TABLET BY MOUTH TWO TIMES DAILY multivitamin Tablet 1 tab PO DAILY folic acid 1 mg Tablet 1 mg PO DAILY Qty: 30 3RF Rx Instructions: Take one tablet daily ondansetron 8 mg Tablet,Disintegrating 8 mg PO Q6HR PRN (Reason: Nausea And Vomiting) Qty: 30 0RF Label Comments: has not required yet promethazine 25 mg Tablet 25 mg PO Q6H PRN (Reason: Nausea And Vomiting) Qty: 30 0RF Label Comments: has not required yet dexamethasone [Decadron] 4 mg Tablet 4 mg PO BID Qty: 30 0RF Rx Instructions: Take one tablet 2 times daily for 3 days prior to chemotherapy, repeat for each session of chemotherapy albuterol sulfate 90 mcg/actuation HFA aerosol inhaler 2 puff inhalation Q4-6H PRN (Reason: shortness of breath or wheezing) Qty: 8.5 0RF Follow up/Referrals: Ivon Mckeon DO [Primary Care Provider] - Discharge Data Primary Care Provider: Ivon Mckeon
--- NOTE | 2022-01-22 15:25 | PC.NURSE ---
Pt is AxOx4, needs STA and cooperative. VSS, pt is on 2L O2 at rest and needs 3L with activity. Pt was sent home with Oxygen. D/C instruction given to pt. No other changes. Pt is ready to d/c home.
== END 2022-01-22 15:29 | disposition home or self-care (01) | DRG 871 ==
LOC: ED 23:08 → AC 01-20 02:50
PROVIDERS: Student in an Organized Health Care Education/Training Program; Admitting Provider Family Medicine; Emergency Provider Emergency Medicine; PCP Family Medicine; Referring Provider Emergency Medicine; Visit Provider Family Medicine
DX: A41.9 Sepsis, unspecified organism (principal); J96.01 Acute respiratory failure with hypoxia; I50.33 Acute on chronic diastolic (congestive) heart failure; J15.0 Pneumonia due to Klebsiella pneumoniae; J15.211 Pneumonia due to Methicillin susceptible Staphylococcus aureus; E43 Unspecified severe protein-calorie malnutrition; E87.1 Hypo-osmolality and hyponatremia; C34.91 Malignant neoplasm of unspecified part of right bronchus or lung; R65.20 Severe sepsis without septic shock; L89.152 Pressure ulcer of sacral region, stage 2; J70.2 Acute drug-induced interstitial lung disorders; E11.9 Type 2 diabetes mellitus without complications; J44.9 Chronic obstructive pulmonary disease, unspecified; I11.0 Hypertensive heart disease with heart failure; F17.200 Nicotine dependence, unspecified, uncomplicated; Z68.23 Body mass index [BMI] 23.0-23.9, adult; Z20.822 Contact with and (suspected) exposure to COVID-19; Z79.84 Long term (current) use of oral hypoglycemic drugs
CPT/HCPCS: 36415; 36600; 71045; 71275; 80048; 80053; 82550; 82805; 82962; 83036; 83605; 83690; 83735; 83880; 84145; 84484; 85007; 85025; 85379; 85610; 87040; 87070; 87077; 87147; 87186; 87205; 87635; 87797; 93005; 93306; 94618; 94640; 94760; 94762; 96365; 96367; 96375; 97162; 97166; 97530; 99285; C9803; J1815; J1940; J1956; J2543; J7613; Q9967